=== PATIENT | male | born 1965 | race Caucasian/White ===

== ENCOUNTER 2020-12-29 13:40 | Inpatient (IN) | payer MEDICARE, MEDICAID, SELFPAY ==
[2020-12-29 14:15] VITALS: BMI 25.7
--- NOTE | 2020-12-29 14:55 | P.HP_ITS ---
Providers/Chief Complaint Admitting Physician: Jeromy Delgado MD Primary Care Provider: Tejinder Naranjo MD Chief Complaint: Diverticulitis History of Present Illness Yinka cMdaniels is a 55 year old male who presents as a transfer from [facility] with history of abdominal pain which he noticed around 3 AM this morning. He reports pain was rather severe, and he had a loose stool. No blood in his bowel movements. He has felt some chills but no documented fever. He reports yesterday he was doing fine and had no concerns. He denies any past history of diverticulitis. He reports no past history of constipation. He reports he has an occasional cough which is unchanged and consistent with his smoking. He denies any history of Covid, exposure to Covid or vaccination for it. He has had no vomiting. Review of Systems General: Reports: 10 or more systems reviewed and unremarkable except in HPI and below Const: Reports: chills; Denies: fever(s) Eyes: Denies: change in vision ENMT: Denies: throat pain Card: Denies: chest pain Resp: Denies: dyspnea GI: Reports: abdominal pain and nausea; Denies: vomiting, hematochezia or melena : Denies: flank pain Musc: Denies: neck pain Skin/Breast: Denies: rash Neuro: Denies: headache(s) Psych: Denies: anxiety or depression Endo: Denies: polyuria Jg/Lymph: Denies: easy bruising All/Imm: Denies: urticaria Medications/Allergies Home Medications Medication Instructions Recorded Confirmed Last Taken Type aspirin 325 mg tablet 325 mg PO DAILY 08/30/19 Unknown History famotidine 20 mg tablet 20 mg PO DAILY 08/30/19 Unknown History warfarin 5 mg tablet See Rx Instructions .ROUTE 05/23/20 Unknown Rx .COMPLEX #30 tab losartan 50 mg tablet See Rx Instructions .ROUTE 08/20/20 Unknown Rx .COMPLEX #90 tab carvedilol 12.5 mg tablet See Rx Instructions .ROUTE 09/26/20 Unknown Rx .COMPLEX #180 tab rosuvastatin 20 mg tablet 20 mg PO DAILY #90 tab 12/25/20 12/25/20 Unknown Rx warfarin 7.5 mg tablet See Rx Instructions .ROUTE 12/25/20 12/25/20 Unknown Rx .COMPLEX #90 tab Allergies Allergy/AdvReac Type Severity Reaction Status Date / Time No Known Allergies Allergy Verified 12/25/20 14:10 PFSH Acute PFSH: Medical History (Updated 12/29/20 @ 15:04 by Jeromy Delgado MD) Anticoagulation goal of INR 2 to 3 Atrial fibrillation CAD (coronary artery disease) GERD (gastroesophageal reflux disease) HTN (hypertension) Hyperlipidemia Ischemic cardiomyopathy Prostate cancer Surgical History (Updated 12/29/20 @ 14:58 by Jeromy Delgado MD) History of prostate biopsy S/P ICD (internal cardiac defibrillator) procedure Family History Other CHF (congestive heart failure) Social History Smoking and tobacco status: current every day smoker cigarettes Packs smoked per day: 0.5 Alcohol intake: current Alcohol intake frequency: holidays/special occasions only Vitals/I&O/Wt Weight last 48 hrs Weight 65.771 kg Physical Exam Narrative: EXAM NARRATIVE: General exam is a white male, with apparent abdominal pain HEENT: Atraumatic and normocephalic. Pupils equally round. Oropharynx clear. Neck is supple no lymphadenopathy or thyromegaly Cardiovascular regular rate and rhythm, no murmur Lungs bilateral expiratory wheezes Abdomen i some distention. A few bowel sounds are heard. Generalized tenderness. is deferred Extremities no cyanosis clubbing or edema, cap refill brisk Skin no rash Neuro no focal deficits Data Other data: CT abdomen pelvis or demonstrates severe diverticulitis with microperforation according to report from [facility]. Also has only one kidney, on the left. Urinalysis negative Lactate 2.0 Lipase normal, LFTs normal White blood cell count 15.3 hemoglobin 16.3 platelets 324 Glucose 157, sodium 141, potassium 5.0, bicarb 27, creatinine 0.8 A&P Assessment and plan (1) Acute diverticulitis: Severe, with concerns of peritonitis on CT scan. Hydration N.p.o. with exception to limited medications Pain control with morphine Nausea control with Zofran Secondary to severity of diverticulitis with microperforation will place on Primaxin Status: Acute (2) Leukocytosis: Secondary to above Status: Acute (3) On warfarin therapy: Hold Coumadin, in case surgical intervention is needed INR tomorrow Presumably the indication of this was atrial fibrillation in the past. Note that he is sinus rhythm currently on strips sent over from [facility]. Status: Acute (4) CAD (coronary artery disease): Continue home medications Status: Acute Qualifiers: Associated angina: without angina Coronary Disease-Associated Artery/Lesion type: [place] artery [place] vs. transplanted heart: [place] heart Qualified Code(s): I25.10 - Atherosclerotic heart disease of [place] coronary artery without angina pectoris (5) HTN (hypertension): Continue carvedilol. Hold HAYDER inhibitor. Consider restarting if becomes hypertensive Status: Acute Qualifiers: Hypertension type: essential hypertension Qualified Code(s): I10 - Essential (primary) hypertension Additional A&P Information Tobacco dependency. Counseled. Hyperlipidemia, continue home medicine History of prostate cancer Full code INR supratherapeutic on arrival. SCDs for DVT prophylaxis currently. Attestations Medical Necessity Statement*: Will need greater than 2 midnight stay for evaluation and treatment of acute diverticulitis. 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 transplanted heart: [place] heart HTN (hypertension) I10 Hypertension type: essential hypertension
[2020-12-29 15:16] VITALS: RESP 18
[2020-12-29] MEDS: sodium chloride 0.9% 1,000 ML 100 ML IV (15:16)
[2020-12-29] MEDS: morphine 4 mg/mL SDV 1 mL 2 MG IVP (15:16)
[2020-12-29] MEDS: famotidine 20 mg/2 mL INJ IVP (15:22)
[2020-12-29 15:35] VITALS: BP 109/69; PULSE 88; RESP 15; TEMP 37.1; O2SAT 92
[2020-12-29 16:06] VITALS: PULSE 87; RESP 17; O2SAT 91
[2020-12-29] MEDS: ipratropium-albuterol 3 mL Neb INHALATION (16:10)
--- NOTE | 2020-12-29 16:14 | PM.CONSULT ---
Providers/Reason For Consult Consulting Physician/Specialty*: Douglas Fink MD Reason for Consult*: Sigmoid diverticulitis Attending Physician: Jeromy Delgado MD Primary Care Provider: Tejinder Naranjo MD History of Present Illness History of Present Illness Chief Complaint: Abdominal pain History of present illness: Yinka Mcdaniels is a 55 year old male presents with history of acute onset of abdominal pain around 3:00 in the morning today as he went to the emergency department outside facility where a CT scan of the abdomen and pelvis was done and showed severe diverticulitis with microperforation and no evidence of abscess involving the proximal sigmoid colon. In addition to close association with the distal ileum with pockets of extraluminal air but no evidence of abscess. She undergone lab work that showed leukocytosis of 15.3, hemoglobin of 16.3, platelets 324, creatinine 0.8 and lactic acid of 2.0 and INR value of 3.9, patient has been on chronic warfarin therapy for history of atrial fibrillation and in addition to aspirin daily. A request of transfer to our facility was initiated and Dr. Delgado accepted the transfer as he did discuss the case with me prior to transfer for potential surgical consultation and follow-up on patient's clinical progress. Patient got admitted on the hospitalist service for medical management of medical comorbidities and general surgery was consulted for further evaluation. She reports that he never had episodes like that before showing diverticulitis yet he did have couple episodes before with lower abdominal pain but never had a CT scan, so patient reports when I asked him he never had a colonoscopy before and he denies history of colon cancer. He does report to me history of robotic surgery for prostate pathology. No evidence of constitutional symptoms except for some chills but no fevers and patient reports loose nonbloody stools Review of Systems General: Reports: 10 or more systems reviewed and unremarkable except in HPI and below Meds/Allergies Home Medications and Allergies Home Medications Medication Instructions Recorded Confirmed Last Taken Type aspirin 325 mg tablet 325 mg PO DAILY 08/30/19 Unknown History famotidine 20 mg tablet 20 mg PO DAILY 08/30/19 Unknown History warfarin 5 mg tablet See Rx Instructions .ROUTE 05/23/20 Unknown Rx .COMPLEX #30 tab rosuvastatin 20 mg tablet 20 mg PO DAILY #90 tab 12/25/20 12/25/20 Unknown Rx warfarin 7.5 mg tablet See Rx Instructions .ROUTE 12/25/20 12/25/20 Unknown Rx .COMPLEX #90 tab carvedilol 12.5 mg PO Q12H 12/29/20 12/29/20 Unknown History losartan 50 mg PO DAILY 12/29/20 12/29/20 Unknown History Allergies Allergy/AdvReac Type Severity Reaction Status Date / Time No Known Allergies Allergy Verified 12/29/20 16:15 Current Medications Current Medications Generic Name Dose Route Start Last Admin Trade Name Freq PRN Reason Stop Dose Admin Albuterol/Ipratropium 3 ml 12/29/20 14:54 12/29/20 16:10 Ipratropium-Albuterol 3 Ml Neb INHALATION 3 ml Q4H PRN Administration SHORTNESS OF BREATH Famotidine 20 mg 12/29/20 15:00 12/29/20 15:22 Famotidine 20 Mg/2 Ml Inj IVP 20 mg Q12H AZAEL Administration Sodium Chloride 1,000 mls @ 100 mls/hr 12/29/20 15:00 12/29/20 15:16 Sodium Chloride 0.9% IV 100 mls/hr .Q10H AZAEL Administration Morphine Sulfate 2 mg 12/29/20 14:49 12/29/20 15:16 Morphine 4 Mg/Ml Sdv 1 Ml IVP 2 mg Q4H PRN Administration SEVERE PAIN PFSH Acute PFSH: Medical History Anticoagulation goal of INR 2 to 3 Atrial fibrillation CAD (coronary artery disease) GERD (gastroesophageal reflux disease) HTN (hypertension) Hyperlipidemia Ischemic cardiomyopathy Prostate cancer Surgical History History of prostate biopsy S/P ICD (internal cardiac defibrillator) procedure Family History Other CHF (congestive heart failure) Social History Smoking and tobacco status: current every day smoker cigarettes Packs smoked per day: 0.5 Alcohol intake: current Alcohol intake frequency: holidays/special occasions only Vitals/I&O/Wt Last Vital Signs Temp 98.8 F 12/29/20 15:35 Pulse 87 12/29/20 16:06 Resp 17 12/29/20 16:06 BP 109/69 12/29/20 15:35 Pulse Ox 91 12/29/20 16:06 Weight last 48 hrs Weight 145 lb Physical Exam Narrative: EXAM NARRATIVE: Patient is conscious alert oriented X3 BMI 26 Head and neck examination PERRLA no masses no cervical lymphadenopathy no jaundice Cardiac examination audible S1-S2 no murmurs no gallops no arrhythmias Chest is clear bilateral,abscence of Rhonchi or wheezes,no surgical emphysema Abdomen diffusely tender with maximal tenderness towards the right lower quadrant and suprapubic region, moderately distended otherwise soft no organomegal. Extremities no cyanosis no clubbing no edema A&P Assessment and plan (1) Acute diverticulitis: After thorough history physical examination and reviewing the chart and images of the CT scan of the abdomen pelvis with my personal interpretation and further discussing the CT scan images with Dr. Bedolla radiologist, patient does have intense acute inflammatory process involving the sigmoid colon with microperforation and involvement of the surrounding small bowel particularly the terminal ileum and obvious mesenteric edema and inflammation of the surrounding small bowel as well. From surgical standpoint of view we will follow on the patient clinical progress Patient already placed on IV antibiotic in the form of Primaxin. IV pain medication ice packs to help to ease the pain Will hope that conservative management will help the patient yet if clinical deterioration is appreciated patient would likely require surgical intervention and there is a very good chance that he will end up by [facility] procedure with sigmoid colectomy and colostomy. We will follow on morning labs We will continue coordinating with the hospitalist service Assurance and education All questions have been answered and all concerns have been addressed to patient's satisfaction. Thank you for consulting general surgery to participate taking care Status: Acute Consult Attestations Medical Necessity Statement: Patient will require inpatient hospitalization passing 2 midnights for medical and surgical care Time Spent in Patient Care: 16 - 35 minutes (>than 50% of time spent in counselling and/or direct pt care on unit). 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
[2020-12-29 16:15] VITALS: PULSE 88
[2020-12-29] MEDS: carvedilol 12.5 mg Tablet PO (17:08)
[2020-12-29] MEDS: ketorolac 30 mg/mL INJ 15 MG IVP (18:12)
[2020-12-29 20:00] VITALS: BP 123/79; PULSE 84; RESP 18; TEMP 36.9; O2SAT 90
--- NOTE | 2020-12-29 20:09 | PC.RESP ---
Smoking Cessation information sent to patient.
[2020-12-29 20:33] VITALS: PULSE 87; RESP 16; O2SAT 92
[2020-12-30] VITALS (18 sets, daily range): BP systolic 125–145; BP diastolic 62–85; PULSE 68–88; RESP 16–20; TEMP 36.8–37.2; O2SAT 91–98
[2020-12-30] MEDS: sodium chloride 0.9% 1,000 ML 100 ML IV (00:08)
[2020-12-30] MEDS: ondansetron 2 mg/ML SDV 2 mL 4 MG IVP (00:24)
[2020-12-30] MEDS: morphine 4 mg/mL SDV 1 mL 2 MG IVP ×2 (00:24→06:18)
[2020-12-30] MEDS: famotidine 20 mg/2 mL INJ IVP ×2 (03:43→16:39)
[2020-12-30] MEDS: ipratropium-albuterol 3 mL Neb INHALATION ×4 (05:30→21:56)
--- NOTE | 2020-12-30 06:14 | PM.PN ---
Subjective Subjective: Interval history: Patient continues to have muscle spasms and abdominal pain with every time he coughs, I did order one dose of Toradol 15 mg IV one-time yesterday evening and that seemed to help some. Continues to have stable vital signs and good urine output Medications: Reviewed: Yes Vitals/I&O/Wt Last Vital Signs Temp 98.9 F 12/30/20 05:15 Pulse 87 12/30/20 05:38 Resp 18 12/30/20 05:29 BP 145/79 12/30/20 05:15 Pulse Ox 92 12/30/20 05:29 12/29/20 12/29/20 12/30/20 14:59 22:59 06:59 Intake Total 100 / 100 986.667 / 1086.667 Output Total 0 / 0 Balance 100 / 100 986.667 / 1086.667 Weight last 48 hrs Weight 145 lb Physical Exam Narrative: EXAM NARRATIVE: Patient is conscious alert oriented X3 BMI 26 Head and neck examination PERRLA no masses no cervical lymphadenopathy no jaundice Cardiac examination audible S1-S2 no murmurs no gallops no arrhythmias Chest bilateral rhonchi Abdomen LESS diffusely tender with maximal tenderness towards suprapubic region, moderately distended otherwise soft no organomegal. Extremities no cyanosis no clubbing no edema Data : 12/30/20 05:53 12/30/20 05:53 A&P Assessment and plan (1) Acute diverticulitis: Continue n.p.o. and IV fluid resuscitation IV antibiotics A.m. labs are pending and INR is added We will order Flexeril 10 mg p.o. every 8 hours as needed We will give Toradol another 15 mg IV once as it did seem to help some, patient received 1 dose yesterday evening Incentive spirometer every hour Continue nebs per RT and breathing treatment Repeated physical examination Thank you for consulting general surgery to participate taking care Status: Acute Attestations Medical Necessity Statement*: patient requiring inpatient hospitalization for medical and surgical care Time Spent in Patient Care: (>than 50% of time spent in counselling and/or direct pt care on unit). 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
[2020-12-30 06:21] LABS: Basophils # 0.1 10^3/uL (0.0-0.1); Basophils % 0.7 %; Eosinophils # 0.1 10^3/uL (0.0-0.8); Eosinophils % 0.9 %; Hematocrit 44.5 % (42.0-52.0); Hemoglobin 13.6 g/dL (11.7-16.6); Lymphocytes # 1.2 10^3/uL (0.8-4.8); Lymphocytes % 7.7 %; Mean Corpuscular HGB Conc 30.6 g/dL (30.0-36.0); Mean Corpuscular Hemoglobin 29.6 pg (28.0-34.0); Mean Corpuscular Volume 96.9 fL (80-94); Mean Platelet Volume 10.2 fL (7.4-10.4); Monocytes # 0.6 10^3/uL (0.2-0.9); Monocytes % 3.8 %; Neutrophils # 13.67 10^3/uL (1.8-7.7); Nucleated Red Blood Cells % 0 %; Platelet Count 205 10^3/cmm (130-400); Red Blood Count 4.59 10^6/uL (4.1-5.3); White Blood Count 15.9 10^3/uL (4.0-10.0)
[2020-12-30] MEDS: cyclobenzaprine 10 mg Tablet PO ×2 (06:21→21:36)
[2020-12-30 06:37] LABS: INR 2.99 (0.8-1.2)
[2020-12-30 06:53] LABS: Albumin Level 3.4 g/dL (3.5-5.2); Alkaline Phosphatase 64 IU/L (40-130); Blood Urea Nitrogen 17 mg/dL (6-20); Calcium 8.1 mg/dL (8.5-10.5); Carbon Dioxide 18 mmol/L (22-29); Chloride 104 mmol/L (98-107); Globulin 3.2 g/dL (1.3-4.6); Glomerular Filtration Rate 139.4 mL/min (90-130); Glucose 118 mg/dL (65-115); Osmolality Calculated 283 mOsm/kg (285-295); Sodium 135 mmol/L (136-145); Total Bilirubin 0.4 mg/dL (0.15-1.2); Total Protein 6.6 g/dL (6.6-8.7)
[2020-12-30 06:57] LABS: Alanine Aminotransferase 23 U/L (0-41); Anion Gap 17.8 (5-19); Aspartate Amino Transferase 21 U/L (0-40); Potassium 4.8 mmol/L (3.5-5.1)
[2020-12-30] MEDS: aspirin 325 mg EC Tablet PO (08:25)
[2020-12-30] MEDS: carvedilol 12.5 mg Tablet PO ×2 (08:25→17:57)
--- NOTE | 2020-12-30 08:54 | USCV_ITS ---
Arslan Yinka Age: 55 Gender: M : 1965 Exam Date: 12/30/2020 12:49 Ordering Phys: Clarence Luz MD Technologist: Yue Douglass [place] [facility] [place]: On coumadin, LV thrombus vs afib BP: 136 / 74 HR: 78 Rhythm: Sinus Technical Quality: Technically difficult study MEASUREMENTS (Male / Female) Normal Values 2D ECHO LV Diastolic Diameter PLAX 4.2 cm 4.2 - 5.9 / 3.9 - 5.3 cm LV Systolic Diameter PLAX 3.2 cm LV Chamber Size 4.1 cm IVS Diastolic Thickness 1.2 cm 0.6 - 1.0 / 0.6 - 0.9 cm IVS Systolic Thickness 1.2 cm LVPW Diastolic Thickness 1.1 cm 0.6 - 1.0 / 0.6 - 0.9 cm LVPW Systolic Thickness 1.2 cm RV Chamber Size 2.2 cm LVOT Diameter 1.9 cm LV Ejection Fraction 2D Teich 48.4 % LV Ejection Fraction MOD 2C 33.1 % LV Ejection Fraction 2C AL 33.5 % LA Diameter 2.4 cm LA Width 3.2 cm LA Height 5.0 cm RA Width 2.5 cm RA Height 3.9 cm Aorta at Sinotubular Diameter 1.9 cm M-MODE LV Diastolic Diameter MM 5.7 cm 4.2 - 5.9 / 3.9 - 5.3 cm LV Systolic Diameter MM 4.7 cm LV Ejection Fraction MM Teich 35.4 % IVS Diastolic Thickness MM 0.8 cm 0.6 - 1.0 / 0.6 - 0.9 cm IVS Systolic Thickness MM 0.8 cm LVPW Diastolic Thickness MM 1.3 cm 0.6 - 1.0 / 0.6 - 0.9 cm LVPW Systolic Thickness MM 1.4 cm Aortic Annulus Diameter 2.6 cm LA Ao Ratio MM 0.9 MV E Point Septal Separation 0.9 cm DOPPLER AV Peak Velocity 120.0 cm/s LVOT Peak Velocity 82.0 cm/s AV Area Cont Eq vti 1.9 cm squared AV Area Cont Eq pk 2.0 cm squared MV Area PHT 5.0 cm squared Mitral E to A Ratio 1.3 MV E' Velocity 57.5 cm/s Mitral E to MV E' Ratio 13.2 Mitral E to LV E' Lateral Ratio 13.7 Mitral E to LV E' Septal Ratio 12.8 TR Peak Velocity 239.0 cm/s TR Peak Gradient 22.8 mmHg TV Peak E Velocity 100.0 cm/s PV Peak Velocity 81.0 cm/s RV Acceleration Time 0.1 s RV Ejection Time 0.3 s RV AcT/ET 0.4 FINDINGS Left Ventricle Mildly dilated LV cavity. Diffuse hypokinesia of the septum, anteroseptum and the LV apex. LV ejection fraction of 37%. No filling defects or evidence of intracavitary thrombus Right Ventricle Catheter/pacemaker wire in the right ventricular cavity. Right Atrium Catheter/pacemaker wire in the right atrial cavity. Left Atrium Mildly increased left atrial size. Mitral Valve No gross abnormalities noted Aortic Valve No gross abnormalities noted Tricuspid Valve No gross abnormalities noted Pulmonic Valve Pulmonic valve not well visualized. Pericardium No pericardial effusion. Aorta Normal aortic annulus size. CONCLUSIONS Mildly dilated LV cavity. Diffuse hypokinesia of the septum, anteroseptum and the LV apex. LV ejection fraction of 37%. No gross valvular abnormalities noted. No significant pericardial effusion. Pacemaker wire in the right atrium/right ventricle No evidence of LV thrombus based on the contrast echocardiogram Technically difficult study because of the poor ultrasonic window. Contrast echocardiogram was performed to evaluate the LV Dr Kevon Eli MD FAC (Electronically Signed) Final Date: 31 December 2020 10:41 S
--- NOTE | 2020-12-30 10:09 | XRR_ITS ---
PROCEDURE INFORMATION: Exam: XR Chest Exam date and time: 12/30/2020 10:09 AM Age: 55 years old Clinical indication: Shortness of breath; Prior surgery; Surgery type: Pacemaker; Additional info: SOB TECHNIQUE: Imaging protocol: XR of the chest. Views: 1 view. COMPARISON: CT abdomen pelvis w con* [id number] 12/29/2020 8:18 AM FINDINGS: Tubes, catheters and devices: Two lead pacemaker device. Lungs: Unremarkable. No consolidation. Pleural spaces: Unremarkable. No pleural effusion. No pneumothorax. Heart/Mediastinum: Unremarkable. No cardiomegaly. Bones/joints: Unremarkable. Gastrointestinal tract: There are air-filled nondilated small bowel loops in the upper abdomen. XR/XR chest 1V portable [id number] IMPRESSION: No evidence for acute cardiopulmonary disease.
[2020-12-30 10:11] LABS: Estmated Average Glucose 114; Hemoglobin A1C 5.6 % (4.0-6.0)
[2020-12-30 11:04] LABS: NT Pro B Type Natriuretic Pept 972 pg/mL (0-125)
[2020-12-30] MEDS: ketorolac 30 mg/mL INJ 15 MG IVP (12:34)
[2020-12-30] MEDS: acetaminophen 325 mg Tablet 650 MG PO (12:34)
[2020-12-30] MEDS: dextrose 5%-sod chloride 0.45% 1,000 ML 50 ML IV (12:38)
--- NOTE | 2020-12-30 12:47 | P.PN_ITS ---
Subjective Subjective: Interval history: This morning patient was examined, he tells me that he continues to have abdominal pain, he had a bowel movement this morning it was liquidy, he is passing gas, no fevers, no chills, he does complain of some shortness of breath, he does not use oxygen at home, but is on 2 L here, Vitals/I&O/Wt Last Vital Signs Temp 98.4 F 12/30/20 11:50 Pulse 75 12/30/20 11:50 Resp 18 12/30/20 11:50 BP 136/74 12/30/20 11:50 Pulse Ox 97 12/30/20 11:50 12/29/20 12/30/20 12/30/20 22:59 06:59 14:59 Intake Total 100 / 100 986.667 / 9791.279 2173 / 1050 Output Total 0 / 0 Balance 100 / 100 986.667 / 5901.792 6310 / 1050 Weight last 48 hrs Weight 65.771 kg Physical Exam Const: COMMON NORMALS: no acute distress and patient oriented x3 Resp: COMMON NORMALS: normal respiratory effort, No retractions and No use of accessory muscles AUSCULTATION: crackles Cardio: COMMON NORMALS: regular rate, regular rhythm, S1 normal heart sound present and S2 normal heart sound present RATE: regular rate RHYTHM: regular rhythm HEART SOUNDS: S1 normal heart sound present and S2 normal heart sound present GI: COMMON NORMALS: Normal to inspection, nondistended, normoactive bowel s ounds present and no bruits AUSCULTATION: Yes Hypoactive bowel sounds present PALPATION: Yes Tenderness to palpation present (GI) (Generalized tenderness), No Guarding due to palpation present (GI) and No Rigid due to palpation Extremity: NARRATIVE EXTREMITY EXAM: 1+ edema Neuro: COMMON NORMALS: patient oriented x3 Psych: COMMON NORMALS: mental status grossly normal Data : 12/30/20 05:53 12/30/20 05:53 A&P Assessment and plan (1) Acute diverticulitis: Severe, with concerns of peritonitis on CT scan. Hold hydration for now given concerns for fluid overload N.p.o. with exception to limited medications Pain control transition to Dilaudid Nausea control with Zofran General surgery on consult Secondary to severity of diverticulitis with microperforation will place on Primaxin Status: Acute (2) Leukocytosis: Secondary to above Status: Acute (3) On warfarin therapy: Hold Coumadin, in case surgical intervention is needed INR 2.99 Presumably the indication of this was atrial fibrillation in the past versus atrial thrombus. Note that he is sinus rhythm currently on strips sent over from [facility]. We will do a cardiac echocardiogram was supposed to be done in January Status: Acute (4) CAD (coronary artery disease): Continue home medications Status: Acute Qualifiers: Coronary Disease-Associated Artery/Lesion type: [place] artery [place] vs. transplanted heart: citizen [place] heart Associated angina: without angina Qualified Code(s): I25.10 - Atherosclerotic heart disease of [place] coronary artery without angina pectoris (5) HTN (hypertension): Continue carvedilol. Hold HAYDER inhibitor. Consider restarting if becomes hypertensive Status: Acute Qualifiers: Hypertension type: essential hypertension Qualified Code(s): I10 - Essential (primary) hypertension (6) Ischemic cardiomyopathy: -Has evidence of fluid overload including crackles on exam, 2 L, 1+ pitting edema, BNP over 900, checks x-ray pending -Fluids were initially de-escalating to 50 cc/h, but continues to have crackles on exam, -Hold fluid therapy for now -Monitor respiratory status -40 mg IV Lasix with potassium replacement Status: Acute (7) Abnormal lead impedance of implantable cardioverter-defibrillator: Status: Acute Qualifiers: Encounter type: initial encounter Qualified Code(s): T82.190A - Other mechanical complication of cardiac electrode, initial encounter Additional A&P Information Tobacco dependency. Counseled. Hyperlipidemia, continue home medicine History of prostate cancer Full code INR 2.99. SCDs for DVT prophylaxis currently. Attestations Medical Necessity Statement*: Patient requires hospitalization for acute diverticulitis, with evidence of fluid overload, hypoxia Coding Level of Care Code Acute Acute Care Physician for [facility] Diagnoses Acute diverticulitis K57.92 Leukocytosis D72.829 On warfarin therapy Z79.01 CAD (coronary artery disease) I25.10 Coronary Disease-Associated Artery/Lesion type: [place] artery [place] vs. transplanted heart: citizen [place] heart Associated angina: without angina HTN (hypertension) I10 Hypertension type: essential hypertension Ischemic cardiomyopathy I25.5 Abnormal lead impedance of implantable cardioverter-defibrillator T82.190A Encounter type: initial encounter
[2020-12-30] MEDS: potassium chloride ER 20 mEq Tablet 40 MEQ PO (13:55)
[2020-12-30] MEDS: FUROsemide 10 mg/mL SDV 4mL 40 MG IVP (13:55)
[2020-12-30] MEDS: perflutren protein-a microsphr 0.22 mg/mL SDV 3 mL IV (13:57)
[2020-12-30] MEDS: HYDROmorphone 1 mg/mL INJ 1 mL 0.5 MG IVP (17:56)
[2020-12-30] MEDS: atorvastatin 40 mg Tablet PO (21:35)
[2020-12-31] VITALS (16 sets, daily range): BP systolic 127–155; BP diastolic 76–89; PULSE 79–88; RESP 16–20; TEMP 36.4–37.2; O2SAT 90–93
[2020-12-31] MEDS: HYDROmorphone 1 mg/mL INJ 1 mL 0.5 MG IVP ×4 (01:24→23:14)
[2020-12-31] MEDS: famotidine 20 mg/2 mL INJ IVP ×2 (03:04→17:02)
--- NOTE | 2020-12-31 06:38 | PM.PN ---
Subjective Subjective: Interval history: Patient reports that he is feeling better since admission and since he started to encounter the acute onset of abdominal pain. But still feels sore, continues to have stable vital signs and no fevers, passing gas and have some stools Medications: Reviewed: Yes Vitals/I&O/Wt Last Vital Signs Temp 98.2 F 12/31/20 04:00 Pulse 79 12/31/20 04:00 Resp 16 12/31/20 04:00 BP 141/84 12/31/20 04:00 Pulse Ox 92 12/31/20 04:00 12/30/20 12/30/20 12/31/20 14:59 22:59 06:59 Intake Total 1050 / 1050 160 / 1210 100 / 1310 Output Total 375 / 375 400 / 775 500 / 1275 Balance 675 / 675 -240 / 435 -400 / 35 Weight last 48 hrs Weight 145 lb Physical Exam Narrative: EXAM NARRATIVE: Patient is conscious alert oriented X3 Nasal cannula BMI 26 Head and neck examination PERRLA no masses no cervical lymphadenopathy no jaundice Cardiac examination audible S1-S2 no murmurs no gallops no arrhythmias Chest clear in comparison Abdomen LESS diffusely tender otherwise soft and no signs of peritonitis Data : 12/31/20 06:58 12/31/20 06:58 A&P Assessment and plan (1) Acute diverticulitis: We will start the patient on popsicles and continue ice Continue parenteral IV antibiotics Patient does have an ejection fraction of 25%, I did discuss with the patient that he is at higher risk for any surgical intervention, certainly he will benefit from cessation of smoking and medical optimization per cardiac services shall we decide to proceed with surgery at some point. Upon discharge patient would benefit from a colonoscopy in 6 to 8 weeks Continue nebs per RT and breathing treatment Repeated physical examination If patient's leukocytosis continue to be rising likely would repeat the CT scan with oral and IV contrast to rule out potential underlying abscess formation it may require percutaneous drainage. We will continue coordinating with hospitalist service Thank you for consulting general surgery to participate taking care Status: Acute Attestations Medical Necessity Statement*: patient requiring inpatient hospitalization for medical and surgical care Time Spent in Patient Care: (>than 50% of time spent in counselling and/or direct pt care on unit). Coding Level of Care Code Acute Child Development Specialist for Chg Fwd Diagnoses Acute diverticulitis K57.92
--- NOTE | 2020-12-31 07:00 | XRR_ITS ---
PROCEDURE INFORMATION: Exam: XR Chest Exam date and time: 12/31/2020 7:00 AM Age: 55 years old Clinical indication: Shortness of breath; Prior surgery; Surgery type: Pacemaker; Additional info: SOB TECHNIQUE: Imaging protocol: XR of the chest. Views: 1 view. COMPARISON: CR (CHEST, ) 12/30/2020 3:23 PM FINDINGS: Tubes, catheters and devices: A permanent sequential pacemaker appears intact. Lungs: Unremarkable. No consolidation. Pleural spaces: Unremarkable. No pleural effusion. No pneumothorax. Heart/Mediastinum: The heart is normal for the AP projection. Bones/joints: Unremarkable. XR/XR chest 1V portable [id number] IMPRESSION: No acute cardiopulmonary abnormality.
[2020-12-31] MEDS: ipratropium-albuterol 3 mL Neb INHALATION ×2 (07:42→15:39)
[2020-12-31 07:54] LABS: Basophils % 0.2 %; Eosinophils % 0.2 %; Hematocrit 45.8 % (42.0-52.0); Hemoglobin 14.5 g/dL (11.7-16.6); Lymphocytes # 1.2 10^3/uL (0.8-4.8); Lymphocytes % 6.7 %; Mean Corpuscular HGB Conc 31.7 g/dL (30.0-36.0); Mean Corpuscular Hemoglobin 29.2 pg (28.0-34.0); Mean Corpuscular Volume 92.2 fL (80-94); Monocytes # 0.9 10^3/uL (0.2-0.9); Neutrophils # 15.28 10^3/uL (1.8-7.7); Nucleated Red Blood Cells % 0 %; Platelet Count 242 10^3/cmm (130-400); Red Blood Count 4.97 10^6/uL (4.1-5.3); White Blood Count 17.6 10^3/uL (4.0-10.0)
[2020-12-31 08:08] LABS: INR 2.89 (0.8-1.2)
[2020-12-31 08:23] LABS: NT Pro B Type Natriuretic Pept 782 pg/mL (0-125); Procalcitonin 3.49 ng/mL (0-0.5)
[2020-12-31 08:34] LABS: Alanine Aminotransferase 18 U/L (0-41); Albumin Level 3.6 g/dL (3.5-5.2); Alkaline Phosphatase 68 IU/L (40-130); Aspartate Amino Transferase 12 U/L (0-40); Blood Urea Nitrogen 20 mg/dL (6-20); Calcium 8.9 mg/dL (8.5-10.5); Carbon Dioxide 21 mmol/L (22-29); Chloride 101 mmol/L (98-107); Globulin 3.6 g/dL (1.3-4.6); Glucose 127 mg/dL (65-115); Magnesium 2.1 mg/dL (1.7-2.3); Osmolality Calculated 288 mOsm/kg (285-295); Phosphorus 2.5 mg/dL (2.5-4.5); Sodium 137 mmol/L (136-145); Total Bilirubin 0.4 mg/dL (0.15-1.2); Total Protein 7.2 g/dL (6.6-8.7)
[2020-12-31] MEDS: cyclobenzaprine 10 mg Tablet PO ×2 (11:09→18:00)
[2020-12-31] MEDS: carvedilol 12.5 mg Tablet PO ×2 (11:09→17:02)
[2020-12-31] MEDS: aspirin 325 mg EC Tablet PO (11:09)
--- NOTE | 2020-12-31 12:11 | PC.CHAP ---
Pastoral Care Encounter/Spiritual Assessment Type of Contact [] Declined mind reader visit [] Patient/Family/Request visit [] Outpatient visit [] Follow-up visit [] Physician referral [] Code/Alert [XX] Routine visit [] Staff referral [] Actively dying [XX] Patient sleeping [] Family support [] [] Out of room [] Palliative care [] [] Receiving care in room [] Pre-surgical visit [] Trauma [] Long length of stay [] ICU visit [] Other: Relational/Emotional Strength [] Patient feels connected with others/family/visitors/staff [] Distress [] Loneliness/isolation [] Abandonment Spirituality of Patient [] Person of Lydia [] Attends Taoist of their Lydia [] Believes in Prayer [] Reads Bible or Tenriism materials [] There are Spiritual issues to be addressed [employer] Interventions [] Prayer [] Active listening [] Non-anxious presence [] Spiritual/emotional support [] Crisis/trauma care [] Spiritual counseling [] Bereavement support [] Provided bereavement packet [] Provided Bible/devotional materials [] Provided toy/stuffed animal, coloring book to patient or family member [] Provided Communion [] Anointing/Nathalie [] Salvation [] Completed spiritual assessment [] Other: Impact on Illness or Injury [] Angry [] Fearful [] Anxious [] Often cries [] Exhaustion [] Unable to work [] Unable to attend restorationist [] Unable to walk/stand [] Unable to read [] Unable to drive [] Unable to eat/drink [] Unable to sleep [] Unable to be with family [] Patient intubated [] Other: Summary Time spent with patient
--- NOTE | 2020-12-31 15:28 | PM.PN ---
Subjective Subjective: Interval history: Abdominal pain still bothering him with pain, distention, but slowly getting better. Having some sweats. He is having loose stools. States no trouble with urinating. Some belching. Tolerating ice chips to which was advanced by surgery earlier today. States he feels hungry. Vitals/I&O/Wt Last Vital Signs Temp 98.4 F 12/31/20 12:00 Pulse 82 12/31/20 12:00 Resp 16 12/31/20 12:00 BP 128/82 12/31/20 12:00 Pulse Ox 92 12/31/20 12:00 12/31/20 12/31/20 12/31/20 06:59 14:59 22:59 Intake Total 100 / 1310 340 / 340 Output Total 500 / 1275 150 / 150 Balance -400 / 35 190 / 190 Physical Exam Const: COMMON NORMALS: no acute distress and patient oriented x3 HENMT: COMMON NORMALS: oropharynx normal Neck/C-Spine: COMMON NORMALS: no JVD Resp: COMMON NORMALS: normal respiratory effort and clear to auscultation bilaterally AUSCULTATION: clear to auscultation bilaterally Cardio: COMMON NORMALS: no JVD, regular rhythm, S1 normal heart sound present, S2 normal heart sound present and No murmurs present (Cardio) RHYTHM: regular rhythm HEART SOUNDS: S1 normal heart sound present and S2 normal heart sound present GI: COMMON NORMALS: Normal to inspection, nondistended, normoactive bowel sounds present, Soft to palpation and non-tender INSPECTION: Yes abdominal distension PALPATION: Yes Soft to palpation and Yes Tenderness to palpation present (GI) Extremity: COMMON NORMALS: no joint enlargement and no pedal edema Neuro: COMMON NORMALS: patient oriented x3 and moves all extremities Skin: COMMON NORMALS: no rashes or lesions noted GENERAL SKIN EXAM: no rashes or lesions noted Data : 12/31/20 06:58 12/31/20 06:58 A&P Assessment and plan (1) Acute diverticulitis: Having some sweats, still abdominal pain, distention. Compared to how he was feels he is gradually improving. Leukocytosis persists. He is afebrile. Reports he is feeling hungry. For now continue on bowel rest. Discussed with him concern regarding microperforations/intraperitoneal translocation. He verbalized understanding. He will let us know in case there is any changes with his symptoms, difficulty urinating, etc. Continue IV antibiotic. Continue to monitor condition closely in the hospital. Severe, with concerns of peritonitis on CT scan. In case of worsening low threshold for additional repeat imaging to exclude complicated diverticulitis. Appreciate surgery recommendations. N.p.o. with exception to limited medications Pain control w Dilaudid Nausea control with Zofran Status: Acute (2) Leukocytosis: Secondary to above Status: Acute (3) On warfarin therapy: Hold Coumadin, in case surgical intervention is needed INR 2.99 Presumably the indication of this was atrial fibrillation in the past versus atrial thrombus. Note that he is sinus rhythm currently on strips sent over from [facility]. Status: Acute (4) CAD (coronary artery disease): Continue home medications Status: Acute Qualifiers: Coronary Disease-Associated Artery/Lesion type: [place] artery [place] vs. transplanted heart: [place] heart Associated angina: without angina Qualified Code(s): I25.10 - Atherosclerotic heart disease of [place] coronary artery without angina pectoris (5) HTN (hypertension): Currently at goal 128/82. Continue carvedilol. Hold HAYDER inhibitor. Consider restarting if becomes hypertensive Status: Acute Qualifiers: Hypertension type: essential hypertension Qualified Code(s): I10 - Essential (primary) hypertension (6) Ischemic cardiomyopathy: EF with improvement to 37%. Diffuse hypokinesia of septum. Mildly dilated LV cavity. With mild systolic CHF exacerbation noted yesterday fluids were discontinued. Diuresis achieved with IV Lasix. This morning x-ray looks okay. Appears compensated. Hold additional Lasix. Status: Acute Additional A&P Information Tobacco dependency. Encourage cessation. Hyperlipidemia, continue home medicine History of prostate cancer Attestations Medical Necessity Statement*: Continue admission for assessment management of diverticulitis, microperforation in the setting of chronic ischemic cardiomyopathy, systolic CHF with EF 37%. Coding Level of Care Code Acute Commercial Illustrator for Darrin Spear Diagnoses Acute diverticulitis K57.92 Leukocytosis D72.829 On warfarin therapy Z79.01 CAD (coronary artery disease) I25.10 Coronary Disease-Associated Artery/Lesion type: [place] artery [place] vs. transplanted heart: [place] heart Associated angina: without angina HTN (hypertension) I10 Hypertension type: essential hypertension Ischemic cardiomyopathy I25.5
[2020-12-31] MEDS: zolpidem 5 mg Tablet PO (21:43)
[2020-12-31] MEDS: atorvastatin 40 mg Tablet PO (21:43)
[2021-01-01] VITALS (16 sets, daily range): BP systolic 130–155; BP diastolic 86–89; PULSE 76–86; RESP 16–20; TEMP 36.4–37.3; O2SAT 90–94
[2021-01-01] MEDS: famotidine 20 mg/2 mL INJ IVP ×2 (03:14→14:47)
[2021-01-01] MEDS: HYDROmorphone 1 mg/mL INJ 1 mL 0.5 MG IVP ×4 (03:14→21:25)
[2021-01-01 04:02] LABS: Basophils # 0.1 10^3/uL (0.0-0.1); Basophils % 0.3 %; Eosinophils # 0.2 10^3/uL (0.0-0.8); Eosinophils % 1.2 %; Hematocrit 43.7 % (42.0-52.0); Hemoglobin 13.9 g/dL (11.7-16.6); Lymphocytes % 6.1 %; Mean Corpuscular HGB Conc 31.8 g/dL (30.0-36.0); Mean Platelet Volume 10.9 fL (7.4-10.4); Monocytes # 1.2 10^3/uL (0.2-0.9); Monocytes % 7.2 %; Neutrophils # 13.79 10^3/uL (1.8-7.7); Neutrophils % 83.4 %; Nucleated Red Blood Cells % 0 %; Platelet Count 270 10^3/cmm (130-400); Red Cell Distribution Width 15.8 % (12.1-15.1); White Blood Count 16.5 10^3/uL (4.0-10.0)
[2021-01-01 04:16] LABS: INR 2.51 (0.8-1.2)
[2021-01-01 04:36] LABS: NT Pro B Type Natriuretic Pept 1008 pg/mL (0-125); Procalcitonin 1.78 ng/mL (0-0.5)
[2021-01-01 04:47] LABS: Alanine Aminotransferase 15 U/L (0-41); Albumin Level 3.4 g/dL (3.5-5.2); Alkaline Phosphatase 69 IU/L (40-130); Anion Gap 17.9 (5-19); Aspartate Amino Transferase 13 U/L (0-40); Blood Urea Nitrogen 22 mg/dL (6-20); C Reactive Protein 339.6 mg/L (0.0-4.9); Calcium 8.8 mg/dL (8.5-10.5); Carbon Dioxide 23 mmol/L (22-29); Chloride 102 mmol/L (98-107); Globulin 3.5 g/dL (1.3-4.6); Glomerular Filtration Rate 139.4 mL/min (90-130); Glucose 126 mg/dL (65-115); Magnesium 2.1 mg/dL (1.7-2.3); Osmolality Calculated 293 mOsm/kg (285-295); Phosphorus 2.6 mg/dL (2.5-4.5); Potassium 3.9 mmol/L (3.5-5.1); Sodium 139 mmol/L (136-145); Total Bilirubin 0.3 mg/dL (0.15-1.2); Total Protein 6.9 g/dL (6.6-8.7)
--- NOTE | 2021-01-01 07:12 | P.PN_ITS ---
Subjective Subjective: Interval history: Patient overall feels better with regard to his abdominal symptoms yet his breathing is getting more challenging and the patient reports to me when I asked him that he is a mouth breather and that accumulates more gas in his abdomen in addition using his abdominal wall muscles as accessory muscles. Patient reports that he is moving his bowels and passing gas. Trending down leukocytosis to 16.5 today, no evidence of tachycardia or reported fevers and he feels that he wants something to eat. Medications: Reviewed: Yes Vitals/I&O/Wt Last Vital Signs Temp 97.7 F 01/01/21 04:00 Pulse 79 01/01/21 06:00 Resp 17 01/01/21 04:00 BP 155/87 01/01/21 04:00 Pulse Ox 90 01/01/21 04:00 12/31/20 01/01/21 01/01/21 22:59 06:59 14:59 Intake Total 220 / 560 220 / 780 Output Total 350 / 500 Balance 220 / 410 -130 / 280 Physical Exam Narrative: EXAM NARRATIVE: Patient is conscious alert oriented X3 Nasal cannula BMI 26 Head and neck examination PERRLA no masses no cervical lymphadenopathy no jaundice Cardiac examination audible S1-S2 no murmurs no gallops no arrhythmias Chest scattered rhonchi and wheezes on both lung field Abdomen right lower quadrant tenderess otherwise soft and no signs of peritonitis Data : 01/01/21 03:15 01/01/21 03:15 A&P Assessment and plan (1) Acute diverticulitis: We will start the patient slowly on clear liquid diet Continue parenteral IV antibiotics Aspiration precautions Breathing treatment per respiratory service Repeated physical examination thing We will continue coordinating with hospitalist service Thank you for consulting general surgery to participate taking care Status: Acute Attestations Medical Necessity Statement*: Patient requiring hospitalization crossing 2 midnights for medical care and surgical follow-up Time Spent in Patient Care: (>than 50% of time spent in counselling and/or direct pt care on unit) . Coding Level of Care Code Acute Mandarin Speaking Nanny for Darrin Separ Diagnoses Acute diverticulitis K57.92
[2021-01-01] MEDS: ipratropium-albuterol 3 mL Neb INHALATION ×2 (08:20→20:05)
[2021-01-01] MEDS: cyclobenzaprine 10 mg Tablet PO ×3 (09:03→21:27)
[2021-01-01] MEDS: carvedilol 12.5 mg Tablet PO ×2 (09:03→18:26)
[2021-01-01] MEDS: aspirin 325 mg EC Tablet PO (09:03)
--- NOTE | 2021-01-01 16:10 | PC.SOCIAL ---
IMM UPDATE Gave patient IMM update. Provided copy of pg 2. Verbalized understanding. 01/01/21 @ 0904 Initialed, dated, timed and placed in chart.
--- NOTE | 2021-01-01 21:21 | P.PN_ITS ---
Subjective Subjective: Interval history: Coughing after drinking some food today. Cough, wheezing. Vitals/I&O/Wt Last Vital Signs Temp 98.3 F 01/01/21 20:00 Pulse 80 01/01/21 20:07 Resp 18 01/01/21 20:02 BP 148/87 01/01/21 20:00 Pulse Ox 94 01/01/21 20:02 01/01/21 01/01/21 01/01/21 06:59 14:59 22:59 Intake Total 220 / 780 340 / 340 150 / 490 Output Total 350 / 500 Balance -130 / 280 340 / 340 150 / 490 Physical Exam Const: COMMON NORMALS: no acute distress and patient oriented x3 HENMT: COMMON NORMALS: oropharynx normal Neck/C-Spine: COMMON NORMALS: no JVD Resp: COMMON NORMALS: normal respiratory effort AUSCULTATION: wheezes Cardio: COMMON NORMALS: no JVD, regular rhythm, S1 normal heart sound present, S2 normal heart sound present and No murmurs present (Cardio) RHYTHM: regular rhythm HEART SOUNDS: S1 normal heart sound present and S2 normal heart sound present GI: COMMON NORMALS: Normal to inspection, nondistended, normoactive bowel sounds present, Soft to palpation and non-tender INSPECTION: Yes abdominal distension PALPATION: Yes Soft to palpation and Yes Tenderness to palpation present (GI) Extremity: COMMON NORMALS: no joint enlargement and no pedal edema Neuro: COMMON NORMALS: patient oriented x3 and moves all extremities Skin: COMMON NORMALS: no rashes or lesions noted GENERAL SKIN EXAM: no rashes or lesions noted Data : 01/01/21 03:15 01/01/21 03:15 A&P Assessment and plan (1) Aspiration pneumonitis: Reports coughing with drinking some liquids. Will request speech therapy evaluation. Maintain aspiration precautions. Continue to biotic at this time, will assess chest x-ray. Status: Acute (2) Acute diverticulitis: Surgery progress him to trial of clear liquids today. Monitor in the hospital, continue IV antibiotic given persistent leukocytosis, some abdominal t enderness and distention. Severe, with concerns of peritonitis on CT scan. In case of worsening low threshold for additional repeat imaging to exclude complicated diverticulitis. Appreciate surgery recommendations. Pain control w Dilaudid Nausea control with Zofran Status: Acute (3) Leukocytosis: Secondary to above Status: Acute (4) On warfarin therapy: Coumadin on hold, in case surgical intervention is needed Presumably the indication of this was atrial fibrillation in the past versus atrial thrombus. Note that he is sinus rhythm currently on strips sent over from [facility]. Status: Acute (5) CAD (coronary artery disease): Continue home medications Status: Acute Qualifiers: Coronary Disease-Associated Artery/Lesion type: [place] artery [place] vs. transplanted heart: [place] heart Associated angina: without angina Quali fied Code(s): I25.10 - Atherosclerotic heart disease of [place] coronary artery without angina pectoris (6) HTN (hypertension): Currently close to goal. Continue carvedilol. Hold HAYDER inhibitor. Consider restarting if becomes hypertensive Status: Acute Qualifiers: Hypertension type: essential hypertension Qualified Code(s): I10 - Essential (primary) hypertension (7) Ischemic cardiomyopathy: EF with improvement to 37%. Diffuse hypokinesia of septum. Mildly dilated LV cavity. With mild systolic CHF exacerbation noted yesterday fluids were discontinued. Diuresis achieved with IV Lasix. This morning x-ray looks okay. Appears compensated. Hold additional Lasix. Status: Acute Additional A&P Information Tobacco dependency. Encourage cessation. Hyperlipidemia, continue home medicine History of prostate cancer Attestations Medical Necessity Statement*: Continue admission for IV antibiotic management of severe diverticulitis, trial of clear liquid diet, assessment of aspiration pneumonitis, possible pneumonia. Coding Level of Care Code Acute Refrigeration Manager for Darrin Spear Diagnoses Aspiration pneumonitis J69.0 Acute diverticulitis K57.92 Leukocytosis D72.829 On warfarin therapy Z79.01 CAD (coronary artery disease) I25.10 Coronary Disease-Associated Artery/Lesion type: [place] artery [place] vs. transplanted heart: [place] heart Associated angina: without angina HTN (hypertension) I10 Hypertension type: essential hypertension Ischemic cardiomyopathy I25.5
[2021-01-01] MEDS: atorvastatin 40 mg Tablet PO (21:26)
[2021-01-02] VITALS (18 sets, daily range): BP systolic 125–152; BP diastolic 77–93; PULSE 79–89; RESP 16–20; TEMP 36.3–37; O2SAT 92–95
[2021-01-02 02:12] LABS: Basophils % 0.3 %; Eosinophils # 0.2 10^3/uL (0.0-0.8); Eosinophils % 1.4 %; Hematocrit 41.5 % (42.0-52.0); Hemoglobin 13.6 g/dL (11.7-16.6); Lymphocytes # 1.2 10^3/uL (0.8-4.8); Mean Corpuscular HGB Conc 32.8 g/dL (30.0-36.0); Mean Corpuscular Hemoglobin 28.8 pg (28.0-34.0); Mean Corpuscular Volume 87.9 fL (80-94); Mean Platelet Volume 10.3 fL (7.4-10.4); Monocytes # 1.7 10^3/uL (0.2-0.9); Monocytes % 11.6 %; Neutrophils # 11.34 10^3/uL (1.8-7.7); Neutrophils % 78.3 %; Nucleated Red Blood Cells % 0 %; Platelet Count 271 10^3/cmm (130-400); Red Blood Count 4.72 10^6/uL (4.1-5.3); Red Cell Distribution Width 15.8 % (12.1-15.1); White Blood Count 14.5 10^3/uL (4.0-10.0)
[2021-01-02] MEDS: HYDROmorphone 1 mg/mL INJ 1 mL 0.5 MG IVP ×3 (02:12→17:48)
[2021-01-02] MEDS: famotidine 20 mg/2 mL INJ IVP ×2 (02:12→15:03)
[2021-01-02 02:27] LABS: INR 2.69 (0.8-1.2)
[2021-01-02] MEDS: ipratropium-albuterol 3 mL Neb INHALATION ×3 (02:34→15:00)
[2021-01-02 02:35] LABS: Alanine Aminotransferase 18 U/L (0-41); Albumin Level 3.5 g/dL (3.5-5.2); Alkaline Phosphatase 68 IU/L (40-130); Anion Gap 14.9 (5-19); Aspartate Amino Transferase 23 U/L (0-40); Blood Urea Nitrogen 21 mg/dL (6-20); C Reactive Protein 274.4 mg/L (0.0-4.9); Calcium 8.7 mg/dL (8.5-10.5); Carbon Dioxide 27 mmol/L (22-29); Chloride 100 mmol/L (98-107); Globulin 3.3 g/dL (1.3-4.6); Glomerular Filtration Rate 139.4 mL/min (90-130); Glucose 123 mg/dL (65-115); Osmolality Calculated 290 mOsm/kg (285-295); Potassium 3.9 mmol/L (3.5-5.1); Sodium 138 mmol/L (136-145); Total Bilirubin 0.6 mg/dL (0.15-1.2); Total Protein 6.8 g/dL (6.6-8.7)
[2021-01-02 02:52] LABS: NT Pro B Type Natriuretic Pept 1194 pg/mL (0-125); Procalcitonin 0.81 ng/mL (0-0.5)
--- NOTE | 2021-01-02 04:20 | PC.NURSE ---
SHIFT SUMMARY LITTLE CHANGE WITH PATIENT THROUGHOUT THIS SHIFT - PT REMAINS ON 02 2.5LNC - HAS CONTINUED TO DENY SHORTNESS OF BREATH - CONGESTED COUGH NOTED WITH PTS INABILITY TO COUGH UP ANY AMOUNT OF SPUTUM - ABD REMAINS FIRM, DISTENDED AND TENDER - BS NOTED - PT HAS NOT HAD BM THIS SHIFT - PT HAS REQUIRED BOTH IV AND ORAL PAIN MED - RELIEF NOTED - NOTED URINE TO REMAIN DARK THROUGHOUT SHIFT - SEE I&O FOR OUTPUT - PT CURRENTLY VOICES NO COMPLAINTS OR NEEDS UP TO THIS POINT
--- NOTE | 2021-01-02 06:00 | XRR_ITS ---
PROCEDURE INFORMATION: Exam: XR Chest Exam date and time: 01/02/2021 6:00 AM Age: 55 years old Clinical indication: Other: Hypoxia TECHNIQUE: Imaging protocol: XR of the chest. Views: 1 view. COMPARISON: CR (CHEST, ) 12/31/2020 8:24 AM FINDINGS: Tubes, catheters and devices: AICD. Lungs: Asymmetric elevation of the right hemidiaphragm and trace right basilar airspace disease. Pleural spaces: No significant pleural effusion. Heart/Mediastinum: No cardiomegaly. Bones/joints: Mild degenerative change. Gastrointestinal tract: Marked bowel dilatation in the visualized upper abdomen. XR/XR chest 1V portable [id number] IMPRESSION: 1. Asymmetric elevation of the right hemidiaphragm and trace right basilar airspace disease. 2. Marked bowel dilatation in the visualized upper abdomen.
--- NOTE | 2021-01-02 06:14 | P.PN_ITS ---
Subjective Subjective: Interval history: Patient overall feels better and tolerating p.o. intake, passing gas and having nonbloody bowel movements. Medications: Reviewed: Yes Vitals/I&O/Wt Last Vital Signs Temp 98.2 F 01/02/21 04:00 Pulse 89 01/02/21 05:54 Resp 16 01/02/21 04:00 BP 152/84 01/02/21 04:00 Pulse Ox 93 01/02/21 04:00 01/01/21 01/01/21 01/02/21 14:59 22:59 06:59 Intake Total 340 / 340 150 / 490 220 / 710 Output Total 350 / 350 200 / 550 Balance 340 / 340 -200 / 140 20 / 160 Physical Exam Narrative: EXAM NARRATIVE: Patient is conscious alert oriented X3 Nasal cannula BMI 26 Head and neck examination PERRLA no masses no cervical lymphadenopathy no jaundice Abdomen right lower quadrant LESS tenderess otherwise soft and no signs of peritonitis, moderately distended Data : 01/03/21 02:27 01/03/21 02:27 A&P Assessment and plan (1) Acute diverticulitis: Advance to full liquid diet Continue parenteral IV antibiotics Aspiration precautions Breathing treatment per respiratory service Repeated physical examination thing We will continue coordinating with hospitalist service Thank you for consulting general surgery to participate taking care Status: Acute Attestations Medical Necessity Statement*: Patient requiring hospitalization crossing 2 midnights for medical care and surgical follow-up Time Spent in Patient Care: (>than 50% of time spent in counselling and/or dir ect pt care on unit) . Coding Level of Care Code Acute Marketing Sales Supervisor for Darrin Spear Diagnoses Acute diverticulitis K57.92
[2021-01-02] MEDS: aspirin 325 mg EC Tablet PO (07:34)
[2021-01-02] MEDS: carvedilol 12.5 mg Tablet PO ×2 (07:34→17:46)
--- NOTE | 2021-01-02 13:13 | PM.PN ---
Subjective Subjective: Interval history: Abdomen still feels distended. Still with some pain there. Continues coughing, wheezing. Continues to require oxygen. Vitals/I&O/Wt Last Vital Signs Temp 97.4 F L 01/02/21 11:52 Pulse 82 01/02/21 11:52 Resp 17 01/02/21 11:52 BP 126/87 01/02/21 11:52 Pulse Ox 93 01/02/21 11:52 01/01/21 01/02/21 01/02/21 22:59 06:59 14:59 Intake Total 150 / 490 220 / 710 200 / 200 Output Total 350 / 350 200 / 550 Balance -200 / 140 20 / 160 200 / 200 Physical Exam Const: COMMON NORMALS: no acute distress and patient oriented x3 HENMT: COMMON NORMALS: oropharynx normal Neck/C-Spine: COMMON NORMALS: no JVD Resp: COMMON NORMALS: normal respiratory effort AUSCULTATION: wheezes Cardio: COMMON NORMALS: no JVD, regular rhythm, S1 normal heart sound present, S2 normal heart sound present and No murmurs present (Cardio) RHYTHM: regular rhythm HEART SOUNDS: S1 normal heart sound present and S2 normal heart sound present GI: COMMON NORMALS: Normal to inspection, nondistended, normoactive bowel sounds present INSPECTION: Yes abdominal distension PALPATION: Yes Firmness to palpation present (GI) and Yes Tenderness to palpation present (GI) Extremity: COMMON NORMALS: no joint enlargement and no pedal edema Neuro: COMMON NORMALS: patient oriented x3 and moves all extremities Skin: COMMON NORMALS: no rashes or lesions noted GENERAL SKIN EXAM: no rashes or lesions noted Data : 01/02/21 02:03 01/02/21 02:03 A&P Assessment and plan (1) Aspiration pneumonitis: Continues with hypoxia, requiring 3 L nasal cannula oxygen. Not normally on oxygen. Cough, wheezing. Assessed by speech therapy with recommendation for additional assessment with regards to consideration of possible benefit to thicken liquids. Recommending also depending on progress consideration of possible MBS. Continue Primaxin at this time. Given wheezing/bronchospasm continue breathing treatments. Although significant bronchospasm, avoid steroids due to intra-abdominal infection. Abdominal distention is not helping as well. Continue antibiotics for severe diverticulitis. Status: Acute (2) Acute diverticulitis: Abdomen still distended, firm. Passing gas. Denies eructation. Lower abdominal discomfort. Reports some urinary hesitancy. Will assess by bladder scan. Leukocytosis with slow improvement, down to 14.5. Continue IV antibiotic for now for severe diverticulitis with peritoneal features. He is advanced to trial of full liquids by surgery. Continue speech therapy evaluation, aspiration precautions due to aspiration and pneumonia. In case of worsening low threshold for additional repeat imaging to exclude complicated diverticulitis. Pain control w Dilaudid Nausea control with Zofran Status: Acute (3) Leukocytosis: Slowly improving. Down to 14.5. Status: Acute (4) On warfarin therapy: Coumadin on hold, in case surgical intervention is needed. If continues to improve consider resuming warfarin. Presumably the indication of this was atrial fibrillation in the past versus atrial thrombus. Note that he is sinus rhythm currently on strips sent over from [facility]. Status: Acute (5) CAD (coronary artery disease): Continue home medications Status: Acute Qualifiers: Coronary Disease-Associated Artery/Lesion type: [place] artery [place] vs. transplanted heart: [place] heart Associated angina: without angina Qualified Code(s): I25.10 - Atherosclerotic heart disease of [place] coronary artery without angina pectoris (6) HTN (hypertension): Currently close to goal. Continue carvedilol. Hold HAYDER inhibitor. Consider restarting if becomes hypertensive Status: Acute Qualifiers: Hypertension type: essential hypertension Qualified Code(s): I10 - Essential (primary) hypertension (7) Ischemic cardiomyopathy: EF with improvement to 37%. Diffuse hypokinesia of septum. Mildly dilated LV cavity. With mild systolic CHF exacerbation noted yesterday fluids were discontinued. Diuresis achieved with IV Lasix. This morning x-ray looks okay. Appears compensated. Hold additional Lasix. Continue to reassess volume status. Status: Acute Additional A&P Information Tobacco dependency. Encourage cessation. Hyperlipidemia, continue home medicine History of prostate cancer Attestations Medical Necessity Statement*: Continue admission for additional evaluation of aspiration pneumonia, hypoxia, exacerbated by abdominal distention with severe, slow to improve diverticulitis with peritoneal features. Coding Level of Care Code Acute Front Office Java Developer for Darrin Spear Diagnoses Aspiration pneumonitis J69.0 Acute diverticulitis K57.92 Leukocytosis D72.829 On warfarin therapy Z79.01 CAD (coronary artery disease) I25.10 Coronary Disease-Associated Artery/Lesion type: [place] artery [place] vs. transplanted heart: [place] heart Associated angina: without angina HTN (hypertension) I10 Hypertension type: essential hypertension Ischemic cardiomyopathy I25.5
--- NOTE | 2021-01-02 13:56 | US_ITS ---
WS: [id number] Abdominal ultrasound, limited. History: Evaluate for ascites. Comparison: None. All 4 quadrants are imaged by ultrasound to evaluate for ascites. There is a very small amount of flu id posterior to the liver. US/US abdomen limited [id number] IMPRESSION: Minimal ascites adjacent to the liver.
[2021-01-02] MEDS: FUROsemide 10 mg/mL SDV 4mL 40 MG IVP (15:03)
[2021-01-02] MEDS: atorvastatin 40 mg Tablet PO (21:50)
[2021-01-03] VITALS (12 sets, daily range): BP systolic 126–133; BP diastolic 84–88; PULSE 84–110; RESP 14–20; TEMP 36.7–37.2; O2SAT 87–94
[2021-01-03] MEDS: HYDROmorphone 1 mg/mL INJ 1 mL 0.5 MG IVP (00:07)
[2021-01-03] MEDS: ipratropium-albuterol 3 mL Neb INHALATION ×2 (02:11→08:43)
[2021-01-03 03:00] LABS: Basophils # 0.1 10^3/uL (0.0-0.1); Basophils % 0.7 %; Eosinophils # 0.3 10^3/uL (0.0-0.8); Eosinophils % 2.4 %; Hematocrit 45.8 % (42.0-52.0); Hemoglobin 14.9 g/dL (11.7-16.6); Lymphocytes % 9.8 %; Mean Corpuscular HGB Conc 32.5 g/dL (30.0-36.0); Mean Corpuscular Hemoglobin 28.6 pg (28.0-34.0); Mean Corpuscular Volume 87.9 fL (80-94); Monocytes # 0.9 10^3/uL (0.2-0.9); Monocytes % 8.3 %; Neutrophils # 7.97 10^3/uL (1.8-7.7); Neutrophils % 77.4 %; Nucleated Red Blood Cells % 0 %; Platelet Count 274 10^3/cmm (130-400); Red Blood Count 5.21 10^6/uL (4.1-5.3); Red Cell Distribution Width 15.8 % (12.1-15.1); White Blood Count 10.3 10^3/uL (4.0-10.0)
[2021-01-03 03:35] LABS: Slide Review Slide Review Perform
[2021-01-03 03:36] LABS: INR 2.57 (0.8-1.2)
[2021-01-03 03:43] LABS: Alanine Aminotransferase 19 U/L (0-41); Albumin Level 3.1 g/dL (3.5-5.2); Alkaline Phosphatase 82 IU/L (40-130); Anion Gap 19.9 (5-19); Aspartate Amino Transferase 25 U/L (0-40); Blood Urea Nitrogen 18 mg/dL (6-20); Calcium 9.3 mg/dL (8.5-10.5); Carbon Dioxide 24 mmol/L (22-29); Chloride 96 mmol/L (98-107); Globulin 3.8 g/dL (1.3-4.6); Glucose 94 mg/dL (65-115); Osmolality Calculated 284 mOsm/kg (285-295); Potassium 3.9 mmol/L (3.5-5.1); Sodium 136 mmol/L (136-145); Total Bilirubin 1.1 mg/dL (0.15-1.2); Total Protein 6.9 g/dL (6.6-8.7)
[2021-01-03] MEDS: famotidine 20 mg/2 mL INJ IVP (04:25)
--- NOTE | 2021-01-03 05:57 | P.PN_ITS ---
Subjective Subjective: Interval history: Patient overall feels better. Medications: Reviewed: Yes Vitals/I&O/Wt Last Vital Signs Temp 98.0 F 01/03/21 04:00 Pulse 93 01/03/21 04:00 Resp 14 01/03/21 04:00 BP 133/88 01/03/21 04:00 Pulse Ox 92 01/03/21 04:00 01/02/21 01/02/21 01/03/21 14:59 22:59 06:59 Intake Total 560 / 560 340 / 900 340 / 1240 Output Total 1000 / 1000 Balance 560 / 560 -660 / -100 340 / 240 Physical Exam Narrative: EXAM NARRATIVE: Patient is conscious alert oriented X3 Nasal cannula BMI 26 Head and neck examination PERRLA no masses no cervical lymphadenopathy no jaundice Abdomen nontender, moderately distended otherwise soft and no signs of peritonitis, Data : 01/03/21 02:27 01/03/21 02:27 A&P Assessment and plan (1) Acute diverticulitis: Advance diet as tolerated Surgical standpoint of view patient can be discharged home on oral antibiotics with follow-up with me in 2 weeks to arrange for Aspiration precautions Thank you for consulting general surgery to participate taking care Further recommendations Plan of care; Review the pathology with the patient Return to primary care provider Avoid constipation Avoid seeds nuts and popcorn High Fiber diet; As Fiber softens the stool and helps prevent constipation. It also can help decrease pressure in the colon and help prevent flare-ups of diverticulitis. High-fiber foods include: ? Beans and legumes ? Bran, whole wheat bread and whole grain cereals such as oatmeal ? Brown and wild rice ? Fruits such as apples, bananas and pears ? Vegetables such as broccoli, carrots, corn and squash ? Whole wheat pasta The target is to eat 25 to 30 grams of fiber daily. Drink at least 8 cups of fluid daily. Fluid will help soften your stool.Exercise also promotes bowel move ment and helps prevent constipation. Weight management Assurance and education All questions have been answered Status: Acute Attestations Medical Necessity Statement*: Patient required inpatient hospitalization for antimicrobial therapy with the plan to discharge home today and follow-up per surgical service as an outpatient Time Spent in Patient Care: (>than 50% of time spent in counselling and/or direct pt care on unit) . 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
[2021-01-03] MEDS: carvedilol 12.5 mg Tablet PO (09:04)
--- NOTE | 2021-01-03 09:20 | PC.SOCIAL ---
IMM UPDATE Gave patient Imm update, provided copy of pg 2. Verbalized understanding 01/03/21
[2021-01-03] MEDS: FUROsemide 10 mg/mL SDV 4mL 40 MG IVP (12:14)
--- NOTE | 2021-01-03 12:33 | PM.DCS ---
Discharge Providers Date of Admission: 12/29/20 13:40 Date of Discharge: January 03, 2021 Attending Provider at Admission: Jeromy Delgado MD Attending Provider at Discharge: Charlie Aparicio Primary Care Provider: Tejinder Naranjo MD Diagnoses at Discharge Discharge Diagnosis (1) Aspiration pneumonitis: Status: Acute (2) Acute diverticulitis: Status: Acute (3) Leukocytosis: Status: Acute (4) On warfarin therapy: Status: Acute (5) CAD (coronary artery disease): Status: Acute Qualifiers: Coronary Disease-Associated Artery/Lesion type: y[place] artery [place] vs. transplanted heart: [place] heart Associated angina: without angina Qualified Code(s): I25.10 - Atherosclerotic heart disease of [place] dehe coronary artery without angina pectoris (6) HTN (hypertension): Status: Acute Qualifiers: Hypertension type: essential hypertension Qualified Code(s): I10 - Essential (primary) hypertension (7) Ischemic cardiomyopathy: Status: Acute Reason for Visit Reason for Visit: Diverticulitis Hospital Course Hospital Course Very pleasant 55-year-old gentleman with history of ischemic cardiomyopathy, previously very low EF, status post ICD, CAD, smoking addiction was admitted for assessment management of severe diverticulitis upon transfer from outside medical facility, associated with peritoneal features, initially considered possible peritonitis as well, microperforation. He was kept on bowel rest, treated with IV antibiotics with Primaxin. Coumadin was held to hospitalization in case needing surgical intervention. He was seen by surgery, was followed with serial reassessments. Expectant management. He remained afebrile, leukocytosis trended down from as high as 17.6, down to 10.3 today. He has been gradually improving in terms of his abdominal discomfort, abdomen currently still distended, but he reports pain-free. He has been tolerating oral intake. Passing gas, having bowel movements. On trial of clear liquids it appears he had some aspiration, subsequently with bronchial reactivity, wheezing, possible aspiration pneumonitis possible pneumonia. Due to this at discharge she is continued antibiotics for both diverticulitis and coverage for possibility of pneumonia. He was assessed by speech therapy. He has been requiring O2 supplementation, in part also 2/2 CHF and ischemic cardiomyopathy. On repeat TTE EF improved to 37%. He received intermittent doses of Lasix in the hospital which he tolerated well. CXR on 6/22 indicated hemidiaphragm elevation, with indicated possible pleural effusion. On review of imaging, does not appear to have any appreciable effusion beyond possibly minimal fluid. Abdominal US showed minor ascites around his liver, which appears was detected on the XR. Please follow up CXR for resolution. His abdomen remains moderately distended, although as noted he is passing flatus, having BM and tolerating oral intake. He feels he would like to return home. Discussed with him to be vigilant, return to the hospital in case of any concerning symptoms, further abdominal distention, pain, vomiting, cessation of flatus or BM, fever or any other concerning symptoms. He is discharged with a course of Levaquin, ciprofloxacin. He is also discharged with Lasix. He is asked to follow-up with surgery for endoscopic evaluation. He is asked to resume follow-up with his damage adjuster. Depending on improvement in abdominal distention, consider follow-up abdominal ultrasonography to assess for resolution/exclude progression of ascites. Please note his warfarin is resumed, although despite holding it INR still remains therapeutic, with discharge with Levaquin, warfarin therapy may be additionally affected. Please keep close follow-up regarding INR. INR is requested in 2-3 days with home health. Home health is also requested for additional follow-up regarding speech therapy following aspiration event. As well as physical therapy regarding deconditioning. Please continue to work with him regarding smoking cessation. Physical Exam Const: COMMON NORMALS: no acute distress and patient oriented x3 HENMT: COMMON NORMALS: oropharynx normal Neck/C-Spine: COMMON NORMALS: no JVD Resp: COMMON NORMALS: normal respiratory effort AUSCULTATION: wheezes Cardio: COMMON NORMALS: no JVD, regular rhythm, S1 normal heart sound present, S2 normal heart sound present and No murmurs present (Cardio) RHYTHM: regular rhythm HEART SOUNDS: S1 normal heart sound present and S2 normal heart sound present GI: COMMON NORMALS: Normal to inspection, nondistended, normoactive bowel sounds present, Soft to palpation and non-tender INSPECTION: Yes abdominal distension PALPATION: Yes Soft to palpation Extremity: COMMON NORMALS: no joint enlargement and no pedal edema Neuro: COMMON NORMALS: patient oriented x3 and moves all extremities Skin: COMMON NORMALS: no rashes or lesions noted GENERAL SKIN EXAM: no rashes or lesions noted Discharge Data Data Completed and Pending: Completed Studies During Hospitalization Category Date Time Status XR chest 1V adore ble [id number] Routine Exams 12/30/20 10:09 Completed XR chest 1V adore ble [id number] Routine Exams 12/31/20 07:00 Completed XR chest 1V adore ble [id number] Routine Exams 01/02/21 06:00 Completed CV echo wo/w cont rast [id number] Routine Ultrasound 12/30/20 08:54 Completed US abdomen limite d [id number] Routine Ultrasound 01/02/21 13:56 Completed US/CV paperwork R outine Ultrasound 12/30/20 Completed Pending at discharge Category Date Time Status Complete Blood Co unt w/Auto AM LABS Lab 01/04/21 04:00 Ordered Complete Blood Co unt w/Auto AM LABS Lab 01/05/21 04:00 Ordered Comprehensive Met abolic Panel AM LA BS Lab 01/04/21 04:00 Ordered Comprehensive Met abolic Panel AM LA BS Lab 01/05/21 04:00 Ordered Labs from last 24 hours 01/03/21 01/03/21 01/03/21 02:27 02:27 02:27 WBC 10.3 H RBC 5.21 Hgb 14.9 Hct 45.8 MCV 87.9 MCH 28.6 MCHC 32.5 RDW 15.8 H Plt Count 274 MPV 11.0 H Neut % (Auto) 77.4 Lymph % (Auto) 9.8 Sunflower % (Auto) 8.3 Eos % (Auto) 2.4 Baso % (Auto) 0.7 Neut # (Auto) 7.97 H Lymph # (Auto) 1.0 Sunflower # (Auto) 0.9 Eos # (Auto) 0.3 Baso # (Auto) 0.1 Nucleated RBC % (a uto) 0 Nucleated RBCs # 0.0 PT 28.10 H INR 2.57 H Sodium 136 Potassium 3.9 Chloride 96 L Carbon Dioxide 24 Anion Gap 19.9 H BUN 18 Creatinine 0.5 L GFR Calculation 172.0 H Glucose 94 Calculated Osmolal ity 284 L Calcium 9.3 Total Bilirubin 1.1 AST 25 ALT 19 Alkaline Phosphata se 82 Total Protein 6.9 Albumin 3.1 L Globulin 3.8 Vitals: Last Vital Signs Temp 98.1 F 01/03/21 11:42 Pulse 110 H 01/03/21 11:42 Resp 16 01/03/21 11:42 BP 126/84 01/03/21 11:42 Pulse Ox 91 01/03/21 11:42 Discharge Plan Discharge Patient Disposition: Home Health Service Condition: Stable Prescriptions: New furosemide [Lasix] 40 mg tablet 20 mg PO DAILY Qty: 30 RF: 0 metronidazole [Flagyl] 500 mg tablet 500 mg PO TID Qty: 28 RF: 0 levofloxacin 750 mg tablet 750 mg PO DAILY 7 Days Qty: 7 RF: 0 Continued aspirin 325 mg tablet 325 mg PO DAILY RF: 0 famotidine [Pepcid AC] 20 mg tablet 20 mg PO DAILY RF: 0 rosuvastatin 20 mg tablet 20 mg PO DAILY Qty: 90 RF: 3 warfarin 7.5 mg tablet See Rx Instructions .ROUTE .COMPLEX Qty: 90 RF: 3 warfarin 5 mg tablet See Rx Instructions .ROUTE .COMPLEX Qty: 30 RF: 5 losartan 50 mg tablet 50 mg PO DAILY RF: 0 carvedilol 12.5 mg tablet 12.5 mg PO Q12H RF: 0 Discharge Orders: Discharge Order (Routine); Ordered 01/03/21 Ordered By: Charlie Aparicio Other Ambulatory Orders: DME: Oxygen (Order) Location: None Selected Ordered By: Charlie Aparicio Referrals: Douglas Fink MD [Physician] - 2 weeks Ashely Brooks FNP [Nurse Practitioner] - 01/16/21 9:00 am (chf) Tejinder Naranjo MD [Primary Care Provider] - 01/10/21 2:00 pm Discharge Diet: Full LIquid Discharge Activity: Increase activity as tolerated, As per PT/OT instructions and Oxygen as instructed Patient Instructions: Heart Failure (GEN), Diverticulitis (GEN), Ileus (GEN), Opioid Safety Activity Restrictions/Additional Instructions: Please continue liquid diet, advance slowly as tolerating. Please stay vigilant, and in case there is worsening in distention of your belly, any vomiting, inability to tolerate food, or if you stop passing flatus or having bowel movements, or develop other concerning symptoms including abdominal pain, fever, please seek medical attention without delay. Please continue diuretic for now for congestive heart failure, follow-up with your primary doctor and damage adjuster. Please discuss with your primary doctor and damage adjuster regarding additional changes to your diuretic dose. Please complete antibiotic course for pneumonia, as well as diverticulitis. Please follow-up with your primary doctor for reassessment and discussed reassessment with chest x-ray to exclude any fluid accumulation under right lung. Some elevation of the diaphragm on right side is noted, but at this time not much fluid is there. There is small amount of fluid around her liver on the ultrasound. Depending on improvement in your abdominal distention, discuss with your primary doctor consideration of repeat ultrasound to exclude any additional fluid in your belly. Please follow-up with surgery in office for arrangements for endoscopic evaluation to exclude other conditions, exclude any malignancy. Resume warfarin. Please note that the antibiotic you are taking may affect the warfarin level. Please have your primary doctor check your INR level at the next visit. Home health care is requested, and asked to check INR level within 2-3 days. Please stop smoking, as continued smoking will to progression of your heart disease, heart failure, in addition to other cardiovascular complications including heart attack, stroke, lung disease, and a number of cancers. Discharge Attestations Time Spent in Discharge Care*: greater than 30 min Quality Metrics Clinical Quality Measures During this hospital stay, did patient experience: None Coding Level of Care Code Acute g [facility] note Diagnoses Aspiration pneumonitis J69.0 Acute diverticulitis K57.92 Leukocytosis D72.829 On warfarin therapy Z79.01 CAD (coronary artery disease) I25.10 Coronary Disease-Associated Artery/Lesion type: y[place] de[place] artery [place] vs. transplanted heart: [place] heart Associated angina: without angina HTN (hypertension) I10 Hypertension type: essential hypertension Ischemic cardiomyopathy I25.5
--- NOTE | 2021-01-03 14:36 | PC.NUTR ---
Nutrition assessment: Nutrition education r/t diverticulitis provided to pt per nurse request. Spoke with Dr. Fink and Dr. Aparicio prior to providing education d/t possible complications with swallowing/aspiration, as well as current orders for liquid diet. Educated pt to follow high-fiber diet, however emphasized increase in fiber is to occur gradually. Pt verbalized understanding. See RD assessment for further details.
== END 2021-01-03 17:16 | disposition home health service (06) | DRG 391 ==
PROVIDERS: Family Medicine; Admitting Provider Internal Medicine; PCP Family Medicine; Visit Provider Internal Medicine
DX: K57.40 Diverticulitis of both small and large intestine with perforation and abscess without bleeding (principal); K65.0 Generalized (acute) peritonitis; I50.21 Acute systolic (congestive) heart failure; J69.0 Pneumonitis due to inhalation of food and vomit; T82.190A Other mechanical complication of cardiac electrode, initial encounter; I25.10 Atherosclerotic heart disease of native coronary artery without angina pectoris; I25.5 Ischemic cardiomyopathy; I11.0 Hypertensive heart disease with heart failure; E78.5 Hyperlipidemia, unspecified; I48.91 Unspecified atrial fibrillation; F17.210 Nicotine dependence, cigarettes, uncomplicated; K21.9 Gastro-esophageal reflux disease without esophagitis; Z79.01 Long term (current) use of anticoagulants; Z85.46 Personal history of malignant neoplasm of prostate; Z95.810 Presence of automatic (implantable) cardiac defibrillator; Z82.49 Family history of ischemic heart disease and other diseases of the circulatory system
CPT/HCPCS: 36415; 51798; 71045; 76705; 80053; 83036; 83735; 83880; 84100; 84145; 85025; 85610; 86140; 92526; 92610; 94640; 94664; 97161; C8929; J0743; J1170; J1885; J1940; J2270; J2405; J3490; J7030; J7799; Q9956

== ENCOUNTER 2021-01-05 10:25 | Outpatient (CLI) | payer MEDICARE, SELFPAY ==
--- NOTE | 2021-01-05 11:00 | FL_ITS ---
WS: [id number] Modified barium swallow, 01/05/2021 Clinical Data: Oropharyngeal dysphagia Comparison: None. Fluoroscopy time: 2.1 minutes. Findings: The patient showed a good functional oral phase. In the pharynx was no penetration or aspiration. The re was minimal vallecular residue but a large residue in the piriform sinus. There are double swallow s which cleared the residue. FL/FL barium swallow modifd [id number] Impression: 1. Functional oral phase. 2. No penetration or aspiration. 3. Minimal vallecular residue and large residue in the piriform sinuses which c leared with double swallows.
== END 2021-01-05 10:26 | disposition home or self-care (01) ==
LOC: RAD 10:26
PROVIDERS: PCP Family Medicine; Visit Provider Internal Medicine
DX: R13.12 Dysphagia, oropharyngeal phase (principal)
CPT/HCPCS: 74230; 92611

== ENCOUNTER 2021-01-05 11:14 | Inpatient (IN) | payer MEDICARE, MEDICAID, SELFPAY ==
[2021-01-05] VITALS (104 sets, daily range): BP systolic 79–135; BP diastolic 43–75; PULSE 59–103; RESP 13–25; TEMP 36.5–37; O2SAT 89–100; BMI 25.0
--- NOTE | 2021-01-05 11:57 | CT_ITS ---
WS: [id number] CT ABDOMEN AND PELVIS WITH CONTRAST HISTORY: abd pain TECHNIQUE: Imaging performed of the abdomen and pelvis with IV contrast. Single phase imaging of the abdomen. Coronal and sagittal reformats are submitted. All CT scans at [facility] use at least one of these dose optimization techniques: automated exposure control; mA and/or kV adjustment per patient size (includes targeted exams where dose is matched to clinical indication); or iterativ e reconstruction. IV CONTRAST: Omnipaque 300; 95 mL IV. Oral contrast: Patient received oral contrast for a modified swallowing examination performed today. No additional oral contrast. DLP: 1140.14 mGy.cm COMPARISON: 12/29/2020 Lower thorax: Dense consolidation at the RIGHT lung base consistent with a small effusion with atelec tasis and pneumonia. Mild cardiomegaly. Small hiatal hernia. There is a large amount of artifact through the abdominal structures secondary to the very dense oral contrast that was provided for modified swallow. Liver/biliary system: Normal size. Evaluation is limited due to the contrast artifact. Gallbladder: Increased density in the gallbladder probably from vicarious excretion due to prior rece nt CT. Pancreas: Atrophied. Spleen: Partially obscured. Adrenal glands: Normal RIGHT adrenal gland. LEFT adrenal gland appears normal also but partially obsc ured. Right kidney: Absent. Left kidney: Normal. Aorta: Moderate atherosclerosis. No aneurysm. Lymphadenopathy: None. Free fluid: There is a small amount of free fluid adjacent to the RIGHT lobe of the liver and extendi ng along the paracolic gutter. Small scattered pockets of free fluid within the mesentery. Several sm all pockets are scattered within the central mesentery and also extending into the pelvis. Fluid cruzito g the paracolic gutters bilaterally extending into the dependent pelvis. There is also mesenteric festus ma. Moderate amount of free air scattered within the abdominal cavity. There is free air with surrounding inflammation in the anterior pelvis measuring 3.2 x 5.9 cm. GI tract: There is marked dilatation of the stomach and small bowel with air. There is a high-grade d istal small bowel obstruction. There is a high-grade stenosis involving a loop of small bowel in the mid pelvis where there is a change of caliber. There is additional ischemic change within the small b owel loops in the central pelvis. There is luminal narrowing with peripheral enhancement in the affec reynold small bowel. These changes have significantly progressed since 12/29/2020. Associated perforation involving the distal small bowel resulting in the free air. The colon is collapsed. There is mild thi ckening of the distal sigmoid colon which is probably secondary reaction to the small bowel process. Abdominal wall: Unremarkable abdominal wall. No hernia. Pelvis: Free fluid in the pelvis. Urinary bladder is not very well distended. Bones: Unremarkable. CT/CT abdomen pelvis w con* [id number] IMPRESSION: 1. Significant change in appearance of the abdomen and pelvis since 12/29/2020. 2. New free intraperitoneal air. 3. New high-grade distal small bowel obstruction. 4. Ischemic changes and perforation involving the distal small bowel in the mi d pelvis, anterior to the urinary bladder. Developing abscess collection in the anterior pelvis. 5. New free fluid within the abdomen and pelvis. 6. Development of RIGHT lower lobe atelectasis, pneumonia and small effusion. Notified Angel Marsh DO at 01/05/2021 12:52 PM.
--- NOTE | 2021-01-05 12:00 | ED_ITS ---
HPI - Abdominal Pain General: Chief Complaint: Abdominal Pain Stated Complaint: abdomen pain Time Seen by Provider: 01/05/21 11:42 History of Present Illness: HPI narrative: 55-year-old male presents to the emergency room with complaint of difficulty swallowing abdominal pain and bloating. He was recently hospitalized here for aspiration pneumonia and diverticulitis. Additionally he is on Coumadin. He states he has passed a little flatus he is not had a bowel movement he is very nauseous but not been vomiting. MD elicited complaint: abdominal pain Pertinent past history: diverticulitis Onset (ago): day(s) Pain Consistency: constant Location: Diffuse Severity: severe Quality: cramping Exacerbating factors: eating and movement Relieving factors: rest Associated Symptoms: Reports anorexia, bloating and change in bowel habits; Denies belching, change in stool character, chills, coffee ground emesis, constipation, GI cramping, diarrhea, dyspepsia, dysuria, excessive flatus, fever(s), heartburn, hematochezia, hematuria, hematemesis, fecal incontinence, loose stools, melena, nausea, poor appetite, syncope and vomiting Review of Systems Const: Denies: fever(s) or chills ENMT: Denies: throat pain, ear or mastoid pain, nasal discharge or nasal congestion Card: Denies: syncope Resp: Denies: dyspnea, productive cough or non-productive cough GI: Reports: bloating and change in bowel habits; Denies: nausea, vomiting, hematemesis, coffee ground emesis, heartburn, diarrhea, constipation, GI cramping, belching, excessive flatus, fecal incontinence, change in stool character, hematochezia or melena : Denies: dysuria or hematuria Skin/Breast: Denies: rash or pruritus PFSH ED PFSH: Medical History Abnormal lead impedance of implantable cardioverter-defibrillator Atrial fibrillation CAD (coronary artery disease) GERD (gastroesophageal reflux disease) HTN (hypertension) Hyperlipidemia Ischemic cardiomyopathy Prostate cancer Surgical History History of prostate biopsy S/P ICD (internal cardiac defibrillator) procedure S/P small bowel resection Family History Other CHF (congestive heart failure) Social History Smoking and tobacco status: current every day smoker cigarettes Packs smoked per day: 0.5 Alcohol intake: current Alcohol intake frequency: holidays/special occasions only Lives independently: Yes Household members: other Details: Sister Marital status: Current occupational status: retired Physical Exam Const: GENERAL APPEARANCE: cooperative ORIENTATION/CONSCIOUSNESS: Yes awake, Yes oriented to person, Yes oriented to place and Yes oriented to time Neck/C-Spine: COMMON NORMALS: no JVD Resp: COMMON NORMALS: normal respiratory effort, No retractions, No use of accessory muscles and clear to auscultation bilaterally AUSCULTATION: clear t o auscultation bilaterally Cardio: COMMON NORMALS: no JVD, regular rhythm and No murmurs present (Cardio) RATE: tachycardic RHYTHM: regular rhythm GI: AUSCULTATION: Yes Absent bowel sounds PALPATION: Yes Tenderness to palpation present (GI) and Yes Guarding due to palpation present (GI) Extremity: COMMON NORMALS: normal to inspection, capillary refill normal, no clubbing, cyanosis or edema, no calf tenderness and no pedal edema Neuro: SENSORIUM/ORIENTATION: Yes oriented to person, Yes oriented to place and Yes oriented to time Skin: COMMON NORMALS: no rashes or lesions noted GENERAL SKIN EXAM: no rashes or lesions noted Course Vital Signs: Vital signs: Vital Signs Temperature 97.8 F 01/18/21 04:00 Pulse Rate 69 01/18/21 04:00 Respiratory Rate 16 01/18/21 04:00 Blood Pressure 123/69 01/18/21 04:00 Pulse Oximetry 95 01/18/21 04:00 MDM - Abdominal Pain MDM Narrative: Medical decision making narrative: Patient has acute abdomen large amount of free air in the the CT even on the search consultant exam discussed with Dr. Miguel he will proceed directly to surgery from the ER. Contacted Dr. Aparicio who will see the patient for medical management. Lab Data: Labs: Lab Results 01/05/21 01/05/21 01/05/21 Range/Units 11:54 11:54 11:54 WBC 19.3 H (4.0-10.0) 10^3/ uL RBC 5.29 (4.1-5.3) 10^6/u L Hgb 15.1 (11.7-16.6) g/dL Hct 45.2 (42.0-52.0) % MCV 85.4 (80-94) fL MCH 28.5 (28.0-34.0) pg MCHC 33.4 (30.0-36.0) g/dL RDW 15.6 H (12.1-15.1) % Plt Count 411 H (130-400) 10^3/c mm MPV 10.3 (7.4-10.4) fL Neut % (Auto) 79.6 % Lymph % (Auto) 6.7 % [place] % (Auto) 7.5 % Eos % (Auto) 2.5 % Baso % (Auto) 0.8 % Neut # (Auto) 15.32 H (1.8-7.7) 10^3/u L Lymph # (Auto) 1.3 (0.8-4.8) 10^3/u L [place] # (Auto) 1.5 H (0.2-0.9) 10^3/u L Eos # (Auto) 0.5 (0.0-0.8) 10^3/u L Baso # (Auto) 0.2 H (0.0-0.1) 10^3/u L Nucleated RBC % (a uto) 0 % Nucleated RBCs # 0.0 /100WBC Sodium 137 (136-145) mmol/L Potassium 3.4 L (3.5-5.1) mmol/L Chloride 91 L (98-107) mmol/L Carbon Dioxide 30 H (22-29) mmol/L Anion Gap 19.4 H (5-19) BUN 26 H (6-20) mg/dL Creatinine 0.9 (0.7-1.2) mg/dL GFR Calculation 87.3 L (90-130) mL/min Glucose 140 H (65-115) mg/dL Calculated Osmolal ity 291 (285-295) mOsm/k g Lactic Acid 1.5 (0.5-2.2) mmol/L Calcium 9.3 (8.5-10.5) mg/dL Total Bilirubin 0.6 (0.15-1.2) mg/dL AST 32 (0-40) U/L ALT 19 (0-41) U/L Alkaline Phosphata se 98 (40-130) IU/L Creatine Kinase 46 (39-308) U/L Total Protein 7.3 (6.6-8.7) g/dL Albumin 3.8 (3.5-5.2) g/dL Globulin 3.5 (1.3-4.6) g/dL Lipase 89 H (13-60) U/L Urine Color (Yellow) Urine Appearance (CLEAR) Urine pH (5-7) Ur Specific Gravit y (1.005-1.030) Urine Protein (Negative) Urine Glucose (UA) (Normal) Urine Ketones (Negative) Urine Blood (Negative) Urine Nitrate (Negative) Urine Bilirubin (Negative) Urine Urobilinogen (Negative) mg/dL Ur Leukocyte Nova ase (Negative) Urine RBC (0-2) /hpf Urine WBC (0-5) /hpf Ur Squamous Epith Cells (0-5) /hpf Amorphous Sediment Urine Bacteria (NONE) /hpf Urine Mucus /hpf 01/05/ Range/Units 12:51 WBC (4.0-10.0) 10^3/ uL RBC (4.1-5.3) 10^6/u L Hgb (11.7-16.6) g/dL Hct (42.0-52.0) % MCV (80-94) fL MCH (28.0-34.0) pg MCHC (30.0-36.0) g/dL RDW (12.1-15.1) % Plt Count (130-400) 10^3/c mm MPV (7.4-10.4) fL Neut % (Auto) % Lymph % (Auto) % [place] % (Auto) % Eos % (Auto) % Baso % (Auto) % Neut # (Auto) (1.8-7.7) 10^3/u L Lymph # (Auto) (0.8-4.8) 10^3/u L [place] # (Auto) (0.2-0.9) 10^3/u L Eos # (Auto) (0.0-0.8) 10^3/u L Baso # (Auto) (0.0-0.1) 10^3/u L Nucleated RBC % (a uto) % Nucleated RBCs # /100WBC Sodium (136-145) mmol/L Potassium (3.5-5.1) mmol/L Chloride (98-107) mmol/L Carbon Dioxide (22-29) mmol/L Anion Gap (5-19) BUN (6-20) mg/dL Creatinine (0.7-1.2) mg/dL GFR Calculation (90-130) mL/min Glucose (65-115) mg/dL Calculated Osmolal ity (285-295) mOsm/k g Lactic Acid (0.5-2.2) mmol/L Calcium (8.5-10.5) mg/dL Total Bilirubin (0.15-1.2) mg/dL AST (0-40) U/L ALT (0-41) U/L Alkaline Phosphata se (40-130) IU/L Creatine Kinase (39-308) U/L Total Protein (6.6-8.7) g/dL Albumin (3.5-5.2) g/dL Globulin (1.3-4.6) g/dL Lipase (13-60) U/L Urine Color Brown (Yellow) Urine Appearance Cloudy (CLEAR) Urine pH 5 (5-7) Ur Specific Gravit y 1.015 (1.005-1.030) Urine Protein Trace (Negative) Urine Glucose (UA) Norm (Normal) Urine Ketones Negative (Negative) Urine Blood Neg (Negative) Urine Nitrate Negative (Negative) Urine Bilirubin 1+ H (Negative) Urine Urobilinogen 1 H (Negative) mg/dL Ur Leukocyte Nova ase 1+ H (Negative) Urine RBC None (0-2) /hpf Urine WBC 0-4 H (0-5) /hpf Ur Squamous Epith Cells 0-4 H (0-5) /hpf Amorphous Sediment Not Reportable Urine Bacteria 1+ H (NONE) /hpf Urine Mucus Trace /hpf Discharge Plan Discharge Patient Disposition: Admitted As Inpatient Admit Provider: Charlie Aparicio Clinical Impression: Perforated bowel, Sepsis, Ischemic cardiomyopathy Condition: Stable Coding Level of Care Code ED Radiologic Technology Instructor for g Fwd Exam Detailed
[2021-01-05 12:03] LABS: Basophils # 0.2 10^3/uL (0.0-0.1); Basophils % 0.8 %; Eosinophils # 0.5 10^3/uL (0.0-0.8); Eosinophils % 2.5 %; Hematocrit 45.2 % (42.0-52.0); Hemoglobin 15.1 g/dL (11.7-16.6); Lymphocytes # 1.3 10^3/uL (0.8-4.8); Lymphocytes % 6.7 %; Mean Corpuscular HGB Conc 33.4 g/dL (30.0-36.0); Mean Corpuscular Hemoglobin 28.5 pg (28.0-34.0); Mean Corpuscular Volume 85.4 fL (80-94); Mean Platelet Volume 10.3 fL (7.4-10.4); Monocytes # 1.5 10^3/uL (0.2-0.9); Monocytes % 7.5 %; Neutrophils # 15.32 10^3/uL (1.8-7.7); Neutrophils % 79.6 %; Nucleated Red Blood Cells % 0 %; Platelet Count 411 10^3/cmm (130-400); Red Blood Count 5.29 10^6/uL (4.1-5.3); Red Cell Distribution Width 15.6 % (12.1-15.1); White Blood Count 19.3 10^3/uL (4.0-10.0)
[2021-01-05] MEDS: ondansetron 2 mg/ML SDV 2 mL 4 MG IVP ×2 (12:16→19:49)
[2021-01-05] MEDS: morphine 4 mg/mL SDV 1 mL IVP (12:16)
[2021-01-05 12:21] LABS: Alanine Aminotransferase 19 U/L (0-41); Albumin Level 3.8 g/dL (3.5-5.2); Alkaline Phosphatase 98 IU/L (40-130); Anion Gap 19.4 (5-19); Aspartate Amino Transferase 32 U/L (0-40); Blood Urea Nitrogen 26 mg/dL (6-20); Calcium 9.3 mg/dL (8.5-10.5); Carbon Dioxide 30 mmol/L (22-29); Chloride 91 mmol/L (98-107); Creatine Phosphokinase 46 U/L (39-308); Creatinine Clr Calc Pharmacy 77.4184; Globulin 3.5 g/dL (1.3-4.6); Glomerular Filtration Rate 87.3 mL/min (90-130); Glucose 140 mg/dL (65-115); Lipase 89 U/L (13-60); Osmolality Calculated 291 mOsm/kg (285-295); Potassium 3.4 mmol/L (3.5-5.1); Sodium 137 mmol/L (136-145); Total Bilirubin 0.6 mg/dL (0.15-1.2); Total Protein 7.3 g/dL (6.6-8.7)
[2021-01-05] MEDS: iodixanol 320 mg/mL 100mL Btl IV (12:26)
[2021-01-05] MEDS: sodium chloride 0.9% 1,000 ML 999 ML IV (12:38)
[2021-01-05] MEDS: piperacillin-tazobactam 3.375 GM in sodium chloride 0.9% (plus) 50 ML IV ×2 (13:09→21:45)
[2021-01-05 13:14] LABS: Glucose Urine UA Norm (Normal); Protein Urine Trace (Negative); Specific Gravity, Urine 1.015 (1.005-1.030); Urine Appearance Cloudy (CLEAR); Urine Color Brown (Yellow); pH Urine 5 (5-7)
[2021-01-05 13:15] LABS: Add Urine Microscopic? YES; Bilirubin Urine 1+ (Negative); Blood Urine Neg (Negative); Ketones Urine Negative (Negative); Leukocyte Esterase Urine 1+ (Negative); Nitrate Urine Negative (Negative); Urobilinogen Urine 1 mg/dL (Negative)
[2021-01-05 13:25] LABS: Lactic Sepsis W/Reflex 1.5 mmol/L (0.5-2.2)
[2021-01-05 13:25] LABS: Add Urine Culture? No; Bacteria Urine 1+ /hpf; Mucus Urine TRACE /hpf; Squamous Epithelial Cell Urine 0-4 /hpf (0-5); WBC Urine 0-4 /hpf (0-5)
[2021-01-05 13:43] LABS: INR 5.38 (0.8-1.2)
--- NOTE | 2021-01-05 14:59 | PM.HP ---
Providers/Chief Complaint Admitting Physician: Charlie Aparicio Primary Care Provider: Tejinder Naranjo MD Chief Complaint: abdomen pain History of Present Illness Pleasant 55-year-old gentleman with history of ischemic cardiomyopathy, previously very low EF, on TTE during the recent admission with improvement to 37%, status post ICD, CAD, atrial fibrillation with chronic anticoagulation with warfarin smoking addiction, was treated for severe diverticulitis with microperforation after transfer from outside facility here between 12/29 and 01/03, treated with IV antibiotics with Primaxin, Coumadin was held at that time and was assessed by surgery who did not find need for surgical intervention on assessment, with follow-up with serial exams, bowel rest initially, subsequently tolerating trial of liquid diet, with residual modearte abdominal distention, but having bowel movements, passing flatus, with resolution of leukocytosis from 17.6-10.3, subjectively feeling better. Transiently did not require oxygen support secondary to CHF for which was given intermittent doses of Lasix. Minor ascites noted around his liver, insufficient for paracentesis. Right hemidiaphragm elevation with some atelectasis noted, with changes likely exacerbated by the small ascites, but otherwise findings and clinical condition were not definitively suggestive of pneumonia, although mild pneumonitis/aspiration was possible with patient reported he felt he may have aspirated a small amount during trial of clear liquids. He was assessed by speech therapy. He was discharged home to complete antibiotic course with Levaquin and ciprofloxacin with follow-up with surgery set up for continued monitoring of his progress, and consideration of additional endoscopic evaluation after recovery. With home health including Coumadin was resumed with INR follow up with home health. He was asked to follow-up with cardiology. He returns to ER today with complaint of difficulty swallowing, nausea, abdominal pain and bloating, passing little flatus. Last time passed flatus was this morning. Also reports had a BM this morning without blood or black discoloration. CTAP in ER finds significant change from 02/28/21, with new intraperitoneal free air, new high grade distal small bowel obstruction, ischemic changes and perforation involving distal small bowel and mid pelvis, anterior to the urinary bladder, developing abscess collection in anterior pelvis. New free fluid within the abdomen and pelvis. Development of right lower lobe atelectasis, pneumonia and small effusion. In ER blood pressure is noted soft in the nineties, lower than recent blood pressures in one twenties at discharge, he received 1 L bolus. Cultures are collected in ER, he is given Zosyn. Surgery is consulted in ER. His INR is noted 5.38. IV vitamin K ordered in ER, but not yet given. Preparations are being made for additional INR reversal with PCC given need for urgent surgery and underlying ischemic cardiomyopathy, EF 37% to avoid additional risk of fluid overload with FFP. Review of Systems Const: Denies: fever(s), chills, body aches or malaise Eyes: Denies: change in vision or eye redness ENMT: Denies: throat pain, oral sores or ear or mastoid pain Card: Denies: chest pain, edema, pre-syncope, dyspnea on exertion or orthopnea Resp: Denies: dyspnea, productive cough, change in phlegm color or hemoptysis GI: Reports: abdominal pain, nausea and bloating; Denies: vomiting, diarrhea, constipation, hematochezia or melena : Denies: flank pain, difficulty urinating, urinary frequency or hematuria Musc: Denies: back pain, joint swelling or joint redness Skin/Breast: Denies: rash, sores or new lesions Neuro: Denies: headache(s), numbness in extremities, weakness in extremities, dizziness, confusion or seizure-like activity Endo: Denies: polyuria or polydipsia Jg/Lymph: Denies: easy bleeding or purpura All/Imm: Denies: urticaria, throat swelling or tongue swelling Medications/Allergies Home Medications Medication Instructions Recorded Confirmed Last Taken Type aspirin 325 mg tablet 325 mg PO DAILY 08/30/19 01/05/21 01/05/21 History famotidine 20 mg tablet 20 mg PO DAILY 08/30/19 01/05/21 01/05/21 History warfarin 5 mg tablet See Rx Instructions .ROUTE 05/23/20 01/05/21 01/04/21 Rx .COMPLEX #30 tab rosuvastatin 20 mg tablet 20 mg PO DAILY #90 tab 12/25/20 01/05/21 01/05/21 Rx warfarin 7.5 mg tablet See Rx Instructions .ROUTE 12/25/20 01/05/21 01/05/21 Rx .COMPLEX #90 tab carvedilol 12.5 mg PO Q12H 12/29/20 01/05/21 01/05/21 History losartan 50 mg PO DAILY 12/29/20 01/05/21 01/05/21 History furosemide [Lasix] 20 mg PO DAILY #30 tab 01/03/21 01/05/21 01/05/21 Rx levofloxacin 750 mg PO DAILY 7 Days #7 tab 01/03/21 01/05/21 01/05/21 Rx metronidazole [Flagyl] 500 mg PO TID #28 tab 01/03/21 01/05/21 01/05/21 Rx Allergies Allergy/AdvReac Type Severity Reaction Status Date / Time No Known Allergies Allergy Verified 01/05/21 11:34 PFSH Acute PFSH: Medical History (Updated 01/05/21 @ 16:07 by Charlie Aparicio MD) Abnormal lead impedance of implantable cardioverter-defibrillator Atrial fibrillation CAD (coronary artery disease) GERD (gastroesophageal reflux disease) HTN (hypertension) Hyperlipidemia Ischemic cardiomyopathy Prostate cancer Surgical History History of prostate biopsy S/P ICD (internal cardiac defibrillator) procedure Family History Other CHF (congestive heart failure) Social History Smoking and tobacco status: current every day smoker cigarettes Packs smoked per day: 0.5 Alcohol intake: current Alcohol intake frequency: holidays/special occasions only Substance/Drug Use: never Lives independently: Yes Household members: other Details: Sister Marital status: Current occupational status: retired Vitals/I&O/Wt Last Vital Signs Temp 97.7 F 01/05/21 11:25 Pulse 81 01/05/21 12:53 Resp 16 01/05/21 12:16 BP 90/55 01/05/21 12:53 Pulse Ox 95 01/05/21 12:53 Weight last 48 hrs Weight 63.957 kg Physical Exam Const: COMMON NORMALS: no acute distress and patient oriented x3 HENMT: COMMON NORMALS: oropharynx normal Neck/C-Spine: COMMON NORMALS: no JVD Resp: COMMON NORMALS: normal respiratory effort and clear to auscultation bilaterally AUSCULTATION: clear to auscultation bilaterally Cardio: COMMON NORMALS: no JVD, regular rhythm, S1 normal heart sound present, S2 normal heart sound present and No murmurs present (Cardio) RHYTHM: regular rhythm HEART SOUNDS: S1 normal heart sound present and S2 normal heart sound present GI: COMMON NORMALS: Soft to palpation INSPECTION: Yes abdominal distension AUSCULTATION: Yes Hypoactive bowel sounds present PALPATION: Yes Soft to palpation and Yes Tenderness to palpation present (GI) Extremity: COMMON NORMALS: no joint enlargement and no pedal edema Neuro: COMMON NORMALS: patient oriented x3 and moves all extremities Skin: COMMON NORMALS: no rashes or lesions noted GENERAL SKIN EXAM: no rashes or lesions noted Data : 01/05/21 11:54 01/05/21 11:54 Micro: Microbiology 01/05/21 12:19 Blood Culture - Preliminary Blood SPECIMEN COLLECTED 01/05/21 12:15 Blood Culture - Preliminary Blood SPECIMEN COLLECTED A&P Assessment and plan (1) Perforated bowel: New intraperitoneal free air, with small bowel perforation with new high-grade distal small bowel obstruction, ischemic changes and perforation of distal small bowel in mid pelvis anterior to urinary bladder. Intra-abdominal abscess collection anterior pelvis. New free fluid within abdomen pelvis. Discussed findings with him and his brother. Appreciate surgery consultation. Initially hypotensive in the ER, with some improvement with 1 L bolus. Caution with any additional fluid resuscitation given ischemic cardiomyopathy and low ejection fraction. Will need ICU monitoring. Significant leukocytosis although does not fit sepsis criteria. Lactic acid not elevated. Received Zosyn, continue. NGT placed. INR correction as below, subsequently urgent surgical exploration. Status: Acute (2) Supratherapeutic INR: INR 5.38. Requiring urgent surgery. Receiving PCC, 5 mg IV vitamin K. INR is being rechecked with plan to proceed to surgery if acceptable. 2 units FFP available in case needed during surgery. Status: Acute (3) Ischemic cardiomyopathy: Previous ejection fraction as low as 20%. Currently EF during last admission up to 37%. ICD in place. Currently does not appear fluid overloaded/CHF exacerbation. Monitor volume status. Diuresis as needed. Resume oral medications once able to tolerate. Status: Acute (4) Atelectasis: Right lower lobe developed atelectasis, pneumonia and small effusion. He reports mild cough, occasional phlegm, but mostly nonproductive. Last admission with possible episode of aspiration during trial of clear liquids. Was discharged on Levaquin. Assessed by speech therapy, and appears earlier today actually underwent MBS with noted pharyngeal residue but was able to clear at with double swallows and alternating solids with liquids. No aspiration or penetration. Aspiration precautions once he resumes oral intake. [employer] follow-up. Currently n.p.o. Status: Acute Additional A&P Information Mild hepatic ascites: Noted on ultrasound during last admission. Recent complicated diverticulitis: After recovery discussed with his brother consideration to be still given to endoscopic evaluation to exclude malignant causes. Mild hyponatremia: 3.4. Replace. CAD GERD HTN HLD History of prostate cancer Attestations Medical Necessity Statement*: Admission of over 2 midnights is going to be needed for assessment of management of small bowel perforation, intra-abdominal abscess, possible ischemia of segment of distal small bowel, small bowel obstruction, needing urgent surgery, needing warfarin reversal, hypotension with history of ischemic cardiomyopathy, low EF. Critical Care Time: 55 minutes critical care time spent on assessment of management of immediate life-threatening issues including bowel perforation, intra-abdominal abscess, bowel ischemia, hemodynamic instability initially with hypotension, status post fluid resuscitation, in setting of ischemic cardiomyopathy, low EF, reassessment of hemodynamic status, pump status, antibiotic therapy, INR reversal with supratherapeutic INR in preparation for urgent surgery. Discussed with ER physician, surgery, nursing staff, pharmacy, patient and his brother. Coding Level of Care Code Acute Head Of Science for g Fwd Exam Comprehensive Diagnoses Perforated bowel K63.1 Supratherapeutic INR R79.1 Ischemic cardiomyopathy I25.5 Atelectasis J98.11
--- NOTE | 2021-01-05 15:09 | XR_ITS ---
WS: [id number] Portable AP upright chest, 01/05/2021 Clinical Data: NG tube placement verification Comparison: Portable chest, 01/02/2021 Findings: There is a feeding tube which has been placed and there is contrast material within the sto mach. Feeding tube ends in the stomach. The right diaphragm is elevated and there is a right pleural effusion. The heart is slightly enlarged. The permanent pacemaker remains in same position. Monitor l jayro on the chest wall. There are dilated small bowel loops which may represent a small bowel obstruc tion or severe ileus. XR/XR chest 1V portable [id number] Impression: 1. Feeding tube ends in the fundus of the stomach. 2. No change in right pleural effusion. 2. Generalized ileus versus small bowel obstruction.
[2021-01-05] MEDS: phytonadione (ADULT) 5 MG in sodium chloride 0.9% 50 ML 151.5 MG IV (15:11)
--- NOTE | 2021-01-05 15:12 | P.CONIM_ITS ---
Providers/Reason For Consult Consulting Physician/Specialty*: General Surgery Dr. Miguel Reason for Consult*: Intraperitoneal free air Attending Physician: Charlie Aparicio Primary Care Provider: Tejinder Naranjo MD History of Present Illness History of Present Illness Yinka Mcdaniels is a 55 year old male who was admitted on 12/29/2020 and discharged home on 01/03/2021 with diagnosis of acute diverticulitis with possible microperforation. After discharge from the hospital patient continued to have abdominal pain and distention. He was passing flatus, denies any nausea or vomiting. The pain is generalized, did not radiate, no aggravating or relieving factors. He states that he had a small bowel movement today Review of Systems General: Reports: 10 or more systems reviewed and unremarkable except in HPI and below Meds/Allergies Home Medications and Allergies Home Medications Medication Instructions Recorded Confirmed Last Taken Type aspirin 325 mg tablet 325 mg PO DAILY 08/30/19 01/05/21 01/05/21 History famotidine 20 mg tablet 20 mg PO DAILY 08/30/19 01/05/21 01/05/21 History warfarin 5 mg tablet See Rx Instructions .ROUTE 05/23/20 01/05/21 01/04/21 Rx .COMPLEX #30 tab rosuvastatin 20 mg tablet 20 mg PO DAILY #90 tab 12/25/20 01/05/21 01/05/21 Rx warfarin 7.5 mg tablet See Rx Instructions .ROUTE 12/25/20 01/05/21 01/05/21 Rx .COMPLEX #90 tab carvedilol 12.5 mg PO Q12H 12/29/20 01/05/21 01/05/21 History losartan 50 mg PO DAILY 12/29/20 01/05/21 01/05/21 History furosemide [Lasix] 20 mg PO DAILY #30 tab 01/03/21 01/05/21 01/05/21 Rx levofloxacin 750 mg PO DAILY 7 Days #7 tab 01/03/21 01/05/21 01/05/21 Rx metronidazole [Flagyl] 500 mg PO TID #28 tab 01/03/21 01/05/21 01/05/21 Rx Allergies Allergy/AdvReac Type Severity Reaction Status Date / Time No Known Allergies Allergy Verified 01/05/21 11:34 PFSH Acute PFSH: Medical History (Updated 01/05/21 @ 15:13 by Jared Miguel MD) Abnormal lead impedance of implantable cardioverter-defibrillator Atrial fibrillation CAD (coronary artery disease) GERD (gastroesophageal reflux disease) HTN (hypertension) Hyperlipidemia Ischemic cardiomyopathy Prostate cancer Surgical History History of prostate biopsy S/P ICD (internal cardiac defibrillator) procedure Family History Other CHF (congestive heart failure) Social History Smoking and tobacco status: current every day smoker cigarettes Packs smoked per day: 0.5 Alcohol intake: current Alcohol intake frequency: holidays/special occasions only Substance/Drug Use: never Lives independently: Yes Household members: other Details: Sister Marital status: Current occupational status: retired Vitals/I&O/Wt Last Vital Signs Temp 97.7 F 01/05/21 11:25 Pulse 81 01/05/21 12:53 Resp 16 01/05/21 12:16 BP 90/55 01/05/21 12:53 Pulse Ox 95 01/05/21 12:53 Weight last 48 hrs Weight 141 lb Physical Exam Narrative: EXAM NARRATIVE: HEENT: Normocephalic Eye: Sclera /conjunctiva normal Respiratory and chest: Bilateral clear breath sounds on auscultation Cardiovascular: Normal S1 and S2 heart sounds Abdomen: Soft to palpation, distended, tender, voluntary guarding, no rigidity Neurological: Oriented to place person and time Skin: Intact, no lesions appreciated on gross exam Data Micro: Micro: Microbiology 01/05/21 12:19 Blood Culture - Pr eliminary Blood SPECIMEN [facility] 01/05/21 12:15 Blood Culture - Pr eliminary Blood SPECIMEN [facility] Other Data: Other data: CT abdomen and pelvis 1. Significant change in appearance of the abdomen and pelvis since 12/29/2020. 2. New free intraperitoneal air. 3. New high-grade distal small bowel obstruction. 4. Ischemic changes and perforation involving the distal small bowel in the mid pelvis, anterior to the urinary bladder. Developing abscess collection in the anterior pelvis. 5. New free fluid within the abdomen and pelvis. 6. Development of RIGHT lower lobe atelectasis, pneumonia and small effusion. A&P Assessment and plan (1) Perforated bowel: 55-year-old male who presents with abdominal pain and distention with CT scan findings consistent with high-grade small bowel obstruction with associated perforation/abscess. WBC is up to 19.3. At present patient is hemodynamically stable but we will plan for laparotomy with possible bowel resection, possible ostomy. Procedure, risks and benefits have been discussed in detail with the patient and his brother Status: Acute (2) Anticoagulation goal of INR 2 to 3: His INR is 5.38, will prothrombin concentrate and recheck INR, once less than 2 proceed with surgery. Patient might also need FFP Status: Acute Consult Attestations Medical Necessity Statement: As per attending physician Coding Level of Care Code Acute Metal Mover for valentin Spear Diagnoses Perforated bowel K63.1 Anticoagulation goal of INR 2 to 3 Z51.81; Z79.01
[2021-01-05] MEDS: sodium chloride 0.9% 1,000 ML 100 ML IV (15:45)
--- NOTE | 2021-01-05 16:00 | P.ANESASSM_ITS ---
Pre-Anesthetic Assessment Pre-Anesthetic Assessment: Height/Weight: Height 1.6 m Weight 63.957 kg Temp Pulse Resp BP Pulse Ox 98.2 F 90 17 116/75 95 01/05/21 15:05 01/05/21 15:50 01/05/21 15:50 01/05/21 15:50 01/05/21 15:50 Preop Diagnosis: perforated small bowel Proposed Procedure: Operation Date: 01/05/21 16:30 Proposed Procedures p Exploratory Laparotomy(Not Applicable) - Jared Miguel MD Familial anesthetic complications: none Was Beta Omero taken within 24 hours: Yes Was Clonidine taken within 24 hours: N/A Last intake: > 8 hrs Social: Social History: Alcohol and Tobacco Comment: 3-4 beers aday Exam: Pre-Anes Outpt Exam: alert, oriented x 3, clear to auscultation bilaterally and regular rate & rhythm Airway: Cervical ROM: WNL MP: 3 Dentition: Other (no teeth) Pulmonary: Comments: aspiration pneumonitis CV/HEM: CV/HEM: Afib, CAD, HTN and NH (> 1 year ago) Comments: ICD in polace, ischemic cardiomyopathy 01/01 ECHO CONCLUSIONS Mildly dilated LV cavity. Diffuse hypokinesia of the septum, anteroseptum and the LV apex. LV ejection fraction of 37%. No gross valvular abnormalities noted. No significant pericardial effusion. Pacemaker wire in the right atrium/right ventricle No evidence of LV thrombus based on the contrast echocardiogram Metabolic: Metabolic: Hyperlipidemia Anesthetic Plan: ASA status: 4E Anesthesia: General Risk of > 500 ml blood loss (7ml/kg in children): No Meds/Allergies Current Medications: Current Medications Generic Name Dose Route Start Last Admin Trade Name Freq PRN Reason Stop Dose Admin Sodium Chloride 1,000 mls @ 100 m ls/hr 01/05/21 14:32 01/05/21 15:45 Sodium Chloride 0.9% IV 100 mls/hr .Q10H AZAEL Administration PFSH Anesthesia PFSH: Medical History (Updated 01/05/21 @ 16:07 by Charlie Aparicio MD) Abnormal lead impedance of implantable cardioverter-defibrillator Atrial fibrillation CAD (coronary artery disease) GERD (gastroesophageal reflux disease) HTN (hypertension) Hyperlipidemia Ischemic cardiomyopathy Prostate cancer Surgical History History of prostate biopsy S/P ICD (internal cardiac defibrillator) procedure Family History Other CHF (congestive heart failure) Social History Smoking and tobacco status: current every day smoker cigarettes Packs smoked per day: 0.5 Alcohol intake: current Alcohol intake frequency: holidays/special occasions only Substance/Drug Use: never Lives independently: Yes Household members: other Details: Sister Marital status: Current occupational status: retired Data Anesthesia CBC & Chem 7: 01/05/21 11:54 01/05/21 11:54 Other Labs: Laboratory Results - last 48 hr 01/05/21 01/05/21 01/05/21 11:54 11:54 11:54 WBC 19.3 H RBC 5.29 Hgb 15.1 Hct 45.2 MCV 85.4 MCH 28.5 MCHC 33.4 RDW 15.6 H Plt Count 411 H MPV 10.3 Neut % (Auto) 79.6 Lymph % (Auto) 6.7 [place] % (Auto) 7.5 Eos % (Auto) 2.5 Baso % (Auto) 0.8 Neut # (Auto) 15.32 H Lymph # (Auto) 1.3 [place] # (Auto) 1.5 H Eos # (Auto) 0.5 Baso # (Auto) 0.2 H Nucleated RBC % (auto) 0 Nucleated RBCs # 0.0 PT INR Sodium 137 Potassium 3.4 L Chloride 91 L Carbon Dioxide 30 H Anion Gap 19.4 H BUN 26 H Creatinine 0.9 GFR Calculation 87.3 L Glucose 140 H Calculated Osmolality 291 Lactic Acid 1.5 Calcium 9.3 Total Bilirubin 0.6 AST 32 ALT 19 Alkaline Phosphatase 98 Creatine Kinase 46 Total Protein 7.3 Albumin 3.8 Globulin 3.5 Lipase 89 H Urine Color Urine Appearance Urine pH Ur Specific [place] Urine Protein Urine Glucose (UA) Urine Ketones Urine Blood Urine Nitrate Urine Bilirubin Urine Urobilinogen Ur Leukocyte Esterase Urine RBC Urine WBC Ur Squamous Epith Cells Amorphous Sediment Urine Bacteria Urine Mucus Blood Type Rho(D) Type 01/05/21 01/05/21 01/05/21 12:51 13:23 13:23 WBC RBC Hgb Hct MCV MCH MCHC RDW Plt Count MPV Neut % (Auto) Lymph % (Auto) [place] % (Auto) Eos % (Auto) Baso % (Auto) Neut # (Auto) Lymph # (Auto) [place] # (Auto) Eos # (Auto) Baso # (Auto) Nucleated RBC % (auto) Nucleated RBCs # PT 49.80 H INR 5.38 H* Sodium Potassium Chloride Carbon Dioxide Anion Gap BUN Creatinine GFR Calculation Glucose Calculated Osmolality Lactic Acid Calcium Total Bilirubin AST ALT Alkaline Phosphatase Creatine Kinase Total Protein Albumin Globulin Lipase Urine Color Brown Urine Appearance Cloudy Urine pH 5 Ur Specific [place] 1.015 Urine Protein Trace Urine Glucose (UA) Norm Urine Ketones Negative Urine Blood Neg Urine Nitrate Negative Urine Bilirubin 1+ H Urine Urobilinogen 1 H Ur Leukocyte Esterase 1+ H Urine RBC None Urine WBC 0-4 H Ur Squamous Epith Cells 0-4 H Amorphous Sediment Not Reportable Urine Bacteria 1+ H Urine Mucus Trace Blood Type O Positive Rho(D) Type Positive / 4+ Micro: Microbiology 01/05/21 12:19 Blood Culture - Preliminary Blood SPECIMEN COLLECTED 01/05/21 12:15 Blood Culture - Preliminary Blood SPECIMEN COLLECTED Cardiac Studies: Echocardiogram 12/30/20
[2021-01-05 16:10] LABS: INR 1.55 (0.8-1.2)
--- NOTE | 2021-01-05 16:13 | PC.NURSE ---
Per patient, it is okay to discuss healthcare information with his brothers romaine and victoriano dacosta, and his sister Aurea Hunter. He said if he is incapacitated, they can make health decisions on his behalf.
--- NOTE | 2021-01-05 17:39 | ANES.PROC ---
Anesthesia Procedures Procedure/Date: 01/05/21 Central Venous Insert: Central Venous Line: R Internal Jugular Time Out Performed: Yes Consent: requested by attending/covering physician and patient agrees to proceed Central Line: New Anesthesia monitors: pulse oximetry, EKG, BP cuff and oxygen Vein cannulated: right internal jugular Ultrasound used: to identify patency to vessel and to visualize needle entry to vein Additional Comments: Chloroprep of field, full body sterile drape applied, seldinger technique using 18 g needle. US use to visual vessel during cannulation. Wire threaded with ease, visualized wire inside IJ both inplane and out of plane on US. Wire removed.
--- NOTE | 2021-01-05 18:05 | PC.NURSE ---
spoke with patient's sister Aurea and gave an update
--- NOTE | 2021-01-05 19:14 | PC.NURSE ---
Late note: Received patient from ER staff. Vitals within normal limits. Dr Aparicio and Dr franklin at bedside. Receiving new orders.
--- NOTE | 2021-01-05 19:28 | P.OP_ITS ---
Operative Report Date of procedure: January 05, 2021 Pre-op Diagnosis: 1. Small bowel obstruction 2. Intra-abdominal abscess 3. Intraperitoneal free air Post-op Diagnosis: 1. Small bowel obstruction secondary to abscess adjacent to the ileum 2. Appendix could not be identified, perforated Meckel's diverticulum would be a possiblity based on the site of obstruction, though it could not be clearly identified due to inflammation 3. Sigmoid colon had some secondary inflammation but did not have findings typical of perforated diverticulitis Procedure Done: Exploratory laparotomy Small bowel resection with [id number] stapled anastomosis Drainage of intra-abdominal abscess Specimens removed/disposition: Ileum Surgeon: Jared Miguel Anesthesia: General Estimated blood loss (mL): 150 IV fluids (mL): 1,400 Urine output (mL): 200 Condition: stable Disposition: ICU Procedure: The patient was taken to the operating room and intubated under general anesthesia. Patient is on therapeutic IV antibiotics. NG tube and Mack catheter was already in place. Patient had a central line and arterial line placed by Dr. Reis refer to her note for details. The abdomen was prepped and draped in a sterile manner. Using a 10 blade a midline laparotomy incision was made starting superior to the umbilicus and extending to the suprapubic area. The subcutaneous tissue and linea alba was divided to enter the peritoneal cavity. The small bowel was distended up to 5 to 6 cm and the entire small bowel was exteriorized from the ligament of Treitz up to the point of obstruction. There appeared to be a abdominal abscess adherent to the anterior pelvic wall at the site of obstruction. Using finger dissection the small bowel segment was freed from the abscess and the pelvic wall until the entire small bowel segment there was adherent to the pelvis was freed up to the ileocecal valve. The abscess was drained and freed bluntly from the pelvic wall. The abscess was adherent to the sigmoid mesocolon on the right side and the sigmoid colon was completely freed. The sigmoid colon did not appear significantly thickened but had some mild secondary inflammation. The small bowel which was distended, was decompressed by milking the contents proximally into the stomach and suctioned using the existing NG tube. A total of 600 cc of small bowel contents were aspirated. There was no obvious perforation, serosal tears noted. The cecum was identified but the appendix itself could not be visualized. I therefore decided to proceed with resection of the small bowel at the site of the obstruction where there was significant inflammation/induration noted. Using energy device the mesocolon of the small bowel was divided and healthy bowel segments were approximated using interrupted 4-0 Vicryl suture. Using electrocautery 2 openings were made in adjacent segments of the small bowel and a 55 mm blue load JONATHAN stapler was fired to create a [id number] enteroenterostomy. The enterotomies were grasped with Allis clamps and a 55 mm blue load JONATHAN stapler x2 was fired to divide the ileum creating a [id number] stapled anastomosis. The colon is and the intersection of the staple line was everted using 4-0 Vicryl Lembert sutures. The defect in the mesentery was closed using running 3-0 Vicryl suture. The peritoneal cavity was irrigated with about 8 L of saline and hemostasis ensured. A stab incision was made in the right lower quadrant and a 10 flat ETIENNE drain was placed along the right pelvic wall into the pelvis and attached to bulb suction and sutured using 3-0 Prolene suture. The omentum was laid over the small bowel, after the small bowel was reintroduced into the peritoneal cavity and ensuring that there was no twisting of the mesentery. The fascia in the midline was closed using running #1 looped PDS. 20 of saline mixed with 20 cc of Exparel mixed with with 20 cc of 0.5% Marcaine was infiltrated around the midline laparotomy incision and the skin was closed with samantha and covered with sterile dressings. The patient was extubated and transferred to ICU with an NG tube, Mack cathet er, A-line and central line in the right internal jugular vein.
--- NOTE | 2021-01-05 19:29 | ANE.PACU2 ---
Inpatient post-anesthesia follow up: Airway intact: Yes Vital signs: Temperature 98.2 F Pulse Rate [Right Radial] 103 Pulse Rate 59 Respiratory Rate 13 Blood Pressure [Le ft Arm] 97/64 Blood Pressure 135/61 Pulse Oximetry 100 Oxygen Delivery Me thod Simple Mask Oxygen Flow Rate 8 Fraction of Inspir ed Oxygen Hydration adequate: Yes Nausea and vomiting: No Pain level: 1 Mental status: Baseline
--- NOTE | 2021-01-05 19:40 | XRR_ITS ---
PROCEDURE INFORMATION: Exam: XR Chest Exam date and time: 01/05/2021 7:40 PM Age: 55 years old Clinical indication: Device placement; Other: Central line placement TECHNIQUE: Imaging protocol: XR of the chest. Views: 1 view. COMPARISON: CR XR chest 1V portable [id number] 01/05/2021 3:29 PM FINDINGS: Tubes, catheters and devices: Right neck central venous catheter in the mid to distal SVC with unremarkable position. NG tube in the stomach. Left chest ICD present. Lungs: Right lower lung volume loss similar to prior. Pleural spaces: Possible layering right pleural effusion. Negative for pneumothorax. Heart/Mediastinum: Cardiac silhouette diameter and contour is unremarkable. Bones/joints: Unremarkable. XR/XR chest 1V portable [id number] IMPRESSION: Satisfactory central venous catheter placement.
[2021-01-05] MEDS: HYDROcodone-acetaminophen 5-325 mg Tablet 1 TAB PO (19:49)
[2021-01-05] MEDS: famotidine 20 mg/2 mL INJ IVP (19:49)
[2021-01-05 20:03] LABS: Basophils # 0.1 10^3/uL (0.0-0.1); Basophils % 0.7 %; Eosinophils # 0.6 10^3/uL (0.0-0.8); Hematocrit 39.1 % (42.0-52.0); Hemoglobin 12.6 g/dL (11.7-16.6); Lymphocytes # 1.7 10^3/uL (0.8-4.8); Lymphocytes % 8.9 %; Mean Corpuscular HGB Conc 32.2 g/dL (30.0-36.0); Mean Corpuscular Hemoglobin 28.5 pg (28.0-34.0); Mean Corpuscular Volume 88.5 fL (80-94); Monocytes # 0.9 10^3/uL (0.2-0.9); Monocytes % 4.8 %; Neutrophils # 14.53 10^3/uL (1.8-7.7); Nucleated Red Blood Cells % 0 %; Platelet Count 389 10^3/cmm (130-400); Red Blood Count 4.42 10^6/uL (4.1-5.3); Red Cell Distribution Width 15.9 % (12.1-15.1); White Blood Count 18.6 10^3/uL (4.0-10.0)
[2021-01-05] MEDS: morphine 4 mg/mL SDV 1 mL 2 MG IVP (20:37)
--- NOTE | 2021-01-05 22:50 | PC.NURSE ---
New Orders; Daisy held this shift per MD Demetris orders.
[2021-01-06] VITALS (158 sets, daily range): BP systolic 75–125; BP diastolic 53–97; PULSE 84–115; RESP 13–24; TEMP 36.4–36.9; O2SAT 87–98
[2021-01-06] MEDS: morphine 4 mg/mL SDV 1 mL 2 MG IVP (01:32)
[2021-01-06] MEDS: hydrocortisone 100 mg/2 mL SDV IVP (02:57)
[2021-01-06] MEDS: sodium chloride 0.9% 500 ML 999 ML IV (02:58)
[2021-01-06 05:00] LABS: Basophils # 0.2 10^3/uL (0.0-0.1); Basophils % 0.7 %; Eosinophils # 0.2 10^3/uL (0.0-0.8); Eosinophils % 0.9 %; Hematocrit 42.9 % (42.0-52.0); Hemoglobin 13.7 g/dL (11.7-16.6); Lymphocytes # 1.2 10^3/uL (0.8-4.8); Lymphocytes % 4.3 %; Mean Corpuscular HGB Conc 31.9 g/dL (30.0-36.0); Mean Corpuscular Hemoglobin 28.4 pg (28.0-34.0); Mean Platelet Volume 10.5 fL (7.4-10.4); Monocytes # 1.5 10^3/uL (0.2-0.9); Monocytes % 5.6 %; Neutrophils # 22.56 10^3/uL (1.8-7.7); Neutrophils % 84.6 %; Nucleated Red Blood Cells % 0 %; Platelet Count 462 10^3/cmm (130-400); Red Blood Count 4.82 10^6/uL (4.1-5.3); Red Cell Distribution Width 15.9 % (12.1-15.1); White Blood Count 26.7 10^3/uL (4.0-10.0)
[2021-01-06 05:11] LABS: INR 1.31 (0.8-1.2)
[2021-01-06 05:17] LABS: Lactate (Lactic Acid level) 1.1 mmol/L (0.5-2.2)
[2021-01-06 05:21] LABS: Alanine Aminotransferase 12 U/L (0-41); Alkaline Phosphatase 66 IU/L (40-130); Anion Gap 16.3 (5-19); Aspartate Amino Transferase 27 U/L (0-40); Blood Urea Nitrogen 25 mg/dL (6-20); Calcium 7.2 mg/dL (8.5-10.5); Carbon Dioxide 25 mmol/L (22-29); Chloride 101 mmol/L (98-107); Globulin 2.7 g/dL (1.3-4.6); Glomerular Filtration Rate 116.7 mL/min (90-130); Glucose 111 mg/dL (65-115); Osmolality Calculated 293 mOsm/kg (285-295); Potassium 3.3 mmol/L (3.5-5.1); Sodium 139 mmol/L (136-145); Total Protein 4.7 g/dL (6.6-8.7)
[2021-01-06 05:22] LABS: Procalcitonin 1.72 ng/mL (0-0.5)
[2021-01-06 05:34] LABS: Slide Review Slide Review Perform
[2021-01-06] MEDS: famotidine 20 mg/2 mL INJ IVP ×2 (05:47→15:53)
[2021-01-06] MEDS: piperacillin-tazobactam 3.375 GM in sodium chloride 0.9% (plus) 50 ML IV ×3 (05:47→20:22)
--- NOTE | 2021-01-06 06:23 | PC.NURSE ---
Hypotension with low fluctuating trending maps reported to MD Demetris. Order for 500mL NS bolus. Cheetah assessment completed by RN and resulted as follows; SVI 23, CI, 2.0, HR 96, stroke volume index 11.6. Bolus infusion completed, with cheetah results relayed to MD. Levo gtt titrated per protocol.
[2021-01-06] MEDS: lidocaine 1% 5 ML in potassium chloride premix 100 ML 50 ML IV (08:49)
[2021-01-06] MEDS: sennosides-docusate Tablet 1 TAB PO ×2 (08:50→17:43)
[2021-01-06] MEDS: HYDROcodone-acetaminophen 5-325 mg Tablet 1 TAB PO ×2 (09:37→20:21)
--- NOTE | 2021-01-06 10:07 | PM.PN ---
Subjective Subjective: Interval history: He is a 19 feels abdominal pain this morning. Otherwise he states he is doing well. Denies chest pain, shortness of breath. Denies any significant cough. Not yet passing flatus. Having some belching. Vitals/I&O/Wt Last Vital Signs Temp 97.8 F 01/06/21 07:15 Pulse 94 01/06/21 09:30 Resp 16 01/06/21 09:30 BP 87/73 01/06/21 09:30 Pulse Ox 92 01/06/21 09:30 01/05/21 01/06/21 01/06/21 22:59 06:59 14:59 Intake Total 541.291 / 541.291 844.884 / 1386.175 126.835 / 126.835 Output Total 440 / 440 415 / 855 Balance 101.291 / 101.291 429.884 / 531.175 126.835 / 126.835 Weight last 48 hrs Weight 63.873 kg Weight 63.957 kg Physical Exam Const: COMMON NORMALS: no acute distress and patient oriented x3 HENMT: COMMON NORMALS: oropharynx normal OTHER: NGT. RIJ CVC Neck/C-Spine: COMMON NORMALS: no JVD Resp: COMMON NORMALS: normal respiratory effort and clear to auscultation bilaterally AUSCULTATION: clear to auscultation bilaterally Cardio: COMMON NORMALS: no JVD, regular rhythm, S1 normal heart sound present, S2 normal heart sound present and No murmurs present (Cardio) RHYTHM: regular rhythm HEART SOUNDS: S1 normal heart sound present and S2 normal heart sound present GI: COMMON NORMALS: Soft to palpation INSPECTION: Yes abdominal distension AUSCULTATION: Yes Absent bowel sounds PALPATION: Yes Soft to palpation and Yes Tenderness to palpation present (GI) OTHER: Midline wound w clean dressing. Extremity: COMMON NORMALS: no joint enlargement and no pedal edema Neuro: COMMON NORMALS: patient oriented x3 and moves all extremities Skin: COMMON NORMALS: no rashes or lesions noted GENERAL SKIN EXAM: no rashes or lesions noted Data : 01/06/21 03:34 01/06/21 03:34 Micro: Microbiology 01/05/21 12:19 Blood Culture - Preliminary Blood SPECIMEN COLLECTED 01/05/21 12:15 Blood Culture - Preliminary Blood SPECIMEN COLLECTED A&P Assessment and plan (1) Perforated bowel: Continue NGT decompression. Pain control is tolerating. Continue IV antibiotic with Zosyn. He is hypotensive, with sepsis, septic shock, leukocytosis 26.7, tachycardia heart rate 95. Follow-up blood cultures. Wean off pressors tolerating. Check NICOM, overnight received 500 mill bolus as was found fluid responsive. Caution with fluid resuscitation secondary to ischemic cardiomyopathy, low EF 37%. Consider additional expansion with albumin in case fluid responsive. Otherwise continue Levophed. Rate has been decreased to 4 mcg currently. CVC, A-line placed 01/05 Status post laparotomy, small bowel resection of abnormal appearing segment. Sigmoid colon was also noted significantly thickened, mild secondary inflammation. Appendix could not be visualized. Bowel perforation, intra-abdominal abscess. During laparotomy bowel ischemia was not visually observed. DVT prophylaxis with Lovenox. GI prophylaxis famotidine. Status: Acute (2) Supratherapeutic INR: Status post warfarin reversal with PCC. 5 mg vitamin K. INR 1.3. Requiring urgent surgery. Status: Acute (3) Ischemic cardiomyopathy: Previous ejection fraction as low as 20%. Currently EF during last admission up to 37%. ICD in place. Currently does not appear fluid overloaded/CHF exacerbation. Monitor volume status. Diuresis as needed. Resume oral medications once able to tolerate. Status: Acute (4) Atelectasis: Right lower lobe developed atelectasis, pneumonia and small effusion. He reports mild cough, occasional phlegm, but mostly nonproductive. Last admission with possible episode of aspiration during trial of clear liquids. Was discharged on Levaquin. Assessed by speech therapy, and appears earlier today actually underwent MBS with noted pharyngeal residue but was able to clear at with double swallows and alternating solids with liquids. No aspiration or penetration. Aspiration precautions once he resumes oral intake. 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 Continues with bowel rest, pending resumption of bowel function. Status: Acute Additional A&P Information Mild hepatic ascites: Noted on ultrasound during last admission. Recent complicated diverticulitis: After recovery discussed with him and his brother consideration to be still given to endoscopic evaluation to exclude malignant causes. Mild hypokalememia: 3.3. Replace. CAD Atrial fibrillation: Previously on anticoagulation with warfarin, currently held GERD HTN HLD History of prostate cancer Attestations Medical Necessity Statement*: Continue admission for assessment management of sepsis, septic shock, status post bowel perforation, intra-abdominal abscess, small bowel resection, abscess evacuation, in the setting of cardiomyopathy, EF 37%. Critical Care Time: In addition to noncritical issues 37 minutes critical care time spent on assessment management of lactic nature with sepsis, septic shock, titration of pressor, additional volume assessment, responsiveness to fluid, follow-up following small bowel resection, intra-abdominal abscess evacuation following bowel perforation. Coding Level of Care Code Acute Electrician Master for Chg Fwd Exam Comprehensive Diagnoses Perforated bowel K63.1 Supratherapeutic INR R79.1 Ischemic cardiomyopathy I25.5 Atelectasis J98.11
[2021-01-06] MEDS: sodium chloride 0.9% 500 ML IV (11:36)
[2021-01-06] MEDS: AA-Dex 5%-20% w/Lytes 1,000 ML with multivitamin inj 5 ML 50 ML IV (13:44)
--- NOTE | 2021-01-06 14:25 | PM.PN ---
Subjective Subjective: Interval history: Patient is awake and alert, pain is manageable, adequate urine output overnight though he has been hypotensive requiring Levophed. Vitals/I&O/Wt Last Vital Signs Temp 97.8 F 01/06/21 07:15 Pulse 98 01/06/21 13:00 Resp 22 H 01/06/21 13:00 BP 90/77 01/06/21 13:00 Pulse Ox 93 01/06/21 13:00 01/05/21 01/06/21 01/06/21 22:59 06:59 14:59 Intake Total 541.291 / 1386.175 844.884 / 1386.175 246.313 / 246.313 Output Total 440 / 855 415 / 855 Balance 101.291 / 531.175 429.884 / 531.175 246.313 / 246.313 Weight last 48 hrs Weight 140 lb 13.054 oz Weight 141 lb Physical Exam Narrative: EXAM NARRATIVE: Abdomen: Soft, distended, tender, dressings dry and intact, ETIENNE drain output is serosanguineous, NG tube has bilious output, Mack to gravity, dark urine Data : 01/06/21 03:34 01/06/21 03:34 Micro: Microbiology 01/05/21 12:19 Blood Culture - Preliminary Blood NEGATIVE TO DATE 01/05/21 12:15 Blood Culture - Preliminary Blood NEGATIVE TO DATE A&P Assessment and plan (1) S/P small bowel resection: 55-year-old male status post ex lap, bowel resection and drainage of intra-abdominal abscess with postop ileus, continues to be hypotensive NG to LIS, can have ice chips Mack to gravity Continue IV Zosyn Pepcid for GI prophylaxis Okay to start Lovenox Incentive spirometry Morphine and [place] for pain control Severe protein calorie malnutrition, albumin 2: Start TPN at 50 cc/h, increase by 10 cc every 8 hours to goal of 83 cc/h Insulin sliding scale Adjust fluids to minimize fluid intake with the addition of TPN since patient has history of low ejection fraction. Status: Acute Attestations Medical Necessity Statement*: As per primary Coding Level of Care Code Acute Compilation Clerk for g Fwd Diagnoses S/P small bowel resection Z90.49
[2021-01-06 17:41] LABS: Glucose Point of Care 266 mg/dL (70-110)
[2021-01-06] MEDS: enoxaparin 40 mg/0.4 mL Syringe SUBCUT (20:22)
[2021-01-06 20:45] LABS: Glucose Point of Care 207 mg/dL (70-110)
--- NOTE | 2021-01-06 21:30 | PC.NURSE ---
2100 BG; Patient's BG 207 result reported to MD Demetris. No orders for novolog in chart. No new orders received at this time.
[2021-01-07] VITALS (52 sets, daily range): BP systolic 97–142; BP diastolic 59–96; PULSE 83–94; RESP 15–23; TEMP 36.4–36.9; O2SAT 91–98
[2021-01-07] MEDS: morphine 4 mg/mL SDV 1 mL 2 MG IVP (00:15)
[2021-01-07] MEDS: famotidine 20 mg/2 mL INJ IVP ×2 (04:38→16:38)
[2021-01-07] MEDS: piperacillin-tazobactam 3.375 GM in sodium chloride 0.9% (plus) 50 ML IV ×3 (04:38→21:19)
[2021-01-07 04:46] LABS: Alanine Aminotransferase 11 U/L (0-41); Albumin Level 2.1 g/dL (3.5-5.2); Alkaline Phosphatase 57 IU/L (40-130); Anion Gap 13.3 (5-19); Aspartate Amino Transferase 26 U/L (0-40); Blood Urea Nitrogen 17 mg/dL (6-20); Calcium 7.6 mg/dL (8.5-10.5); Carbon Dioxide 29 mmol/L (22-29); Chloride 99 mmol/L (98-107); Globulin 2.6 g/dL (1.3-4.6); Glomerular Filtration Rate 139.4 mL/min (90-130); Glucose 195 mg/dL (65-115); Osmolality Calculated 293 mOsm/kg (285-295); Potassium 3.3 mmol/L (3.5-5.1); Sodium 138 mmol/L (136-145); Total Bilirubin 0.5 mg/dL (0.15-1.2); Total Protein 4.7 g/dL (6.6-8.7)
--- NOTE | 2021-01-07 05:22 | PC.NUTR ---
New coppola placed; RN noted decreased u/o in patient's coppola cath bag. Coppola flushed with sterile water in attempts to irrigate sediment buildup. Little u/o noted, with large amounts of sediment flushed. New coppola placed through sterile procedure. Instant 300mL dark yellow urine return with sediment. Patient tolerated procedure well.
[2021-01-07 07:19] LABS: Glucose Point of Care 161 mg/dL (70-110)
--- NOTE | 2021-01-07 08:13 | PC.NURSE ---
Sister, Aurea called. Primary nurse in room, she states she will call back.
[2021-01-07] MEDS: sennosides-docusate Tablet 1 TAB PO ×2 (08:15→18:07)
[2021-01-07] MEDS: potassium chloride premix 100 ML 50 MEQ IV (08:19)
[2021-01-07] MEDS: HYDROcodone-acetaminophen 5-325 mg Tablet 1 TAB PO ×2 (08:23→16:38)
--- NOTE | 2021-01-07 09:37 | PM.PN ---
Subjective Subjective: Interval history: He is doing a bit better today. States abdominal pain is better. He does not feeling distended. He is belching, however. Denies passing flatus. Thought he may have had bowel movement yesterday, but it was a clogged Mack catheter with quite a bit of sediment. He got relief after the Mack drainage tube was changed. Vitals/I&O/Wt Last Vital Signs Temp 98.0 F 01/07/21 07:15 Pulse 86 01/07/21 09:30 Resp 17 01/07/21 09:30 BP 116/88 01/07/21 09:30 Pulse Ox 92 01/07/21 09:30 01/06/21 01/07/21 01/07/21 22:59 06:59 14:59 Intake Total 100 / 346.313 175 / 521.313 50 / 50 Output Total 755 / 755 950 / 1705 Balance -655 / -408.687 -775 / -1183.687 50 / 50 Weight last 48 hrs Weight 64.246 kg Weight 63.873 kg Weight 63.957 kg Physical Exam Const: COMMON NORMALS: no acute distress and patient oriented x3 HENMT: COMMON NORMALS: oropharynx normal OTHER: NGT. RIJ CVC Neck/C-Spine: COMMON NORMALS: no JVD Resp: COMMON NORMALS: normal respiratory effort and clear to auscultation bilaterally AUSCULTATION: clear to auscultation bilaterally Cardio: COMMON NORMALS: no JVD, regular rhythm, S1 normal heart sound present, S2 normal heart sound present and No murmurs present (Cardio) RHYTHM: regular rhythm HEART SOUNDS: S1 normal heart sound present and S2 normal heart sound present GI: COMMON NORMALS: Soft to palpation INSPECTION: Yes abdominal distension AUSCULTATION: Yes Absent bowel sounds PALPATION: Yes Soft to palpation and Yes Tenderness to palpation present (GI) OTHER: Midline wound w clean dressing. Extremity: COMMON NORMALS: no joint enlargement and no pedal edema Neuro: COMMON NORMALS: patient oriented x3 and moves all extremities Skin: COMMON NORMALS: no rashes or lesions noted GENERAL SKIN EXAM: no rashes or lesions noted Data : 01/06/21 03:34 01/07/21 03:50 Micro: Microbiology 01/05/21 12:19 Blood Culture - Preliminary Blood NEGATIVE TO DATE 01/05/21 12:15 Blood Culture - Preliminary Blood NEGATIVE TO DATE A&P Assessment and plan (1) Perforated bowel: Continue NGT decompression. No flatus, no BM. Still eructation. Drainage amount appears to be 270 since yesterday. Continue IV antibiotic with Zosyn. Septic shock resolved. Sepsis appears may be resolving. For some reason CBC not obtained today, requested. Careful nutrition with TPN, avoid fluid overload with continuous infusions. CVC, A-line placed 01/05. Remove A-line. DC Mack. Move to floor. Mobilize w PT. Stood today. Status post laparotomy 01/05, small bowel resection of abnormal appearing segment. Sigmoid colon was also noted significantly thickened, mild secondary inflammation. Appendix could not be visualized. Bowel perforation, intra-abdominal abscess. During laparotomy bowel ischemia was not visually observed. DVT prophylaxis with Lovenox. GI prophylaxis famotidine. Status: Acute (2) Supratherapeutic INR: Status post warfarin reversal with PCC. 5 mg vitamin K. INR 1.3. Requiring urgent surgery. Currently prophylactic Lovenox only. If continues to recover well, no risk of bleeding, consider slowly resuming anticoagulation. Status: Acute (3) Ischemic cardiomyopathy: Previous ejection fraction as low as 20%. Currently EF during last admission up to 37%. ICD in place. Currently does not appear fluid overloaded/CHF exacerbation. Monitor volume status. Diuresis as needed. Resume oral medications once able to tolerate. Status: Acute (4) Atelectasis: Right lower lobe developed atelectasis, pneumonia and small effusion. He reports mild cough, occasional phlegm, but mostly nonproductive. Last admission with possible episode of aspiration during trial of clear liquids. Was discharged on Levaquin. Assessed by speech therapy, and appears earlier today actually underwent MBS with noted pharyngeal residue but was able to clear at with double swallows and alternating solids with liquids. No aspiration or penetration. Aspiration precautions once he resumes oral intake. DIRECTOR OF PHOTOGRAPHY follow-up. Continues with bowel rest, pending resumption of bowel function. Status: Acute Additional A&P Information Urinary sediment: Evening of 01/06 noticed quite a bit of urinary sediment with clogging of the Mack drainage tube. This was exchanged with relief of obstruction and discomfort. Today draining well. Request UA. Mild perihepatic ascites: Noted on ultrasound during last admission. Recent complicated diverticulitis: After recovery discussed with him and his brother consideration to be still given to endoscopic evaluation to exclude malignant causes. Mild hypokalememia: 3.3. Replace additional potassium. CAD Atrial fibrillation: Previously on anticoagulation with warfarin, currently held GERD HTN HLD History of prostate cancer Attestations Medical Necessity Statement*: Continue admission for assessment and following perforated bowel, intra-abdominal abscess, resolving sepsis, pending return of bowel function, with TPN in the setting of cardiomyopathy, EF 37%. Coding Level of Care Code Acute Engineered Wood Designer for [facility] Fwd Diagnoses Perforated bowel K63.1 Supratherapeutic INR R79.1 Ischemic cardiomyopathy I25.5 Atelectasis J98.11
[2021-01-07 10:13] LABS: Basophils # 0.1 10^3/uL (0.0-0.1); Basophils % 0.5 %; Eosinophils # 0.7 10^3/uL (0.0-0.8); Eosinophils % 2.9 %; Hematocrit 34.8 % (42.0-52.0); Hemoglobin 11.3 g/dL (11.7-16.6); Lymphocytes # 1.8 10^3/uL (0.8-4.8); Lymphocytes % 7.7 %; Mean Corpuscular HGB Conc 32.5 g/dL (30.0-36.0); Mean Corpuscular Hemoglobin 28.4 pg (28.0-34.0); Mean Corpuscular Volume 87.4 fL (80-94); Mean Platelet Volume 10.5 fL (7.4-10.4); Monocytes % 8.7 %; Neutrophils # 17.66 10^3/uL (1.8-7.7); Neutrophils % 76.3 %; Nucleated Red Blood Cells % 0 %; Platelet Count 371 10^3/cmm (130-400); Red Blood Count 3.98 10^6/uL (4.1-5.3); Red Cell Distribution Width 15.9 % (12.1-15.1); White Blood Count 23.1 10^3/uL (4.0-10.0)
[2021-01-07 11:24] LABS: Glucose Point of Care 156 mg/dL (70-110)
[2021-01-07] MEDS: AA-Dex 5%-20% w/Lytes 1,000 ML with multivitamin inj 10 ML 50 ML IV (11:28)
[2021-01-07 11:53] LABS: Add Urine Microscopic? YES; Bilirubin Urine Neg (Negative); Blood Urine 3+ (Negative); Glucose Urine UA Norm (Normal); Ketones Urine Negative (Negative); Nitrate Urine Negative (Negative); Protein Urine Neg (Negative); Specific Gravity, Urine 1.015 (1.005-1.030); Urine Appearance SL Hazy (CLEAR); Urine Color Yellow (Yellow); Urobilinogen Urine Norm (Negative); pH Urine 5 (5-7)
[2021-01-07 11:56] LABS: Leukocyte Esterase Urine Trace (Negative)
[2021-01-07 11:57] LABS: Bacteria Urine TRACE /hpf; RBC Urine 80-100 /hpf (0-2)
[2021-01-07 11:59] LABS: WBC Urine 0-4 /hpf (0-5)
[2021-01-07 12:01] LABS: Add Urine Culture? Yes
--- NOTE | 2021-01-07 12:23 | PM.PN ---
Subjective Subjective: Interval history: Patient doing a lot better today, NG output has been minimal, no flatus or BM, ambulated with PT. A-line and Mack was discontinued Vitals/I&O/Wt Last Vital Signs Temp 98.0 F 01/07/21 07:15 Pulse 94 01/07/21 11:15 Resp 18 01/07/21 11:15 BP 126/82 01/07/21 11:15 Pulse Ox 93 01/07/21 11:15 01/06/21 01/07/21 01/07/21 22:59 06:59 14:59 Intake Total 100 / 522.329 175 / 319.406 3487 / 1155 Output Total 755 / 1705 950 / 1705 Balance -655 / -1182.671 -775 / -7005.849 9925 / 1155 Weight last 48 hrs Weight 141 lb 10.211 oz Weight 140 lb 13.054 oz Physical Exam Narrative: EXAM NARRATIVE: Abdomen: Soft, distended, ETIENNE drain output serosanguineous, incision, clean dry and intact, NG to LIS Urinary Catheter Management^: Mack: Cath Placed During This Visit: yes, but has since been removed by the nurse Reason for Continuing Indwelling Catheter: Accurate Measurement of Urinary Output in Critically Ill Patients Urinary Catheter Date of Insertion: 01/05/21 Urinary Catheter Time of Insertion: 13:46 Date Urinary Catheter Removed: 01/07/21 Time Urinary Catheter Discontinued: 11:18 Data : 01/07/21 03:50 01/07/21 03:50 Micro: Microbiology 01/05/21 12:19 Blood Culture - Preliminary Blood NEGATIVE TO DATE 01/05/21 12:15 Blood Culture - Preliminary Blood NEGATIVE TO DATE A&P Assessment and plan (1) S/P small bowel resection: 55-year-old male status post ex lap, bowel resection and drainage of intra-abdominal abscess with postop ileus,, off pressors, awaiting return of bowel function NG to LIS, can have ice chips WBC is 23.1: Continue IV Zosyn Pepcid for GI prophylaxis DVT prophylaxis with Lovenox Incentive spirometry Morphine and [place] for pain control Severe protein calorie malnutrition : Continue TPN Insulin sliding scale Hypokalemia: Potassium replacement given Adjust fluids to minimize fluid intake with the addition of TPN since patient has history of low ejection fraction. Status: Acute Attestations Medical Necessity Statement*: As per primary Coding Level of Care Code Acute Classifying Machine Operator for [facility] Fwd Diagnoses S/P small bowel resection Z90.49
--- NOTE | 2021-01-07 13:09 | PC.NURSE ---
Transfer to [facility] Report called to JENNIFER Mosquera on [facility]. Pt transferred by wheelchair to room 264. Pt transferred with one assit from wheelchair to bed. Eveline reported to bedside. Incision site inspected by both nurses at this time and no s/s of infection noted. Pt hooked back up to LIS at this time and A&OX4 at time of transfer with no complaint of pain.
[2021-01-07 17:33] LABS: Glucose Point of Care 169 mg/dL (70-110)
[2021-01-07] MEDS: enoxaparin 40 mg/0.4 mL Syringe SUBCUT (21:19)
[2021-01-07 21:34] LABS: Glucose Point of Care 160 mg/dL (70-110)
[2021-01-08] VITALS (10 sets, daily range): BP systolic 126–144; BP diastolic 77–86; PULSE 70–94; RESP 17–20; TEMP 36.4–37.2; O2SAT 92–97
--- NOTE | 2021-01-08 01:14 | PC.NURSE ---
Upon assuming patient care, this RN noticed that patients TPN was not increased every 8 hours per the order. Olamide, TELEVISION PARTS TESTER increased TPN to 60ml/hr and the next increase will be at 0830 01/08/21.
--- NOTE | 2021-01-08 04:06 | PC.NURSE ---
Patient pulled out NG tube while sleeping. Patient is refusing to put the Ng tube back in. Doctor Demetris was notified. He said to try putting the tube back in around 0400.
--- NOTE | 2021-01-08 04:15 | PC.NURSE ---
Patient still refusing NG tube. This RN educated patient on importance of having tube replaced. Patient verbalized understanding but still refusing.
[2021-01-08] MEDS: piperacillin-tazobactam 3.375 GM in sodium chloride 0.9% (plus) 50 ML IV ×3 (04:33→21:04)
[2021-01-08] MEDS: famotidine 20 mg/2 mL INJ IVP ×2 (04:34→18:14)
[2021-01-08 05:47] LABS: Basophils # 0.1 10^3/uL (0.0-0.1); Basophils % 0.8 %; Eosinophils # 0.8 10^3/uL (0.0-0.8); Eosinophils % 4.5 %; Hematocrit 38.5 % (42.0-52.0); Hemoglobin 12.3 g/dL (11.7-16.6); Lymphocytes # 1.7 10^3/uL (0.8-4.8); Mean Corpuscular HGB Conc 31.9 g/dL (30.0-36.0); Mean Corpuscular Hemoglobin 28.7 pg (28.0-34.0); Mean Corpuscular Volume 89.7 fL (80-94); Monocytes # 1.6 10^3/uL (0.2-0.9); Monocytes % 9.5 %; Neutrophils # 12.15 10^3/uL (1.8-7.7); Neutrophils % 70.4 %; Nucleated Red Blood Cells % 0 %; Platelet Count 379 10^3/cmm (130-400); Red Blood Count 4.29 10^6/uL (4.1-5.3); Red Cell Distribution Width 16.5 % (12.1-15.1); White Blood Count 17.2 10^3/uL (4.0-10.0)
[2021-01-08] MEDS: AA-Dex 5%-20% w/Lytes 1,000 ML with multivitamin inj 10 ML 60 ML IV ×2 (06:10→21:03)
[2021-01-08 06:16] LABS: Alanine Aminotransferase 13 U/L (0-41); Albumin Level 2.1 g/dL (3.5-5.2); Alkaline Phosphatase 67 IU/L (40-130); Blood Urea Nitrogen 12 mg/dL (6-20); Calcium 8.2 mg/dL (8.5-10.5); Carbon Dioxide 31 mmol/L (22-29); Chloride 96 mmol/L (98-107); Globulin 3.6 g/dL (1.3-4.6); Glucose 140 mg/dL (65-115); Osmolality Calculated 282 mOsm/kg (285-295); Sodium 135 mmol/L (136-145); Total Bilirubin 0.4 mg/dL (0.15-1.2); Total Protein 5.7 g/dL (6.6-8.7)
[2021-01-08 06:21] LABS: Anion Gap 11.6 (5-19); Aspartate Amino Transferase 29 U/L (0-40); Potassium 3.6 mmol/L (3.5-5.1)
[2021-01-08 06:34] LABS: Glucose Point of Care 173 mg/dL (70-110)
[2021-01-08] MEDS: sennosides-docusate Tablet 1 TAB PO ×2 (08:47→18:14)
[2021-01-08 10:51] LABS: Glucose Point of Care 168 mg/dL (70-110)
--- NOTE | 2021-01-08 11:36 | PC.SOCIAL ---
IMM Update Pg. 2 of IMM updated and reviewed with patient. Verbalized understanding. Copy provided. Initialed, dated, and timed in chart.
--- NOTE | 2021-01-08 14:02 | P.PN_ITS ---
Subjective Subjective: Interval history: Patient pulled out NG tube, denies any nausea vomiting, passing flatus, no BM. Pain is controlled Vitals/I&O/Wt Last Vital Signs Temp 98.2 F 01/08/21 11:25 Pulse 82 01/08/21 11:25 Resp 17 01/08/21 11:25 BP 133/80 01/08/21 11:25 Pulse Ox 97 01/08/21 11:25 01/07/21 01/08/21 01/08/21 22:59 06:59 14:59 Intake Total 50 / 2870.833 1665.833 / 2870.833 50 / 50 Output Total 115 / 650 535 / 650 Balance -65 / 2220.833 1130.833 / 2220.833 50 / 50 Weight last 48 hrs Weight 140 lb 14.4 oz Weight 141 lb 10.211 oz Physical Exam Narrative: EXAM NARRATIVE: Abdomen: Soft, nontender, distended, incision clean dry and intact, ETIENNE drain output serosanguineous Urinary Catheter Management^: Mack: Cath Placed During This Visit: yes, but has since been removed by the nurse Reason for Continuing Indwelling Catheter: Not indwelling catheter Urinary Catheter Date of Insertion: 01/05/21 Urinary Catheter Time of Insertion: 13:46 Date Urinary Catheter Removed: 01/07/21 Time Urinary Catheter Discontinued: 11:18 Data : 01/08/21 05:00 01/08/21 05:00 Micro: Microbiology 01/07/21 Unknown Urine Culture - Preliminary Urine,Clean Catch A&P Assessment and plan (1) S/P small bowel resection: 55-year-old male status post ex lap, bowel resection and drainage of intra-abdominal abscess with postop ileus, awaiting return of bowel function can have ice chips WBC is 17.2: Continue IV Zosyn Pepcid for GI prophylaxis DVT prophylaxis with Lovenox Incentive spirometry Morphine and [place] for pain control Senna S for bowel regimen Severe protein calorie malnutrition : Continue TPN at 83 cc/h Insulin sliding scale Hypokalemia: Resolved DC IV fluids Status: Acute Attestations Medical Necessity Statement*: As per primary Coding Level of Care Code Acute Soccer Commentator for [facility] Fwd Diagnoses S/P small bowel resection Z90.49
--- NOTE | 2021-01-08 15:03 | PC.RESP ---
SMOKING CESSATION INFORMATION SENT TO PATIENT.
--- NOTE | 2021-01-08 15:35 | P.PN_ITS ---
Subjective Subjective: Interval history: removed NGT, denies abdominal pain, passing flatus today Vitals/I&O/Wt Last Vital Signs Temp 98.0 F 01/09/21 03:57 Pulse 78 01/09/21 05:20 Resp 16 01/09/21 03:57 BP 146/82 01/09/21 03:57 Pulse Ox 91 01/09/21 03:57 01/08/21 01/08/21 01/09/21 14:59 22:59 06:59 Intake Total 50 / 50 1055 / 1105 175 / 1280 Output Total 300 / 300 510 / 810 Balance 50 / 50 755 / 805 -335 / 470 Weight last 48 hrs Weight 63.911 kg Weight 64.246 kg Physical Exam Narrative: EXAM NARRATIVE: GEN: Awake, alert and oriented, no acute distress CVS: S1S2 N RS: CTA B/L Abd: Soft, nt/nd TONGUE AND GROOVE MACHINE FEEDER: no focal neuro deficits Urinary Catheter Management^: Mack: Cath Placed During This Visit: yes, but has since been removed by the nurse Reason for Continuing Indwelling Catheter: Not indwelling catheter Urinary Catheter Date of Insertion: 01/05/21 Urinary Catheter Time of Insertion: 13:46 Date Urinary Catheter Removed: 01/07/21 Time Urinary Catheter Discontinued: 11:18 Data : 01/09/21 02:18 01/09/21 02:18 Micro: Microbiology 01/07/21 Unknown Urine Culture - Preliminary Urine,Clean Catch A&P Assessment and plan (1) Perforated bowel: Status post laparotomy 01/05, small bowel resection of abnormal appearing segment. Continue IV antibiotic with Zosyn. Septic shock resolved. Sepsis appears may be resolving. Careful nutrition with TPN, avoid fluid overload with continuous infusions. CVC placed 01/05. Pulled out NGT, holding off on placement, no nausea, vomiting, started to pass flatus, states he is hungry Status: Acute (2) Supratherapeutic INR: Status post warfarin reversal with PCC. 5 mg vitamin K. INR 1.3. Requiring urgent surgery. Currently prophylactic Lovenox only. If continues to recover well, no risk of bleeding, consider slowly resuming anticoagulation. Status: Acute (3) Ischemic cardiomyopathy: Previous ejection fraction as low as 20%. Currently EF during last admission up to 37%. ICD in place. Currently does not appear fluid overloaded/CHF exacerbation. Monitor volume status. Diuresis as needed. Resume oral medications once able to tolerate. Status: Acute (4) Atelectasis: Right lower lobe developed atelectasis, pneumonia and small effusion. He reports mild cough, occasional phlegm, but mostly nonproductive. Last admission with possible episode of aspiration during trial of clear liquids. Assessed by speech therapy, and appears earlier today actually underwent MBS with noted pharyngeal residue but was able to clear at with double swallows and alternating solids with liquids. No aspiration or penetration. Aspiration precautions once he resumes oral intake. 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 Continues with bowel rest, pending resumption of bowel function. Status: Acute Additional A&P Information Mild perihepatic ascites: Noted on ultrasound during last admission. Recent complicated diverticulitis: After recovery discussed with him and his brother consideration to be still given to endoscopic evaluation to exclude malignant causes. CAD Atrial fibrillation: Previously on anticoagulation with warfarin, currently held GERD HTN HLD History of prostate cancer Attestations Medical Necessity Statement*: post op ileus, ongoing TPN, need for iv abx Coding Level of Care Code Acute Explosive Specialist for [facility] Fwd Diagnoses Perforated bowel K63.1 Supratherapeutic INR R79.1 Ischemic cardiomyopathy I25.5 Atelectasis J98.11
[2021-01-08 17:05] LABS: Glucose Point of Care 169 mg/dL (70-110)
[2021-01-08 21:03] LABS: Glucose Point of Care 95 mg/dL (70-110)
[2021-01-08] MEDS: enoxaparin 40 mg/0.4 mL Syringe SUBCUT (21:04)
[2021-01-09] VITALS (9 sets, daily range): BP systolic 96–148; BP diastolic 58–85; PULSE 67–94; RESP 16–18; TEMP 36.4–37.2; O2SAT 91–96
[2021-01-09 02:43] LABS: Basophils # 0.1 10^3/uL (0.0-0.1); Basophils % 0.6 %; Eosinophils # 0.5 10^3/uL (0.0-0.8); Eosinophils % 2.7 %; Hematocrit 35.3 % (42.0-52.0); Hemoglobin 11.3 g/dL (11.7-16.6); Lymphocytes # 1.7 10^3/uL (0.8-4.8); Lymphocytes % 9.5 %; Mean Corpuscular Volume 87.4 fL (80-94); Monocytes # 1.9 10^3/uL (0.2-0.9); Monocytes % 10.7 %; Neutrophils % 72.9 %; Nucleated Red Blood Cells % 0 %; Platelet Count 430 10^3/cmm (130-400); Red Blood Count 4.04 10^6/uL (4.1-5.3); Red Cell Distribution Width 15.8 % (12.1-15.1); White Blood Count 18.1 10^3/uL (4.0-10.0)
[2021-01-09 02:57] LABS: Alanine Aminotransferase 14 U/L (0-41); Albumin Level 2.6 g/dL (3.5-5.2); Alkaline Phosphatase 72 IU/L (40-130); Anion Gap 13.5 (5-19); Aspartate Amino Transferase 30 U/L (0-40); Blood Urea Nitrogen 12 mg/dL (6-20); Carbon Dioxide 33 mmol/L (22-29); Chloride 96 mmol/L (98-107); Globulin 3.2 g/dL (1.3-4.6); Glomerular Filtration Rate 222.5 mL/min (90-130); Glucose 188 mg/dL (65-115); Osmolality Calculated 293 mOsm/kg (285-295); Potassium 3.5 mmol/L (3.5-5.1); Sodium 139 mmol/L (136-145); Total Bilirubin 0.4 mg/dL (0.15-1.2); Total Protein 5.8 g/dL (6.6-8.7)
[2021-01-09] MEDS: famotidine 20 mg/2 mL INJ IVP ×2 (04:58→15:19)
[2021-01-09] MEDS: piperacillin-tazobactam 3.375 GM in sodium chloride 0.9% (plus) 50 ML IV ×3 (04:58→22:51)
[2021-01-09 06:20] LABS: Glucose Point of Care 199 mg/dL (70-110)
[2021-01-09] MEDS: HYDROcodone-acetaminophen 5-325 mg Tablet 1 TAB PO (08:20)
[2021-01-09] MEDS: sennosides-docusate Tablet 1 TAB PO ×2 (08:20→18:25)
[2021-01-09] MEDS: AA-Dex 5%-20% w/Lytes 1,000 ML with multivitamin inj 10 ML 83 ML IV ×2 (10:55→22:54)
[2021-01-09 11:06] LABS: Glucose Point of Care 86 mg/dL (70-110)
[2021-01-09 18:09] LABS: Glucose Point of Care 199 mg/dL (70-110)
--- NOTE | 2021-01-09 19:11 | P.PN_ITS ---
Subjective Subjective: Interval history: Patient is passing flatus, no nausea or vomiting, has been afebrile Vitals/I&O/Wt Last Vital Signs Temp 97.6 F 01/10/21 15:17 Pulse 74 01/10/21 15:17 Resp 18 01/10/21 15:17 BP 126/74 01/10/21 15:17 Pulse Ox 97 01/10/21 15:17 01/10/21 01/10/21 01/10/21 06:59 14:59 22:59 Intake Total 175 / 2277.617 1060 / 1060 Output Total 400 / 950 400 / 400 Balance -225 / 4699.081 2332 / 660 -400 / 660 Weight last 48 hrs Weight 148 lb Weight 147 lb 4.8 oz Physical Exam Narrative: EXAM NARRATIVE: Abdomen: Soft, distended, minimally tender, incision clean dry intact, ETIENNE drain output is serosanguineous Urinary Catheter Management^: Mack: Cath Placed During This Visit: yes, but has since been removed by the nurse Reason for Continuing Indwelling Catheter: Not indwelling catheter Urinary Catheter Date of Insertion: 01/05/21 Urinary Catheter Time of Insertion: 13:46 Date Urinary Catheter Removed: 01/07/21 Time Urinary Catheter Discontinued: 11:18 Data : 01/10/21 02:18 01/10/21 02:18 Micro: Microbiology 01/05/21 12:19 Blood Culture - Final Blood NO GROWTH AFTER 5 DAYS 01/05/21 12:15 Blood Culture - Final Blood NO GROWTH AFTER 5 DAYS A&P Assessment and plan (1) S/P small bowel resection: 55-year-old male status post ex lap, bowel resection and drainage of intra-abdominal abscess with postop ileus, awaiting return of bowel function Continue ice chips WBC is 18.1 but he continues to be afebrile,continue Zosyn Pepcid for GI prophylaxis DVT prophylaxis with Lovenox Incentive spirometry Morphine and [place] for pain control Senna S for bowel regimen Severe protein calorie malnutrition : Continue TPN at 83 cc/h Insulin sliding scale Hypokalemia: Resolved Status: Acute Attestations Medical Necessity Statement*: As per primary Coding Level of Care Code Acute Director Statistical Programming for [facility] Fwd Diagnoses S/P small bowel resection Z90.49
[2021-01-09] MEDS: enoxaparin 40 mg/0.4 mL Syringe SUBCUT (20:35)
--- NOTE | 2021-01-09 20:45 | P.PN_ITS ---
Subjective Subjective: Interval history: seen walking with PT today, afberile, passing flatus, leukocytosis stable, no BM yet Vitals/I&O/Wt Last Vital Signs Temp 97.5 F L 01/09/21 20:00 Pulse 88 01/09/21 20:00 Resp 18 01/09/21 20:00 BP 148/80 01/09/21 20:00 Pulse Ox 94 01/09/21 20:00 01/09/21 01/09/21 01/09/21 06:59 14:59 22:59 Intake Total 175 / 1280 1058 / 1058 50 / 1108 Output Total 510 / 810 250 / 250 100 / 350 Balance -335 / 470 808 / 808 -50 / 758 Weight last 48 hrs Weight 66.814 kg Weight 63.911 kg Physical Exam Narrative: EXAM NARRATIVE: GEN: Awake, alert and oriented, no acute distress CVS: S1S2 N RS: CTA B/L Abd: Soft, mildly distended CLAIMS ACCOUNT MANAGER: no focal neuro deficits Urinary Catheter Management^: Mack: Cath Placed During This Visit: yes, but has since been removed by the nurse Reason for Continuing Indwelling Catheter: Not indwelling catheter Urinary Catheter Date of Insertion: 01/05/21 Urinary Catheter Time of Insertion: 13:46 Date Urinary Catheter Removed: 01/07/21 Time Urinary Catheter Discontinued: 11:18 Data : 01/09/21 02:18 01/09/21 02:18 Micro: Microbiology 01/07/21 Unknown Urine Culture - Final Urine,Clean Catch A&P Assessment and plan (1) Perforated bowel: Status post laparotomy 01/05, small bowel resection of abnormal appearing segment. Continue IV antibiotic with Zosyn. Septic shock resolved. Sepsis appears may be resolving. Careful nutrition with TPN, avoid fluid overload with continuous infusions. CVC placed 01/05. Pulled out NGT, holding off on placement, no nausea, vomiting, started to pass flatus, states he is hungry Status: Acute (2) Supratherapeutic INR: Status post warfarin reversal with PCC. 5 mg vitamin K. INR 1.3. Requiring urgent surgery. Currently prophylactic Lovenox only. If continues to recover well, no risk of bleeding, consider slowly resuming anticoagulation. Status: Acute (3) Ischemic cardiomyopathy: Previous ejection fraction as low as 20%. Currently EF during last admission up to 37%. ICD in place. Currently does not appear fluid overloaded/CHF exacerbation. Monitor volume status. Diuresis as needed. Resume oral medications once able to tolerate. Status: Acute (4) Atelectasis: Right lower lobe developed atelectasis, pneumonia and small effusion. He reports mild cough, occasional phlegm, but mostly nonproductive. Last admission with possible episode of aspiration during trial of clear liquids. Assessed by speech therapy, and appears earlier today actually underwent MBS with noted pharyngeal residue but was able to clear at with double swallows and alternating solids with liquids. No aspiration or penetration. Aspiration precautions once he resumes oral intake. 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 Continues with bowel rest, pending resumption of bowel function. Status: Acute Additional A&P Information Mild perihepatic ascites: Noted on ultrasound during last admission. Recent complicated diverticulitis: After recovery discussed with him and his brother consideration to be still given to endoscopic evaluation to exclude malignant causes. CAD Atrial fibrillation: Previously on anticoagulation with warfarin, currently held GERD HTN HLD History of prostate cancer Attestations Medical Necessity Statement*: awaiting return of bowel function, ongoing parenteral nutrition, iv antibiotics Coding Level of Care Code Acute Private Detective for [facility] Fwd Diagnoses Perforated bowel K63.1 Supratherapeutic INR R79.1 Ischemic cardiomyopathy I25.5 Atelectasis J98.11
[2021-01-09 20:46] LABS: Glucose Point of Care 166 mg/dL (70-110)
[2021-01-09] MEDS: LORazepam 2 mg/mL INJ 1 mL 0.5 MG IVP (23:48)
[2021-01-10] VITALS (9 sets, daily range): BP systolic 118–136; BP diastolic 72–82; PULSE 72–107; RESP 14–20; TEMP 36.4–36.9; O2SAT 92–98
[2021-01-10 02:42] LABS: Basophils # 0.2 10^3/uL (0.0-0.1); Basophils % 0.8 %; Eosinophils # 0.7 10^3/uL (0.0-0.8); Eosinophils % 3.3 %; Hematocrit 36.3 % (42.0-52.0); Hemoglobin 11.7 g/dL (11.7-16.6); Lymphocytes % 9.8 %; Mean Corpuscular HGB Conc 32.2 g/dL (30.0-36.0); Mean Corpuscular Hemoglobin 28.4 pg (28.0-34.0); Mean Corpuscular Volume 88.1 fL (80-94); Mean Platelet Volume 9.9 fL (7.4-10.4); Monocytes # 2.7 10^3/uL (0.2-0.9); Neutrophils # 14.23 10^3/uL (1.8-7.7); Nucleated Red Blood Cells % 0 %; Platelet Count 424 10^3/cmm (130-400); Red Blood Count 4.12 10^6/uL (4.1-5.3); Red Cell Distribution Width 15.6 % (12.1-15.1); White Blood Count 20.6 10^3/uL (4.0-10.0)
[2021-01-10 02:45] LABS: Alanine Aminotransferase 24 U/L (0-41); Albumin Level 2.8 g/dL (3.5-5.2); Alkaline Phosphatase 106 IU/L (40-130); Anion Gap 11.7 (5-19); Aspartate Amino Transferase 36 U/L (0-40); Blood Urea Nitrogen 11 mg/dL (6-20); Calcium 8.1 mg/dL (8.5-10.5); Carbon Dioxide 30 mmol/L (22-29); Chloride 94 mmol/L (98-107); Globulin 3.2 g/dL (1.3-4.6); Glomerular Filtration Rate 222.5 mL/min (90-130); Glucose 157 mg/dL (65-115); Osmolality Calculated 277 mOsm/kg (285-295); Potassium 3.7 mmol/L (3.5-5.1); Sodium 132 mmol/L (136-145); Total Bilirubin 0.7 mg/dL (0.15-1.2)
[2021-01-10] MEDS: famotidine 20 mg/2 mL INJ IVP ×2 (03:57→18:03)
[2021-01-10] MEDS: piperacillin-tazobactam 3.375 GM in sodium chloride 0.9% (plus) 50 ML IV ×3 (05:47→23:16)
[2021-01-10 06:27] LABS: Glucose Point of Care 191 mg/dL (70-110)
--- NOTE | 2021-01-10 08:00 | XR_ITS ---
WS: [id number] Abdomen series, Flat and upright 01/10/2021 Clinical Data: sbo Comparison: CT abdomen and pelvis, 01/05/2021. Findings: No free air is seen beneath the diaphragms. No abnormal intra-abdominal masses or calcifica tions are seen. There is a large amount of air in the small bowel. There is residual contrast in the small bowel from the patient's barium study one week ago. There is an operative drain in the pelvis. Midline surgical samantha in the abdomen and pelvis are noted. Monitor leads are on the abdominal wall . There is a cardiac pacemaker wire in the heart. XR/XR abdomen min 2V [id number] Impression: 1. Dilated small bowel loops consistent with severe ileus or small bowel obstru ction. 2. Negative for free air.
[2021-01-10] MEDS: sennosides-docusate Tablet 1 TAB PO ×2 (10:32→18:03)
[2021-01-10] MEDS: HYDROcodone-acetaminophen 5-325 mg Tablet 1 TAB PO ×2 (10:40→18:03)
--- NOTE | 2021-01-10 13:44 | PC.SOCIAL ---
IMM UPDATE Gave patient IMM update. Provided copy of page 2. Verbalized understanding 01/10/21 @ 1005 Initialed, dated, timed and placed in chart.
[2021-01-10 17:23] LABS: Glucose Point of Care 97 mg/dL (70-110)
[2021-01-10 17:37] LABS: Glucose Point of Care 98 mg/dL (70-110)
--- NOTE | 2021-01-10 18:56 | PM.PN ---
Subjective Subjective: Interval history: Patient states that she had to 3 bowel movements today, denies any nausea or vomiting, tolerating ice chips Vitals/I&O/Wt Last Vital Signs Temp 97.6 F 01/10/21 15:17 Pulse 74 01/10/21 15:17 Resp 18 01/10/21 15:17 BP 126/74 01/10/21 15:17 Pulse Ox 97 01/10/21 15:17 01/10/21 01/10/21 01/10/21 06:59 14:59 22:59 Intake Total 175 / 2277.617 1060 / 1060 Output Total 400 / 950 400 / 400 Balance -225 / 9091.525 0543 / 660 -400 / 660 Weight last 48 hrs Weight 148 lb Weight 147 lb 4.8 oz Physical Exam Narrative: EXAM NARRATIVE: Abdomen: Soft, mildly distended, nontender, incision clean dry and intact, ETIENNE drain output is serosanguineous Urinary Catheter Management^: Mack: Cath Placed During This Visit: yes, but has since been removed by the nurse Reason for Continuing Indwelling Catheter: Not indwelling catheter Urinary Catheter Date of Insertion: 01/05/21 Urinary Catheter Time of Insertion: 13:46 Date Urinary Catheter Removed: 01/07/21 Time Urinary Catheter Discontinued: 11:18 Data : 01/10/21 02:18 01/10/21 02:18 Micro: Microbiology 01/05/21 12:19 Blood Culture - Final Blood NO GROWTH AFTER 5 DAYS 01/05/21 12:15 Blood Culture - Final Blood NO GROWTH AFTER 5 DAYS 01/07/21 Unknown Urine Culture - Final Urine,Clean Catch A&P Assessment and plan (1) S/P small bowel resection: 55-year-old male status post ex lap, bowel resection and drainage of intra-abdominal abscess with postop ileus, awaiting return of bowel function Abdominal x-ray today showed extensive dilated bowel loops We will try clear liquid diet since he had bowel movements today WBC is 20.6 but he continues to be afebrile,continue Zosyn, will add vancomycin after discussions with Dr. Philip. If WBC continues to trend up then will obtain CT abdomen pelvis with p.o. and IV contrast tomorrow. Pepcid for GI prophylaxis DVT prophylaxis with Lovenox Incentive spirometry Morphine and [place] for pain control Senna S for bowel regimen Severe protein calorie malnutrition : Continue TPN at 83 cc/h Insulin sliding scale Hypokalemia: Resolved Status: Acute Attestations Medical Necessity Statement*: As per primary Coding Level of Care Code Acute Electrotherapist for [facility] Fwd Diagnoses S/P small bowel resection Z90.49
[2021-01-10 20:55] LABS: Glucose Point of Care 115 mg/dL (70-110)
--- NOTE | 2021-01-10 21:29 | PC.NURSE ---
DOCTOR OKAYED FOR NG TUBE TO NOT BE PLACED AT THIS TIME. PT IS CURRENTLY WITHOUT AN NG TUBE. WILL SEE HOW HE TOLERATES CLEAR LIQUIDS AND GO FROM THERE.
[2021-01-10] MEDS: enoxaparin 40 mg/0.4 mL Syringe SUBCUT (22:05)
[2021-01-10] MEDS: vancomycin 1,000 MG in sodium chloride 0.9% 250 ML 250 MG IV (22:10)
[2021-01-10] MEDS: morphine 4 mg/mL SDV 1 mL 2 MG IVP (22:46)
--- NOTE | 2021-01-10 23:07 | P.PN_ITS ---
Subjective Subjective: Interval history: Reports having bowel movement today, AXR with significant distension, planned for placement of NGT, leukocytosis trending up however clinically remains stable. Vitals/I&O/Wt Last Vital Signs Temp 98.5 F 01/10/21 20:00 Pulse 95 01/10/21 20:00 Resp 14 01/10/21 22:46 BP 123/72 01/10/21 20:00 Pulse Ox 92 01/10/21 22:46 01/10/21 01/10/21 01/11/21 14:59 22:59 06:59 Intake Total 1060 / 1060 50 / 1110 Output Total 400 / 400 Balance 1060 / 1060 -350 / 710 Weight last 48 hrs Weight 67.132 kg Weight 66.814 kg Physical Exam Narrative: EXAM NARRATIVE: GEN: Awake, alert and oriented, no acute distress CVS: S1S2 N RS: CTA B/L Abd: Soft, mildly distended BLOWER BLAST FURNACE: no focal neuro deficits Urinary Catheter Management^: Mack: Cath Placed During This Visit: yes, but has since been removed by the nurse Reason for Continuing Indwelling Catheter: Not indwelling catheter Urinary Catheter Date of Insertion: 01/05/21 Urinary Catheter Time of Insertion: 13:46 Date Urinary Catheter Removed: 01/07/21 Time Urinary Catheter Discontinued: 11:18 Data : 01/10/21 02:18 01/10/21 02:18 Micro: Microbiology 01/05/21 12:19 Blood Culture - Final Blood NO GROWTH AFTER 5 DAYS 01/05/21 12:15 Blood Culture - Final Blood NO GROWTH AFTER 5 DAYS A&P Assessment and plan (1) Perforated bowel: Status post laparotomy 01/05, small bowel resection of abnormal appearing segment. Continue IV antibiotic with Zosyn. Septic shock resolved. Careful nutrition with TPN, avoid fluid overload with continuous infusions. CVC placed 01/05, plan to remove and place PICC line Pulled out NGT, holding off on placement, no nausea, vomiting, had BM Status: Acute (2) Supratherapeutic INR: Status post warfarin reversal with PCC. 5 mg vitamin K. INR 1.3. Req uiring urgent surgery. Currently prophylactic Lovenox only. If continues to recover well, no risk of bleeding, consider slowly resuming anticoagulation. Status: Acute (3) Ischemic cardiomyopathy: Previous ejection fraction as low as 20%. Currently EF during last admission up to 37%. ICD in place. Currently does not appear fluid overloaded/CHF exacerbation. Monitor volume status. Diuresis as needed. Currently euvolemic Resume oral medications once able to tolerate. Status: Acute (4) Atelectasis: Right lower lobe developed atelectasis, pneumonia and small effusion. Status: Acute Additional A&P Information CAD Atrial fibrillation: Previously on anticoagulation with warfarin, currently held GERD HTN HLD History of prostate cancer DVT ppx: lovenox 40 Attestations Medical Necessity Statement*: awaiting return of bowel function, closely monitor for signs of infection, trend leukocytosis Coding Level of Care Code Acute Rehabilitation Aide for g Fwd Diagnoses Perforated bowel K63.1 Supratherapeutic INR R79.1 Ischemic cardiomyopathy I25.5 Atelectasis J98.11
[2021-01-11] VITALS (7 sets, daily range): BP systolic 124–138; BP diastolic 62–78; PULSE 72–100; RESP 17–20; TEMP 36.4–36.9; O2SAT 94–98
[2021-01-11] MEDS: AA-Dex 5%-20% w/Lytes 1,000 ML with multivitamin inj 10 ML 84 ML IV (01:34)
[2021-01-11 03:36] LABS: Basophils # 0.2 10^3/uL (0.0-0.1); Eosinophils # 0.6 10^3/uL (0.0-0.8); Eosinophils % 4.1 %; Hematocrit 32.3 % (42.0-52.0); Hemoglobin 10.5 g/dL (11.7-16.6); Lymphocytes # 2.1 10^3/uL (0.8-4.8); Lymphocytes % 13.6 %; Mean Corpuscular HGB Conc 32.5 g/dL (30.0-36.0); Mean Corpuscular Hemoglobin 28.6 pg (28.0-34.0); Monocytes # 2.1 10^3/uL (0.2-0.9); Monocytes % 13.3 %; Neutrophils # 9.57 10^3/uL (1.8-7.7); Neutrophils % 61.8 %; Nucleated Red Blood Cells % 0 %; Platelet Count 438 10^3/cmm (130-400); Red Blood Count 3.67 10^6/uL (4.1-5.3); Red Cell Distribution Width 15.7 % (12.1-15.1); White Blood Count 15.5 10^3/uL (4.0-10.0)
[2021-01-11 03:46] LABS: Slide Review Slide Review Perform
[2021-01-11 03:51] LABS: Alanine Aminotransferase 23 U/L (0-41); Albumin Level 2.6 g/dL (3.5-5.2); Alkaline Phosphatase 102 IU/L (40-130); Anion Gap 10.8 (5-19); Aspartate Amino Transferase 30 U/L (0-40); Blood Urea Nitrogen 10 mg/dL (6-20); Carbon Dioxide 31 mmol/L (22-29); Chloride 96 mmol/L (98-107); Glucose 165 mg/dL (65-115); Osmolality Calculated 281 mOsm/kg (285-295); Potassium 3.8 mmol/L (3.5-5.1); Sodium 134 mmol/L (136-145); Total Bilirubin 0.9 mg/dL (0.15-1.2); Total Protein 5.6 g/dL (6.6-8.7)
[2021-01-11] MEDS: piperacillin-tazobactam 3.375 GM in sodium chloride 0.9% (plus) 50 ML IV ×3 (06:01→23:47)
[2021-01-11 06:37] LABS: Glucose Point of Care 208 mg/dL (70-110)
[2021-01-11] MEDS: famotidine 20 mg/2 mL INJ IVP ×2 (06:41→18:31)
[2021-01-11] MEDS: sennosides-docusate Tablet 1 TAB PO (08:20)
--- NOTE | 2021-01-11 09:09 | XR_ITS ---
WS: [id number] Portable AP upright chest, 01/11/2021 Clinical Data: PICC PLACEMENT Comparison: Portable chest, 01/05/2021. Findings: The right PICC line ends in the superior vena cava. No pneumothorax is seen. The permanent pacemaker and monitor leads remain in position. The nasogastric tube and right internal jugular venou s catheter have been removed. There is a dense opacity in the right lower pleural space which probabl y represents an effusion. XR/XR chest 1V portable [id number] Impression: Satisfactory insertion of right PICC line.
[2021-01-11] MEDS: HYDROcodone-acetaminophen 5-325 mg Tablet 1 TAB PO (10:30)
[2021-01-11] MEDS: vancomycin 1,000 MG in sodium chloride 0.9% 250 ML 250 MG IV ×2 (10:32→20:45)
[2021-01-11 11:07] LABS: Glucose Point of Care 105 mg/dL (70-110)
[2021-01-11] MEDS: AA-Dex 5%-20% w/Lytes 1,000 ML with multivitamin inj 10 ML 30 ML IV (16:21)
[2021-01-11] MEDS: FUROsemide 10 mg/mL SDV 4mL 40 MG IVP (16:56)
[2021-01-11] MEDS: enoxaparin 60 mg/0.6 mL Syringe SUBCUT (16:56)
[2021-01-11 17:13] LABS: Glucose Point of Care 146 mg/dL (70-110)
--- NOTE | 2021-01-11 18:30 | P.PN_ITS ---
Subjective Subjective: Interval history: Leukocytosis trending down, has remained hemodynamically stable, PICC line placed today.. Developing crackles bilaterally, also with mild pitting edema. TPN reduced to 30 cc an hour 40 mg IV Medications: Reviewed: Yes Vitals/I&O/Wt Last Vital Signs Temp 98.1 F 01/11/21 15:40 Pulse 72 01/11/21 15:40 Resp 17 01/11/21 15:40 BP 132/76 01/11/21 15:40 Pulse Ox 98 01/11/21 15:40 01/11/21 01/11/21 01/11/21 06:59 14:59 22:59 Intake Total 300 / 1410 620 / 620 1010 / 1630 Output Total 605 / 1005 850 / 850 350 / 1200 Balance -305 / 405 -230 / -230 660 / 430 Weight last 48 hrs Weight 64.592 kg Weight 64.637 kg Weight 67.132 kg Physical Exam Narrative: EXAM NARRATIVE: GEN: Awake, alert and oriented, no acute distress CVS: S1S2 N RS: CTA B/L Abd: Soft, MANAGER FINANCE: no focal neuro deficits Urinary Catheter Management^: Mack: Cath Placed During This Visit: yes, but has since been removed by the nurse Reason for Continuing Indwelling Catheter: Not indwelling catheter Urinary Catheter Date of Insertion: 01/05/21 Urinary Catheter Time of Insertion: 13:46 Date Urinary Catheter Removed: 01/07/21 Time Urinary Catheter Discontinued: 11:18 Data : 01/11/21 03:10 01/11/21 03:10 A&P Assessment and plan (1) Perforated bowel: Status post laparotomy 01/05, small bowel resection of abnormal appearing segment. Continue IV antibiotic with Zosyn. VAncomycin Added additionally due to persisting leukocytosis and erythema along inferior suture line . post op course notable for prolonged ileus , NGT to be placed again today Careful nutrition with TPN, reduce to 30cc/hr today CVC removed today, PICC line placed Status: Acute (2) Supratherapeutic INR: coumadin held and reveresed on admission start full dose lovenox 1mh/kg q12h in ambrosio emore surgical procedures needed coumadin to be resumed closer to discharge Status: Acute (3) Ischemic cardiomyopathy: Previous ejection fraction as low as 20%. Currently EF during last admission up to 37%. ICD in place. Currently does not appear fluid overloaded/CHF exacerbation. Monitor volume status. Diuresis as needed. Currently euvolemic Resume oral medications once able to tolerate. Status: Acute (4) Atelectasis: Right lower lobe developed atelectasis, pneumonia and small effusion. Status: Acute (5) CHF (congestive heart failure): lasix 40 mg iv today reduce TPN to 30 cc/hr Status: Acute Qualifiers: Heart failure type: systolic Heart failure chronicity: acute on chronic Qualified Code(s): I50.23 - Acute on chronic systolic (congestive) heart failure Additional A&P Information CAD Atrial fibrillation: a/c with lovenox, rate controlled GERD HTN HLD History of prostate cancer DVT ppx: full dose lovenox Attestations Medical Necessity Statement*: ileus, NGT, TPN, CHF, iv diuresis awaiting return of bowel function Coding Level of Care Code Acute Line Construction Supervisor for Chg Fwd Diagnoses Perforated bowel K63.1 Supratherapeutic INR R79.1 Ischemic cardiomyopathy I25.5 Atelectasis J98.11 CHF (congestive heart failure) I50.23 Heart failure type: systolic Heart failure chronicity: acute on chronic
--- NOTE | 2021-01-11 19:23 | P.PN_ITS ---
Subjective Subjective: Interval history: Patient denies any nausea or vomiting. He states that his abdominal pain is minimal, belching and burping a lot, minimal flatus, states he had a small BM but not seen by nursing staff Vitals/I&O/Wt Last Vital Signs Temp 98.1 F 01/11/21 15:40 Pulse 72 01/11/21 15:40 Resp 17 01/11/21 15:40 BP 132/76 01/11/21 15:40 Pulse Ox 98 01/11/21 15:40 01/11/21 01/11/21 01/11/21 06:59 14:59 22:59 Intake Total 300 / 1410 620 / 1680 1060 / 1680 Output Total 605 / 1005 850 / 1500 650 / 1500 Balance -305 / 405 -230 / 180 410 / 180 Weight last 48 hrs Weight 142 lb 6.4 oz Weight 142 lb 8 oz Weight 148 lb Physical Exam Narrative: EXAM NARRATIVE: Abdomen: Soft, distended, tympanic, minimal bowel sounds Urinary Catheter Management^: Mack: Cath Placed During This Visit: yes, but has since been removed by the nurse Reason for Continuing Indwelling Catheter: Not indwelling catheter Urinary Catheter Date of Insertion: 01/05/21 Urinary Catheter Time of Insertion: 13:46 Date Urinary Catheter Removed: 01/07/21 Time Urinary Catheter Discontinued: 11:18 Data : 01/11/21 03:10 01/11/21 03:10 A&P Assessment and plan (1) S/P small bowel resection: 55-year-old male status post ex lap, bowel resection and drainage of intra-abdominal abscess with postop ileus, awaiting return of bowel function, appears more distended today Continue ice chips and sips, NG tube to LIS Abdominal series in the morning WBC is 15.5 but he continues to be afebrile,continue Zosyn and vancomycin Pepcid for GI prophylaxis DVT prophylaxis with Lovenox Incentive spirometry Morphine and [place] for pain control Senna S for bowel regimen Severe protein calorie malnutrition : Continue TPN Insulin sliding scale Hypokalemia: Resolved Okay to start anticoagulation with Lovenox at therapeutic dose Status: Acute Attestations Medical Necessity Statement*: As per primary Coding Level of Care Code Acute [employer] Border Officer for Chg Fwd Diagnoses S/P small bowel resection Z90.49
--- NOTE | 2021-01-11 19:29 | PC.NURSE ---
[facility]
[2021-01-11 20:46] LABS: Glucose Point of Care 162 mg/dL (70-110)
[2021-01-11] MEDS: phenol oral Spray 177 mL 3 SPRAY MUCOUS MEM (21:51)
[2021-01-12] VITALS (8 sets, daily range): BP systolic 106–129; BP diastolic 71–81; PULSE 99–115; RESP 14–18; TEMP 36.6–36.9; O2SAT 90–96
[2021-01-12 02:51] LABS: Basophils # 0.2 10^3/uL (0.0-0.1); Basophils % 1.2 %; Eosinophils # 0.7 10^3/uL (0.0-0.8); Eosinophils % 4.1 %; Hematocrit 36.4 % (42.0-52.0); Hemoglobin 11.8 g/dL (11.7-16.6); Lymphocytes # 2.2 10^3/uL (0.8-4.8); Lymphocytes % 13.3 %; Mean Corpuscular HGB Conc 32.4 g/dL (30.0-36.0); Mean Corpuscular Hemoglobin 28.3 pg (28.0-34.0); Mean Corpuscular Volume 87.3 fL (80-94); Mean Platelet Volume 10.3 fL (7.4-10.4); Monocytes % 11.7 %; Neutrophils # 10.91 10^3/uL (1.8-7.7); Neutrophils % 64.7 %; Nucleated Red Blood Cells % 0 %; Platelet Count 509 10^3/cmm (130-400); Red Blood Count 4.17 10^6/uL (4.1-5.3); Red Cell Distribution Width 15.8 % (12.1-15.1); White Blood Count 16.9 10^3/uL (4.0-10.0)
[2021-01-12] MEDS: enoxaparin 60 mg/0.6 mL Syringe SUBCUT ×2 (04:30→16:10)
[2021-01-12 05:14] LABS: Anion Gap 12.7 (5-19); Blood Urea Nitrogen 11 mg/dL (6-20); Calcium 8.6 mg/dL (8.5-10.5); Carbon Dioxide 32 mmol/L (22-29); Chloride 95 mmol/L (98-107); Glucose 136 mg/dL (65-115); Osmolality Calculated 283 mOsm/kg (285-295); Potassium 3.7 mmol/L (3.5-5.1); Sodium 136 mmol/L (136-145)
--- NOTE | 2021-01-12 06:00 | XR_ITS ---
WS: [id number] Abdomen series, Flat and upright 01/12/2021 Clinical Data: sbo Comparison: Abdomen, flat and upright, 01/10/2021. Findings: No free air is seen beneath the diaphragms. No abnormal intra-abdominal masses or calcifica tions are seen. The nasogastric tube is curled within the fundus of the stomach. There is a cardiac p acemaker lead overlying the heart. The small bowel loops remain dilated with air-fluid levels. There is a right pleural effusion. There are midline surgical samantha in the abdomen and pelvis. There is a surgical drain in the pelvis. XR/XR abdomen min 2V [id number] Impression: 1. Dilated small bowel loops most consistent with small bowel obstruction. 2. Nasogastric tube ends in fundus of the stomach.
[2021-01-12] MEDS: famotidine 20 mg/2 mL INJ IVP ×2 (06:12→18:56)
[2021-01-12 06:14] LABS: Glucose Point of Care 137 mg/dL (70-110)
[2021-01-12] MEDS: piperacillin-tazobactam 3.375 GM in sodium chloride 0.9% (plus) 50 ML IV ×3 (06:46→22:34)
--- NOTE | 2021-01-12 06:58 | PC.SOCIAL ---
IMM Update Pg. 2 of IMM Updated and reviewed with patient who verbalized understanding. Copy provided.
--- NOTE | 2021-01-12 07:34 | PC.SOCIAL ---
IMM update Pg. 2 of IMM updated and reviewed with patient who verbalized understanding. Copy provided.
--- NOTE | 2021-01-12 08:06 | CT_ITS ---
WS: [id number] CT ABDOMEN AND PELVIS WITH CONTRAST HISTORY: s/p bowel resection /abscess drainage TECHNIQUE: Imaging performed of the abdomen and pelvis with IV contrast. Single phase imaging of the abdomen. Coronal and sagittal reformats are submitted. All CT scans at [facility] [place] use at least one of these dose optimization techniques: automated exposure control; mA and/or kV adjustment per patient size (includes targeted exams where dose is matched to clinical indication); or iterativ e reconstruction. IV CONTRAST: Omnipaque 300; 95 mL IV. Oral contrast: Yes. DLP: 925.27 mGy.cm COMPARISON: 01/05/2021 Lower thorax: Continued partial atelectasis of the RIGHT lower lobe with a small effusion. Heart morris ins normal size. No hiatal hernia. Nasogastric tube is noted in the distal esophagus and stomach. Liver/biliary system: Normal size with no intrahepatic dilatation. Gallbladder: Normal. No gallstones or wall thickening. No pericholecystic fluid. Pancreas: Normal size pancreas and pancreatic duct. No adjacent inflammation. Spleen: Normal size spleen. No mass or infarct. Adrenal glands: Normal. Right kidney: RIGHT kidney is absent. Left kidney: Mild compensatory hypertrophy. No obstruction. Aorta: Mild atherosclerosis with no aneurysm. Marked small bowel dilatation. Significant change in caliber of small bowel loops in the RIGHT lower quadrant. There are numerous small foci of free air in the pelvis and particularly the RIGHT lower qu adrant. There is inflammatory changes and a focal collection of air in the RIGHT lower quadrant. Ther e is a tract of air extending to the sigmoid. I suspect there may be a perforation in the sigmoid. Th ere is also air in the urinary bladder for which fistula should be considered if there is been no ins trumentation or no bladder infection. The inflammatory collection in the RIGHT lower quadrant is pred ominantly air with lateral wall or fluid. Collection measures 5.2 x 7.1 cm. There is a surgical drain in the RIGHT pelvis with not a lot of surrounding fluid. Surgical sutures are noted in the RIGHT low er quadrant at the prior resection site of small bowel. Colon is collapsed. Wall thickening of the sigmoid. Fluid collection measuring 2.6 x 3.7 cm in the central mesentery. Bones: Unremarkable. CT/CT abdomen pelvis w con* [id number] IMPRESSION: 1. High-grade small bowel obstruction with the transition point in the RIGHT l ower quadrant. 2. Continued scattered pockets of free air in the RIGHT lower quadrant. Focal collection of air in the RIGHT lower quadrant without a wall probably is probab ly a developing abscess. At this time there is no developed wall. This air brittaney ection extends to the abnormal sigmoid colon where the wall is thickening. Dutch ot exclude a small perforation or tract extending from the sigmoid colon. 3. Small amount of air in the urinary bladder. No Mack catheter is evident. I f there has been no recent catheterization or urinary tract infection enteroves ical fistula should be considered. 4. Focal fluid collection in the central mesentery may be postoperative seroma or developing abscess. 5. Nasogastric tube in good position. 6. Surgical drain in the RIGHT lower quadrant.
[2021-01-12] MEDS: iohexol 300 mg/mL 50 mL Btl PO (09:34)
[2021-01-12] MEDS: iohexol 300 mg/mL 100 mL Btl IV (09:55)
[2021-01-12 11:04] LABS: Glucose Point of Care 113 mg/dL (70-110)
[2021-01-12] MEDS: sennosides-docusate Tablet 1 TAB PO ×2 (11:05→16:11)
[2021-01-12] MEDS: vancomycin 1,000 MG in sodium chloride 0.9% 250 ML 250 MG IV ×2 (11:06→21:23)
--- NOTE | 2021-01-12 12:23 | PC.CHAP ---
Pastoral Care Encounter/Spiritual Assessment Type of Contact [] Declined grain farmer visit [] Patient/Family/Request visit [] Outpatient visit [xx] Follow-up visit [] Physician referral [] Code/Alert [] Routine visit [] Staff referral [] Actively dying [] Patient sleeping [] Family support [] [] Out of room [] Palliative care [] [xx] Receiving care in room [] Pre-surgical visit [] Trauma [xx] Long length of stay [] ICU visit [] Other: Relational/Emotional Strength [] Patient feels connected with others/family/visitors/staff [] Distress [] Loneliness/isolation [] Abandonment Spirituality of Patient [] Person of Lydia [] Attends Baptism of their Lydia [] Believes in Prayer [] Reads Bible or Latter Day materials [] There are Spiritual issues to be addressed Regional Extension Service Specialist Interventions [] Prayer [] Active listening [] Non-anxious presence [] Spiritual/emotional support [] Crisis/trauma care [] Spiritual counseling [] Bereavement support [] Provided bereavement packet [] Provided Bible/devotional materials [] Provided toy/stuffed animal, coloring book to patient or family member [] Provided Communion [] Anointing/[place] [] Salvation [] Completed spiritual assessment [] Other: Impact on Illness or Injury [] Angry [] Fearful [] Anxious [] Often cries [] Exhaustion [] Unable to work [] Unable to attend islam [] Unable to walk/stand [] Unable to read [] Unable to drive [] Unable to eat/drink [] Unable to sleep [] Unable to be with family [] Patient intubated [] Other: Summary Patient receiving care in room beginning and end of grain farmer's rounds. Need follow up later. Time spent with patient 1 minute
--- NOTE | 2021-01-12 16:06 | XRR_ITS ---
PROCEDURE INFORMATION: Exam: XR Chest Exam date and time: 01/12/2021 4:06 PM Age: 55 years old Clinical indication: Device placement; Ng tube; Additional info: Ng placement TECHNIQUE: Imaging protocol: XR of the chest. Views: 1 view. COMPARISON: CR XR chest 1V portable [id number] 01/11/2021 9:17 AM FINDINGS: Tubes, catheters and devices: Nasogastric tube tip below the left diaphragm over the gastric bubble. Right-sided PICC line tip overlying the right atrium. Pacemaker. Lungs: Unremarkable. No consolidation. Pleural spaces: Small right pleural effusion. Heart/Mediastinum: Unremarkable. No cardiomegaly. Bones/joints: Unremarkable. Soft tissues: Mid abdominal surgical samantha. XR/XR chest 1V portable [id number] IMPRESSION: 1. Nasogastric tube tip below the left diaphragm over the gastric bubble. 2. Right-sided PICC line tip overlying the right atrium. 3. Small right pleural effusion. 4. Pacemaker. 5. Mid abdominal surgical samantha.
--- NOTE | 2021-01-12 16:29 | PC.NURSE ---
Spoke to Aurea patient's sister at this time. Updated patient's sister that I am unable to give her the test results until the doctor gives them to her brother. Patient sister verbalized understanding. Yaritza ROMERO notified.
[2021-01-12 17:38] LABS: Glucose Point of Care 141 mg/dL (70-110)
--- NOTE | 2021-01-12 18:16 | PM.PN ---
Subjective Subjective: Interval history: Patient had a small bowel movement, passing flatus, denies any abdominal pain, had 700 cc of NG output since last night, ETIENNE drain output has been serosanguineous Vitals/I&O/Wt Last Vital Signs Temp 97.8 F 01/12/21 12:00 Pulse 111 H 01/12/21 12:00 Resp 14 01/12/21 12:00 BP 112/71 01/12/21 12:00 Pulse Ox 93 01/12/21 12:00 01/12/21 01/12/21 01/12/21 06:59 14:59 22:59 Intake Total 425 / 2105 300 / 300 Output Total 315 / 1815 Balance 110 / 290 300 / 300 Weight last 48 hrs Weight 136 lb 7 oz Weight 136 lb 9.6 oz Weight 142 lb 6.4 oz Weight 142 lb 8 oz Physical Exam Narrative: EXAM NARRATIVE: Abdomen: Soft, distended, minimally tender, incision clean dry and intact, ETIENNE drain output is serosanguineous, NG tube has bilious output. Urinary Catheter Management^: Mack: Cath Placed During This Visit: yes, but has since been removed by the nurse Reason for Continuing Indwelling Catheter: Not indwelling catheter Urinary Catheter Date of Insertion: 01/05/21 Urinary Catheter Time of Insertion: 13:46 Date Urinary Catheter Removed: 01/07/21 Time Urinary Catheter Discontinued: 11:18 Data : 01/12/21 02:17 01/12/21 04:00 A&P Assessment and plan (1) S/P small bowel resection: 55-year-old male status post ex lap, bowel resection and drainage of intra-abdominal abscess with postop ileus, awaiting return of bowel function,. Clinically patient appears to have a benign abdomen but is distended with persistent ileus/bowel obstruction. At this point he is hemodynamically stable and therefore will give him another 48 to 72 hours but if there is no improvement then we might have to consider repeating the CT scan and or taking him to surgery. NG tube to LIS CT abdomen pelvis showed possible high-grade obstruction with evolving abscess WBC is 16.9 but he continues to be afebrile,continue Zosyn and vancomycin Pepcid for GI prophylaxis DVT prophylaxis with Lovenox Incentive spirometry Morphine and [place] for pain control Senna S for bowel regimen Severe protein calorie malnutrition : Continue TPN Insulin sliding scale Hypokalemia: Resolved Lovenox therapeutic regimen for anticoagulation Status: Acute Attestations Medical Necessity Statement*: As per primary Coding Level of Care Code Acute Jack Machine Operator for Chg Fwd Diagnoses S/P small bowel resection Z90.49
--- NOTE | 2021-01-12 18:24 | P.PN_ITS ---
Subjective Subjective: Interval history: persisting leukocytosis, hemodynamically stable, afebrile, Ct findings noted , NGT continues to suction, 1BM today Medications: Reviewed: Yes Vitals/I&O/Wt Last Vital Signs Temp 97.8 F 01/12/21 12:00 Pulse 111 H 01/12/21 12:00 Resp 14 01/12/21 12:00 BP 112/71 01/12/21 12:00 Pulse Ox 93 01/12/21 12:00 01/12/21 01/12/21 01/12/21 06:59 14:59 22:59 Intake Total 425 / 2105 300 / 300 Output Total 315 / 1815 Balance 110 / 290 300 / 300 Weight last 48 hrs Weight 61.887 kg Weight 61.961 kg Weight 64.592 kg Weight 64.637 kg Physical Exam Narrative: EXAM NARRATIVE: GEN: Awake, alert and oriented, no acute distress CVS: S1S2 N RS: CTA B/L Abd: Soft, [facility]: no focal neuro deficits Urinary Catheter Management^: Mack: Cath Placed During This Visit: yes, but has since been removed by the nurse Reason for Continuing Indwelling Catheter: Not indwelling catheter Urinary Catheter Date of Insertion: 01/05/21 Urinary Catheter Time of Insertion: 13:46 Date Urinary Catheter Removed: 01/07/21 Time Urinary Catheter Discontinued: 11:18 Data : 01/12/21 02:17 01/12/21 04:00 Attestation for Other Data: I personally reviewed and interpreted the following: Other data: Laboratory Results WBC 16.9 10^3/uL (4.0-10.0) H 01/12/21 02:17 RBC 4.17 10^6/uL (4.1-5.3) 01/12/21 02:17 Hgb 11.8 g/dL (11.7-16.6) 01/12/21 02:17 Hct 36.4 % (42.0-52.0) L 01/12/21 02:17 MCV 87.3 fL (80-94) 01/12/21 02:17 MCH 28.3 pg (28.0-34.0) 01/12/21 02:17 MCHC 32.4 g/dL (30.0-36.0) 01/12/21 02:17 RDW 15.8 % (12.1-15.1) H 01/12/21 02:17 Plt Count 509 10^3/cmm (130-400) H 01/12/21 02:17 MPV 10.3 fL (7.4-10.4) 01/12/21 02:17 Neut % (Auto) 64.7 % 01/12/21 02:17 Lymph % (Auto) 13.3 % 01/12/21 02:17 [place]ink % (Auto) 11.7 % 01/12/21 02:17 Eos % (Auto) 4.1 % 01/12/21 02:17 Baso % (Auto) 1.2 % 01/12/21 02:17 Neut # (Auto) 10.91 10^3/uL (1.8-7.7) H 01/12/21 02:17 Lymph # (Auto) 2.2 10^3/uL (0.8-4.8) 01/12/21 02:17 [place]ink # (Auto) 2.0 10^3/uL (0.2-0.9) H 01/12/21 02:17 Eos # (Auto) 0.7 10^3/uL (0.0-0.8) 01/12/21 02:17 Baso # (Auto) 0.2 10^3/uL (0.0-0.1) H 01/12/21 02:17 Nucleated RBC % (auto) 0 % 01/12/21 02:17 Nucleated RBCs # 0.0 /100WBC 01/12/21 02:17 PT 16.70 SECONDS (12.1-14.9) H 01/06/21 03:34 INR 1.31 (0.8-1.2) H 01/06/21 03:34 Sodium 136 mmol/L (136-145) 01/12/21 04:00 Potassium 3.7 mmol/L (3.5-5.1) 01/12/21 04:00 Chloride 95 mmol/L (98-107) L 01/12/21 04:00 Carbon Dioxide 32 mmol/L (22-29) H 01/12/21 04:00 Anion Gap 12.7 (5-19) 01/12/21 04:00 BUN 11 mg/dL (6-20) 01/12/21 04:00 Creatinine 0.5 mg/dL (0.7-1.2) L 01/12/21 04:00 GFR Calculation 172.0 mL/min (90-130) H 01/12/21 04:00 Glucose 136 mg/dL (65-115) H 01/12/21 04:00 POC Glucose 141 mg/dL (70-110) H 01/12/21 17:34 Calculated Osmolality 283 mOsm/kg (285-295) L 01/12/21 04:00 Lactic Acid 1.5 mmol/L (0.5-2.2) 01/05/21 11:54 Lactate 1.1 mmol/L (0.5-2.2) 01/06/21 03:34 Calcium 8.6 mg/dL (8.5-10.5) 01/12/21 04:00 Total Bilirubin 0.9 mg/dL (0.15-1.2) 01/11/21 03:10 AST 30 U/L (0-40) 01/11/21 03:10 ALT 23 U/L (0-41) 01/11/21 03:10 Alkaline Phosphatase 102 IU/L (40-130) 01/11/21 03:10 Creatine Kinase 46 U/L (39-308) 01/05/21 11:54 Total Protein 5.6 g/dL (6.6-8.7) L 01/11/21 03:10 Albumin 2.6 g/dL (3.5-5.2) L 01/11/21 03:10 Globulin 3.0 g/dL (1.3-4.6) 01/11/21 03:10 Lipase 89 U/L (13-60) H 01/05/21 11:54 Procalcitonin 1.72 ng/mL (0-0.5) H 01/06/21 03:34 Urine Color Yellow (Yellow) 01/07/21 Unknown Urine Appearance Sl hazy (CLEAR) 01/07/21 Unknown Urine pH 5 (5-7) 01/07/21 Unknown Ur Specific [place] 1.015 (1.005-1.030) 01/07/21 Unknown Urine Protein Neg (Negative) 01/07/21 Unknown Urine Glucose (UA) Norm (Normal) 01/07/21 Unknown Urine Ketones Negative (Negative) 01/07/21 Unknown Urine Blood 3+ (Negative) H 01/07/21 Unknown Urine Nitrate Negative (Negative) 01/07/21 Unknown Urine Bilirubin Neg (Negative) 01/07/21 Unknown Urine Urobilinogen Norm mg/dL (Negative) 01/07/21 Unknown Ur Leukocyte Esterase Trace (Negative) H 01/07/21 Unknown Urine RBC 80-100 /hpf (0-2) H 01/07/21 Unknown Urine WBC 0-4 /hpf (0-5) H 01/07/21 Unknown Ur Squamous Epith Cells None /hpf (0-5) 01/07/21 Unknown Amorphous Sediment Not Reportable 01/07/21 Unknown Urine Bacteria Trace /hpf (NONE) 01/07/21 Unknown Urine Mucus Trace /hpf 01/05/21 12:51 Blood Type O Positive 01/05/21 13:23 Rho(D) Type Positive / 4+ 01/05/21 13:23 Impressions Abdomen X-Ray 01/12/21 06:00 Impression: 1. Dilated small bowel loops most consistent with small bowel obstruction. 2. Nasogastric tube ends in fundus of the stomach. Abdomen/Pelvis CT 01/12/21 08:06 IMPRESSION: 1. High-grade small bowel obstruction with the transition point in the RIGHT lower quadrant. 2. Continued scattered pockets of free air in the RIGHT lower quadrant. Focal collection of air in the RIGHT lower quadrant without a wall probably is probably a developing abscess. At this time there is no developed wall. This air collection extends to the abnormal sigmoid colon where the wall is thickening. Cannot exclude a small perforation or tract extending from the sigmoid colon. 3. Small amount of air in the urinary bladder. No Mack catheter is evident. If there has been no recent catheterization or urinary tract infection ente rovesical fistula should be considered. 4. Focal fluid collection in the central mesentery may be postoperative seroma or developing abscess. 5. Nasogastric tube in good position. 6. Surgical drain in the RIGHT lower quadrant. Chest X-Ray 01/12/21 16:06 IMPRESSION: 1. Nasogastric tube tip below the left diaphragm over the gastric bubble. 2. Right-sided PICC line tip overlying the right atrium. 3. Small right pleural effusion. 4. Pacemaker. 5. Mid abdominal surgical samantha. A&P Assessment and plan (1) Perforated bowel: Status post laparotomy 01/05, small bowel resection of abnormal appearing segment. Continue IV antibiotic with Zosyn. VAncomycin Added additionally due to persisting leukocytosis and erythema along inferior suture line . post op course notable for prolonged ileus , NGT continues to suction CT today with possibly organizing collection vs post op changes, monitor clinically for now, if leukocytes worsens or clinicaaly changes, plan to switch to carbapenem vs re exploration and washout in OR. No urgent surgical intervention at this time. Careful nutrition with TPN, reduce to 30cc/hr PICC line placed 01/11 euvolemic today Status: Acute (2) Supratherapeutic INR: coumadin held and reveresed on admission continue full dose lovenox 1mh/kg q12h in [facility] surgical procedures needed coumadin to be resumed closer to discharge Status: Acute (3) Ischemic cardiomyopathy: Previous ejection fraction as low as 20%. Currently EF during last admission up to 37%. ICD in place. Currently does not appear fluid overloaded/CHF exacerbation. Monitor volume status. Diuresis as needed. Currently euvolemic Resume oral medications once able to tolerate. Status: Acute (4) Atelectasis: Right lower lobe developed atelectasis, pneumonia and small effusion. Status: Acute (5) CHF (congestive heart failure): lasix 40 mg iv 01/11, euvolemic today reduce TPN to 30 cc/hr Status: Acute Qualifiers: Heart failure type: systolic Heart failure chronicity: acute on chronic Qualified Code(s): I50.23 - Acute on chronic systolic (congestive) heart failure Additional A&P Information CAD Atrial fibrillation: a/c with lovenox, rate controlled GERD HTN HLD History of prostate cancer DVT ppx: full dose lovenox Attestations Medical Necessity Statement*: ileus , awaiting return of bowel function. 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
[2021-01-12 21:05] LABS: Glucose Point of Care 169 mg/dL (70-110)
[2021-01-12 21:44] LABS: Vancomycin Trough 10.9 ug/mL (10-15)
[2021-01-13] VITALS (95 sets, daily range): BP systolic 81–168; BP diastolic 55–119; PULSE 58–146; RESP 13–38; TEMP 36.4–37.6; O2SAT 77–128
[2021-01-13 02:55] LABS: Glucose Point of Care 180 mg/dL (70-110)
--- NOTE | 2021-01-13 02:57 | XRR_ITS ---
PROCEDURE INFORMATION: Exam: XR Chest Exam date and time: 01/13/2021 2:57 AM Age: 55 years old Clinical indication: Dyspnea; Additional info: Charley marino TECHNIQUE: Imaging protocol: XR of the chest. Views: 1 view. COMPARISON: CR XR chest 1V portable [id number] 01/12/2021 4:22 PM FINDINGS: Tubes, catheters and devices: There is a left AICD with leads overlying the right atrium and ventricle. Nasogastric tube is in good position. Right-sided PICC tip overlies the region of the right atrium. Lungs: Patchy infiltrates present in the right lung which may be secondary to a edema or pneumonia. Pleural spaces: Small right pleural effusion. Heart/Mediastinum: Unremarkable. No cardiomegaly. Bones/joints: Unremarkable. XR/XR chest 1V portable [id number] IMPRESSION: 1. Nasogastric tube is in good position. 2. Small right pleural effusion. 3. Patchy infiltrates present in the right lung which may be secondary to a edema or pneumonia. Of the
[2021-01-13 03:45] LABS: ABG PCO2 30.8 mmHg (35-45); ABG PH Result 7.56 (7.35-7.45); Alveolar-Arterial Oxygen Gradi 83.3 mmHg (5-10); Arterial Blood Gas Hematocrit 42.5 % (42-52); Base Excess ABG 5.9 mmol/L (-2.0-2.0); Blood Gas Operator Identificat HARKR; Blood Gas Sample Site Brachial, right; Blood Gas Sample Type Arterial; Carboxyhemoglobin 0.9 %THgb (0.4-20.1); HCO3 ABG 27.7 mmol/L (22-26); HGB O2 Sat 71.5 % (95-100); Ionized Calcium Level - ABG 1.2 mmol/L (1.1-1.4); Methemoglobin 0.7 % (0.4-1.5); Oxygen Device BIPAP; Oxygen Saturation ABG 72.6; PO2 ABG 33.5 mmHg (80.0-100.0); Potassium Level - ABG 3.8 mmol/L (3.5-5.0); Total Hemoglobin 13.9 g/dL (14-18)
[2021-01-13] MEDS: phenylephrine inj 25 MG in sodium chloride 0.9% 250 ML 24.24 MG IV (04:21)
[2021-01-13 04:31] LABS: ABG PCO2 31.6 mmHg (35-45); ABG PH Result 7.56 (7.35-7.45); Base Excess ABG 6.3 mmol/L (-2.0-2.0); Blood Gas Allen Test Pos; Blood Gas Operator Identificat HARKR; Blood Gas Sample Site Radial, right; Blood Gas Sample Type Arterial; HCO3 ABG 28.2 mmol/L (22-26); Oxygen Device BIPAP
[2021-01-13] MEDS: rocuronium 10 mg/mL INJ 5mL 80 MG IV (04:37)
--- NOTE | 2021-01-13 04:41 | XRR_ITS ---
PROCEDURE INFORMATION: Exam: XR Chest Exam date and time: 01/13/2021 4:41 AM Age: 55 years old Clinical indication: Device placement; Ett placement (vent status); Additional info: Intubation. Et tube placement TECHNIQUE: Imaging protocol: XR of the chest. Views: 1 view. COMPARISON: CR (CHEST, ) 01/13/2021 3:26 AM FINDINGS: Tubes, catheters and devices: Nasogastric tube is in good position. Endotracheal tube has been placed. The tip of the tube is approximately 1.4 cm above the abdiel. Right-sided PICC is stable. Lungs: Further consolidation of the right lung. Pleural spaces: Unremarkable. No pleural effusion. No pneumothorax. Heart/Mediastinum: Unremarkable. No cardiomegaly. Bones/joints: Unremarkable. XR/XR chest 1V portable [id number] IMPRESSION: 1. Endotracheal tube in good position. 2. Further consolidation of the right lung.
--- NOTE | 2021-01-13 04:56 | PC.NURSE ---
Intubation Note Repeat ABG obtained, pt continues to have hypoxia. O2 sats remain 80-83% on Bipap 06/[address]. Willson to ordered to intubate. Suction set up and available. At 0737 20mg etomidate given IVP. at 0427 80mg Arnoldo given IVP. Jaw still clenched. Dr. willson ordered for another 20mg Arnoldo IVP given at 043. Positive color change. Breath sounds present but not equal as presented before intubation. Size 8 tube 25 at lip. Chest Xray obtained and DrDavid at bedside to confirm placement. RT at bedside and placed pt on mechanical ventilator settings VC-AC vt 400 amx0439% Peep 10 RR16. thick tenacious secretion obtained from ET tube, sample sent to lab.
[2021-01-13] MEDS: metoprolol tartrate 1 mg/1 mL SDV 5 mL 5 MG IV ×2 (05:08→06:30)
[2021-01-13 05:13] LABS: Basophils # 0.2 10^3/uL (0.0-0.1); Basophils % 0.7 %; Eosinophils # 0.1 10^3/uL (0.0-0.8); Eosinophils % 0.2 %; Hematocrit 38.1 % (42.0-52.0); Hemoglobin 12.2 g/dL (11.7-16.6); Lymphocytes # 1.4 10^3/uL (0.8-4.8); Lymphocytes % 4.2 %; Mean Corpuscular Hemoglobin 28.4 pg (28.0-34.0); Mean Corpuscular Volume 88.8 fL (80-94); Mean Platelet Volume 11.2 fL (7.4-10.4); Monocytes # 2.7 10^3/uL (0.2-0.9); Monocytes % 8.4 %; Neutrophils # 26.53 10^3/uL (1.8-7.7); Neutrophils % 82.7 %; Nucleated Red Blood Cells % 0 %; Platelet Count 509 10^3/cmm (130-400); Red Blood Count 4.29 10^6/uL (4.1-5.3); Red Cell Distribution Width 15.9 % (12.1-15.1)
[2021-01-13] MEDS: AA-Dex 5%-20% w/Lytes 1,000 ML with multivitamin inj 10 ML 50 ML IV (05:14)
[2021-01-13 05:20] LABS: White Blood Count 32.1 10^3/uL (4.0-10.0)
[2021-01-13 05:25] LABS: Lactate (Lactic Acid level) 0.7 mmol/L (0.5-2.2)
--- NOTE | 2021-01-13 05:25 | PC.NURSE ---
Titrate Fentanyl Drip to 50 Titrated Fentanyl drip up to 50 mcg/hr at 0525.
[2021-01-13] MEDS: enoxaparin 60 mg/0.6 mL Syringe SUBCUT ×2 (05:29→16:52)
[2021-01-13] MEDS: famotidine 20 mg/2 mL INJ IVP ×2 (05:29→17:52)
--- NOTE | 2021-01-13 05:39 | PM.ACPR ---
Procedure/Consent Time out: Time Out Performed: Yes Consent: Consent for Procedure: Consent obtained from patient and Emergency procedure Additional Consent Information: Patient became hypoxic, chest x-ray revealed complete whiteout of right lung concerning mucous plugging, his O2 saturation was not improving on 15 L oxygen mask which was transitioned to nonrebreather mask, we put him on BiPAP lower settings of 12/8, his O2 saturation was fluctuated between 70 to 84% patient failed BiPAP therapy his PaO2 did not improved on BiPAP, decision was made to intubate the patient Before intubation he was put on phenylephrine to support his mean arterial pressure Patient gave consent for the procedure, 3 ICU nurses were present in the room Acute Procedures Epistaxis Control: Time out performed: Yes Intubation: Time out performed: Yes Sedative: etomidate Mg given: 20 Paralytic: rocuronium Mg given: 100 Laryngoscope: fiber optic video scope Assist device used: fiber optic device ET tube size: 8 Tube secured depth (cm): 25 Tube secured location: teeth Tube placement confirmation: visualized tube passing through cords, equal breath sounds bilaterally, no breath sounds over epigastrium, confirmation by capnometry and color change noted Patient tolerated procedure: well and no complications Intubation complications: none Additional comments: Post intubation no complications Patient saturation fluctuated between 89 to 91% on BiPAP settings PRVC 100% PEEP 10 tidal volume 400 respiratory rate 14 Chest x-ray confirmed appropriate positioning of endotracheal tube He still has diminished right-sided airflow because of mucous plugging Tenacious thick whitish-brown secretions were suctioned which were sent for Gram staining and culture most likely the cause of mucous plug
--- NOTE | 2021-01-13 05:40 | PC.NURSE ---
Titrate Fentanyl Drip up to 75 Titrated Fentanyl drip up to 75 mcg/hr at 0540.
--- NOTE | 2021-01-13 05:43 | PM.EVENT ---
Event Note Event Note: I was called to evaluate the patient for hypoxia. When I entered the room he was tripoding, heart rate in 130s, he was hypoxic on 15 L oxygen mask, O2 saturation 60 to 70% He did not complain of any chest pain or abdominal pain He was awake and alert in distress with rapid shallow breaths was experiencing a dry hacking cough Abdominal wound without any dehiscence NG tube was not draining any content during my evaluation Assessment and plan Oxygen mask 15 L was switched to nonrebreather mask to avoid using BiPAP initially because of his abdominal surgery however decision was made to put him on lower settings of BiPAP 12/8 with FiO2 100%, on nonrebreather mask his O2 saturation was fluctuating between 70 to 82%, there was a delay to obtain chest x-ray because x-ray tech was busy in the ER for a trauma patient I transferred him to ICU on BiPAP Chest x-ray in the ICU revealed hemithorax/complete whiteout of right side, mucous plugging ABG revealed severe hypoxia PaO2 33% on BiPAP settings 12/8, he was given 30 minutes, repeat ABG revealed did not show improvement, patient gave consent for intubation and wanted me to update his brother respiratory rate was in 30s systolic blood pressure 95 mmHg, O2 saturation 80 to 84% before intubation he was started on phenylephrine which improved his map Please see my procedure note for further details Endotracheal tube size 8 was used for bronchoscopy for treatment of mucous plug/hemithorax, he is not a candidate of chest physiotherapy because of abdominal surgery, I have requested respiratory therapist to use Mucomyst and Xopenex for now After intubation his heart rate was in 150s, telemetry was showing sinus tachycardia he was given 5 mg of metoprolol which brought his heart rate down to 110/min Requested mag level, CBC, BMP, lactic acid, sputum culture, repeat ABG
[2021-01-13 05:45] LABS: Magnesium 1.2 mg/dL (1.7-2.3)
--- NOTE | 2021-01-13 06:00 | PC.NURSE ---
Titrate Fentanyl Dip to 100 Titrated Fentanyl drip up to 100 mcg/hr at 0600.
[2021-01-13] MEDS: piperacillin-tazobactam 3.375 GM in sodium chloride 0.9% (plus) 50 ML IV (06:03)
--- NOTE | 2021-01-13 06:27 | PC.NURSE ---
Patient Arrival to ICU Patient transferred to ICU from [facility] by bed and placed in room 2 at 0322. All belongings were brought down with patient and left at bedside. Patient had NG tube present upon transfer to ICU as well as a PICC line in the right arm. Patient has a ETIENNE drain in the right abdomen. New bag of TPN was brought down with patient, but was not infusing. No coppola catheter present upon transfer.
[2021-01-13] MEDS: sodium chloride 0.9% 500 ML 10 ML IV (06:30)
--- NOTE | 2021-01-13 06:30 | PC.NURSE ---
Addendum entered by Michelle Blake RN 01/13/21 19:10: Patient has a ETIENNE drain in the right abdomen. Original Note: Shift Summary Patient had an eventful night, was transferred from [facility] to the ICU and shortly after he was intubated. Patient has a PICC line to the right arm and a IV in the left AC. Patient also had a 16 gauge coppola cath that was placed this morning, tolerated procedure well. Zosyn is infusing at 12.5 mls/hr, TPN is infusing at 50 mls/hr, and Fentanyl is infusing at 100 mcg/min. Versed is at bedside and was not scanned by this nurse due to physician wanting to use Fentanyl for sedation first. Vent tube is a size 8 and measures 25 at lip. Vent settings are currently VT 400, FIO2 100%, PEEP 10, RR 16. Patient has an acute surgical incision on his abdomen that is stapled together, no other skin issues noted at this time. Patient NG tube is hooked to low-intermittent wall suction.
[2021-01-13] MEDS: magnesium sulfate premix 2 GM/50 ML PIGGYBACK IV (06:45)
[2021-01-13 06:52] LABS: Glucose Point of Care 255 mg/dL (70-110)
[2021-01-13] MEDS: acetylcysteine 200 mg/mL SDV 4 mL 100 MG INHALATION ×3 (08:00→20:36)
[2021-01-13] MEDS: levalbuterol 0.63 mg/3 mL Neb INHALATION ×3 (08:00→20:36)
[2021-01-13 08:17] LABS: Anion Gap 15.1 (5-19); Blood Urea Nitrogen 18 mg/dL (6-20); Calcium 8.4 mg/dL (8.5-10.5); Carbon Dioxide 26 mmol/L (22-29); Chloride 95 mmol/L (98-107); Glucose 256 mg/dL (65-115); NT Pro B Type Natriuretic Pept 1271 pg/mL (0-125); Osmolality Calculated 285 mOsm/kg (285-295); Potassium 4.1 mmol/L (3.5-5.1); Sodium 132 mmol/L (136-145)
[2021-01-13 09:13] LABS: ABG PCO2 40.9 mmHg (35-45); ABG PH Result 7.43 (7.35-7.45); Arterial Blood Gas Hematocrit 42.3 % (42-52); Base Excess ABG 2.3 mmol/L (-2.0-2.0); Blood Gas Allen Test Pos; Blood Gas Operator Identificat MONRO; Blood Gas Sample Site Brachial, left; Blood Gas Sample Type Arterial; Blood Gas Tidal Volume 0.45; HCO3 ABG 26.9 mmol/L (22-26); Oxygen Device VENT; PO2 ABG 79.4 mmHg (80.0-100.0)
[2021-01-13] MEDS: vancomycin 1,000 MG in sodium chloride 0.9% 250 ML 250 MG IV ×2 (09:20→21:12)
--- NOTE | 2021-01-13 10:15 | XRR_ITS ---
PROCEDURE INFORMATION: Exam: XR Chest Exam date and time: 01/13/2021 10:15 AM Age: 55 years old Clinical indication: Shortness of breath; Additional info: Follow up hemithorax TECHNIQUE: Imaging protocol: XR of the chest. Views: 1 view. COMPARISON: CR (CHEST, ) 01/13/2021 4:43 AM FINDINGS: Tubes, catheters and devices: Endotracheal tube is above the abdiel. NG tube is in the stomach. A right PICC line is in place extending into the SVC; Cardiac pacemaker left anterior chest I have left you Lungs: Unremarkable. No consolidation. Pleural spaces: Right lower lobe opacity possible pleural effusion. The lung has improved aeration since prior examination. No pneumothorax. Heart/Mediastinum: Unremarkable. No cardiomegaly. Bones/joints: Unremarkable. XR/XR chest 1V portable [id number] IMPRESSION: 1. A right lower lobe pleural effusion 2. Improved aeration throughout the right lung compared to prior 3. Endotracheal tube is above the abdiel 4. NG tube is in the stomach 5. Right PICC line is in the SVC 6. Left side cardiac pacemaker in good position
--- NOTE | 2021-01-13 10:27 | XRR_ITS ---
PROCEDURE INFORMATION: Exam: XR Abdomen Exam date and time: 01/13/2021 10:27 AM Age: 55 years old Clinical indication: Abdominal pain; Generalized; Additional info: Follow up distension TECHNIQUE: Imaging protocol: XR of the abdomen. Views: Frontal supine view of the abdomen. 1 View. COMPARISON: CT abdomen pelvis w con* [id number] 01/12/2021 9:47 AM FINDINGS: Tubes, catheters and devices: NG tube is in the proximal stomach just distal to the EG junction.. Gastrointestinal tract: Multiple dilated bowel loops are present in the left upper quadrant and bilateral lower quadrants. These findings appear diminished in size compared to prior examination. Metallic samantha are seen in the right lower quadrant. This finding is new since prior a apparent surgical drain is in place in the right lower quadrant this finding was seen on prior examination. The exam does not show evidence of bowel obstruction. Bones/joints: Unremarkable. XR/XR abdomen 1V* [id number] IMPRESSION: 1. No acute bowel obstruction. 2. Multiple dilated bowel loops decreased since prior 3. Metallic samantha right lower quadrant of the abdomen. 4. Stable surgical drain right lower quadrant. 5. NG tube is in the proximal stomach
[2021-01-13] MEDS: FUROsemide 10 mg/mL SDV 4mL 40 MG IVP (11:15)
--- NOTE | 2021-01-13 12:26 | PC.NURSE ---
0700. recd intubated on vent.
--- NOTE | 2021-01-13 12:30 | PC.NURSE ---
dr. franklin in . verbal order to advance n.g. 4 . now at 26 .
--- NOTE | 2021-01-13 12:51 | PM.CONSULT ---
Providers/Reason For Consult Consulting Physician/Specialty*: Dr. Philip Reason for Consult*: Respiratory failure with atelectasis right lung Attending Physician: Osiris Philip MD Primary Care Provider: Tejinder Naranjo MD History of Present Illness History of Present Illness Yinka Mcdaniels is a 55 year old male currently orally intubated and sedated in ICU bed 3. He is status post laparotomy with resection of small bowel obstruction and drainage of periileal abscess on 01-05. He was hospitalized from December 29 to January 03 with severe diverticulitis and microperforation and was treated medically with good result. He represented with nausea loss of flatus and abdominal pain. Early postoperatively, he made rapid progress and was ambulating with ICU staff. He was passing flatus by the fourth postop day and bowel movement by postop day #5. Due to progressive respiratory failure, he was electively intubated earlier today. Chest x-ray reveals near complete opacification of the right hemithorax on an fresh food manager x-ray. He is undergone aggressive pulmonary toilet by respiratory therapy department and auscultation exam does reveal improved aeration through the right upper and mid knapp with still continued decreased breath sounds in the right lower knapp anteriorly and laterally. He currently is sedated with Versed and fentanyl. He is also on a low-dose Levophed drip. Review of Systems Card: Denies: chest pain, palpitations or swelling of feet/ankles Resp: Denies: dyspnea or productive cough GI: Reports: abdominal pain, nausea, vomiting, constipation, belching and change in bowel habits; Denies: hematemesis or coffee ground emesis Musc: Denies: neck pain, back pain or extremity pain Meds/Allergies Home Medications and Allergies Home Medications Medication Instructions Recorded Confirmed Last Taken Type aspirin 325 mg tablet 325 mg PO DAILY 08/30/19 01/05/21 01/05/21 History famotidine 20 mg tablet 20 mg PO DAILY 08/30/19 01/05/21 01/05/21 History warfarin 5 mg tablet See Rx Instructions .ROUTE 05/23/20 01/05/21 01/04/21 Rx .COMPLEX #30 tab rosuvastatin 20 mg tablet 20 mg PO DAILY #90 tab 12/25/20 01/05/21 01/05/21 Rx warfarin 7.5 mg tablet See Rx Instructions .ROUTE 12/25/20 01/05/21 01/05/21 Rx .COMPLEX #90 tab carvedilol 12.5 mg PO Q12H 12/29/20 01/05/21 01/05/21 History losartan 50 mg PO DAILY 12/29/20 01/05/21 01/05/21 History furosemide [Lasix] 20 mg PO DAILY #30 tab 01/03/21 01/05/21 01/05/21 Rx levofloxacin 750 mg PO DAILY 7 Days #7 tab 01/03/21 01/05/21 01/05/21 Rx metronidazole [Flagyl] 500 mg PO TID #28 tab 01/03/21 01/05/21 01/05/21 Rx Allergies Allergy/AdvReac Type Severity Reaction Status Date / Time No Known Allergies Allergy Verified 01/05/21 11:34 Current Medications Current Medications Generic Name Dose Route Start Last Admin Trade Name Freq PRN Reason Stop Dose Admin Acetylcysteine 100 mg 01/13/21 09:00 01/13/21 08:00 Acetylcysteine 200 Mg/Ml Sdv 4 Ml INHALATION 100 mg Q6H.RESPIRATORY AZAEL Administration Enoxaparin Sodium 60 mg 01/11/21 16:30 01/13/21 05:29 Enoxaparin 60 Mg/0.6 Ml Syringe SUBCUT 60 mg Q12H AZAEL Administration Famotidine 20 mg 01/05/21 16:30 01/13/21 05:29 Famotidine 20 Mg/2 Ml Inj IVP 20 mg Q12H AZAEL Administration Fat Emulsion Intravenous 125 mls @ 10.417 mls/hr 01/06/21 14:00 01/13/21 04:07 Intralipid 20% IV Infused Q24H AZAEL Infusion Multivitamins 10 ml/ Amino 1,010 mls @ 50 mls/hr 01/07/21 12:00 01/13/21 05:14 Acids/Electrolytes IV 50 mls/hr .[id number] AZAEL Administration As Directed Vancomycin HCl 1,000 mg/ 250 mls @ 250 mls/hr 01/10/21 22:00 01/13/21 10:51 Sodium Chloride IV Infused Q12H AZAEL Infusion Protocol Phenylephrine HCl 25 mg/ 252.5 mls @ 0 mls/hr 01/13/21 03:45 01/13/21 04:22 Sodium Chloride IV 0 mcg/min .Q0M AZAEL 0 mls/hr Titration Protocol Per Protocol Fentanyl 1,000 mcg/ Sodium 100 mls @ 0 mls/hr 01/13/21 04:30 01/13/21 05:10 Chloride IV 25 mcg/hr .Q0M AZAEL 2.5 mls/hr Administration Protocol Per Protocol Imipenem/Cilastatin Sodium 500 100 mls @ 200 mls/hr 01/13/21 10:30 01/13/21 11:15 mg/ Sodium Chloride IV 200 mls/hr Q8H AZAEL Administration Protocol Insulin Aspart 0 unit 01/07/21 12:00 01/13/21 08:35 Insulin Aspart 100 Unit/1 Ml SUBCUT 8 unit WM&BEDTIME AZAEL Administration Protocol Levalbuterol HCl 0.63 mg 01/13/21 09:00 01/13/21 08:00 Levalbuterol 0.63 Mg/3 Ml Neb INHALATION 0.63 mg Q6H.RESPIRATORY AZAEL Administration Ondansetron HCl 4 mg 01/05/21 14:32 01/05/21 19:49 Ondansetron 2 Mg/Ml Sdv 2 Ml IVP 4 mg Q6H PRN Administration NAUSEA AND VOMITING Phenol 3 spray 01/11/21 21:24 01/11/21 21:51 Phenol Oral [place] 177 Ml MUCOUS MEM 3 spray Q2H PRN Administration SORE THROAT Senna/Docusate Sodium 1 tab 01/06/21 09:00 01/13/21 09:30 Sennosides-Docusate Tablet PO Not Given BID AZAEL PFSH Acute PFSH: Medical History Abnormal lead impedance of implantable cardioverter-defibrillator Atrial fibrillation CAD (coronary artery disease) GERD (gastroesophageal reflux disease) HTN (hypertension) Hyperlipidemia Ischemic cardiomyopathy Prostate cancer Surgical History History of prostate biopsy S/P ICD (internal cardiac defibrillator) procedure S/P small bowel resection Family History Other CHF (congestive heart failure) Social History Smoking and tobacco status: current every day smoker cigarettes Packs smoked per day: 0.5 Alcohol intake: current Alcohol intake frequency: holidays/special occasions only Substance/Drug Use: never Lives independently: Yes Household members: other Details: Sister Marital status: Current occupational status: retired Vitals/I&O/Wt Last Vital Signs Temp 97.6 F 01/13/21 04:00 Pulse 76 01/13/21 08:04 Resp 16 01/13/21 12:31 BP 94/73 01/13/21 04:00 Pulse Ox 99 01/13/21 12:31 01/12/21 01/13/21 01/13/21 22:59 06:59 14:59 Intake Total 300.000 / 463.013 9924.404 / 1785.404 250 / 250 Output Total 315 / 315 Balance -15.000 / 477.648 5582.404 / 1470.404 250 / 250 Weight last 48 hrs Weight 135 lb 9.349 oz Weight 136 lb 7 oz Weight 136 lb 9.6 oz Physical Exam HENMT: COMMON NORMALS: normocephalic, atraumatic and external ears normal HEAD & SCALP: normocephalic and atraumatic EXTERNAL EAR: Yes external ears normal Neck/C-Spine: COMMON NORMALS: no lymphadenopathy and No carotid bruits Chest: COMMONS NORMALS: normal inspection of the chest Resp: EFFORT & INSPECTION: Yes symmetric chest movement AUSCULTATION: diminished lung sounds on the right throughout Cardio: COMMON NORMALS: regular rate, regular rhythm, S1 normal heart sound present, No clicks present (Cardio) and No murmurs present (Cardio) RATE: regular rate RHYTHM: regular rhythm HEART SOUNDS: S1 normal heart sound present Extremity: OTHER: Trace lower extremity dependent edema. Urinary Catheter Management^: Mack: Cath Placed During This Visit: yes, but has since been removed by the nurse Reason for Continuing Indwelling Catheter: Accurate Measurement of Urinary Output in Critically Ill Patients Urinary Catheter Date of Insertion: 01/13/21 Urinary Catheter Time of Insertion: 05:40 Date Urinary Catheter Removed: 01/07/21 Time Urinary Catheter Discontinued: 11:18 Data Micro: Micro: Microbiology 01/13/21 04:50 Gram Stain - Final Sputum - Endotrac heal Tube Aspirate A&P Assessment and plan (1) Atelectasis: 55-year-old gentleman with respiratory failure now 8 days status post small bowel resection for obstruction and periileal abscess. FiO2 requirements have decreased since earlier this morning though there is still decreased breath sounds on the right with concerns for mucous plugging. We will plan for bronchoscopy at bedside. Informed consent was obtained from his brother. Status: Acute Consult Attestations Medical Necessity Statement: SBO with status post bowel resection and postoperative respiratory failure Time Spent in Patient Care: 16 - 35 minutes Coding Level of Care Code Acute Talent Engineer for [facility] Diagnoses Atelectasis J98.11
--- NOTE | 2021-01-13 12:54 | PC.NURSE ---
preparing for bronchoscopy
[2021-01-13 13:35] LABS: Glucose Point of Care 250 mg/dL (70-110)
[2021-01-13] MEDS: sodium bicarbonate 8.4% 1 mEq/mL 50mL Syr 50 MEQ IVP (14:00)
--- NOTE | 2021-01-13 14:05 | P.OP_ITS ---
Operative Report Date of procedure: January 13, 2021 Pre-op Diagnosis: Respiratory failure with mucus plugging Post-op diagnosis: same Procedure Done: Flexible diagnostic and therapeutic bronchoscopy Specimens removed/disposition: Endobronchial secretions collected from right upper lobe for culture by immunosuppressive panel. Surgeon: Hugo Yarbrough Anesthesia: MAC Condition: stable Disposition: ICU Brief History: 55-year-old gentleman who is now just over a week status post laparotomy with small bowel resection due to obstruction and drainage of intra- abdominal abscess. He developed progressive respiratory failure over the past 24 hours requiring intubation. X-ray early this morning reveals near whiteout of the right lung clinically suspicious for mucous plugging. Bronchoscopy has been recommended to assist. Details and risk of procedure were carefully discussed with the patient's brother, with appropriate consents signed. Procedure: Procedure: Mr. Mcdaniels has been previously orally intubated. He currently is receiving sedation with fentanyl and Versed. In addition, our anesthesia colleagues supplemented with intermittent doses of propofol. With adequate anesthesia, flexible bronchoscope was inserted through the endotracheal tube. In a methodical fashion the trachea, abdiel, right main bronchus and associated lobar bronchi were inspected. In a similar fashion the left side was inspected. Secretions were cleared as needed to allow for adequate inspection. Normal saline or normal saline and bicarbonate solution were used to clear thick or tenacious secretions. Findings: Main abdiel and secondary abdiel were sharp. Branching anatomy was normal. There is no evidence for obvious endobronchial lesions or submucosal infiltration. There was thick white secretions, mostly concentrated in the right upper lobe with complete obliteration of the bronchus as well as in the right middle lobe. Methodical irrigation and suction with a solution of saline/bicarbonate was utilized after collection of a specimen from the right upper lobe for culture myelosuppressive panel. This was performed until there was complete complete clearing of all tenacious, thick, white secretions. Once secretions were cleared, remaining examination of the tracheobronchial tree was unremarkable except for some mild friability and light irritation. Once completed, the scope was withdrawn under direct visualization confirming cleared secretions and no substantial bleeding. Patient tolerated procedure well with stable vital signs throughout which included consistent monitoring of O2 saturation heart rate and EKG and blood pressure. We will plan to obtain a chest x-ray later this afternoon.
--- NOTE | 2021-01-13 15:53 | PM.PN ---
Subjective Subjective: Interval history: Patient had been stable until this morning when he developed acute respiratory failure, chest x-ray showed widening of the right lung and therefore he was intubated and transferred to the ICU. He underwent a bronchoscopy with Dr. Yarbrough today. Patient is currently on low-dose Levophed Vitals/I&O/Wt Last Vital Signs Temp 97.6 F 01/13/21 04:00 Pulse 74 01/13/21 14:16 Resp 21 H 01/13/21 14:16 BP 118/55 01/13/21 14:00 Pulse Ox 93 01/13/21 14:16 01/13/21 01/13/21 01/13/21 06:59 14:59 22:59 Intake Total 1185.404 / 1785.404 371.042 / 371.042 Balance 1185.404 / 1470.404 371.042 / 371.042 Weight last 48 hrs Weight 135 lb 9.349 oz Weight 136 lb 7 oz Weight 136 lb 9.6 oz Physical Exam Narrative: EXAM NARRATIVE: Abdomen: Soft, mildly tender, incision clean dry intact, ETIENNE drain output is serosanguineous Urinary Catheter Management^: Mack: Cath Placed During This Visit: yes, but has since been removed by the nurse Reason for Continuing Indwelling Catheter: Accurate Measurement of Urinary Output in Critically Ill Patients Urinary Catheter Date of Insertion: 01/13/21 Urinary Catheter Time of Insertion: 05:40 Date Urinary Catheter Removed: 01/07/21 Time Urinary Catheter Discontinued: 11:18 Data : 01/13/21 04:00 01/13/21 06:57 Micro: Microbiology 01/13/21 04:50 Gram Stain - Final Sputum - Endotracheal Tube Aspirate A&P Assessment and plan (1) S/P small bowel resection: 55-year-old male status post ex lap, bowel resection and drainage of intra-abdominal abscess with postop ileus, awaiting return of bowel function,. Patient developed respiratory failure requiring intubation bronchoscopy today. He is currently on low-dose Levophed. His WBC is up to 32.1 which could be secondary to his respiratory issues. If he does not still show significant improvement we will repeat the CT abdomen pelvis again to rule out any abdominal pathology. NG tube to LIS Continue IV vancomycin and imipenem Pepcid for GI prophylaxis DVT prophylaxis with Lovenox Incentive spirometry Morphine and [place] for pain control Senna S for bowel regimen Severe protein calorie malnutrition : Continue TPN Insulin sliding scale Hypokalemia: Resolved Lovenox therapeutic regimen for anticoagulation Updated the patient's family on her status. Status: Acute Attestations Medical Necessity Statement*: SBO with respiratory failure requiring continued inpatient stay Coding Level of Care Code Acute Skilled Nursing Professional for Chg F[employer] Diagnoses S/P small bowel resection Z90.49
[2021-01-13 15:58] LABS: Apprearance, Bronch Wash Cloudy (CLEAR); Color, Bronc Wash Colorless
[2021-01-13 16:03] LABS: WBC Within 10% 10
--- NOTE | 2021-01-13 16:41 | PC.NURSE ---
tpn still infusing. will run until empty.
[2021-01-13 16:47] LABS: Total Cells Counted Bronch 500
[2021-01-13 16:48] LABS: PATH Referral Yes
[2021-01-13 18:08] LABS: Glucose Point of Care 151 mg/dL (70-110)
--- NOTE | 2021-01-13 18:57 | PM.PN ---
Subjective Subjective: Interval history: Overnight events noted. Patient was intubated and sedated due to acute respiratory distress due to whiteout of left lung. Due to suspicion for mucous plugging patient underwent bronchoscopy earlier this morning, follow-up chest x-ray taken at 3 PM shows improved aeration of the right lung. Thick secretions were able to be aspirated during bronchoscopy. White blood cell count up to 32, patient is afebrile. Antibiotic changed from piperacillin tazobactam to imipenem. Abdominal x-ray with multiple dilated bowel loops. Medications: Reviewed: Yes Vitals/I&O/Wt Last Vital Signs Temp 97.6 F 01/13/21 04:00 Pulse 74 01/13/21 14:16 Resp 17 01/13/21 17:33 BP 118/55 01/13/21 14:00 Pulse Ox 95 01/13/21 17:33 01/13/21 01/13/21 01/13/21 06:59 14:59 22:59 Intake Total 1185.404 / 1785.404 371.042 / 371.042 Output Total 900 / 900 Balance 1185.404 / 1470.404 371.042 / 371.042 -900 / -528.958 Weight last 48 hrs Weight 61.5 kg Weight 61.887 kg Weight 61.961 kg Physical Exam Narrative: EXAM NARRATIVE: GEN: Awake, sedated with Versed and fentanyl intubated, CVS: S1S2 N RS: Reduced air entry to auscultation on the right lower lobe Abd: Soft,, midline samantha in place STAGECRAFT TEACHER: no focal neuro deficits Urinary Catheter Management^: Mack: Cath Placed During This Visit: yes, but has since been removed by the nurse Reason for Continuing Indwelling Catheter: Accurate Measurement of Urinary Output in Critically Ill Patients Urinary Catheter Date of Insertion: 01/13/21 Urinary Catheter Time of Insertion: 05:40 Date Urinary Catheter Removed: 01/07/21 Time Urinary Catheter Discontinued: 11:18 Data : 01/13/21 04:00 01/13/21 06:57 Micro: Microbiology 01/13/21 04:50 Gram Stain - Final Sputum - Endotracheal Tube Aspirate A&P Assessment and plan (1) Acute respiratory failure: Acute respiratory failure due to mucous plugging of the right lung, status post bronchoscopy earlier this morning at bedside. Follow-up chest x-ray with improved aeration Patient needed to be intubated overnight. FiO2 requirements at 70%. PEEP 10 Intubated and sedated with fentanyl and Versed. Repeat ABG in the a.m. Goal to keep patient overall net negative Status: Acute Qualifiers: Respiratory failure complication: hypoxia Qualified Code(s): J96.01 - Acute respiratory failure with hypoxia (2) Perforated bowel: Status post laparotomy 01/05, small bowel resection of abnormal appearing segment. Change antibiotic coverage from Zosyn to imipenem due to increased white blood cell count and acute events of last night. VAncomycin to continue. post op course notable for prolonged ileus , NGT continues to suction CT abdomen with possibly organizing collection vs post op changes, Careful nutrition with TPN PICC line placed 01/11 Status: Acute (3) Supratherapeutic INR: coumadin held and reveresed on admission continue full dose lovenox 1mh/kg q12h in [facility] surgical procedures needed coumadin to be resumed closer to discharge Status: Acute (4) Ischemic cardiomyopathy: Previous ejection fraction as low as 20%. Currently EF during last admission up to 37%. ICD in place. Currently does not appear fluid overloaded/CHF exacerbation. Monitor volume status. Diuresis as needed. Currently euvolemic Resume oral medications once able to tolerate. Status: Acute (5) Atelectasis: Right lower lobe developed atelectasis, pneumonia and small effusion. Status: Acute (6) CHF (congestive heart failure): lasix 40 mg iv 01/11, euvolemic today reduce TPN to 30 cc/hr Status: Acute Qualifiers: Heart failure type: systolic Heart failure chronicity: acute on chronic Qualified Code(s): I50.23 - Acute on chronic systolic (congestive) heart failure Additional A&P Information CAD Atrial fibrillation: a/c with lovenox, rate controlled GERD HTN HLD History of prostate cancer DVT ppx: full dose lovenox Attestations Medical Necessity Statement*: ongoing iv abx, sepsis, ventilatory support for respiratory failure Critical Care Time: The high probability of a clinically significant, sudden or life threatening deterioration of the patient's [respiratory,GI] system(s) required my full and direct attention, intervention and personal management. The critical care time is as shown. This time is in addition to time spent performing any reported procedures but includes the following: [x] Data and vital sign review and interpretation [x] Patient assessment, examination and intervention [x] Documentation [x] Medication orders and management Critical Care Time (min): 45 Coding Level of Care Code Acute Supervisor [employer] for [facility] Diagnoses Acute respiratory failure J96.01 Respiratory failure complication: hypoxia Perforated bowel K63.1 Supratherapeutic INR R79.1 Ischemic cardiomyopathy I25.5 Atelectasis J98.11 CHF (congestive heart failure) I50.23 Heart failure type: systolic Heart failure chronicity: acute on chronic
[2021-01-13 21:02] LABS: Glucose Point of Care 163 mg/dL (70-110)
[2021-01-14] VITALS (108 sets, daily range): BP systolic 95–133; BP diastolic 58–81; PULSE 95–110; RESP 15–39; TEMP -12.7–38.3; O2SAT 83–99; BMI 24.3
[2021-01-14] MEDS: levalbuterol 0.63 mg/3 mL Neb INHALATION ×4 (03:05→20:15)
[2021-01-14] MEDS: acetylcysteine 200 mg/mL SDV 4 mL 100 MG INHALATION ×4 (03:05→20:29)
--- NOTE | 2021-01-14 04:00 | XRR_ITS ---
PROCEDURE INFORMATION: Exam: XR Chest Exam date and time: 01/14/2021 4:00 AM Age: 55 years old Clinical indication: Shortness of breath; Additional info: Follow-up right lung whiteout TECHNIQUE: Imaging protocol: XR of the chest. Views: 1 view. COMPARISON: CR (CHEST, ) 01/13/2021 2:55 PM FINDINGS: Tubes, catheters and devices: An endotracheal tube is present with the tip 4 cm above the abdiel. A permanent sequential pacemaker appears intact. A right arm PICC is present with the tip projecting in the SVC. A nasogastric tube is present with the tip projecting in the stomach fundus. Lungs: There is right basilar pulmonary consolidation and small right pleural effusion. The left lung is clear. Pleural spaces: See Lungs finding. Heart/Mediastinum: Unremarkable. No cardiomegaly. Bones/joints: Unremarkable. XR/XR chest 1V portable 17203 IMPRESSION: 1. The tip of the nasogastric tube projects on the stomach fundus about 4.5 cm below the GE junction. The tube could be advanced several more cm into the stomach. 2. Satisfactory endotracheal tube and PICC position. 3. Right basilar pulmonary consolidation and small effusion. 4. When compared to the previous examination there has been improvement with clearing of the right apical infiltrate.
[2021-01-14 04:19] LABS: ABG PCO2 35.1 mmHg (35-45); ABG PH Result 7.55 (7.35-7.45); Arterial Blood Gas Hematocrit 35.1 % (42-52); Base Excess ABG 7.6 mmol/L (-2.0-2.0); Blood Gas Allen Test Pos; Blood Gas Sample Site Radial, right; Blood Gas Sample Type Arterial; HCO3 ABG 30.4 mmol/L (22-26); Oxygen Device VENT; PO2 ABG 77.2 mmHg (80.0-100.0)
[2021-01-14] MEDS: famotidine 20 mg/2 mL INJ IVP ×2 (05:13→18:04)
[2021-01-14] MEDS: enoxaparin 60 mg/0.6 mL Syringe SUBCUT ×2 (05:13→18:04)
[2021-01-14 06:26] LABS: Basophils # 0.2 10^3/uL (0.0-0.1); Basophils % 0.7 %; Eosinophils # 0.7 10^3/uL (0.0-0.8); Eosinophils % 2.8 %; Hematocrit 34.9 % (42.0-52.0); Hemoglobin 11.3 g/dL (11.7-16.6); Lymphocytes # 1.9 10^3/uL (0.8-4.8); Mean Corpuscular HGB Conc 32.4 g/dL (30.0-36.0); Mean Corpuscular Hemoglobin 28.6 pg (28.0-34.0); Mean Corpuscular Volume 88.4 fL (80-94); Mean Platelet Volume 10.3 fL (7.4-10.4); Monocytes # 2.1 10^3/uL (0.2-0.9); Monocytes % 9.1 %; Neutrophils # 18.05 10^3/uL (1.8-7.7); Neutrophils % 77.1 %; Nucleated Red Blood Cells % 0 %; Platelet Count 526 10^3/cmm (130-400); Red Blood Count 3.95 10^6/uL (4.1-5.3); Red Cell Distribution Width 15.6 % (12.1-15.1); White Blood Count 23.4 10^3/uL (4.0-10.0)
--- NOTE | 2021-01-14 06:30 | PC.NURSE ---
Shift Summary Patient had an uneventful night. Levophed is infusing at 2 mcg/min, Versed is infusing at 3 mg/hr, Fentanyl is infusing at 10 mcg/hr, and TPN is infusing at 50 mls/hr. Patient has a PICC line to the right basilic vein and an IV to the left AC. The ventilator settings are as follows RR-16, FiO2-40%, VT-400, PEEP-10. Patient has a midline abdominal incision that is stapled together and open to air, no discharge or discoloration is noted. No other skin issues are noted at this time. Mack catheter drained 700 mls of tea colored urine with sediment. Right abdomen ETIENNE drain had 5 mls out all evening. Right NG tube is hooked to low-intermitt. suction and drained 100 mls of green gastric content.
[2021-01-14 06:35] LABS: Glucose Point of Care 121 mg/dL (70-110)
[2021-01-14] MEDS: AA-Dex 5%-20% w/Lytes 1,000 ML with multivitamin inj 10 ML 50 ML IV (06:35)
[2021-01-14 06:43] LABS: Alanine Aminotransferase 22 U/L (0-41); Albumin Level 2.7 g/dL (3.5-5.2); Alkaline Phosphatase 100 IU/L (40-130); Anion Gap 13.9 (5-19); Aspartate Amino Transferase 17 U/L (0-40); Blood Urea Nitrogen 20 mg/dL (6-20); Calcium 8.1 mg/dL (8.5-10.5); Carbon Dioxide 27 mmol/L (22-29); Chloride 100 mmol/L (98-107); Globulin 3.4 g/dL (1.3-4.6); Glucose 120 mg/dL (65-115); Osmolality Calculated 288 mOsm/kg (285-295); Potassium 3.9 mmol/L (3.5-5.1); Sodium 137 mmol/L (136-145); Total Bilirubin 0.6 mg/dL (0.15-1.2); Total Protein 6.1 g/dL (6.6-8.7)
[2021-01-14] MEDS: sennosides-docusate Tablet 1 TAB PO ×2 (09:48→18:05)
[2021-01-14] MEDS: vancomycin 1,000 MG in sodium chloride 0.9% 250 ML 250 MG IV ×2 (09:49→21:16)
--- NOTE | 2021-01-14 11:50 | PC.SOCIAL ---
IMM Updated Updated pt's family on Pg 2 IMM. No questions voiced. Provided a copy. Signed, dated, & timed copy in chart.
[2021-01-14 12:52] LABS: Glucose Point of Care 192 mg/dL (70-110)
--- NOTE | 2021-01-14 13:53 | P.PN_ITS ---
Subjective Subjective: Interval history: Patient is down to 40% FiO2, awake, follows commands, NG output has been minimal, no BM since intubation Vitals/I&O/Wt Last Vital Signs Temp 100.9 F H 01/14/21 04:00 Pulse 101 H 01/14/21 13:38 Resp 15 01/14/21 13:38 BP 110/71 01/14/21 13:00 Pulse Ox 97 01/14/21 13:38 01/13/21 01/14/21 01/14/21 22:59 06:59 14:59 Intake Total 446.667 / 2416.542 1489.00 / 2416.542 39.243 / 39.243 Output Total 900 / 1705 805 / 1705 Balance -453.333 / 711.542 684.00 / 711.542 39.243 / 39.243 Weight last 48 hrs Weight 137 lb 8 oz Weight 135 lb 9.349 oz Physical Exam Narrative: EXAM NARRATIVE: Abdomen: Soft, minimally tender, distended, incision clean dry and intact, ETIENNE drain output serosanguineous, NG tube was readjusted today Urinary Catheter Management^: Mack: Cath Placed During This Visit: yes, but has since been removed by the nurse Reason for Continuing Indwelling Catheter: Accurate Measurement of Urinary Output in Critically Ill Patients Urinary Catheter Date of Insertion: 01/13/21 Urinary Catheter Time of Insertion: 05:40 Date Urinary Catheter Removed: 01/07/21 Time Urinary Catheter Discontinued: 11:18 Data : 01/14/21 04:31 01/14/21 04:31 Micro: Microbiology 01/13/21 04:50 Gram Stain - Final Sputum - Endotracheal Tube Aspirate Sputum Culture - Preliminary 01/13/21 13:46 Gram Stain - Final Lung Right Upper Lobe 01/14/21 04:36 Blood Culture - Preliminary Blood SPECIMEN COLLECTED 01/14/21 04:31 Blood Culture - Preliminary Blood SPECIMEN COLLECTED A&P Assessment and plan (1) S/P small bowel resection: 55-year-old male status post ex lap, bowel resection and drainage of intra-abdominal abscess with postop ileus, awaiting return of bowel function,. Respiratory failure requiring intubation and bronchoscopy Cardiovascular: Patient should be weaned off Levophed today. Renal: Adequate urine output ID: WBC down to 23.4, continue vancomycin and imipenem, recheck labs tomorrow, if there is persistent leukocytosis and or distended bowel loops on abdominal x- ray will need to consider repeating CT abdomen pelvis tomorrow NG tube to LIS Pepcid for GI prophylaxis DVT prophylaxis with Lovenox Incentive spirometry Morphine and [place] for pain control Senna S for bowel regimen Severe protein calorie malnutrition : Continue TPN Insulin sliding scale Hypokalemia: Resolved Lovenox therapeutic regimen for anticoagulation Status: Acute Attestations Medical Necessity Statement*: As per primary Coding Level of Care Code Acute User Experience Manager for Chg Fwd Diagnoses S/P small bowel resection Z90.49
--- NOTE | 2021-01-14 15:11 | P.PN_ITS ---
Subjective Subjective: Interval history: Levophed requirement at 2 mics this morning, aim to titrate off during the day. Aeration is much improved on repeat chest x-ray this morning. White blood cell count trending down to 23 today. T-max of 100.9 Fahrenheit. FiO2 requirements coming down to 40%, PEEP of 10. Urine output at 1.6 L. Medications: Reviewed: Yes Vitals/I&O/Wt Last Vital Signs Temp 100.9 F H 01/14/21 04:00 Pulse 103 H 01/14/21 14:00 Resp 15 01/14/21 13:38 BP 110/71 01/14/21 13:00 Pulse Ox 97 01/14/21 13:38 01/14/21 01/14/21 01/14/21 06:59 14:59 22:59 Intake Total 1489.00 / 2416.542 139.243 / 139.243 250 / 389.243 Output Total 805 / 1705 Balance 684.00 / 711.542 139.243 / 139.243 250 / 389.243 Weight last 48 hrs Weight 62.369 kg Weight 61.5 kg Physical Exam Narrative: EXAM NARRATIVE: GEN: Intubated sedated CVS: S1S2 N RS: Improved breath sounds over right lower lobe today Abd: Soft,, midline samantha in place, distant bowel sounds 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: no focal neuro 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 Urinary Catheter Management^: Mack: Cath Placed During This Visit: yes, but has since been removed by the nurse Reason for Continuing Indwelling Catheter: Accurate Measurement of Urinary Output in Critically Ill Patients Urinary Catheter Date of Insertion: 01/13/21 Urinary Catheter Time of Insertion: 05:40 Date Urinary Catheter Removed: 01/07/21 Time Urinary Catheter Discontinued: 11:18 Data : 01/14/21 04:31 01/14/21 04:31 Micro: Microbiology 01/13/21 04:50 Gram Stain - Final Sputum - Endotracheal Tube Aspirate Sputum Culture - Preliminary 01/13/21 13:46 Gram Stain - Final Lung Right Upper Lobe 01/14/21 04:36 Blood Culture - Preliminary Blood SPECIMEN COLLECTED 01/14/21 04:31 Blood Culture - Preliminary Blood SPECIMEN COLLECTED A&P Assessment and plan (1) Acute respiratory failure: Acute respiratory failure due to mucous plugging of the right lung, status post bronchoscopy earlier this morning at bedside. Follow-up chest x-ray with improved aeration Developing consolidation in the right lower lobe concerning for hospital- acquired pneumonia. Currently on appropriate empiric antibiotics with imipenem and vancomycin. Improving FiO2 requirements today. Intubated and sedated with fentanyl and Versed. Repeat ABG in the a.m. Status: Acute Qualifiers: Respiratory failure complication: hypoxia Qualified Code(s): J96.01 - Acute respiratory failure with hypoxia (2) Perforated bowel: Status post laparotomy 01/05, small bowel resection, pathology with perforated Meckel's diverticulum Continue imipenem and vancomycin post op course notable for prolonged ileus , NGT continues to suction, TPN ongoing CT abdomen with possibly organizing collection vs post op changes, if continues to have persistent fevers and increasing white blood cell count, will likely need to rescan Careful nutrition with TPN PICC line placed 01/11 Status: Acute (3) Supratherapeutic INR: coumadin held and reveresed on admission continue full dose lovenox 1mh/kg q12h in [facility] surgical procedures needed coumadin to be resumed closer to discharge Status: Acute (4) Ischemic cardiomyopathy: Previous ejection fraction as low as 20%. Currently EF during last admission up to 37%. ICD in place. Currently does not appear fluid overloaded/CHF exacerbation. Monitor volume status. Diuresis as needed. Resume oral medications once able to tolerate, off pressors Status: Acute (5) Atelectasis: Status: Acute (6) CHF (congestive heart failure): Status: Acute Qualifiers: Heart failure type: systolic Heart failure chronicity: acute on chronic Qualified Code(s): I50.23 - Acute on chronic systolic (congestive) heart failure (7) Sepsis: This was present initially on admission, then resolved, and now with sepsis again with interim development of right lower lobe pneumonia. Meets criteria by way of fever and leukocytosis and infectious source. Status: Acute Additional A&P Information CAD Atrial fibrillation: a/c with lovenox, rate controlled GERD HTN HLD History of prostate cancer DVT ppx: full dose lovenox Attestations Medical Necessity Statement*: Ongoing monitoring in the ICU for sepsis, pressor support, IV antibiotics, ventilatory support Critical Care Time: The high probability of a clinically significant, sudden or life threatening deterioration of the patient's [respiratory cardiovascular GI] system(s) required my full and direct attention, intervention and personal management. The critical care time is as shown. This time is in addition to time spent performing any reported procedures but includes the following: [x] Data and vital sign review and interpretation [x] Patient assessment, examination and intervention [x] Documentation [x] Medication orders and management Critical Care Time (min): 45 Coding Level of Care Code Acute Robotic Machine Operator for Lydia Fwd Diagnoses Acute respiratory failure J96.01 Respiratory failure complication: hypoxia Perforated bowel K63.1 Supratherapeutic INR R79.1 Ischemic cardiomyopathy I25.5 Atelectasis J98.11 CHF (congestive heart failure) I50.23 Heart failure type: systolic Heart failure chronicity: acute on chronic Sepsis A41.9
[2021-01-14 17:10] LABS: SARS Covid-2 Antigen Negative (Negative)
--- NOTE | 2021-01-14 18:36 | PC.NURSE ---
no insulin at 1800. remains resting quietli on versed and fentanyl.
[2021-01-14 20:53] LABS: Glucose Point of Care 154 mg/dL (70-110)
[2021-01-14 20:53] LABS: Glucose Point of Care 135 mg/dL (70-110)
[2021-01-15] VITALS (86 sets, daily range): BP systolic 96–160; BP diastolic 62–92; PULSE 40–115; RESP 14–38; TEMP 36.9–37.6; O2SAT 79–100; BMI 24.4
[2021-01-15] MEDS: levalbuterol 0.63 mg/3 mL Neb INHALATION ×4 (02:11→20:35)
[2021-01-15] MEDS: enoxaparin 60 mg/0.6 mL Syringe SUBCUT ×2 (03:34→17:40)
[2021-01-15] MEDS: AA-Dex 5%-20% w/Lytes 1,000 ML with multivitamin inj 10 ML 50 ML IV (04:45)
[2021-01-15 05:23] LABS: Basophils # 0.1 10^3/uL (0.0-0.1); Basophils % 0.8 %; Eosinophils # 0.8 10^3/uL (0.0-0.8); Eosinophils % 5.3 %; Hematocrit 30.2 % (42.0-52.0); Hemoglobin 9.6 g/dL (11.7-16.6); Lymphocytes # 2.1 10^3/uL (0.8-4.8); Lymphocytes % 13.3 %; Mean Corpuscular HGB Conc 31.8 g/dL (30.0-36.0); Mean Corpuscular Hemoglobin 28.7 pg (28.0-34.0); Mean Corpuscular Volume 90.1 fL (80-94); Mean Platelet Volume 10.2 fL (7.4-10.4); Monocytes # 1.5 10^3/uL (0.2-0.9); Monocytes % 9.7 %; Neutrophils # 10.79 10^3/uL (1.8-7.7); Neutrophils % 68.6 %; Nucleated Red Blood Cells % 0 %; Platelet Count 498 10^3/cmm (130-400); Red Blood Count 3.35 10^6/uL (4.1-5.3); Red Cell Distribution Width 15.9 % (12.1-15.1); White Blood Count 15.7 10^3/uL (4.0-10.0)
[2021-01-15] MEDS: famotidine 20 mg/2 mL INJ IVP ×2 (05:28→17:40)
[2021-01-15 05:35] LABS: ABG PCO2 42.4 mmHg (35-45); ABG PH Result 7.47 (7.35-7.45); Arterial Blood Gas Hematocrit 32.4 % (42-52); Base Excess ABG 6.5 mmol/L (-2.0-2.0); Blood Gas Sample Site Radial, left; Blood Gas Sample Type Arterial; HCO3 ABG 30.8 mmol/L (22-26); Oxygen Device VENT; PO2 ABG 75.5 mmHg (80.0-100.0)
[2021-01-15 05:40] LABS: Alanine Aminotransferase 18 U/L (0-41); Albumin Level 2.6 g/dL (3.5-5.2); Alkaline Phosphatase 95 IU/L (40-130); Aspartate Amino Transferase 17 U/L (0-40); Blood Urea Nitrogen 18 mg/dL (6-20); Calcium 8.1 mg/dL (8.5-10.5); Carbon Dioxide 27 mmol/L (22-29); Chloride 103 mmol/L (98-107); Globulin 3.1 g/dL (1.3-4.6); Glucose 119 mg/dL (65-115); Osmolality Calculated 289 mOsm/kg (285-295); Sodium 138 mmol/L (136-145); Total Bilirubin 0.4 mg/dL (0.15-1.2); Total Protein 5.7 g/dL (6.6-8.7)
--- NOTE | 2021-01-15 05:56 | PC.NURSE ---
Shift Summary Patient had an uneventful night. He has TPN infusing at 50 mls/hr, Versed infusing at 3 mg/hr, and Fentanyl infusing at 10 mcg/hr. He has a right basilic PICC line and a left AC IV that is currently saline locked. Vent is currently set at FIO2-35%, VT-400, RR-15, PEEP-10. Mack catheter drained 700 mls of clear dark yellow urine all evening. Patient had no bowel movement all evening. Right abdomen ETIENNE drain is still in place but did not have enough output to be measured. Right nare NG tube is hooked to low intermitt. wall suction and had 50 mls out of brown/yellow colored gastric content.
--- NOTE | 2021-01-15 06:00 | XRR_ITS ---
PROCEDURE INFORMATION: Exam: XR Complete Acute Abdomen Series Including Chest Exam date and time: 01/15/2021 6:00 AM Age: 55 years old Clinical indication: Condition or disease; Other: Sbo followup; Patient HX: Sbo; PT on vent -best images possible TECHNIQUE: Imaging protocol: XR complete acute abdomen series, including 2 or more views of the abdomen and a single view chest. COMPARISON: CR (CHEST, ) 01/14/2021 5:46 AM FINDINGS: Tubes, catheters and devices: Stable left pacemaker. Endotracheal tube tip over the distal trachea, 5 mm proximal to the abdiel. This could be pulled back 1 cm. The right PICC line is stable. Lungs: Decreased right basilar opacities with [id number] residual right perihilar opacity. Pleural spaces: Normal. No pleural effusions. No pneumothorax. Heart/Mediastinum: Normal. No cardiomegaly. Gastrointestinal tract: Normal. No bowel dilation. Intraperitoneal space: Normal. No free air. Bones/joints: Normal. No acute fracture. Soft tissues: Normal. Other findings: Obscured by overlying EKG wires. XR/XR acute abdomen series 03154 IMPRESSION: 1. Endotracheal tube tip over the distal trachea, 5 mm proximal to the abdiel. This could be pulled back 1 cm. 2. Decreased right basilar opacities with [id number] residual right perihilar opacity.
[2021-01-15] MEDS: acetylcysteine 200 mg/mL SDV 4 mL 100 MG INHALATION ×4 (07:57→20:35)
[2021-01-15 08:08] LABS: Glucose Point of Care 128 mg/dL (70-110)
[2021-01-15] MEDS: sennosides-docusate Tablet 1 TAB PO ×2 (09:27→17:40)
[2021-01-15] MEDS: vancomycin 1,000 MG in sodium chloride 0.9% 250 ML 250 MG IV ×2 (10:07→23:17)
[2021-01-15 11:55] LABS: Glucose Point of Care 138 mg/dL (70-110)
--- NOTE | 2021-01-15 11:59 | P.PN_ITS ---
Subjective Subjective: Interval history: Moderately sedated. Nods to answer questions to voice. Denies pain. Vitals/I&O/Wt Last Vital Signs Temp 98.8 F 01/15/21 08:00 Pulse 100 01/15/21 08:00 Resp 14 01/15/21 10:00 BP 106/66 01/15/21 08:00 Pulse Ox 96 01/15/21 10:00 01/14/21 01/15/21 01/15/21 22:59 06:59 14:59 Intake Total 771.8 / 4633.943 9194 / 2330.043 319.333 / 319.333 Output Total 720 / 720 700 / 1420 Balance 51.8 / 291.043 619 / 910.043 319.333 / 319.333 Weight last 48 hrs Weight 62.596 kg Weight 62.369 kg Physical Exam Const: COMMON NORMALS: no acute distress OTHER: Intubated, sedated. HENMT: COMMON NORMALS: oropharynx normal Neck/C-Spine: COMMON NORMALS: no JVD Resp: COMMON NORMALS: normal respiratory effort and clear to auscultation bilaterally AUSCULTATION: clear to auscultation bilaterally Cardio: COMMON NORMALS: no JVD, regular rhythm, S1 normal heart sound present, S2 normal heart sound present and No murmurs present (Cardio) RHYTHM: regular rhythm HEART SOUNDS: S1 normal heart sound present and S2 normal heart sound present GI: COMMON NORMALS: Soft to palpation INSPECTION: Yes abdominal distension AUSCULTATION: Yes Hypoactive bowel sounds present PALPATION: Yes Soft to palpation and Yes Tenderness to palpation present (GI) OTHER: Midline wound w clean Extremity: COMMON NORMALS: no joint enlargement and no pedal edema Neuro: COMMON NORMALS: moves all extremities Skin: COMMON NORMALS: no rashes or lesions noted GENERAL SKIN EXAM: no rashes or lesions noted Urinary Catheter Management^: Mack: Cath Placed During This Visit: yes, but has since been removed by the nurse Reason for Continuing Indwelling Catheter: Accurate Measurement of Urinary Output in Critically Ill Patients Urinary Catheter Date of Insertion: 01/13/21 Urinary Catheter Time of Insertion: 05:40 Date Urinary Catheter Removed: 01/07/21 Time Urinary Catheter Discontinued: 11:18 Data : 01/15/21 04:51 01/15/21 04:51 Micro: Microbiology 01/13/21 13:46 Gram Stain - Final Lung Right Upper Lobe Bronchoalveolar Lavage Culture - Preliminary 01/13/21 04:50 Gram Stain - Final Sputum - Endotracheal Tube Aspirate Sputum Culture - Final 01/14/21 04:36 Blood Culture - Preliminary Blood NEGATIVE TO DATE 01/14/21 04:31 Blood Culture - Preliminary Blood NEGATIVE TO DATE 01/13/21 13:46 Mycobacterial Smear - Preliminary Body Fluids - Bronchial A&P Assessment and plan (1) Acute respiratory failure: Doing better. Oxygenation with improvement, weaning trial today. Discussion with surgery, okay to extubate. Chest x-ray appears to be clearing up. Leukocytosis decreasing. Maintain aspiration precautions. Continue imipenem and vancomycin. Improving FiO2 requirements today. Status: Acute Qualifiers: Respiratory failure complication: hypoxia Qualified Code(s): J96.01 - Acute respiratory failure with hypoxia (2) Perforated bowel: X-ray done today, discussed with surgery. Did not appear to have significant gaseous distention. Contrast appears to be passing into the colon. Continue monitoring for return of bowel function. Maintain NGT. Bowel rest. Status post laparotomy 01/05, small bowel resection, pathology with perforated Meckel's diverticulum Continue imipenem and vancomycin post op course notable for prolonged ileus , NGT continues to suction, TPN ongoing CT abdomen with possibly organizing collection vs post op changes, if persistent fevers and increasing white blood cell count, will likely need to rescan Careful nutrition with TPN PICC line placed 01/11, removed. Status: Acute (3) Supratherapeutic INR: coumadin held and reveresed on admission continue full dose lovenox 1mh/kg q12h in case more surgical procedures needed coumadin to be resumed closer to discharge Status: Acute (4) Ischemic cardiomyopathy: Previous ejection fraction as low as 20%. Currently EF during last admission up to 37%. ICD in place. Currently does not appear fluid overloaded/CHF exacerbation. Monitor volume status. Diuresis as needed. Resume oral medications once able to tolerate, off pressors Status: Acute (5) Atelectasis: Status: Acute (6) CHF (congestive heart failure): Status: Acute Qualifiers: Heart failure type: systolic Heart failure chronicity: acute on chronic Qualified Code(s): I50.23 - Acute on chronic systolic (congestive) heart failure (7) Sepsis: This was present initially on admission, then resolved, and now with sepsis again with interim development of right lower lobe pneumonia. Meets criteria by way of fever and leukocytosis and infectious source. Leukocytosis improving. Low-grade fever yesterday morning, so far otherwise afebrile. Continue antibiotics as above. Follow repeat blood cultures. Status: Acute Additional A&P Information CAD Atrial fibrillation: a/c with lovenox, rate controlled GERD HTN HLD History of prostate cancer DVT ppx: full dose lovenox Attestations Medical Necessity Statement*: Continue admission for weaning off mechanical ventilatory support, extubation, continue management following intra-abdominal abscess, SBO, status post bowel resection due to bowel perforation, monitoring with persistent/recurrent abdominal collection, continue to biotics for pneumonia, empiric antibiotics following evacuation of abdominal abscess. 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
--- NOTE | 2021-01-15 13:12 | PM.PN ---
Subjective Subjective: Interval history: Patient has been stable overnight, off pressors since yesterday morning, ready to be extubated today. No BMs. Vitals/I&O/Wt Last Vital Signs Temp 98.8 F 01/15/21 08:00 Pulse 100 01/15/21 08:00 Resp 14 01/15/21 10:00 BP 106/66 01/15/21 08:00 Pulse Ox 96 01/15/21 10:00 01/14/21 01/15/21 01/15/21 22:59 06:59 14:59 Intake Total 771.8 / 2330.043 1319 / 2330.043 319.333 / 319.333 Output Total 720 / 1420 700 / 1420 Balance 51.8 / 910.043 619 / 910.043 319.333 / 319.333 Weight last 48 hrs Weight 138 lb Weight 137 lb 8 oz Physical Exam Narrative: EXAM NARRATIVE: Abdomen: Soft, mildly distended, and nontender, incision clean dry and intact, ETIENNE drain output is serosanguineous Urinary Catheter Management^: Mack: Cath Placed During This Visit: yes, but has since been removed by the nurse Reason for Continuing Indwelling Catheter: Accurate Measurement of Urinary Output in Critically Ill Patients Urinary Catheter Date of Insertion: 01/13/21 Urinary Catheter Time of Insertion: 05:40 Date Urinary Catheter Removed: 01/07/21 Time Urinary Catheter Discontinued: 11:18 Data : 01/15/21 04:51 01/15/21 04:51 Micro: Microbiology 01/13/21 13:46 Gram Stain - Final Lung Right Upper Lobe Bronchoalveolar Lavage Culture - Preliminary 01/13/21 04:50 Gram Stain - Final Sputum - Endotracheal Tube Aspirate Sputum Culture - Final 01/14/21 04:36 Blood Culture - Preliminary Blood NEGATIVE TO DATE 01/14/21 04:31 Blood Culture - Preliminary Blood NEGATIVE TO DATE 01/13/21 13:46 Mycobacterial Smear - Preliminary Body Fluids - Bronchial A&P Assessment and plan (1) S/P small bowel resection: 55-year-old male status post ex lap, bowel resection and drainage of intra-abdominal abscess with postop ileus, awaiting return of bowel function,. Respiratory failure requiring intubation and bronchoscopy Cardiovascular: Currently stable, off pressors for 24 hours Renal: Adequate urine output ID: WBC down to 15.7, continue vancomycin and imipenem GI: NG tube to LIS, abdominal x-ray today shows contrast within the right colon Pepcid for GI prophylaxis DVT prophylaxis with Lovenox Incentive spirometry Morphine and [place] for pain control Senna S, add lactulose for bowel regimen Severe protein calorie malnutrition : Continue TPN Insulin sliding scale Hypokalemia: Resolved Lovenox therapeutic regimen for anticoagulation Since patient is off pressors, white count is trending down and abdominal x-ray shows contrast within the right colon we will hold off on repeating the CT abdomen pelvis at this point Status: Acute Attestations Medical Necessity Statement*: As per primary Coding Level of Care Code Acute Emergency Service Restorer for Chg Fwd Diagnoses S/P small bowel resection Z90.49
[2021-01-15] MEDS: lactulose oral liq 20 gm/30 mL UDC 10 GM PO (13:49)
--- NOTE | 2021-01-15 16:24 | PC.RESP ---
extubated pt extubated and placed on 3lpm nc. tolerated well
[2021-01-15 16:44] LABS: Glucose Point of Care 128 mg/dL (70-110)
--- NOTE | 2021-01-15 17:19 | PC.NURSE ---
1600 RT extubated patient and placed on 3l N/C,, gunjan well. 1720 Wasted 50ml Fentnyl with witness of Deborah, and wasted Versed 35ml with same witness.
[2021-01-15 20:49] LABS: Glucose Point of Care 125 mg/dL (70-110)
[2021-01-16] VITALS (42 sets, daily range): BP systolic 113–152; BP diastolic 65–88; PULSE 0–106; RESP 16–25; TEMP 36.6–37.7; O2SAT 93–99; BMI 23.6
[2021-01-16] MEDS: levalbuterol 0.63 mg/3 mL Neb INHALATION ×4 (02:36→20:28)
[2021-01-16] MEDS: AA-Dex 5%-20% w/Lytes 1,000 ML with multivitamin inj 10 ML 50 ML IV (03:57)
[2021-01-16] MEDS: enoxaparin 60 mg/0.6 mL Syringe SUBCUT ×2 (03:57→16:11)
[2021-01-16 05:01] LABS: Basophils # 0.1 10^3/uL (0.0-0.1); Basophils % 0.5 %; Eosinophils # 0.7 10^3/uL (0.0-0.8); Eosinophils % 4.1 %; Hematocrit 29.6 % (42.0-52.0); Hemoglobin 9.6 g/dL (11.7-16.6); Lymphocytes # 1.4 10^3/uL (0.8-4.8); Lymphocytes % 7.8 %; Mean Corpuscular HGB Conc 32.4 g/dL (30.0-36.0); Mean Corpuscular Hemoglobin 29.2 pg (28.0-34.0); Monocytes # 1.3 10^3/uL (0.2-0.9); Monocytes % 7.4 %; Neutrophils # 13.73 10^3/uL (1.8-7.7); Neutrophils % 78.5 %; Nucleated Red Blood Cells % 0 %; Platelet Count 530 10^3/cmm (130-400); Red Blood Count 3.29 10^6/uL (4.1-5.3); Red Cell Distribution Width 15.6 % (12.1-15.1); White Blood Count 17.5 10^3/uL (4.0-10.0)
[2021-01-16 05:34] LABS: Alanine Aminotransferase 24 U/L (0-41); Albumin Level 2.5 g/dL (3.5-5.2); Alkaline Phosphatase 124 IU/L (40-130); Anion Gap 11.9 (5-19); Aspartate Amino Transferase 25 U/L (0-40); Blood Urea Nitrogen 15 mg/dL (6-20); Calcium 8.2 mg/dL (8.5-10.5); Carbon Dioxide 28 mmol/L (22-29); Chloride 103 mmol/L (98-107); Globulin 3.4 g/dL (1.3-4.6); Glomerular Filtration Rate 139.4 mL/min (90-130); Glucose 138 mg/dL (65-115); Osmolality Calculated 291 mOsm/kg (285-295); Potassium 3.9 mmol/L (3.5-5.1); Sodium 139 mmol/L (136-145); Total Bilirubin 0.5 mg/dL (0.15-1.2); Total Protein 5.9 g/dL (6.6-8.7)
[2021-01-16] MEDS: famotidine 20 mg/2 mL INJ IVP ×2 (05:37→19:02)
--- NOTE | 2021-01-16 06:30 | PC.NURSE ---
Shift Summary Patient had an uneventful night. He is on 3L of oxygen NC. Patient has a PICC line to the right basilic vein with TPN infusing at 50 mls/hr and an IV to the left AC which is saline locked. Mack catheter drained 820 mls of dark yellow urine all evening and had 4 moderate sized bowel movements. Patient is able to ambulate to the bedside commode with assistance from staff. Right nare NG tube is hooked to low-intermitt wall suction and drained 250 mls of brown gastric content. Right abdomen ETIENNE drain was oozing around the insertion site and had no output overnight. Patient has a midline abdominal incision that is stapled together and open to air. Patient is alert and oriented x4. He had few reports of pain in his abdomen and throat throughout the evening.
[2021-01-16 07:31] LABS: Glucose Point of Care 139 mg/dL (70-110)
[2021-01-16] MEDS: acetylcysteine 200 mg/mL SDV 4 mL 100 MG INHALATION ×3 (08:27→20:28)
--- NOTE | 2021-01-16 09:05 | PM.PN ---
Subjective Subjective: Interval history: He states is doing alright. Better after breathing treatment. Belly hurts. Had a bowel movement. Vitals/I&O/Wt Last Vital Signs Temp 99.8 F H 01/16/21 04:00 Pulse 93 01/16/21 08:44 Resp 16 01/16/21 08:25 BP 117/72 01/16/21 05:30 Pulse Ox 96 01/16/21 08:25 01/15/21 01/16/21 01/16/21 22:59 06:59 14:59 Intake Total 150 / 913.648 1095 / 2135.616 Output Total 890 / 890 1070 / 1960 Balance -740 / -239.384 415 / 175.616 Weight last 48 hrs Weight 60.583 kg Weight 62.596 kg Physical Exam Const: COMMON NORMALS: no acute distress OTHER: Awake, alert. HENMT: COMMON NORMALS: oropharynx normal OTHER: NGT Neck/C-Spine: COMMON NORMALS: no JVD Resp: COMMON NORMALS: normal respiratory effort AUSCULTATION: rhonchi and wheezes Cardio: COMMON NORMALS: no JVD, regular rhythm, S1 normal heart sound present, S2 normal heart sound present and No murmurs present (Cardio) RHYTHM: regular rhythm HEART SOUNDS: S1 normal heart sound present and S2 normal heart sound present GI: COMMON NORMALS: Soft to palpation INSPECTION: Yes abdominal distension AUSCULTATION: Yes Hypoactive bowel sounds present PALPATION: Yes Soft to palpation and Yes Tenderness to palpation present (GI) OTHER: Midline wound w clean RLQ ETIENNE Extremity: COMMON NORMALS: no joint enlargement and no pedal edema Neuro: COMMON NORMALS: moves all extremities Skin: COMMON NORMALS: no rashes or lesions noted GENERAL SKIN EXAM: no rashes or lesions noted Urinary Catheter Management^: Mack: Cath Placed During This Visit: yes, but has since been removed by the nurse Reason for Continuing Indwelling Catheter: Accurate Measurement of Urinary Output in Critically Ill Patients Urinary Catheter Date of Insertion: 01/13/21 Urinary Catheter Time of Insertion: 05:40 Date Urinary Catheter Removed: 01/07/21 Time Urinary Catheter Discontinued: 11:18 Data : 01/16/21 04:47 01/16/21 04:47 Micro: Microbiology 01/13/21 13:46 Gram Stain - Final Lung Right Upper Lobe Bronchoalveolar Lavage Culture - Preliminary 01/13/21 04:50 Gram Stain - Final Sputum - Endotracheal Tube Aspirate Sputum Culture - Final 01/14/21 04:36 Blood Culture - Preliminary Blood NEGATIVE TO DATE 01/14/21 04:31 Blood Culture - Preliminary Blood NEGATIVE TO DATE A&P Assessment and plan (1) Acute respiratory failure: Extubated yesterday afternoon, doing well on 3 L nasal cannula, although does have some rhonchi, wheezing, cough. Continue prescription Rx for pneumonia. Continue I-S. Add flutter valve. Continue breathing treatments. Mucomyst. Maintain aspiration precautions. Continue imipenem and vancomycin. Status: Acute Qualifiers: Respiratory failure complication: hypoxia Qualified Code(s): J96.01 - Acute respiratory failure with hypoxia (2) Perforated bowel: Having some pain in his belly. Some moderate distention is noted. Did have a bowel movement. Appreciate surgical recommendations. NGT clamped. Clear liquid diet trial. Mack removed. To ambulate. Transfer out of ICU. Status post laparotomy 01/05, small bowel resection, pathology with perforated Meckel's diverticulum Continue imipenem and vancomycin post op course notable for prolonged ileus , NGT continues to suction, TPN ongoing CT abdomen with possibly organizing collection vs post op changes, if persistent fevers and increasing white blood cell count, will likely need to rescan Careful nutrition with TPN PICC line placed 01/11, removed. Status: Acute (3) Supratherapeutic INR: coumadin held and reveresed on admission continue full dose lovenox 1mh/kg q12h in case more surgical procedures needed coumadin to be resumed closer to discharge Status: Acute (4) Ischemic cardiomyopathy: Previous ejection fraction as low as 20%. Currently EF during last admission up to 37%. ICD in place. Currently does not appear fluid overloaded/CHF exacerbation. Monitor volume status. Diuresis as needed. Resume oral medications once able to tolerate, off pressors Status: Acute (5) Atelectasis: Status: Acute (6) CHF (congestive heart failure): Status: Acute Qualifiers: Heart failure type: systolic Heart failure chronicity: acute on chronic Qualified Code(s): I50.23 - Acute on chronic systolic (congestive) heart failure (7) Sepsis: Leukocytosis worse today. Continue to monitor. Monitor condition. In case persistent or rising, consider repeat CT scan to reassess intra-abdominal collection. This was present initially on admission, then resolved, and now with sepsis again with interim development of right lower lobe pneumonia. Meets criteria by way of fever and leukocytosis and infectious source. Leukocytosis improving. Low-grade fever yesterday morning, so far otherwise afebrile. Continue antibiotics as above. Follow repeat blood cultures. Status: Acute Additional A&P Information CAD Atrial fibrillation: a/c with lovenox, rate controlled GERD HTN HLD History of prostate cancer DVT ppx: full dose lovenox Attestations Medical Necessity Statement*: Continue admission for assessment of management of sepsis, pneumonia, intra-abdominal fluid collection, after presentation with intra-abdominal abscess, bowel perforation requiring resection, with underlying CHF. Coding Level of Care Code Acute Egg Setter for [facility] Fwd Diagnoses Acute respiratory failure J96.01 Respiratory failure complication: hypoxia Perforated bowel K63.1 Supratherapeutic INR R79.1 Ischemic cardiomyopathy I25.5 Atelectasis J98.11 CHF (congestive heart failure) I50.23 Heart failure type: systolic Heart failure chronicity: acute on chronic Sepsis A41.9
[2021-01-16] MEDS: sennosides-docusate Tablet 1 TAB PO (09:19)
[2021-01-16] MEDS: vancomycin 1,000 MG in sodium chloride 0.9% 250 ML 250 MG IV ×2 (09:19→23:33)
--- NOTE | 2021-01-16 09:39 | PC.CHAP ---
Pastoral Care Encounter/Spiritual Assessment Type of Contact [] Declined tinner automatic visit [] Patient/Family/Request visit [] Outpatient visit [] Follow-up visit [] Physician referral [] Code/Alert [x] Routine visit [] Staff referral [] Actively dying [] Patient sleeping [] Family support [] [] Out of room [] Palliative care [] [x] Receiving care in room [] Pre-surgical visit [] Trauma [] Long length of stay [x] ICU visit [] Other: Relational/Emotional Strength [] Patient feels connected with others/family/visitors/staff [] Distress [] Loneliness/isolation [] Abandonment Spirituality of Patient [] Person of Lydia [] Attends Advent of their Lydia [] Believes in Prayer [] Reads Bible or Zoroastrian materials [] There are Spiritual issues to be addressed Ethnic Origins Teacher Interventions [x] Prayer [] Active listening [] Non-anxious presence [] Spiritual/emotional support [] Crisis/trauma care [] Spiritual counseling [] Bereavement support [] Provided bereavement packet [] Provided Bible/devotional materials [] Provided toy/stuffed animal, coloring book to patient or family member [] Provided Communion [] Anointing/[place] [] Salvation [x] Completed spiritual assessment [] Other: Impact on Illness or Injury [] Angry [] Fearful [] Anxious [] Often cries [] Exhaustion [] Unable to work [] Unable to attend orthodox [] Unable to walk/stand [] Unable to read [] Unable to drive [] Unable to eat/drink [] Unable to sleep [] Unable to be with family [] Patient intubated [] Other: Summary Time spent with patient
--- NOTE | 2021-01-16 09:44 | PC.NURSE ---
Physician Rounding Pt resting in bed at this time. Dr. Miguel at bedside discussing plan of care. Plans to clamp NG tube, clear liquid trial, ambulate pt TID. Orders to removed urinary catheter, transfer to [facility] later this am. Pt A&Ox4, on 3L NC with intermittent coughing. Pt noted to be coughing up thin clear film. Lung sounds noted to be rhonchi on right upper lobe and clear on left upper and lower lobes.Bowel sounds noted to be active, Pt reported having serval bowel movements overnight. Pt denies pain at this time, requesting more ice chips.
--- NOTE | 2021-01-16 10:15 | PC.NURSE ---
Report called to HEATHER Malhotra on [facility]. Pt to be transferred to room 255-1.
--- NOTE | 2021-01-16 10:51 | P.PN_ITS ---
Subjective Subjective: Interval history: Patient was extubated yesterday, is on couple of liters of oxygen, has low-grade fever of 99. He had 3 bowel movements yesterday. He complains of pain mainly around the ETIENNE drain. Vitals/I&O/Wt Last Vital Signs Temp 99.8 F H 01/16/21 04:00 Pulse 92 01/16/21 09:00 Resp 20 H 01/16/21 09:00 BP 134/73 01/16/21 08:30 Pulse Ox 95 01/16/21 09:00 01/15/21 01/16/21 01/16/21 22:59 06:59 14:59 Intake Total 150 / 2135.616 1485 / 2135.616 250 / 250 Output Total 890 / 1960 1070 / 1960 Balance -740 / 175.616 415 / 175.616 250 / 250 Weight last 48 hrs Weight 133 lb 9 oz Weight 138 lb Physical Exam Narrative: EXAM NARRATIVE: Abdomen: Soft, nontender, except around the ETIENNE drain, distended, incision clean dry and intact, NG to LIS Urinary Catheter Management^: Mack: Cath Placed During This Visit: yes, but has since been removed by the nurse Reason for Continuing Indwelling Catheter: Accurate Measurement of Urinary Output in Critically Ill Patients Urinary Catheter Date of Insertion: 01/13/21 Urinary Catheter Time of Insertion: 05:40 Date Urinary Catheter Removed: 01/16/21 Time Urinary Catheter Discontinued: 09:38 Data : 01/16/21 04:47 01/16/21 04:47 Micro: Microbiology 01/13/21 13:46 Gram Stain - Final Lung Right Upper Lobe Bronchoalveolar Lavage Culture - Preliminary 01/13/21 04:50 Gram Stain - Final Sputum - Endotracheal Tube Aspirate Sputum Culture - Final 01/14/21 04:36 Blood Culture - Preliminary Blood NEGATIVE TO DATE 01/14/21 04:31 Blood Culture - Preliminary Blood NEGATIVE TO DATE A&P Assessment and plan (1) S/P small bowel resection: 55-year-old male status post ex lap, bowel resection and drainage of intra-abdominal abscess with postop ileus, awaiting return of bowel function,. Respiratory failure requiring intubation and bronchoscopy Cardiovascular: Currently stable, off pressors for 24 hours Renal: Adequate urine output ID: WBC is 17.5, has low-grade fevers 15.7, continue vancomycin and imipenem. If his WBC continues to trend up we will need to repeat CT abdomen pelvis tomorrow since patient had some fluid collections which might need drainage. GI: Had multiple bowel movements yesterday, clamp NG tube, start clear liquid diet Pepcid for GI prophylaxis DVT prophylaxis with Lovenox Incentive spirometry Morphine and [employer] for pain control Senna S, add lactulose for bowel regimen Severe protein calorie malnutrition : Continue TPN Insulin sliding scale Hypokalemia: Resolved Lovenox therapeutic regimen for anticoagulation Status: Acute Attestations Medical Necessity Statement*: As per primary Coding Level of Care Code Acute Coin Machine Collector for Chg Fwd Diagnoses S/P small bowel resection Z90.49
--- NOTE | 2021-01-16 11:34 | PC.NURSE ---
Transferred to [facility] room 255-1 Pt transferred via wheelchair with one assist to [facility] room [facility]-1. Pt transferred from wheelchair to bed. Nurse at bedside, abd incision inspected together. 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 Pt tolerated transfer well and A&Ox4 at time of transfer.
[2021-01-16 12:41] LABS: Glucose Point of Care 153 mg/dL (70-110)
--- NOTE | 2021-01-16 14:02 | PC.SOCIAL ---
*IMM UPDATE* Gave patient IMM update. Provided copy of page 2. 01/16/21 @1034 Initialed, dated, timed and placed in chart.
[2021-01-16] MEDS: lactulose oral liq 20 gm/30 mL UDC 10 GM PO (16:11)
--- NOTE | 2021-01-16 16:47 | PC.NUTR ---
TPN follow up: Recommend increase TPN by 10 ml/hr q 8 hours to goal of 75 ml/hr as tolerated (continuing with 125 ml lipids daily), to provide 1834 kcal, 90 g protein. Recommend monitoring Na, K, glucose, Phos, Mg, and renal labs. Anticipate very gradual increase in kcal intake from oral diet due to extended time period without po intake, and also note TPN rate has been 30-50 ml/hr for several days, per chart review, which has not been meeting estimated nutritional needs. Notified Dr. Aparicio of recommendation.
[2021-01-16 17:24] LABS: Glucose Point of Care 121 mg/dL (70-110)
--- NOTE | 2021-01-16 18:26 | XRR_ITS ---
PROCEDURE INFORMATION: Exam: XR Chest Exam date and time: 01/16/2021 6:26 PM Age: 55 years old Clinical indication: Device placement; Ng tube; Additional info: Ng tube placement TECHNIQUE: Imaging protocol: XR of the chest. Views: 1 view. COMPARISON: CR XR acute abdomen series [id number] 01/15/2021 7:18 AM FINDINGS: Tubes, catheters and devices: NG tube extends into the stomach. A PICC line is present on the right side extending into the right atrium; A cardiac pacemaker is present on the left side in good position. Lungs: Unremarkable. No consolidation. Pleural spaces: Unremarkable. No pleural effusion. No pneumothorax. Heart/Mediastinum: Unremarkable. No cardiomegaly. Bones/joints: Unremarkable. XR/XR chest 1V portable [id number] IMPRESSION: 1. No acute findings. 2. Right PICC line in the right atrium 3. NG tube is in the stomach. 4. Cardiac pacemaker left anterior chest
[2021-01-16 18:28] LABS: Glucose Point of Care 149 mg/dL (70-110)
--- NOTE | 2021-01-16 19:15 | PC.NURSE ---
upon assisting patient back to bed from the bathroom brownish drainage was noted to gown, patient did not have an episode of incontinence. He had a small BM in the bathroom at this time. Drainage was noted to be in ETIENNE drain and oozing from ETIENNE insertion site. Dr. Miguel notified.
--- NOTE | 2021-01-16 20:20 | CTR_ITS ---
PROCEDURE INFORMATION: Exam: CT Abdomen And Pelvis With Contrast Exam date and time: 01/16/2021 8:20 PM Age: 55 years old Clinical indication: Abdominal pain; Generalized; Additional info: S/P bowel resection with change in drain output, R/O leak TECHNIQUE: Imaging protocol: Computed tomography of the abdomen and pelvis with contrast. Radiation optimization: All CT scans at this facility use at least one of these dose optimization techniques: automated exposure control; mA and/or kV adjustment per patient size (includes targeted exams where dose is matched to clinical indication); or iterative reconstruction. Contrast material: OMNI 300; Contrast volume: 95 ml; Contrast route: INTRAVENOUS (IV); Other contrast: Oral, omni 300, 20; COMPARISON: CT abdomen pelvis w con* [id number] 01/12/2021 9:47 AM RADIATION DOSE METRICS: Total DLP (mGy-cm): 1084.72 FINDINGS: Tubes, catheters and devices: Enteric tube tip is over the antrum of the stomach (distal stomach). Continued right lower quadrant anterior abdominal wall percutaneous drainage catheter with the pigtail just superior to the urinary bladder. Lungs: Decreased right pleural fluid collection with continued prominent atelectasis in the right lower lobe. Liver: Normal. No mass. Gallbladder and bile ducts: Normal. No calcified stones. No ductal dilation. Pancreas: Normal. No ductal dilation. Spleen: Normal. No splenomegaly. Adrenal glands: Normal. No mass. Kidneys and ureters: Stable right nephrectomy. Stomach and bowel: Continued dilated loops of small bowel up to 5 cm in diameter consistent with postoperative ileus versus enteritis versus peritonitis. Right sided [id number] bowel anastomosis just inferolateral to the umbilicus and just superior to the right drainage catheter with dilated small bowel proximal to this and more decompressed more normal caliber small bowel distal to this all with the terminal ileum. No focal transition point. Continued small loculated areas of fluid consistent with peritonitis versus postoperative fluid versus slow anastomosis leak. Appendix: No evidence of appendicitis. Intraperitoneal space: Unremarkable. No free air. No significant fluid collection. Vasculature: Calcification of the abdominal aorta and/or iliac arteries consistent with atherosclerotic vessel disease. Lymph nodes: Unremarkable. No enlarged lymph nodes. Urinary bladder: Unremarkable as visualized. Reproductive: Unremarkable as visualized. Bones/joints: Unremarkable. No acute fracture. Soft tissues: Possible sinus track from the anteromedial wall of the inflamed sigmoid colon to the right where there is a 2.2 x 0.8 cm air collection that was previously much larger at 4.7 x 3.3 cm. Axial series 2, images 67-71. Continued vertical row of midline anterior abdominal wall skin samantha consistent with recent laparotomy. CT/CT abdomen pelvis w con* [id number] IMPRESSION: 1. Decreased right pleural fluid collection with continued prominent atelectasis in the right lower lobe. 2. Continued right lower quadrant anterior abdominal wall percutaneous drainage catheter with the pigtail just superior to the urinary bladder. 3. Continued dilated loops of small bowel up to 5 cm in diameter consistent with postoperative ileus versus enteritis versus peritonitis. 4. Right sided [id number] bowel anastomosis just inferolateral to the umbilicus and just superior to the right drainage catheter with dilated small bowel proximal to this and more decompressed more normal caliber small bowel distal to this all with the terminal ileum. No focal transition point. 5. Possible sinus track from the anteromedial wall of the inflamed sigmoid colon to the right where there is a 2.2 x 0.8 cm air collection that was previously much larger at 4.7 x 3.3 cm. Axial series 2, images 67-71. 6. Continued vertical row of midline anterior abdominal wall skin samantha consistent with recent laparotomy. 7. Continued small loculated areas of fluid consistent with peritonitis versus postoperative fluid versus slow anastomosis leak. Radiation Dose CTDIVOL = (mGy): DLP = 1084.72 (mGy-cm)
[2021-01-16 20:51] LABS: Basophils # 0.1 10^3/uL (0.0-0.1); Basophils % 0.5 %; Eosinophils # 0.4 10^3/uL (0.0-0.8); Eosinophils % 2.5 %; Hematocrit 32.5 % (42.0-52.0); Hemoglobin 10.1 g/dL (11.7-16.6); Lymphocytes # 1.7 10^3/uL (0.8-4.8); Mean Corpuscular HGB Conc 31.1 g/dL (30.0-36.0); Mean Corpuscular Hemoglobin 28.3 pg (28.0-34.0); Mean Platelet Volume 9.8 fL (7.4-10.4); Monocytes # 1.3 10^3/uL (0.2-0.9); Monocytes % 7.9 %; Neutrophils # 13.06 10^3/uL (1.8-7.7); Neutrophils % 77.4 %; Nucleated Red Blood Cells % 0 %; Platelet Count 500 10^3/cmm (130-400); Red Blood Count 3.57 10^6/uL (4.1-5.3); Red Cell Distribution Width 15.3 % (12.1-15.1); White Blood Count 16.9 10^3/uL (4.0-10.0)
[2021-01-16 21:05] LABS: Alanine Aminotransferase 30 U/L (0-41); Albumin Level 2.8 g/dL (3.5-5.2); Alkaline Phosphatase 127 IU/L (40-130); Anion Gap 12.8 (5-19); Aspartate Amino Transferase 29 U/L (0-40); Blood Urea Nitrogen 14 mg/dL (6-20); Calcium 8.4 mg/dL (8.5-10.5); Carbon Dioxide 25 mmol/L (22-29); Chloride 102 mmol/L (98-107); Globulin 3.5 g/dL (1.3-4.6); Glucose 127 mg/dL (65-115); Osmolality Calculated 284 mOsm/kg (285-295); Potassium 3.8 mmol/L (3.5-5.1); Sodium 136 mmol/L (136-145); Total Bilirubin 0.4 mg/dL (0.15-1.2); Total Protein 6.3 g/dL (6.6-8.7)
[2021-01-16 21:11] LABS: Glucose Point of Care 160 mg/dL (70-110)
[2021-01-16 21:11] LABS: Lactate (Lactic Acid level) 0.5 mmol/L (0.5-2.2)
[2021-01-16 21:15] LABS: Vancomycin Trough 14.7 ug/mL (10-15)
[2021-01-16] MEDS: iohexol 300 mg/mL 100 mL Btl IV (21:58)
[2021-01-16] MEDS: iohexol 300 mg/mL 50 mL Btl PO (21:59)
[2021-01-17] VITALS (12 sets, daily range): BP systolic 136–146; BP diastolic 71–79; PULSE 75–88; RESP 16–20; TEMP 36.4–36.9; O2SAT 94–98
[2021-01-17] MEDS: acetylcysteine 200 mg/mL SDV 4 mL 100 MG INHALATION ×3 (02:15→20:41)
[2021-01-17] MEDS: levalbuterol 0.63 mg/3 mL Neb INHALATION ×4 (02:15→20:41)
[2021-01-17 02:46] LABS: Basophils # 0.1 10^3/uL (0.0-0.1); Basophils % 0.5 %; Eosinophils # 0.6 10^3/uL (0.0-0.8); Hematocrit 29.7 % (42.0-52.0); Hemoglobin 9.4 g/dL (11.7-16.6); Lymphocytes # 1.7 10^3/uL (0.8-4.8); Lymphocytes % 10.6 %; Mean Corpuscular HGB Conc 31.6 g/dL (30.0-36.0); Mean Corpuscular Hemoglobin 28.4 pg (28.0-34.0); Mean Corpuscular Volume 89.7 fL (80-94); Monocytes # 1.2 10^3/uL (0.2-0.9); Monocytes % 7.7 %; Neutrophils # 11.95 10^3/uL (1.8-7.7); Neutrophils % 75.4 %; Nucleated Red Blood Cells % 0 %; Platelet Count 448 10^3/cmm (130-400); Red Blood Count 3.31 10^6/uL (4.1-5.3); Red Cell Distribution Width 15.4 % (12.1-15.1); White Blood Count 15.9 10^3/uL (4.0-10.0)
[2021-01-17 03:09] LABS: Anion Gap 12.3 (5-19); Blood Urea Nitrogen 13 mg/dL (6-20); Calcium 7.9 mg/dL (8.5-10.5); Carbon Dioxide 27 mmol/L (22-29); Chloride 103 mmol/L (98-107); Glucose 124 mg/dL (65-115); Osmolality Calculated 290 mOsm/kg (285-295); Potassium 3.3 mmol/L (3.5-5.1); Sodium 139 mmol/L (136-145)
[2021-01-17] MEDS: lactulose oral liq 20 gm/30 mL UDC 10 GM PO ×2 (03:59→14:48)
[2021-01-17] MEDS: enoxaparin 60 mg/0.6 mL Syringe SUBCUT ×2 (03:59→17:29)
[2021-01-17] MEDS: AA-Dex 5%-20% w/Lytes 1,000 ML with multivitamin inj 10 ML 50 ML IV (04:29)
[2021-01-17] MEDS: famotidine 20 mg/2 mL INJ IVP ×2 (05:45→17:29)
[2021-01-17 06:30] LABS: Glucose Point of Care 176 mg/dL (70-110)
[2021-01-17 08:50] LABS: Glucose Point of Care 171 mg/dL (70-110)
[2021-01-17] MEDS: sennosides-docusate Tablet 1 TAB PO ×2 (08:57→17:28)
[2021-01-17 11:00] LABS: Glucose Point of Care 145 mg/dL (70-110)
[2021-01-17] MEDS: vancomycin 1,000 MG in sodium chloride 0.9% 250 ML 250 MG IV ×2 (11:37→23:02)
[2021-01-17 17:15] LABS: Glucose Point of Care 118 mg/dL (70-110)
--- NOTE | 2021-01-17 19:12 | PM.PN ---
Subjective Subjective: Interval history: I was called last night because the patient's ETIENNE drainage changed from serosanguineous to greenish fluid concerning for possible stool. Patient did not appear to be in acute distress he was tender around the ETIENNE drain. He was afebrile, hemodynamically stable. Labs were obtained and his WBC was down to 16 from [address] abdomen pelvis showed improvement in the fluid collection in the abdomen with decrease amount of free air. This morning he continues to have multiple bowel movements, denies significant abdominal pain except around the ETIENNE drain and he has green drainage in the ETIENNE drain. He continues to be afebrile and his NG tube has been clamped and he denies any nausea or vomiting though he feels a bit distended. Vitals/I&O/Wt Last Vital Signs Temp 97.5 F L 01/17/21 15:39 Pulse 77 01/17/21 15:39 Resp 16 01/17/21 15:39 BP 136/74 01/17/21 15:39 Pulse Ox 96 01/17/21 15:26 01/17/21 01/17/21 01/17/21 06:59 14:59 22:59 Intake Total 1484.167 / 2654.167 440 / 500 60 / 500 Output Total 235 / 435 1001 / 1006 5 / 1006 Balance 1249.167 / 2219.167 -561 / -506 55 / -506 Weight last 48 hrs Weight 140 lb 1.6 oz Weight 133 lb 9 oz Physical Exam Narrative: EXAM NARRATIVE: Abdomen: Soft, mildly distended, nontender except around the ETIENNE drain, ETIENNE drain has greenish output, incision clean dry and intact Urinary Catheter Management^: Mack: Cath Placed During This Visit: yes, but has since been removed by the nurse Reason for Continuing Indwelling Catheter: Accurate Measurement of Urinary Output in Critically Ill Patients Urinary Catheter Date of Insertion: 01/13/21 Urinary Catheter Time of Insertion: 05:40 Date Urinary Catheter Removed: 01/16/21 Time Urinary Catheter Discontinued: 09:38 Data : 01/17/21 02:08 01/17/21 02:08 A&P Assessment and plan (1) S/P small bowel resection: 55-year-old male status post ex lap, bowel resection and drainage of intra-abdominal abscess with postop ileus, awaiting return of bowel function,. Respiratory failure requiring intubation and bronchoscopy Cardiovascular: Currently stable, off pressors Renal: Adequate urine output ID: WBC is down to 15.9 today, continue vancomycin and imipenem. GI: Had multiple bowel movements yesterday, clamp NG tube, continue clear liquid diet for 1 more day since he still a bit distended Pepcid for GI prophylaxis DVT prophylaxis with Lovenox Incentive spirometry Morphine and [place] for pain control Senna S, add lactulose for bowel regimen Severe protein calorie malnutrition : Continue TPN Insulin sliding scale Hypokalemia: 3.3, replace Lovenox therapeutic regimen for anticoagulation I reviewed the CT scan again with Dr. Deng our radiologist since yesterday's read was performed by outside physician. Dr. Deng agrees that there is no evidence of significant leak since there is no significant pneumoperitoneum and the fluid collections are decreased in size. There is always a possibility of a controlled leak where the output is draining directly into the ETIENNE drain. At this point patient has been hemodynamically stable with no evidence of peritonitis except for abdominal distention, his WBC is trending down and has been afebrile for 3 days . We will therefore continue with conservative measures, TPN for nutrition and continue with IV antibiotics. Discussed the findings with the patient. Status: Acute Attestations Medical Necessity Statement*: As per primary Coding Level of Care Code Acute Certified Flex Endoscope Reprocessor for Chg Fwd Diagnoses S/P small bowel resection Z90.49
--- NOTE | 2021-01-17 20:38 | P.PN_ITS ---
Subjective Subjective: Interval history: Doing a little bit better. Denies nausea or vomiting. Abdominal discomfort. Had a bowel movement. Discussed with him and his sister results of CT scan with persistence of collection, air collection, discussion of the results with surgery. Vitals/I&O/Wt Last Vital Signs Temp 97.5 F L 01/17/21 15:39 Pulse 77 01/17/21 15:39 Resp 16 01/17/21 15:39 BP 136/74 01/17/21 15:39 Pulse Ox 96 01/17/21 15:26 01/17/21 01/17/21 01/17/21 06:59 14:59 22:59 Intake Total 1484.167 / 2654.167 440 / 440 160 / 600 Output Total 235 / 435 1001 / 1001 5 / 1006 Balance 1249.167 / 2219.167 -561 / -561 155 / -406 Weight last 48 hrs Weight 63.548 kg Weight 60.583 kg Physical Exam Const: COMMON NORMALS: no acute distress OTHER: Awake, alert. HENMT: COMMON NORMALS: oropharynx normal OTHER: NGT Neck/C-Spine: COMMON NORMALS: no JVD Resp: COMMON NORMALS: normal respiratory effort AUSCULTATION: rhonchi and wheezes Cardio: COMMON NORMALS: no JVD, regular rhythm, S1 normal heart sound present, S2 normal heart sound present and No murmurs present (Cardio) RHYTHM: regular rhythm HEART SOUNDS: S1 normal heart sound present and S2 normal heart sound present GI: COMMON NORMALS: Soft to palpation INSPECTION: Yes abdominal distension AUSCULTATION: Yes Hypoactive bowel sounds present PALPATION: Yes Soft to palpation and Yes Tenderness to palpation present (GI) OTHER: Midline wound w clean RLQ ETIENNE Extremity: COMMON NORMALS: no joint enlargement and no pedal edema Neuro: COMMON NORMALS: moves all extremities Skin: COMMON NORMALS: no rashes or lesions noted GENERAL SKIN EXAM: no rashes or lesions noted Urinary Catheter Management^: Mack: Cath Placed During This Visit: yes, but has since been removed by the nurse Reason for Continuing Indwelling Catheter: Accurate Measurement of Urinary Output in Critically Ill Patients Urinary Catheter Date of Insertion: 01/13/21 Urinary Catheter Time of Insertion: 05:40 Date Urinary Catheter Removed: 01/16/21 Time Urinary Catheter Discontinued: 09:38 Data : 01/17/21 02:08 01/17/21 02:08 A&P Assessment and plan (1) Perforated bowel: Results of CT scan discussed with surgery, with patient and his sister. Results appreciated. Surgery recommendations appreciated. As per discussion currently continue IV antibiotics, continue expectant management. Collection is thought to be persistent from prior, without new collection currently, change in drainage last night thought to be related to perhaps a drain now tapping into the collection. He is tolerating small amounts of oral intake. Having bowel movements. Continue close follow-up. Mobilize as tolerating. Status post laparotomy 01/05, small bowel resection, pathology with perforated Meckel's diverticulum Continue imipenem and vancomycin post op course notable for prolonged ileus , NGT continues to suction, TPN ongoing CT abdomen with possibly organizing collection vs post op changes, if persistent fevers and increasing white blood cell count, will likely need to rescan Careful nutrition with TPN PICC line placed 01/11, removed. Status: Acute (2) Acute respiratory failure: This appears to stabilized, and he is oxygenating well on 3 L nasal cannula. Discussed with him maintaining very strict aspiration precautions given prior aspiration event, suspicion that the more recent event may have been related to aspiration as well. Discussed again maintaining extra caution even despite unremarkable MBS. Continue prescription Rx for pneumonia. Continue I-S. flutter valve. Continue breathing treatments. Mucomyst. Maintain aspiration precautions. Continue imipenem and vancomycin. Status: Acute Qualifiers: Respiratory failure complication: hypoxia Qualified Code(s): J96.01 - Acute respiratory failure with hypoxia (3) Supratherapeutic INR: coumadin held and reveresed on admission continue full dose lovenox 1mh/kg q12h in case more surgical procedures needed coumadin to be resumed closer to discharge Status: Acute (4) Ischemic cardiomyopathy: Previous ejection fraction as low as 20%. Currently EF during last admission up to 37%. ICD in place. Currently does not appear fluid overloaded/CHF exacerbation. Monitor volume status. Diuresis as needed. Resume oral medications once able to tolerate, off pressors Status: Acute (5) Atelectasis: Status: Acute (6) CHF (congestive heart failure): Status: Acute Qualifiers: Heart failure type: systolic Heart failure chronicity: acute on chronic Qualified Code(s): I50.23 - Acute on chronic systolic (congestive) heart failure (7) Sepsis: Leukocytosis with improvement. Continue antibiotics. Continue to monitor. Low-grade temp 99.8 on 01/16. Prior to that 100.9F on 01/14. This was present initially on admission, then resolved, and now with sepsis again with interim development of right lower lobe pneumonia. Meets criteria by way of fever and leukocytosis and infectious source. Status: Acute Additional A&P Information CAD Atrial fibrillation: a/c with lovenox, rate controlled GERD HTN HLD History of prostate cancer DVT ppx: full dose lovenox Attestations Medical Necessity Statement*: Continue admission for IV antibiotic therapy, close monitoring following evacuation of intra-abdominal abscess, persistent fluid collection, small air collection, persistent leukocytosis, treatment of pneumonia, hypoxia also in the setting of CHF history, usually also on chronic anticoagulation secondary to atrial fibrillation. Coding Level of Care Code Acute Senior Ui Web Developer for [facility] Fwd Diagnoses Perforated bowel K63.1 Acute respiratory failure J96.01 Respiratory failure complication: hypoxia Supratherapeutic INR R79.1 Ischemic cardiomyopathy I25.5 Atelectasis J98.11 CHF (congestive heart failure) I50.23 Heart failure type: systolic Heart failure chronicity: acute on chronic Sepsis A41.9
[2021-01-17 21:45] LABS: Glucose Point of Care 167 mg/dL (70-110)
[2021-01-18] VITALS (13 sets, daily range): BP systolic 121–134; BP diastolic 69–75; PULSE 69–87; RESP 16–20; TEMP 36.6–37.5; O2SAT 93–97
[2021-01-18] MEDS: zolpidem 5 mg Tablet PO ×2 (00:13→21:11)
[2021-01-18] MEDS: levalbuterol 0.63 mg/3 mL Neb INHALATION ×4 (02:00→20:29)
[2021-01-18] MEDS: AA-Dex 5%-20% w/Lytes 1,000 ML with multivitamin inj 10 ML 50 ML IV (02:07)
[2021-01-18] MEDS: lactulose oral liq 20 gm/30 mL UDC 10 GM PO ×2 (02:07→14:55)
[2021-01-18 02:49] LABS: Basophils # 0.1 10^3/uL (0.0-0.1); Basophils % 0.7 %; Eosinophils % 6.7 %; Hematocrit 29.3 % (42.0-52.0); Hemoglobin 9.1 g/dL (11.7-16.6); Lymphocytes # 1.7 10^3/uL (0.8-4.8); Mean Corpuscular HGB Conc 31.1 g/dL (30.0-36.0); Mean Corpuscular Hemoglobin 28.2 pg (28.0-34.0); Mean Corpuscular Volume 90.7 fL (80-94); Mean Platelet Volume 10.3 fL (7.4-10.4); Monocytes # 1.4 10^3/uL (0.2-0.9); Monocytes % 9.6 %; Neutrophils # 10.59 10^3/uL (1.8-7.7); Neutrophils % 70.7 %; Nucleated Red Blood Cells % 0 %; Platelet Count 445 10^3/cmm (130-400); Red Blood Count 3.23 10^6/uL (4.1-5.3); Red Cell Distribution Width 15.3 % (12.1-15.1)
[2021-01-18 03:14] LABS: Anion Gap 10.5 (5-19); Blood Urea Nitrogen 11 mg/dL (6-20); Calcium 8.2 mg/dL (8.5-10.5); Carbon Dioxide 27 mmol/L (22-29); Chloride 107 mmol/L (98-107); Glucose 104 mg/dL (65-115); Osmolality Calculated 292 mOsm/kg (285-295); Potassium 3.5 mmol/L (3.5-5.1); Sodium 141 mmol/L (136-145)
[2021-01-18] MEDS: enoxaparin 60 mg/0.6 mL Syringe SUBCUT ×2 (05:05→15:41)
--- NOTE | 2021-01-18 05:53 | PC.NURSE ---
pt did well throughout the night, however had trouble sleeping. pt received a sleeping pill. insertion site around ETIENNE drain is red and inflamed with a yellow green discharge oozing around the tube. ETIENNE drain had a greenish brown fluid out of it follwed by a pink pus-like fluid.
[2021-01-18] MEDS: famotidine 20 mg/2 mL INJ IVP ×2 (05:55→18:04)
[2021-01-18 06:39] LABS: Glucose Point of Care 147 mg/dL (70-110)
[2021-01-18] MEDS: sennosides-docusate Tablet 1 TAB PO ×2 (08:22→18:04)
[2021-01-18] MEDS: acetylcysteine 200 mg/mL SDV 4 mL 100 MG INHALATION ×2 (09:11→15:02)
[2021-01-18] MEDS: vancomycin 1,000 MG in sodium chloride 0.9% 250 ML 250 MG IV ×2 (10:48→22:30)
--- NOTE | 2021-01-18 10:55 | PC.SOCIAL ---
IMM UPDATE Gave patient IMM update. Provided him copy of pg 2. Verbalized understanding 01/18/21 @ 7192 Initialed, dated, timed and placed in chart.
--- NOTE | 2021-01-18 11:35 | PC.NURSE ---
ng Dr Miguel gave order to DC NG tube. NG pilled, Pt tolerated it well.
[2021-01-18 11:44] LABS: Glucose Point of Care 108 mg/dL (70-110)
--- NOTE | 2021-01-18 14:51 | P.PN_ITS ---
Subjective Subjective: Interval history: States he is doing okay. Some pain in the right lower quadrant, otherwise denies any nausea or vomiting. Denies trouble breathing. Curious about when NG tube might come out. Vitals/I&O/Wt Last Vital Signs Temp 98.5 F 01/18/21 11:44 Pulse 82 01/18/21 11:44 Resp 16 01/18/21 11:44 BP 130/75 01/18/21 11:44 Pulse Ox 93 01/18/21 11:44 01/17/21 01/18/21 01/18/21 22:59 06:59 14:59 Intake Total 160 / 600 1845 / 2445 710 / 710 Output Total 5 / 1006 28 / 1034 500 / 500 Balance 155 / -406 1817 / 1411 210 / 210 Weight last 48 hrs Weight 64.949 kg Weight 63.548 kg Physical Exam Const: COMMON NORMALS: no acute distress OTHER: Awake, alert. HENMT: COMMON NORMALS: oropharynx normal OTHER: NGT Neck/C-Spine: COMMON NORMALS: no JVD Resp: COMMON NORMALS: normal respiratory effort AUSCULTATION: rhonchi and wheezes Cardio: COMMON NORMALS: no JVD, regular rhythm, S1 normal heart sound present, S2 normal heart sound present and No murmurs present (Cardio) RHYTHM: regular rhythm HEART SOUNDS: S1 normal heart sound present and S2 normal heart sound present GI: COMMON NORMALS: Soft to palpation and non-tender INSPECTION: Yes abdominal distension AUSCULTATION: Yes normoactive bowel sounds PALPATION: Yes Soft to palpation OTHER: Midline wound w clean RLQ ETIENNE Extremity: COMMON NORMALS: no joint enlargement and no pedal edema Neuro: COMMON NORMALS: moves all extremities Skin: COMMON NORMALS: no rashes or lesions noted GENERAL SKIN EXAM: no rashes or lesions noted Urinary Catheter Management^: Mack: Cath Placed During This Visit: yes, but has since been removed by the nurse Reason for Continuing Indwelling Catheter: Accurate Measurement of Urinary Output in Critically Ill Patients Urinary Catheter Date of Insertion: 01/13/21 Urinary Catheter Time of Insertion: 05:40 Date Urinary Catheter Removed: 01/16/21 Time Urinary Catheter Discontinued: 09:38 Data : 01/18/21 02:10 01/18/21 02:10 A&P Assessment and plan (1) Perforated bowel: At this time continue IV antibiotics and other conservative management. NG tube continued for now until reevaluation by surgery, at which point they may consider with him about removal possibly today. Pathology returning today with intra-abdominal abscess with perforated Meckel's diverticulitis. Surgery recommendations appreciated. He is tolerating small amounts of oral intake. Having bowel movements. Continue close follow-up. Mobilize as tolerating. Status post laparotomy 01/05, small bowel resection, pathology with perforated Meckel's diverticulum Continue imipenem and vancomycin Careful nutrition with TPN Status: Acute (2) Acute respiratory failure: Persistently requiring 3 L nasal cannula. Will repeat chest x-ray in the morning. Obtain MRSA PCR. Continue treatment of aspiration pneumonia. Given known low ejection fraction, monitor for CHF/pulmonary edema. Maintain strict aspiration precautions given prior aspiration event, suspicion that the more recent event may have been related to aspiration as well. Discussed again maintaining extra caution even despite unremarkable MBS. Continue I-S. flutter valve. Continue breathing treatments. Mucomyst. Maintain aspiration precautions. Continue imipenem and vancomycin. Status: Acute Qualifiers: Respiratory failure complication: hypoxia Qualified Code(s): J96.01 - Acute respiratory failure with hypoxia (3) Supratherapeutic INR: coumadin held and reveresed on admission continue full dose lovenox 1mh/kg q12h in case more surgical procedures needed coumadin to be resumed closer to discharge Status: Acute (4) Ischemic cardiomyopathy: Previous ejection fraction as low as 20%. Currently EF during last admission up to 37%. ICD in place. Currently does not appear fluid overloaded/CHF exacerbation. Monitor volume status. Diuresis as needed. Resume oral medications once able to tolerate, off pressors Status: Acute (5) Atelectasis: Status: Acute (6) CHF (congestive heart failure): Status: Acute Qualifiers: Heart failure type: systolic Heart failure chronicity: acute on chronic Qualified Code(s): I50.23 - Acute on chronic systolic (congestive) heart failure (7) Sepsis: Leukocytosis with improvement. Continue antibiotics. Continue to monitor. Low-grade temp 99.8 on 01/16. Prior to that 100.9F on 01/14. This was present initially on admission, then resolved, and now with sepsis again with interim development of right lower lobe pneumonia. Meets criteria by way of fever and leukocytosis and infectious source. Status: Acute Additional A&P Information CAD Atrial fibrillation: a/c with lovenox, rate controlled GERD HTN HLD History of prostate cancer DVT ppx: full dose lovenox Attestations Medical Necessity Statement*: Continue admission for treatment of perforated Meckel's diverticulum, intra-abdominal abscess, persistent fluid collection, aspiration pneumonia, hypoxia, de-escalation of antibiotic. Disposition planning. 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
[2021-01-18 16:48] LABS: Glucose Point of Care 143 mg/dL (70-110)
--- NOTE | 2021-01-18 18:10 | PM.PN ---
Subjective Subjective: Interval history: Patient has been ambulating, had multiple bowel movements, wanted NG tube out, no nausea or vomiting since then. His abdomen feels less distended and overall patient feels better Vitals/I&O/Wt Last Vital Signs Temp 99.5 F 01/18/21 16:00 Pulse 77 01/18/21 16:00 Resp 16 01/18/21 16:00 BP 121/70 01/18/21 16:00 Pulse Ox 96 01/18/21 16:00 01/18/21 01/18/21 01/18/21 06:59 14:59 22:59 Intake Total 1845 / 2445 710 / 710 Output Total 28 / 1034 500 / 700 200 / 700 Balance 1817 / 1411 210 / 10 -200 / 10 Weight last 48 hrs Weight 143 lb 3 oz Weight 140 lb 1.6 oz Physical Exam Narrative: EXAM NARRATIVE: Abdomen: Soft, distended, tender around the ETIENNE drain which has greenish fluid, incision clean dry and intact Urinary Catheter Management^: Mack: Cath Placed During This Visit: yes, but has since been removed by the nurse Reason for Continuing Indwelling Catheter: Accurate Measurement of Urinary Output in Critically Ill Patients Urinary Catheter Date of Insertion: 01/13/21 Urinary Catheter Time of Insertion: 05:40 Date Urinary Catheter Removed: 01/16/21 Time Urinary Catheter Discontinued: 09:38 Data : 01/18/21 02:10 01/18/21 02:10 Micro: Microbiology 01/18/21 15:05 C.difficile Toxin B Gene (PCR) - Final Stool Routine Collection 01/13/21 13:46 Fungal Smear - Preliminary Tissue A&P Assessment and plan (1) S/P small bowel resection: 55-year-old male status post ex lap, bowel resection and drainage of intra-abdominal abscess with postop ileus, awaiting return of bowel function,. Respiratory failure requiring intubation and bronchoscopy Cardiovascular: Currently stable, off pressors Renal: Adequate urine output ID: WBC is down to 15 today, continue vancomycin and imipenem. C. difficile: Negative GI: Had multiple bowel movements yesterday, DC NG tube, continue clear liquid diet Pepcid for GI prophylaxis DVT prophylaxis with Lovenox Incentive spirometry Morphine and [place] for pain control Senna S, add lactulose for bowel regimen Severe protein calorie malnutrition : Continue TPN Insulin sliding scale Hypokalemia: 3.3, replace Lovenox therapeutic regimen for anticoagulation At this point patient has been hemodynamically stable with no evidence of peritonitis except for abdominal distention, his WBC is trending down and has been afebrile for 3 days . We will therefore continue with conservative measures, TPN for nutrition and continue with IV antibiotics. Discussed the findings with the patient. 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
[2021-01-18 21:03] LABS: Glucose Point of Care 110 mg/dL (70-110)
[2021-01-18 21:58] LABS: Aspergillus AG,EIA NOT DETECTED; Aspergillus AG,EIA, Index <0.50
[2021-01-19] VITALS (12 sets, daily range): BP systolic 119–137; BP diastolic 70–78; PULSE 70–91; RESP 15–22; TEMP 36.8–37.4; O2SAT 91–95
[2021-01-19] MEDS: AA-Dex 5%-20% w/Lytes 1,000 ML with multivitamin inj 10 ML 50 ML IV ×2 (00:41→18:00)
[2021-01-19 02:54] LABS: Basophils # 0.1 10^3/uL (0.0-0.1); Basophils % 0.8 %; Eosinophils % 7.4 %; Hematocrit 28.1 % (42.0-52.0); Hemoglobin 8.7 g/dL (11.7-16.6); Lymphocytes % 15.2 %; Mean Corpuscular Hemoglobin 28.2 pg (28.0-34.0); Mean Corpuscular Volume 90.9 fL (80-94); Mean Platelet Volume 10.4 fL (7.4-10.4); Monocytes # 1.2 10^3/uL (0.2-0.9); Monocytes % 9.1 %; Neutrophils % 65.9 %; Nucleated Red Blood Cells % 0 %; Platelet Count 456 10^3/cmm (130-400); Red Blood Count 3.09 10^6/uL (4.1-5.3); Red Cell Distribution Width 15.4 % (12.1-15.1); White Blood Count 13.4 10^3/uL (4.0-10.0)
[2021-01-19 03:05] LABS: Anion Gap 11.5 (5-19); Blood Urea Nitrogen 10 mg/dL (6-20); Calcium 8.2 mg/dL (8.5-10.5); Carbon Dioxide 28 mmol/L (22-29); Chloride 108 mmol/L (98-107); Glomerular Filtration Rate 139.4 mL/min (90-130); Glucose 127 mg/dL (65-115); Osmolality Calculated 299 mOsm/kg (285-295); Potassium 3.5 mmol/L (3.5-5.1); Sodium 144 mmol/L (136-145)
[2021-01-19] MEDS: levalbuterol 0.63 mg/3 mL Neb INHALATION ×4 (03:25→19:40)
[2021-01-19 03:32] LABS: Slide Review Slide Review Perform
[2021-01-19] MEDS: lactulose oral liq 20 gm/30 mL UDC 10 GM PO ×2 (03:48→14:48)
[2021-01-19] MEDS: enoxaparin 60 mg/0.6 mL Syringe SUBCUT ×2 (03:48→16:39)
[2021-01-19] MEDS: famotidine 20 mg/2 mL INJ IVP ×2 (06:00→17:20)
[2021-01-19 07:02] LABS: Glucose Point of Care 149 mg/dL (70-110)
[2021-01-19] MEDS: sennosides-docusate Tablet 1 TAB PO ×2 (08:40→17:20)
[2021-01-19] MEDS: vancomycin 1,000 MG in sodium chloride 0.9% 250 ML 250 MG IV (10:24)
--- NOTE | 2021-01-19 10:27 | PC.NUTR ---
Addendum entered by Viji Howell 01/19/21 10:30: Will also add Boost Breeze to trays per discussion with pt and nurse indicating he does not like Ensure/Glucerna. Original Note: Nutrition follow up: Unclear rationale for advancement to full liquid given only one clear liquid tray consumed X past 3 days per chart, however possibly consuming more that has not been documented yet. At time of RD visit, pt had not consumed full liquid tray d/t disliking items. This RD obtained a second tray with other items--intake and tolerance pending. If pt tolerates full liquids well, recommend to encourage po intakes and provide preferences as appropriate, and advance as tolerated. Recommend gradual decrease of TPN if po intakes 50% or greater. If unable to tolerate po intake, recommend to increase TPN to 75 ml/hr as per previous RD recommendations. Recommend obtaining Phos and Mg level when possible. See RD assessments for further details.
[2021-01-19 11:27] LABS: Glucose Point of Care 114 mg/dL (70-110)
--- NOTE | 2021-01-19 14:57 | PM.PN ---
Subjective Subjective: Interval history: Patient states that he feels better, denies any nausea or vomiting, feels less distended, had multiple bowel movements Vitals/I&O/Wt Last Vital Signs Temp 98.9 F 01/19/21 12:00 Pulse 91 01/19/21 12:00 Resp 15 01/19/21 08:45 BP 137/77 01/19/21 12:00 Pulse Ox 95 01/19/21 12:00 01/18/21 01/19/21 01/19/21 22:59 06:59 14:59 Intake Total 1490 / 2775 575 / 2775 890 / 890 Output Total 215 / 759 44 / 759 Balance 1274 890 / 890 Weight last 48 hrs Weight 143 lb 4 oz Weight 143 lb 3 oz Physical Exam Narrative: EXAM NARRATIVE: Abdomen: Soft, distended, minimally tender, incision clean dry intact, ETIENNE drain output has been H discoloration Urinary Catheter Management^: Mack: Cath Placed During This Visit: yes, but has since been removed by the nurse Reason for Continuing Indwelling Catheter: Accurate Measurement of Urinary Output in Critically Ill Patients Urinary Catheter Date of Insertion: 01/13/21 Urinary Catheter Time of Insertion: 05:40 Date Urinary Catheter Removed: 01/16/21 Time Urinary Catheter Discontinued: 09:38 Data : 01/19/21 02:08 01/19/21 02:08 Micro: Microbiology 01/18/21 16:33 MRSA Culture - Final Nose 01/14/21 04:36 Blood Culture - Final Blood NO GROWTH AFTER 5 DAYS 01/14/21 04:31 Blood Culture - Final Blood NO GROWTH AFTER 5 DAYS 01/18/21 15:05 C.difficile Toxin B Gene (PCR) - Final Stool Routine Collection 01/13/21 13:46 Fungal Smear - Preliminary Tissue A&P Assessment and plan (1) S/P small bowel resection: 55-year-old male status post ex lap, bowel resection and drainage of intra-abdominal abscess with postop ileus, awaiting return of bowel function,. Respiratory failure requiring intubation and bronchoscopy Cardiovascular: Currently stable, off pressors Renal: Adequate urine output ID: WBC is down to 13.4 today, continue vancomycin and imipenem. C. difficile: Negative GI: Had multiple bowel movements yesterday, advance to full liquid diet Pepcid for GI prophylaxis DVT prophylaxis with Lovenox Incentive spirometry Morphine and [place] for pain control Senna S, add lactulose for bowel regimen Severe protein calorie malnutrition : Continue TPN Insulin sliding scale Hypokalemia: Resolved Lovenox therapeutic regimen for anticoagulation At this point patient has been hemodynamically stable with no evidence of peritonitis except for abdominal distention, his WBC is trending down and has been afebrile . We will therefore continue with conservative measures, TPN for nutrition and continue with IV antibiotics. Discussed the findings with the patient. Given the nature of the drainage there is always concern for anastomotic leak or fistula but in either case it is well controlled. 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
[2021-01-19 17:11] LABS: Glucose Point of Care 150 mg/dL (70-110)
--- NOTE | 2021-01-19 21:05 | PM.PN ---
Subjective Subjective: Interval history: He is doing little better today. Had additional bowel movement. They advanced his diet with surgery today. Still some right-sided abdominal tenderness. No nausea or vomiting. No chest pain, no trouble breathing. Vitals/I&O/Wt Last Vital Signs Temp 99.4 F 01/19/21 19:40 Pulse 84 01/19/21 19:45 Resp 18 01/19/21 19:40 BP 137/71 01/19/21 19:40 Pulse Ox 93 01/19/21 19:40 01/19/21 01/19/21 01/19/21 06:59 14:59 22:59 Intake Total 575 / 2775 890 / 890 1215.833 / 2105.833 Output Total 44 / 759 300 / 300 325 / 625 Balance / 2015 590 / 590 890.833 / 1480.833 Weight last 48 hrs Weight 64.977 kg Weight 64.949 kg Physical Exam Const: COMMON NORMALS: no acute distress OTHER: Awake, alert. HENMT: COMMON NORMALS: oropharynx normal Neck/C-Spine: COMMON NORMALS: no JVD Resp: COMMON NORMALS: normal respiratory effort AUSCULTATION: rhonchi and wheezes Cardio: COMMON NORMALS: no JVD, regular rhythm, S1 normal heart sound present, S2 normal heart sound present and No murmurs present (Cardio) RHYTHM: regular rhythm HEART SOUNDS: S1 normal heart sound present and S2 normal heart sound present GI: COMMON NORMALS: Soft to palpation and non-tender INSPECTION: Yes abdominal distension AUSCULTATION: Yes normoactive bowel sounds PALPATION: Yes Soft to palpation OTHER: Midline wound w clean RLQ ETIENNE Extremity: COMMON NORMALS: no joint enlargement and no pedal edema Neuro: COMMON NORMALS: moves all extremities Skin: COMMON NORMALS: no rashes or lesions noted GENERAL SKIN EXAM: no rashes or lesions noted Urinary Catheter Management^: Mack: Cath Placed During This Visit: yes, but has since been removed by the nurse Reason for Continuing Indwelling Catheter: Accurate Measurement of Urinary Output in Critically Ill Patients Urinary Catheter Date of Insertion: 01/13/21 Urinary Catheter Time of Insertion: 05:40 Date Urinary Catheter Removed: 01/16/21 Time Urinary Catheter Discontinued: 09:38 Data : 01/19/21 02:08 01/19/21 02:08 Micro: Microbiology 07/08/21 16:33 MRSA Culture - Final Nose 01/14/21 04:36 Blood Culture - Final Blood NO GROWTH AFTER 5 DAYS 01/14/21 04:31 Blood Culture - Final Blood NO GROWTH AFTER 5 DAYS 01/18/21 15:05 C.difficile Toxin B Gene (PCR) - Final Stool Routine Collection 01/13/21 13:46 Fungal Smear - Preliminary Tissue A&P Assessment and plan (1) Perforated bowel: Further improvement in leukocytosis today. Having bowel movements. Tolerating clear liquids so far. He was advanced to full liquids. Continue IV antibiotics. Continue monitoring of output from ETIENNE drain. Continue monitoring of condition in the hospital at this time. Serial abdominal exams. Trial of diet. Continue TPN for now. Pathology returning today with intra-abdominal abscess with perforated Meckel's diverticulitis. Mobilize as tolerating. Status post laparotomy 01/05, small bowel resection, pathology with perforated Meckel's diverticulum Continue imipenem. MRSA PCR negative. Stop vancomycin. Status: Acute (2) Acute respiratory failure: Weaning of oxygen. On room air during my visit. Negative MRSA PCR. Stop vancomycin. Continue treatment of aspiration pneumonia. Given known low ejection fraction, monitor for CHF/pulmonary edema. Maintain strict aspiration precautions given prior aspiration event, suspicion that the more recent event may have been related to aspiration as well. Discussed again maintaining extra caution even despite unremarkable MBS. Continue I-S. flutter valve. Continue breathing treatments. Mucomyst. Maintain aspiration precautions. Continue imipenem Status: Acute Qualifiers: Respiratory failure complication: hypoxia Qualified Code(s): J96.01 - Acute respiratory failure with hypoxia (3) Supratherapeutic INR: coumadin held and reveresed on admission continue full dose lovenox 1mh/kg q12h in case more surgical procedures needed coumadin to be resumed closer to discharge Status: Acute (4) Ischemic cardiomyopathy: Previous ejection fraction as low as 20%. Currently EF during last admission up to 37%. ICD in place. Currently does not appear fluid overloaded/CHF exacerbation. Monitor volume status. Diuresis as needed. Resume oral medications once able to tolerate, off pressors Status: Acute (5) Atelectasis: Status: Acute (6) CHF (congestive heart failure): Status: Acute Qualifiers: Heart failure type: systolic Heart failure chronicity: acute on chronic Qualified Code(s): I50.23 - Acute on chronic systolic (congestive) heart failure (7) Sepsis: Leukocytosis with improvement. Continue antibiotics. Continue to monitor. Low-grade temp 99.8 on 01/16. Prior to that 100.9F on 01/14. This was present initially on admission, then resolved, and now with sepsis again with interim development of right lower lobe pneumonia. Meets criteria by way of fever and leukocytosis and infectious source. Status: Acute Additional A&P Information CAD Atrial fibrillation: a/c with lovenox, rate controlled GERD HTN HLD History of prostate cancer DVT ppx: full dose lovenox Attestations Medical Necessity Statement*: Continue admission for assessment management of persistent intra-abdominal collection following recurrent intra-abdominal abscess following perforated Meckel's diverticulum, trial of diet, de-escalation of antibiotic. Continued serial abdominal reevaluation. 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
[2021-01-19 22:05] LABS: Glucose Point of Care 127 mg/dL (70-110)
[2021-01-19] MEDS: zolpidem 5 mg Tablet PO (22:43)
[2021-01-20] VITALS (12 sets, daily range): BP systolic 101–134; BP diastolic 65–74; PULSE 70–88; RESP 14–20; TEMP 36.6–38; O2SAT 92–99
[2021-01-20] MEDS: lactulose oral liq 20 gm/30 mL UDC 10 GM PO (03:06)
[2021-01-20] MEDS: levalbuterol 0.63 mg/3 mL Neb INHALATION ×3 (03:09→20:21)
[2021-01-20] MEDS: enoxaparin 60 mg/0.6 mL Syringe SUBCUT ×2 (05:19→18:32)
[2021-01-20] MEDS: famotidine 20 mg/2 mL INJ IVP ×2 (05:23→18:58)
[2021-01-20 06:52] LABS: Basophils # 0.1 10^3/uL (0.0-0.1); Basophils % 0.8 %; Eosinophils # 0.8 10^3/uL (0.0-0.8); Eosinophils % 5.1 %; Hematocrit 27.6 % (42.0-52.0); Hemoglobin 8.7 g/dL (11.7-16.6); Lymphocytes # 2.1 10^3/uL (0.8-4.8); Mean Corpuscular HGB Conc 31.5 g/dL (30.0-36.0); Mean Corpuscular Hemoglobin 28.2 pg (28.0-34.0); Mean Corpuscular Volume 89.6 fL (80-94); Mean Platelet Volume 10.2 fL (7.4-10.4); Monocytes # 1.4 10^3/uL (0.2-0.9); Monocytes % 9.2 %; Neutrophils % 69.4 %; Nucleated Red Blood Cells % 0 %; Platelet Count 421 10^3/cmm (130-400); Red Blood Count 3.08 10^6/uL (4.1-5.3); Red Cell Distribution Width 15.2 % (12.1-15.1); White Blood Count 14.9 10^3/uL (4.0-10.0)
[2021-01-20 07:07] LABS: Alanine Aminotransferase 29 U/L (0-41); Albumin Level 2.6 g/dL (3.5-5.2); Alkaline Phosphatase 106 IU/L (40-130); Anion Gap 12.3 (5-19); Aspartate Amino Transferase 19 U/L (0-40); Blood Urea Nitrogen 10 mg/dL (6-20); Calcium 8.4 mg/dL (8.5-10.5); Carbon Dioxide 27 mmol/L (22-29); Chloride 104 mmol/L (98-107); Globulin 3.3 g/dL (1.3-4.6); Glomerular Filtration Rate 139.4 mL/min (90-130); Glucose 119 mg/dL (65-115); Magnesium 1.9 mg/dL (1.7-2.3); Osmolality Calculated 290 mOsm/kg (285-295); Phosphorus 2.8 mg/dL (2.5-4.5); Potassium 3.3 mmol/L (3.5-5.1); Sodium 140 mmol/L (136-145); Total Bilirubin 0.3 mg/dL (0.15-1.2); Total Protein 5.9 g/dL (6.6-8.7)
[2021-01-20 07:59] LABS: Slide Review Slide Review Perform
[2021-01-20 08:36] LABS: Glucose Point of Care 175 mg/dL (70-110)
[2021-01-20] MEDS: sennosides-docusate Tablet 1 TAB PO ×2 (08:37→18:31)
[2021-01-20 08:45] LABS: Glucose Point of Care 147 mg/dL (70-110)
[2021-01-20 11:00] LABS: Glucose Point of Care 79 mg/dL (70-110)
[2021-01-20] MEDS: potassium chloride oral liq 20 mEq/15 mL UDC PO (11:04)
--- NOTE | 2021-01-20 11:12 | PC.SOCIAL ---
IMM Update Pg.2 of IMM updated and reviewed with patient who verbalized understanding. Copy provided.
--- NOTE | 2021-01-20 14:09 | PM.PN ---
Subjective Subjective: Interval history: Patient states that he is feeling better, denies any nausea or vomiting, tolerating full liquid diet, unfortunately his ETIENNE drain output has changed to brown fluid. He states that he still continues to have green bowel movements Vitals/I&O/Wt Last Vital Signs Temp 97.9 F 01/20/21 12:00 Pulse 75 01/20/21 12:00 Resp 14 01/20/21 12:00 BP 101/65 01/20/21 12:00 Pulse Ox 93 01/20/21 12:00 01/19/21 01/20/21 01/20/21 22:59 06:59 14:59 Intake Total 1215.833 / 2330.833 225 / 2330.833 360 / 360 Output Total 325 / 640 15 / 640 Balance 890.833 / 1690.833 210 / 1690.833 360 / 360 Weight last 48 hrs Weight 136 lb 12.8 oz Weight 143 lb 4 oz Physical Exam Narrative: EXAM NARRATIVE: Abdomen: Soft, less distended, tender around the ETIENNE drain, incision clean dry and intact. The ETIENNE drain output has some brown-colored fluid Urinary Catheter Management^: Mack: Cath Placed During This Visit: yes, but has since been removed by the nurse Reason for Continuing Indwelling Catheter: Accurate Measurement of Urinary Output in Critically Ill Patients Urinary Catheter Date of Insertion: 01/13/21 Urinary Catheter Time of Insertion: 05:40 Date Urinary Catheter Removed: 01/16/21 Time Urinary Catheter Discontinued: 09:38 Data : 01/20/21 06:15 01/20/21 06:15 Micro: Microbiology 01/18/21 16:33 MRSA Culture - Final Nose A&P Assessment and plan (1) S/P small bowel resection: 55-year-old male status post ex lap, bowel resection and drainage of intra-abdominal abscess with postop ileus, awaiting return of bowel function,. Respiratory failure requiring intubation and bronchoscopy Cardiovascular: Currently stable, off pressors Renal: Adequate urine output ID: WBC has gone up to 14.9 and patient had a low-grade T-max of 100.4 at midnight. Unfortunately his drain output has changed to brown fluid C. difficile: Negative GI: Had multiple bowel movements yesterday, n.p.o. with ice chips Pepcid for GI prophylaxis DVT prophylaxis with Lovenox Incentive spirometry Morphine and [place] for pain control Senna S, add lactulose for bowel regimen Severe protein calorie malnutrition : Continue TPN Insulin sliding scale Hypokalemia: Resolved Lovenox therapeutic regimen for anticoagulation At this point patient has been hemodynamically stable with no evidence of peritonitis. Overall he feels a lot better but his white count is gone up to 14.9 today and had a T-max of 100.4 at midnight. More importantly his drain output has changed to brown fluid making the likelihood of enterocutaneous or colocutaneous fistula from an anastomotic leak or colon perforation more likely, though his stool continues to be mainly green fluid. Imaging studies did not show any evidence of perforation or leak. Discussed my concerns with the patient, will plan to keep him n.p.o. with ice chips for the next 24 to 48 hours to see if there is any change in the drain output. We might have to repeat the CT scan of the abdomen pelvis with oral and possibly rectal contrast to rule out any perforation/leak. 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
[2021-01-20] MEDS: AA-Dex 5%-20% w/Lytes 1,000 ML with multivitamin inj 10 ML 50 ML IV (16:20)
--- NOTE | 2021-01-20 16:46 | PM.PN ---
Subjective Subjective: Interval history: States he is doing okay, right lower quadrant is tender. Denies nausea or vomiting. No chest pain or trouble breathing. Vitals/I&O/Wt Last Vital Signs Temp 98.4 F 01/20/21 16:00 Pulse 74 01/20/21 16:00 Resp 14 01/20/21 16:00 BP 132/74 01/20/21 16:00 Pulse Ox 99 01/20/21 16:00 01/20/21 01/20/21 01/20/21 06:59 14:59 22:59 Intake Total 225 / 2330.833 1370 / 1370 Output Total 15 / 640 Balance 210 / 1118.520 1895 / 1370 Weight last 48 hrs Weight 62.051 kg Weight 64.977 kg Physical Exam Const: COMMON NORMALS: no acute distress OTHER: Awake, alert. HENMT: COMMON NORMALS: oropharynx normal Neck/C-Spine: COMMON NORMALS: no JVD Resp: COMMON NORMALS: normal respiratory effort AUSCULTATION: rhonchi and wheezes Cardio: COMMON NORMALS: no JVD, regular rhythm, S1 normal heart sound present, S2 normal heart sound present and No murmurs present (Cardio) RHYTHM: regular rhythm HEART SOUNDS: S1 normal heart sound present and S2 normal heart sound present GI: COMMON NORMALS: Soft to palpation and non-tender INSPECTION: Yes abdominal distension AUSCULTATION: Yes normoactive bowel sounds PALPATION: Yes Soft to palpation OTHER: Midline wound w clean RLQ ETIENNE Extremity: COMMON NORMALS: no joint enlargement and no pedal edema Neuro: COMMON NORMALS: moves all extremities Skin: COMMON NORMALS: no rashes or lesions noted GENERAL SKIN EXAM: no rashes or lesions noted Urinary Catheter Management^: Mack: Cath Placed During This Visit: yes, but has since been removed by the nurse Reason for Continuing Indwelling Catheter: Accurate Measurement of Urinary Output in Critically Ill Patients Urinary Catheter Date of Insertion: 01/13/21 Urinary Catheter Time of Insertion: 05:40 Date Urinary Catheter Removed: 01/16/21 Time Urinary Catheter Discontinued: 09:38 Data : 01/20/21 06:15 01/20/21 06:15 A&P Assessment and plan (1) Perforated bowel: Surgery recommendations appreciated?cautious monitoring and bowel rest n.p.o. with ice chips with rising leukocytosis, low-grade fever yesterday, change in color of ETIENNE output. Continue Primaxin. Continue TPN. Pathology with intra-abdominal abscess with perforated Meckel's diverticulitis. Mobilize as tolerating. Status post laparotomy 01/05, small bowel resection, pathology with perforated Meckel's diverticulum MRSA PCR negative. Stopped vancomycin 01/19. Status: Acute (2) Acute respiratory failure: Weaned off oxygen support. On room air during my visit. Negative MRSA PCR. Stopped vancomycin 01/19. Continues empirically on Primaxin as above. Given known low ejection fraction, monitor for CHF/pulmonary edema. Maintain strict aspiration precautions given prior aspiration event, suspicion that the more recent event may have been related to aspiration as well. Discussed again maintaining extra caution even despite unremarkable MBS. Continue I-S. flutter valve. Continue breathing treatments. Mucomyst. Status: Acute Qualifiers: Respiratory failure complication: hypoxia Qualified Code(s): J96.01 - Acute respiratory failure with hypoxia (3) Supratherapeutic INR: Continue to hold anticoagulation for now in case requiring additional intervention. coumadin held and reveresed on admission continue full dose lovenox 1mh/kg q12h in case more surgical procedures needed coumadin to be resumed closer to discharge Status: Acute (4) Ischemic cardiomyopathy: Previous ejection fraction as low as 20%. Currently EF during last admission up to 37%. ICD in place. Currently does not appear fluid overloaded/CHF exacerbation. Monitor volume status. Diuresis as needed. Resume oral medications once able to tolerate, off pressors Status: Acute (5) Atelectasis: Status: Acute (6) CHF (congestive heart failure): Status: Acute Qualifiers: Heart failure type: systolic Heart failure chronicity: acute on chronic Qualified Code(s): I50.23 - Acute on chronic systolic (congestive) heart failure (7) Sepsis: Persistent leukocytosis, 14.9 on 01/20, low-grade temp around midnight 100.4. Continue Primaxin empirically at this time due to persistent intra-abdominal collection, drainage, status post bowel resection, evacuation of intra-abdominal abscess with pathology finding of perforated Meckel's diverticulitis. Aspiration pneumonia appears resolved. Status: Acute Additional A&P Information CAD Atrial fibrillation: a/c with lovenox, rate controlled GERD HTN HLD History of prostate cancer DVT ppx: full dose lovenox Attestations Medical Necessity Statement*: Continue admission for assessment of management of persistent intra-abdominal collection, with persistent leukocytosis, low-grade fever, bowel rest, close monitoring and reassessment for need of any additional intervention while withholding anticoagulation, continued IV antibiotics. Coding Level of Care Code Acute Security Professional for g Fwd Diagnoses Perforated bowel K63.1 Acute respiratory failure J96.01 Respiratory failure complication: hypoxia Supratherapeutic INR R79.1 Ischemic cardiomyopathy I25.5 Atelectasis J98.11 CHF (congestive heart failure) I50.23 Heart failure type: systolic Heart failure chronicity: acute on chronic Sepsis A41.9
[2021-01-20 17:23] LABS: Glucose Point of Care 182 mg/dL (70-110)
[2021-01-20] MEDS: HYDROcodone-acetaminophen 5-325 mg Tablet 1 TAB PO (21:01)
[2021-01-20 21:02] LABS: Glucose Point of Care 61 mg/dL (70-110)
[2021-01-20] MEDS: zolpidem 5 mg Tablet PO (22:22)
[2021-01-20 23:40] LABS: Glucose Point of Care 125 mg/dL (70-110)
[2021-01-21] VITALS (8 sets, daily range): BP systolic 104–135; BP diastolic 59–74; PULSE 74–94; RESP 14–22; TEMP 36.7–37.7; O2SAT 91–95
[2021-01-21 06:03] LABS: Basophils # 0.1 10^3/uL (0.0-0.1); Basophils % 0.7 %; Eosinophils % 7.3 %; Hematocrit 28.6 % (42.0-52.0); Lymphocytes % 15.2 %; Mean Corpuscular HGB Conc 31.5 g/dL (30.0-36.0); Mean Corpuscular Hemoglobin 28.2 pg (28.0-34.0); Mean Corpuscular Volume 89.7 fL (80-94); Mean Platelet Volume 10.3 fL (7.4-10.4); Monocytes % 7.5 %; Neutrophils # 8.94 10^3/uL (1.8-7.7); Neutrophils % 67.5 %; Nucleated Red Blood Cells % 0 %; Platelet Count 422 10^3/cmm (130-400); Red Blood Count 3.19 10^6/uL (4.1-5.3); White Blood Count 13.3 10^3/uL (4.0-10.0)
[2021-01-21] MEDS: enoxaparin 60 mg/0.6 mL Syringe SUBCUT ×2 (06:24→17:56)
[2021-01-21 06:34] LABS: Glucose Point of Care 120 mg/dL (70-110)
[2021-01-21 06:43] LABS: Anion Gap 10.3 (5-19); Blood Urea Nitrogen 9 mg/dL (6-20); Calcium 7.9 mg/dL (8.5-10.5); Carbon Dioxide 28 mmol/L (22-29); Chloride 104 mmol/L (98-107); Glomerular Filtration Rate 139.4 mL/min (90-130); Glucose 109 mg/dL (65-115); Osmolality Calculated 287 mOsm/kg (285-295); Potassium 3.3 mmol/L (3.5-5.1); Sodium 139 mmol/L (136-145)
[2021-01-21] MEDS: famotidine 20 mg/2 mL INJ IVP ×2 (06:45→17:29)
[2021-01-21] MEDS: levalbuterol 0.63 mg/3 mL Neb INHALATION (08:27)
--- NOTE | 2021-01-21 10:39 | PM.PN ---
Subjective Subjective: Interval history: Patient denies any nausea or vomiting, pain around ETIENNE drain, otherwise feels well. He has been on ice chips since yesterday due to change in drain output.Yesterday his drain output was 40 cc. He had 6-7 bowel movements yesterday. Vitals/I&O/Wt Last Vital Signs Temp 99.4 F 01/21/21 08:00 Pulse 93 01/21/21 08:00 Resp 16 01/21/21 08:00 BP 133/68 01/21/21 08:00 Pulse Ox 95 01/21/21 08:00 01/20/21 01/21/21 01/21/21 22:59 06:59 14:59 Intake Total 100 / 1795 225 / 1795 Balance 100 / 1795 225 / 1795 Weight last 48 hrs Weight 130 lb 4.8 oz Weight 136 lb 12.8 oz Physical Exam Narrative: EXAM NARRATIVE: Abdomen: Soft, mildly tender around the drain, incision clean dry and intact, ETIENNE drain had 40 cc of brown thick fluid Urinary Catheter Management^: Mack: Cath Placed During This Visit: yes, but has since been removed by the nurse Reason for Continuing Indwelling Catheter: Accurate Measurement of Urinary Output in Critically Ill Patients Urinary Catheter Date of Insertion: 01/13/21 Urinary Catheter Time of Insertion: 05:40 Date Urinary Catheter Removed: 01/16/21 Time Urinary Catheter Discontinued: 09:38 Data : 01/21/21 05:05 01/21/21 05:05 A&P Assessment and plan (1) S/P small bowel resection: 55-year-old male status post ex lap, bowel resection and drainage of intra-abdominal abscess with postop ileus, awaiting return of bowel function,. Respiratory failure requiring intubation and bronchoscopy Cardiovascular: Currently stable, off pressors Renal: Adequate urine output ID: WBC down to 13.3 and patient had a T-max of 99.4 yesterday. Unfortunately his drain output has changed to brown fluid, total amount was 40 cc C. difficile: Negative GI: Had multiple bowel movements yesterday, n.p.o. with ice chips for 1 more day, I will stop senna S and just continue with Colace since he is having multiple loose stools Pepcid for GI prophylaxis DVT prophylaxis with Lovenox Incentive spirometry Morphine and [place] for pain control Severe protein calorie malnutrition : Continue TPN Insulin sliding scale Hypokalemia: 3.3 today Lovenox therapeutic regimen for anticoagulation At this point patient has been hemodynamically stable with no evidence of peritonitis. Overall he feels a lot better but his white count is 13.3 today and had a T-max of 99.4 yesterday. More importantly his drain output has changed to brown fluid making the likelihood of enterocutaneous or colocutaneous fistula from an anastomotic leak or colon perforation more likely, though his stool continues to be mainly green fluid. Imaging studies did not show any evidence of perforation or leak. Discussed my concerns with the patient, will plan to keep him n.p.o. with ice chips for the next 24 to 48 hours to see if there is any change in the drain output. We might have to repeat the CT scan of the abdomen pelvis with oral and possibly rectal contrast to rule out any perforation/leak. Status: Acute Attestations Medical Necessity Statement*: As per primary Coding Level of Care Code Acute [employer] Specialist for Darrin Spear Diagnoses S/P small bowel resection Z90.49
[2021-01-21 11:13] LABS: Glucose Point of Care 153 mg/dL (70-110)
[2021-01-21] MEDS: docusate sodium 100 mg Capsule PO (11:46)
[2021-01-21] MEDS: AA-Dex 5%-20% w/Lytes 1,000 ML with multivitamin inj 10 ML 50 ML IV (15:37)
[2021-01-21 17:50] LABS: Glucose Point of Care 135 mg/dL (70-110)
[2021-01-21] MEDS: HYDROcodone-acetaminophen 5-325 mg Tablet 1 TAB PO (20:31)
[2021-01-21 20:34] LABS: Glucose Point of Care 127 mg/dL (70-110)
[2021-01-21] MEDS: zolpidem 5 mg Tablet PO (21:46)
--- NOTE | 2021-01-21 22:20 | PM.PN ---
Subjective Subjective: Interval history: Bothered by some tenderness/pain and right lower quadrant, otherwise about the same. Tolerating ice chips. Denies chest pain or pressure. Is not short of breath. Vitals/I&O/Wt Last Vital Signs Temp 98.1 F 01/21/21 20:00 Pulse 76 01/21/21 20:54 Resp 16 01/21/21 20:54 BP 135/74 01/21/21 20:00 Pulse Ox 94 01/21/21 20:54 01/21/21 01/21/21 01/21/21 06:59 14:59 22:59 Intake Total 225 / 1795 1110 / 1110 100 / 1210 Output Total 30 / 30 Balance 225 / 1795 1080 / 1080 100 / 1180 Weight last 48 hrs Weight 59.103 kg Weight 62.051 kg Physical Exam Const: COMMON NORMALS: no acute distress OTHER: Awake, alert. HENMT: COMMON NORMALS: oropharynx normal Neck/C-Spine: COMMON NORMALS: no JVD Resp: COMMON NORMALS: normal respiratory effort AUSCULTATION: rhonchi and wheezes Cardio: COMMON NORMALS: no JVD, regular rhythm, S1 normal heart sound present, S2 normal heart sound present and No murmurs present (Cardio) RHYTHM: regular rhythm HEART SOUNDS: S1 normal heart sound present and S2 normal heart sound present GI: COMMON NORMALS: Soft to palpation and non-tender INSPECTION: Yes abdominal distension AUSCULTATION: Yes normoactive bowel sounds PALPATION: Yes Soft to palpation OTHER: Midline wound w clean RLQ ETIENNE Extremity: COMMON NORMALS: no joint enlargement and no pedal edema Neuro: COMMON NORMALS: moves all extremities Skin: COMMON NORMALS: no rashes or lesions noted GENERAL SKIN EXAM: no rashes or lesions noted Urinary Catheter Management^: Mack: Cath Placed During This Visit: yes, but has since been removed by the nurse Reason for Continuing Indwelling Catheter: Accurate Measurement of Urinary Output in Critically Ill Patients Urinary Catheter Date of Insertion: 01/13/21 Urinary Catheter Time of Insertion: 05:40 Date Urinary Catheter Removed: 01/16/21 Time Urinary Catheter Discontinued: 09:38 Data : 01/21/21 05:05 01/21/21 05:05 A&P Assessment and plan (1) Perforated bowel: Continue n.p.o. except ice chips as per surgery for bowel rest with monitoring of abdominal symptoms, ETIENNE drainage, consideration of additional imaging depending on condition. Continue Primaxin. Continue TPN. Pathology with intra-abdominal abscess with perforated Meckel's diverticulitis. Mobilize as tolerating. Status post laparotomy 01/05, small bowel resection, pathology with perforated Meckel's diverticulum MRSA PCR negative. Stopped vancomycin 01/19. Status: Acute (2) Acute respiratory failure: Weaned off oxygen support. On room air during my visit. Negative MRSA PCR. Stopped vancomycin 01/19. Continues empirically on Primaxin as above. Given known low ejection fraction, monitor for CHF/pulmonary edema. Maintain strict aspiration precautions given prior aspiration event, suspicion that the more recent event may have been related to aspiration as well. Discussed again maintaining extra caution even despite unremarkable MBS. Continue I-S. flutter valve. Continue breathing treatments. Mucomyst. Status: Acute Qualifiers: Respiratory failure complication: hypoxia Qualified Code(s): J96.01 - Acute respiratory failure with hypoxia (3) Supratherapeutic INR: Continue to hold anticoagulation for now in case requiring additional intervention. coumadin held and reveresed on admission continue full dose lovenox 1mh/kg q12h in case more surgical procedures needed coumadin to be resumed closer to discharge Status: Acute (4) Ischemic cardiomyopathy: Previous ejection fraction as low as 20%. Currently EF during last admission up to 37%. ICD in place. Currently does not appear fluid overloaded/CHF exacerbation. Monitor volume status. Diuresis as needed. Resume oral medications once able to tolerate, off pressors Status: Acute (5) Atelectasis: Status: Acute (6) CHF (congestive heart failure): Status: Acute Qualifiers: Heart failure type: systolic Heart failure chronicity: acute on chronic Qualified Code(s): I50.23 - Acute on chronic systolic (congestive) heart failure (7) Sepsis: Fluctuating but persistent leukocytosis, low-grade temp around midnight 100.4 01/20, today low-grade temp 99.8 at 4 PM. Continue Primaxin empirically at this time due to persistent intra-abdominal collection, drainage, status post bowel resection, evacuation of intra-abdominal abscess with pathology finding of perforated Meckel's diverticulitis. Continue surgical follow-up monitoring of abdominal symptoms, ETIENNE drainage. Consideration of additional imaging. Aspiration pneumonia appears resolved. Status: Acute Additional A&P Information CAD Atrial fibrillation: a/c with lovenox, rate controlled GERD HTN HLD History of prostate cancer DVT ppx: full dose lovenox Attestations Medical Necessity Statement*: Continue admission for assessment management of persistent intra-abdominal collection, with changes in ETIENNE output, additional bowel rest, close monitoring, IV antibiotic, consideration of repeat imaging due to recurrent intra-abdominal abscess following perforated Meckel's diverticulitis. Coding Level of Care Code Acute Armature Winder Repairer for [facility] Fwd Diagnoses Perforated bowel K63.1 Acute respiratory failure J96.01 Respiratory failure complication: hypoxia Supratherapeutic INR R79.1 Ischemic cardiomyopathy I25.5 Atelectasis J98.11 CHF (congestive heart failure) I50.23 Heart failure type: systolic Heart failure chronicity: acute on chronic Sepsis A41.9
[2021-01-22] VITALS (7 sets, daily range): BP systolic 110–152; BP diastolic 64–83; PULSE 67–92; RESP 16–18; TEMP 36.6–36.8; O2SAT 93–98
[2021-01-22] MEDS: enoxaparin 60 mg/0.6 mL Syringe SUBCUT ×2 (04:18→16:37)
[2021-01-22] MEDS: famotidine 20 mg/2 mL INJ IVP ×2 (05:51→18:46)
[2021-01-22 06:19] LABS: Glucose Point of Care 128 mg/dL (70-110)
[2021-01-22 06:49] LABS: Basophils # 0.1 10^3/uL (0.0-0.1); Basophils % 0.7 %; Eosinophils # 1.2 10^3/uL (0.0-0.8); Eosinophils % 11.1 %; Hematocrit 29.1 % (42.0-52.0); Hemoglobin 9.2 g/dL (11.7-16.6); Lymphocytes # 2.2 10^3/uL (0.8-4.8); Lymphocytes % 20.3 %; Mean Corpuscular HGB Conc 31.6 g/dL (30.0-36.0); Mean Corpuscular Hemoglobin 28.1 pg (28.0-34.0); Mean Platelet Volume 10.9 fL (7.4-10.4); Monocytes # 0.9 10^3/uL (0.2-0.9); Monocytes % 8.8 %; Neutrophils # 6.12 10^3/uL (1.8-7.7); Neutrophils % 57.2 %; Nucleated Red Blood Cells % 0 %; Platelet Count 410 10^3/cmm (130-400); Red Blood Count 3.27 10^6/uL (4.1-5.3); Red Cell Distribution Width 14.9 % (12.1-15.1); White Blood Count 10.7 10^3/uL (4.0-10.0)
[2021-01-22 07:02] LABS: Anion Gap 12.6 (5-19); Blood Urea Nitrogen 9 mg/dL (6-20); Calcium 7.9 mg/dL (8.5-10.5); Carbon Dioxide 27 mmol/L (22-29); Chloride 102 mmol/L (98-107); Glucose 123 mg/dL (65-115); Osmolality Calculated 286 mOsm/kg (285-295); Potassium 3.6 mmol/L (3.5-5.1); Sodium 138 mmol/L (136-145)
[2021-01-22] MEDS: docusate sodium 100 mg Capsule PO (09:21)
--- NOTE | 2021-01-22 10:12 | PC.SOCIAL ---
IMM Update Pg. 2 of IMM updated and reviewed with patient and sister, copy provided.
--- NOTE | 2021-01-22 11:11 | PC.NUTR ---
Nutrition follow up: Pt with limited kcal intake for extended time period due to NPO/clear liquid orders, TPN not at goal. Significant wt loss noted (see wt record). Spoke with Dr. Salazar and recommended increase of TPN to 75 ml/hr. MD stated will order. TPN at 75 ml/hr with 125 ml lipids daily to provide 1834 kcal, 90 g protein. Recommend monitoring Na, K, glucose, Phos, Mg, and renal labs. See RD assessments for further details.
[2021-01-22 11:42] LABS: Glucose Point of Care 126 mg/dL (70-110)
[2021-01-22] MEDS: AA-Dex 5%-20% w/Lytes 1,000 ML with multivitamin inj 10 ML 50 ML IV (15:20)
--- NOTE | 2021-01-22 15:59 | P.PN_ITS ---
Subjective Subjective: Interval history: No acute events pain controlled ambulating the hallway Vitals/I&O/Wt Last Vital Signs Temp 97.9 F 01/22/21 11:37 Pulse 89 01/22/21 11:37 Resp 16 01/22/21 11:37 BP 152/83 01/22/21 11:37 Pulse Ox 95 01/22/21 11:37 01/22/21 01/22/21 01/22/21 06:59 14:59 22:59 Intake Total 225 / 1435 1350 / 1350 Output Total 515 / 545 310 / 310 Balance -290 / 890 1040 / 1040 Weight last 48 hrs Weight 129 lb 9.6 oz Weight 130 lb 4.8 oz Physical Exam Const: COMMON NORMALS: no acute distress, average body habitus and patient oriented x3 Resp: COMMON NORMALS: normal respiratory effort and No retractions Cardio: COMMON NORMALS: regular rate and regular rhythm RATE: regular rate RHYTHM: regular rhythm GI: OTHER: incision site intact RLQ ETIENNE : COMMON NORMALS: No no CVA tenderness BLADDER/KIDNEY EXAM: No no CVA tenderness Back/Pelvis: COMMON NORMALS: negative for no CVA tenderness Neuro: COMMON NORMALS: patient oriented x3 and CN's II-XII intact bilaterally Psych: COMMON NORMALS: cooperative and normal affect Urinary Catheter Management^: Mack: Cath Placed During This Visit: yes, but has since been removed by the nurse Reason for Continuing Indwelling Catheter: Accurate Measurement of Urinary Output in Critically Ill Patients Urinary Catheter Date of Insertion: 01/13/21 Urinary Catheter Time of Insertion: 05:40 Date Urinary Catheter Removed: 01/16/21 Time Urinary Catheter Discontinued: 09:38 Data : 01/23/21 05:31 01/23/21 05:31 A&P Assessment and plan (1) S/P small bowel resection: Status: Acute (2) Acute respiratory failure: Status: Acute Qualifiers: Respiratory failure complication: hypoxia Qualified Code(s): J96.01 - Acute respiratory failure with hypoxia (3) Supratherapeutic INR: Status: Acute (4) CHF (congestive heart failure): Status: Acute Qualifiers: Heart failure type: systolic Heart failure chronicity: acute on chronic Qualified Code(s): I50.23 - Acute on chronic systolic (congestive) heart failure Additional A&P Information #Perforated bowel --Status post bowel resection --continue Primaxin --TPN increased #acute respiratory failure --off O2 #Afib --rate controlled, lovenox #CHF --systolic dysfunction --lovenox --euvolemic #hx of prostate cancer Attestations Medical Necessity Statement*: Yinka Mcdaniels's hospital stay will require greater than 2 midnights for post op care, malnutrition Coding Level of Care Code Acute Client Services Account Manager for [facility] Fwd Exam Detailed Diagnoses S/P small bowel resection Z90.49 Acute respiratory failure J96.01 Respiratory failure complication: hypoxia Supratherapeutic INR R79.1 CHF (congestive heart failure) I50.23 Heart failure type: systolic Heart failure chronicity: acute on chronic
--- NOTE | 2021-01-22 17:09 | PM.PN ---
Subjective Subjective: Interval history: Patient denies significant abdominal pain, fever bowel movements yesterday Vitals/I&O/Wt Last Vital Signs Temp 97.9 F 01/22/21 16:00 Pulse 89 01/22/21 16:00 Resp 16 01/22/21 16:00 BP 152/83 01/22/21 16:00 Pulse Ox 95 01/22/21 16:00 01/22/21 01/22/21 01/22/21 06:59 14:59 22:59 Intake Total 225 / 1435 1710 / 1766.667 56.667 / 1766.667 Output Total 515 / 545 310 / 310 Balance -290 / 890 1400 / 1456.667 56.667 / 1456.667 Weight last 48 hrs Weight 129 lb 9.6 oz Weight 130 lb 4.8 oz Physical Exam Narrative: EXAM NARRATIVE: Abdomen: Soft, abdomen: Soft, less distended, minimally tender around the ETIENNE drain in the right lower quadrant, incision clean dry and intact. The ETIENNE drain output continues to be brownish fluid. Urinary Catheter Management^: Mack: Cath Placed During This Visit: yes, but has since been removed by the nurse Reason for Continuing Indwelling Catheter: Accurate Measurement of Urinary Output in Critically Ill Patients Urinary Catheter Date of Insertion: 01/13/21 Urinary Catheter Time of Insertion: 05:40 Date Urinary Catheter Removed: 01/16/21 Time Urinary Catheter Discontinued: 09:38 Data : 01/22/21 06:00 01/22/21 06:00 A&P Assessment and plan (1) S/P small bowel resection: 55-year-old male status post ex lap, bowel resection and drainage of intra-abdominal abscess with postop ileus, awaiting return of bowel function,. Respiratory failure requiring intubation and bronchoscopy Cardiovascular: Currently stable, off pressors Renal: Adequate urine output ID: WBC down to 10.7 and patient has been afebrile for the last 24 hours. Unfortunately his drain output is brown fluid, total amount was 25 cc C. difficile: Negative GI: Decreased bowel regimen to Colace twice daily and will start him on a clear liquid diet again Pepcid for GI prophylaxis DVT prophylaxis with Lovenox Incentive spirometry Morphine and [place] for pain control Severe protein calorie malnutrition : Continue TPN to 75 mill per hour Insulin sliding scale Hypokalemia: 3.3 today Lovenox therapeutic regimen for anticoagulation At this point patient has been hemodynamically stable with no evidence of peritonitis. Overall he feels a lot better but his white count is 13.3 today and had a T-max of 99.4 yesterday. More importantly his drain output has changed to brown fluid making the likelihood of enterocutaneous or colocutaneous fistula from an anastomotic leak or colon perforation more likely, though his stool continues to be mainly green fluid. Imaging studies did not show any evidence of perforation or leak. Discussed my concerns with the patient, will plan to keep him n.p.o. with ice chips for the next 24 to 48 hours to see if there is any change in the drain output. We might have to repeat the CT scan of the abdomen pelvis with oral and possibly rectal contrast to rule out any perforation/leak. Status: Acute Attestations Medical Necessity Statement*: As per primary Coding Level of Care Code Acute Advanced Practice Provider for [facility] Fwd Diagnoses S/P small bowel resection Z90.49
[2021-01-22] MEDS: HYDROcodone-acetaminophen 5-325 mg Tablet 1 TAB PO (18:22)
[2021-01-22 20:32] LABS: Glucose Point of Care 122 mg/dL (70-110)
[2021-01-22 20:38] LABS: Glucose Point of Care 135 mg/dL (70-110)
[2021-01-22] MEDS: zolpidem 5 mg Tablet PO (21:38)
[2021-01-23] VITALS (7 sets, daily range): BP systolic 102–134; BP diastolic 56–76; PULSE 64–109; RESP 16–18; TEMP 36.5–37.2; O2SAT 94–99
[2021-01-23] MEDS: HYDROcodone-acetaminophen 5-325 mg Tablet 1 TAB PO ×2 (03:19→18:31)
[2021-01-23] MEDS: enoxaparin 60 mg/0.6 mL Syringe SUBCUT ×2 (04:45→17:49)
[2021-01-23] MEDS: AA-Dex 5%-20% w/Lytes 1,000 ML with multivitamin inj 10 ML 75 ML IV ×2 (05:34→22:18)
[2021-01-23] MEDS: famotidine 20 mg/2 mL INJ IVP ×2 (06:05→17:35)
[2021-01-23 06:26] LABS: Glucose Point of Care 152 mg/dL (70-110)
[2021-01-23 06:27] LABS: Basophils # 0.1 10^3/uL (0.0-0.1); Basophils % 0.7 %; Eosinophils # 1.2 10^3/uL (0.0-0.8); Eosinophils % 10.7 %; Hematocrit 28.8 % (42.0-52.0); Lymphocytes # 1.7 10^3/uL (0.8-4.8); Lymphocytes % 15.8 %; Mean Corpuscular HGB Conc 31.3 g/dL (30.0-36.0); Mean Corpuscular Volume 89.4 fL (80-94); Mean Platelet Volume 10.8 fL (7.4-10.4); Neutrophils # 6.73 10^3/uL (1.8-7.7); Neutrophils % 62.4 %; Nucleated Red Blood Cells % 0 %; Platelet Count 412 10^3/cmm (130-400); Red Blood Count 3.22 10^6/uL (4.1-5.3); Red Cell Distribution Width 14.8 % (12.1-15.1); White Blood Count 10.8 10^3/uL (4.0-10.0)
[2021-01-23 06:37] LABS: Anion Gap 14.8 (5-19); Blood Urea Nitrogen 11 mg/dL (6-20); Carbon Dioxide 26 mmol/L (22-29); Chloride 101 mmol/L (98-107); Glucose 151 mg/dL (65-115); Osmolality Calculated 288 mOsm/kg (285-295); Potassium 3.8 mmol/L (3.5-5.1); Sodium 138 mmol/L (136-145)
[2021-01-23] MEDS: docusate sodium 100 mg Capsule PO (08:59)
[2021-01-23 11:21] LABS: Glucose Point of Care 80 mg/dL (70-110)
--- NOTE | 2021-01-23 13:30 | PM.PN ---
Subjective Subjective: Interval history: ambulating hallway pain controlled afebrile Vitals/I&O/Wt Last Vital Signs Temp 97.7 F 01/23/21 12:00 Pulse 109 H 01/23/21 12:00 Resp 18 01/23/21 12:00 BP 115/64 01/23/21 12:00 Pulse Ox 99 01/23/21 12:00 01/22/21 01/23/21 01/23/21 22:59 06:59 14:59 Intake Total 636.667 / 2346.667 1178.333 / 3525.000 580 / 580 Output Total 200 / 510 710 / 1220 200 / 200 Balance 436.667 / 1836.667 468.333 / 2305.000 380 / 380 Weight last 48 hrs Weight 126 lb 8 oz Weight 129 lb 9.6 oz Physical Exam Const: COMMON NORMALS: no acute distress, patient oriented x3 and no limitations Neck/C-Spine: COMMON NORMALS: no JVD Chest: COMMONS NORMALS: normal inspection of the chest Resp: COMMON NORMALS: normal respiratory effort and No retractions Cardio: COMMON NORMALS: no JVD and regular rate RATE: regular rate GI: OTHER: incision site intact RLQ drain Extremity: COMMON NORMALS: normal to inspection and full ROM Neuro: COMMON NORMALS: patient oriented x3 and CN's II-XII intact bilaterally Psych: APPEARANCE: Yes grossly normal Urinary Catheter Management^: Mack: Cath Placed During This Visit: yes, but has since been removed by the nurse Reason for Continuing Indwelling Catheter: Accurate Measurement of Urinary Output in Critically Ill Patients Urinary Catheter Date of Insertion: 01/13/21 Urinary Catheter Time of Insertion: 05:40 Date Urinary Catheter Removed: 01/16/21 Time Urinary Catheter Discontinued: 09:38 Data : 01/23/21 05:31 01/23/21 05:31 A&P Assessment and plan (1) S/P small bowel resection: Status: Acute (2) CHF (congestive heart failure): Status: Acute Qualifiers: Heart failure type: systolic Heart failure chronicity: acute on chronic Qualified Code(s): I50.23 - Acute on chronic systolic (congestive) heart failure (3) Acute respiratory failure: Status: Acute Qualifiers: Respiratory failure complication: hypoxia Qualified Code(s): J96.01 - Acute respiratory failure with hypoxia (4) Supratherapeutic INR: Status: Acute Additional A&P Information #Perforated bowel --Status post bowel resection --continue Primaxin --TPN dose adjusted #acute respiratory failure --off O2 #Afib --rate controlled, lovenox #CHF --systolic dysfunction --lovenox --euvolemic #hx of prostate cancer Attestations Medical Necessity Statement*: Yinka Mcdaniels's hospital stay will require greater than 2 midnights for malnutrition Coding Level of Care Code Acute 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
--- NOTE | 2021-01-23 16:44 | P.PN_ITS ---
Subjective Subjective: Interval history: Patient feels great, denies any nausea vomiting, tolerating clears, ETIENNE drain output has now become greenish again and is 20 cc. Denies any fevers or chills. His bowel movements have slowed down Vitals/I&O/Wt Last Vital Signs Temp 98.3 F 01/23/21 16:00 Pulse 78 01/23/21 16:00 Resp 18 01/23/21 16:00 BP 113/66 01/23/21 16:00 Pulse Ox 95 01/23/21 16:00 01/23/21 01/23/21 01/23/21 06:59 14:59 22:59 Intake Total 1178.333 / 3525.000 940 / 940 Output Total 710 / 1220 200 / 200 Balance 468.333 / 2305.000 740 / 740 Weight last 48 hrs Weight 126 lb 8 oz Weight 129 lb 9.6 oz Physical Exam Narrative: EXAM NARRATIVE: Abdomen: Soft, tender around the ETIENNE drain, ETIENNE drain output is greenish fluid, incision clean dry and intact, samantha removed, less distended Urinary Catheter Management^: Mack: Cath Placed During This Visit: yes, but has since been removed by the nurse Reason for Continuing Indwelling Catheter: Accurate Measurement of Urinary Output in Critically Ill Patients Urinary Catheter Date of Insertion: 01/13/21 Urinary Catheter Time of Insertion: 05:40 Date Urinary Catheter Removed: 01/16/21 Time Urinary Catheter Discontinued: 09:38 Data : 01/23/21 05:31 01/23/21 05:31 A&P Assessment and plan (1) S/P small bowel resection: 55-year-old male status post ex lap, bowel resection and drainage of intra-abdominal abscess with postop ileus resolved function Respiratory failure requiring intubation and bronchoscopy Cardiovascular: Currently stable, off pressors Renal: Adequate urine output ID: WBC down to 10.8 and patient has been afebrile for the last 48 hours. Unfortunately his drain output is greenish fluid, total amount was 20 cc C. difficile: Negative GI: Decreased bowel regimen to Colace twice daily and continue clear liquid diet today, will add clear nutrition supplements Pepcid for GI prophylaxis DVT prophylaxis with Lovenox Incentive spirometry Morphine and [place] for pain control Severe protein calorie malnutrition : Continue TPN to 75 mill per hour Insulin sliding scale Hypokalemia: Resolved Lovenox therapeutic regimen for anticoagulation At this point patient has been hemodynamically stable with no evidence of peritonitis. Overall he feels a lot better but his white count is 10.8 today and has been afebrile for 2 days. Drain output is suggestive of enterocutaneous or colocutaneous fistula from an anastomotic leak or colon perforation Imaging studies did not show any evidence of perforation or leak. We might have to repeat the CT scan of the abdomen pelvis with oral and possibly rectal contrast to rule out any perforation/leak. 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
[2021-01-23 17:25] LABS: Glucose Point of Care 119 mg/dL (70-110)
[2021-01-23 20:15] LABS: Glucose Point of Care 111 mg/dL (70-110)
[2021-01-23] MEDS: zolpidem 5 mg Tablet PO (21:49)
--- NOTE | 2021-01-23 23:00 | PC.NURSE ---
Stripped patients ETIENNE drain, patient tolerated well.
[2021-01-24] VITALS (7 sets, daily range): BP systolic 113–147; BP diastolic 67–85; PULSE 75–90; RESP 16–20; TEMP 36.6–36.8; O2SAT 92–95
[2021-01-24 03:21] LABS: Basophils # 0.1 10^3/uL (0.0-0.1); Basophils % 0.7 %; Eosinophils # 1.3 10^3/uL (0.0-0.8); Eosinophils % 10.6 %; Hematocrit 28.8 % (42.0-52.0); Hemoglobin 9.2 g/dL (11.7-16.6); Lymphocytes % 16.8 %; Mean Corpuscular HGB Conc 31.9 g/dL (30.0-36.0); Mean Corpuscular Hemoglobin 28.1 pg (28.0-34.0); Mean Corpuscular Volume 88.1 fL (80-94); Mean Platelet Volume 9.8 fL (7.4-10.4); Monocytes % 8.6 %; Neutrophils # 7.44 10^3/uL (1.8-7.7); Neutrophils % 61.7 %; Nucleated Red Blood Cells % 0 %; Platelet Count 484 10^3/cmm (130-400); Red Blood Count 3.27 10^6/uL (4.1-5.3); Red Cell Distribution Width 14.9 % (12.1-15.1)
[2021-01-24 03:47] LABS: Alanine Aminotransferase 22 U/L (0-41); Albumin Level 2.8 g/dL (3.5-5.2); Alkaline Phosphatase 97 IU/L (40-130); Anion Gap 12.6 (5-19); Aspartate Amino Transferase 18 U/L (0-40); Blood Urea Nitrogen 10 mg/dL (6-20); Carbon Dioxide 28 mmol/L (22-29); Chloride 101 mmol/L (98-107); Globulin 3.4 g/dL (1.3-4.6); Glucose 121 mg/dL (65-115); Osmolality Calculated 286 mOsm/kg (285-295); Potassium 3.6 mmol/L (3.5-5.1); Sodium 138 mmol/L (136-145); Total Bilirubin 0.2 mg/dL (0.15-1.2); Total Protein 6.2 g/dL (6.6-8.7)
[2021-01-24] MEDS: enoxaparin 60 mg/0.6 mL Syringe SUBCUT ×2 (03:47→17:44)
[2021-01-24] MEDS: HYDROcodone-acetaminophen 5-325 mg Tablet 1 TAB PO ×3 (03:52→18:29)
--- NOTE | 2021-01-24 04:26 | PC.NURSE ---
ETIENNE DRAIN STRIPPING AND OUTPUT This RN stripped patients ETIENNE drain per orders, patient tolerated well. Drain output for whole shift was 15ml of brown fluid that smelled like stool.
[2021-01-24] MEDS: famotidine 20 mg/2 mL INJ IVP ×2 (05:44→17:44)
[2021-01-24 06:29] LABS: Glucose Point of Care 140 mg/dL (70-110)
[2021-01-24] MEDS: docusate sodium 100 mg Capsule PO (08:13)
--- NOTE | 2021-01-24 10:48 | P.PN_ITS ---
Subjective Subjective: Interval history: This is a 55-year-old male with history of ischemic cardiomyopathy, coronary disease, atrial fibrillation on chronic anticoagulation, who presented to the emergency room with difficulty swallowing, nausea, abdominal pain and bloating. The patient was diagnosed with perforated bowel. Surgery was consulted. Also noted to have a supratherapeutic INR. The patient underwent laparotomy small bowel resection. Treated with IV antibiotics. He has been started on TPN. He does report draining from ETIENNE site. Surgery evaluating for causes of this including possible fistula. He is ambulating hallways without difficulty. He is tolerating his medications. He is afebrile. Vitals/I&O/Wt Last Vital Signs Temp 98.3 F 01/24/21 07:49 Pulse 77 01/24/21 07:49 Resp 18 01/24/21 07:49 BP 114/72 01/24/21 07:49 Pulse Ox 94 01/24/21 07:49 01/23/21 01/24/21 01/24/21 22:59 06:59 14:59 Intake Total 1690 / 2630 0 / 2630 120 / 120 Output Total 20 / 220 515 / 735 400 / 400 Balance 1670 / 2410 -515 / 1895 -280 / -280 Weight last 48 hrs Weight 129 lb Weight 126 lb 8 oz Physical Exam Const: COMMON NORMALS: no acute distress and patient oriented x3 Neck/C-Spine: COMMON NORMALS: no JVD Chest: COMMONS NORMALS: normal inspection of the chest Resp: COMMON NORMALS: normal respiratory effort and No retractions Cardio: COMMON NORMALS: no JVD GI: OTHER: Incision site intact, ETIENNE drain noted drainage around site and on clothing Extremity: COMMON NORMALS: normal to inspection Neuro: COMMON NORMALS: patient oriented x3 Psych: COMMON NORMALS: mental status grossly normal and Normal thought process present THOUGHT PROCESS: Normal thought process present Skin: COMMON NORMALS: no rashes or lesions noted GENERAL SKIN EXAM: no rashes or lesions noted Urinary Catheter Management^: Mack: Cath Placed During This Visit: yes, but has since been removed by the nurse Reason for Continuing Indwelling Catheter: Accurate Measurement of Urinary Output in Critically Ill Patients Urinary Catheter Date of Insertion: 01/13/21 Urinary Catheter Time of Insertion: 05:40 Date Urinary Catheter Removed: 01/16/21 Time Urinary Catheter Discontinued: 09:38 Data : 01/24/21 03:05 01/24/21 03:05 A&P Assessment and plan (1) S/P small bowel resection: Status: Acute (2) CHF (congestive heart failure): Status: Acute Qualifiers: Heart failure type: systolic Heart failure chronicity: acute on chronic Qualified Code(s): I50.23 - Acute on chronic systolic (congestive) heart failure (3) Supratherapeutic INR: Status: Acute Additional A&P Information #Perforated bowel --Status post bowel resection --drainage noted around ETIENNE drain, concern for possible fistula --CT abd pelvis with contrast considered --continue Primaxin --TPN dose adjusted #acute respiratory failure --off O2 #Afib --rate controlled, lovenox #CHF --systolic dysfunction --lovenox --euvolemic #hx of prostate cancer Attestations Medical Necessity Statement*: Yinka Mcdaniels's hospital stay will require greater than 2 midnights for bowel perforation Coding Level of Care 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
--- NOTE | 2021-01-24 11:03 | PC.SOCIAL ---
IMM Updated Updated pt on Pg 2 IMM. No questions voiced. Provided pt a copy. Signed, dated, & timed copy in chart.
[2021-01-24 11:38] LABS: Glucose Point of Care 119 mg/dL (70-110)
[2021-01-24] MEDS: AA-Dex 5%-20% w/Lytes 1,000 ML with multivitamin inj 10 ML 75 ML IV (11:47)
--- NOTE | 2021-01-24 14:33 | P.PN_ITS ---
Subjective Subjective: Interval history: Patient has continued to remain stable, denies any nausea or vomiting, tolerating clears, couple of small bowel movements, passing flatus Vitals/I&O/Wt Last Vital Signs Temp 98.3 F 01/24/21 11:20 Pulse 85 01/24/21 11:20 Resp 16 01/24/21 11:20 BP 126/78 01/24/21 11:20 Pulse Ox 94 01/24/21 11:20 01/23/21 01/24/21 01/24/21 22:59 06:59 14:59 Intake Total 1690 / 2855 225 / 2855 1230 / 1230 Output Total 5 515 / 735 600 / 600 Balance 1670 / 2120 -290 / 2120 630 / 630 Weight last 48 hrs Weight 129 lb Weight 126 lb 8 oz Physical Exam Narrative: EXAM NARRATIVE: Abdomen: Soft, nondistended, incision well-healed, ETIENNE drain has the greenish fluid, 15 cc output yesterday Urinary Catheter Management^: Mack: Cath Placed During This Visit: yes, but has since been removed by the nurse Reason for Continuing Indwelling Catheter: Accurate Measurement of Urinary Output in Critically Ill Patients Urinary Catheter Date of Insertion: 01/13/21 Urinary Catheter Time of Insertion: 05:40 Date Urinary Catheter Removed: 01/16/21 Time Urinary Catheter Discontinued: 09:38 Data : 01/24/21 03:05 01/24/21 03:05 A&P Assessment and plan (1) S/P small bowel resection: 55-year-old male status post ex lap, bowel resection and drainage of intra-abdominal abscess with postop ileus resolved Respiratory failure requiring intubation and bronchoscopy Cardiovascular: Currently stable, off pressors Renal: Adequate urine output ID: WBC stable, patient has been afebrile. Unfortunately his drain output is gr eenish fluid, total amount was 15 cc C. difficile: Negative GI: We will change to senna S twice daily, continue clear liquid with nutritional supplements Pepcid for GI prophylaxis DVT prophylaxis with Lovenox Incentive spirometry Morphine and [place] for pain control Severe protein calorie malnutrition : Decrease TPN to half the dose with plan for discharge home tomorrow Insulin sliding scale Hypokalemia: Resolved Lovenox therapeutic regimen for anticoagulation At this point patient has been hemodynamically stable with no evidence of peritonitis. Overall he feels a lot better and he has been hemodynamically stable, noted to peritonitis, afebrile. Drain output is suggestive of enterocutaneous or colocutaneous fistula from an anastomotic leak or colon perforation Imaging studies did not show any evidence of perforation or leak. 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
[2021-01-24 18:10] LABS: Glucose Point of Care 117 mg/dL (70-110)
[2021-01-24 20:55] LABS: Glucose Point of Care 111 mg/dL (70-110)
[2021-01-24] MEDS: zolpidem 5 mg Tablet PO (21:31)
[2021-01-25] MEDS: enoxaparin 60 mg/0.6 mL Syringe SUBCUT (03:59)
[2021-01-25 04:00] VITALS: BP 129/69; PULSE 87; RESP 18; TEMP 36.8; O2SAT 96
[2021-01-25] MEDS: HYDROcodone-acetaminophen 5-325 mg Tablet 1 TAB PO (04:00)
--- NOTE | 2021-01-25 04:13 | PC.NURSE ---
This RN stripped patients ETIENNE drain. Patient tolerated well. 10ml of stool was drained from ETIENNE drain.
[2021-01-25] MEDS: famotidine 20 mg/2 mL INJ IVP (05:45)
[2021-01-25 06:44] LABS: Glucose Point of Care 154 mg/dL (70-110)
[2021-01-25 07:14] LABS: Basophils # 0.1 10^3/uL (0.0-0.1); Basophils % 0.8 %; Eosinophils # 1.3 10^3/uL (0.0-0.8); Hematocrit 28.8 % (42.0-52.0); Hemoglobin 9.1 g/dL (11.7-16.6); Lymphocytes % 14.6 %; Mean Corpuscular HGB Conc 31.6 g/dL (30.0-36.0); Mean Corpuscular Hemoglobin 28.1 pg (28.0-34.0); Mean Corpuscular Volume 88.9 fL (80-94); Mean Platelet Volume 10.1 fL (7.4-10.4); Monocytes % 7.5 %; Neutrophils # 9.27 10^3/uL (1.8-7.7); Neutrophils % 66.5 %; Nucleated Red Blood Cells % 0 %; Platelet Count 491 10^3/cmm (130-400); Red Blood Count 3.24 10^6/uL (4.1-5.3); Red Cell Distribution Width 14.9 % (12.1-15.1); White Blood Count 13.9 10^3/uL (4.0-10.0)
[2021-01-25 07:22] VITALS: BP 130/84; PULSE 98; RESP 16; TEMP 36.7; O2SAT 94
[2021-01-25 07:45] VITALS: PULSE 94; RESP 16; O2SAT 99
[2021-01-25] MEDS: docusate sodium 100 mg Capsule PO (09:27)
[2021-01-25 10:55] LABS: Glucose Point of Care 111 mg/dL (70-110)
[2021-01-25 11:48] VITALS: BP 130/82; PULSE 93; RESP 18; TEMP 37.1; O2SAT 100
--- NOTE | 2021-01-25 13:46 | PM.PN ---
Subjective Subjective: Interval history: Patient has remained afebrile, denies any nausea or vomiting, tolerating clears, had few bowel movements not completely loose Vitals/I&O/Wt Last Vital Signs Temp 98.7 F 01/25/21 11:48 Pulse 93 01/25/21 11:48 Resp 18 01/25/21 11:48 BP 130/82 01/25/21 11:48 Pulse Ox 100 01/25/21 11:48 01/24/21 01/25/21 01/25/21 22:59 06:59 14:59 Intake Total 361.25 / 1916.25 325 / 1916.25 868.75 / 868.75 Output Total 415 / 1175 160 / 1175 Balance -53.75 / 741.25 165 / 741.25 868.75 / 868.75 Weight last 48 hrs Weight 128 lb 9.6 oz Weight 129 lb Physical Exam Narrative: EXAM NARRATIVE: Abdomen: Soft, nondistended, minimally tender around the ETIENNE drain which has greenish fluid Urinary Catheter Management^: Mack: Cath Placed During This Visit: yes, but has since been removed by the nurse Reason for Continuing Indwelling Catheter: Accurate Measurement of Urinary Output in Critically Ill Patients Urinary Catheter Date of Insertion: 01/13/21 Urinary Catheter Time of Insertion: 05:40 Date Urinary Catheter Removed: 01/16/21 Time Urinary Catheter Discontinued: 09:38 Data : 01/25/21 06:08 01/24/21 03:05 A&P Assessment and plan (1) S/P small bowel resection: 55-year-old male status post ex lap, bowel resection and drainage of intra-abdominal abscess with postop ileus resolved Respiratory failure requiring intubation and bronchoscopy TPN discontinued today, DC home Status: Acute Attestations Medical Necessity Statement*: DC home today Coding Level of Care Code Acute [employer] for Chg Fwd Diagnoses S/P small bowel resection Z90.49
--- NOTE | 2021-01-25 13:47 | P.DS_ITS ---
Discharge Providers Date of Admission: 01/05/21 13:16 Date of Discharge: January 25, 2021 Attending Provider at Admission: Charlie Aparicio Attending Provider at Discharge: Cynthia Salazar MD Primary Care Provider: Tejinder Naranjo MD Diagnoses at Discharge Discharge Diagnosis (1) S/P small bowel resection: Status: Acute Reason for Visit Reason for Visit: abdomen pain Hospital Course Hospital Course This is a 55-year-old male who was initially admitted on 12/29/2020 with suspected acute diverticulitis from an outside facility. Patient was started microperforation and was managed conservatively with IV antibiotics and bowel rest. He was subsequently discharged home on 01/03/2021 on oral antibiotics. Patient presented to the hospital again on 01/05/2021 with severe abdominal pain and distention with CT scan findings consistent with small bowel obstruction and bowel perforation with free air. Patient was in septic shock and was therefore emergently taken to the operating room room where he underwent exploratory laparotomy with drainage of abscess and small bowel resection. Patient subsequently had postop ileus which was managed with bowel rest and NG tube. He finally had bowel movements on postop day 5. On 01/13/2021 he developed acute respiratory failure and was intubated and transferred to the ICU where he was also on Levophed. His WBC was up to 30 2K. He was noted to have a right bronchus occlusion due to mucous plug and underwent the bronchoscopy by Dr. Yarbrough. CT abdomen pelvis was obtained at that point he was subsequently extubated the following day and was transferred to the floor couple of days later after being weaned off the pressors. On 01/17/2021 patient who used to have serosanguineous output from the ETIENNE drain had change in the color to greenish fluid concerning for possible leak/fistula. A repeat CT abdomen pelvis showed improvement in fluid collections, there was no free air and no evidence of leak/perforation. Patient had been on TPN since surgery has a prolonged hospital course as expected. He subsequently started having bowel movements and his WBC continues to trend down. Patient is tolerating a clear liquid diet after his NG tube was discontinued and he used to have about 20 to 30 cc of output from his ETIENNE drain. He was hemodynamically stable without any evidence of peritonitis. At time of discharge he was tolerating a clear liquid diet, sleeping at discontinued and his nutritional needs were being managed with oral supplements. His ETIENNE drain output yesterday was 15 cc. His samantha have been removed and his incision is clean dry and intact. Patient was on therapeutic Lovenox during his hospital stay and we restarted his Coumadin on the day of discharge. Physical Exam Urinary Catheter Management^: Mack: Cath Placed During This Visit: yes, but has since been removed by the nurse Reason for Continuing Indwelling Catheter: Accurate Measurement of Urinary Outp ut in Critically Ill Patients Urinary Catheter Date of Insertion: 01/13/21 Urinary Catheter Time of Insertion: 05:40 Date Urinary Catheter Removed: 01/16/21 Time Urinary Catheter Discontinued: 09:38 Discharge Data Data Completed and Pending: Completed Studies During Hospitalization Category Date Time Status CT abdomen pelvis w con* [id number] Rout ine Cat Scan 01/12/21 08:[address] abdomen pelvis w con* [id number] Stat Cat Scan 01/05/21 11:[address] abdomen pelvis w con* [id number] Urge nt Cat Scan 01/16/21 20:20 Completed CXRP [XR chest 1V portable 59425] R outine Exams 01/05/21 19:40 Completed CXRP [XR chest 1V portable [id number]] S tat Exams 01/11/21 09:09 Completed XR abdomen 1V* 74 018 Routine Exams 01/13/21 10:27 Completed XR abdomen min 2V 84176 Routine Exams 01/10/21 08:00 Completed XR abdomen min 2V 29170 Routine Exams 01/12/21 06:00 Completed XR acute abdomen series 82239 Routi ne Exams 01/15/21 06:00 Completed XR chest 1V adore ble 49531 AM LABS Exams 01/14/21 04:00 Completed XR chest 1V adore ble 55235 Routine Exams 01/05/21 15:09 Completed XR chest 1V adore ble 16511 Routine Exams 01/12/21 16:06 Completed XR chest 1V adore ble [id number] Routine Exams 01/13/21 04:41 Completed XR chest 1V adore ble 40269 Routine Exams 01/13/21 10:15 Completed XR chest 1V adore ble 26035 Stat Exams 01/13/21 02:57 Completed XR chest 1V adore ble 95278 Stat Exams 01/16/21 18:26 Completed Pathology: Surgic al [PTH] Routine Pth 01/05/21 18:56 Completed Pending at discharge Category Date Time Status ABO/Rh Type Stat Lab 01/05/21 13:23 Results Complete Crossmat ch Stat Lab 01/05/21 13:23 Results Frozen Plasma FZ <24 1st Cont Stat Lab 01/05/21 13:23 Results Fungal Culture no t HR/SK/BL Routine Lab 01/13/21 13:46 Results Mycobacteria, Cul ture w/Fluor Routi ne Lab 01/13/21 13:46 Results Labs from last 24 hours 01/25/21 01/25/21 01/25/21 10:44 06:14 06:08 WBC 13.9 H RBC 3.24 L Hgb 9.1 L Hct 28.8 L MCV 88.9 MCH 28.1 MCHC 31.6 RDW 14.9 Plt Count 491 H MPV 10.1 Neut % (Auto) 66.5 Lymph % (Auto) 14.6 [place] % (Auto) 7.5 Eos % (Auto) 9.0 Baso % (Auto) 0.8 Neut # (Auto) 9.27 H Lymph # (Auto) 2.0 [place] # (Auto) 1.0 H Eos # (Auto) 1.3 H Baso # (Auto) 0.1 Nucleated RBC % (a uto) 0 Nucleated RBCs # 0.0 POC Glucose 111 H 154 H 01/24/21 01/24/21 20:46 17:55 WBC RBC Hgb Hct MCV MCH MCHC RDW Plt Count MPV Neut % (Auto) Lymph % (Auto) [place] % (Auto) Eos % (Auto) Baso % (Auto) Neut # (Auto) Lymph # (Auto) [place] # (Auto) Eos # (Auto) Baso # (Auto) Nucleated RBC % (a uto) Nucleated RBCs # POC Glucose 111 H 117 H Vitals: Last Vital Signs Temp 98.7 F 01/25/21 11:48 Pulse 93 01/25/21 11:48 Resp 18 01/25/21 11:48 BP 130/82 01/25/21 11:48 Pulse Ox 100 01/25/21 11:48 Discharge Plan Discharge Patient Disposition: Home Condition: Stable Prescriptions: New Colace 100 mg capsule 100 mg PO BID Qty: 30 RF: 0 hydrocodone-acetaminophen 5-325 mg tablet 1 tab PO Q6H PRN (Reason: pain) Qty: 20 RF: 0 Zofran 4 mg tablet 4 mg PO Q6H PRN (Reason: nausea and vomiting) Qty: 20 RF: 0 Flagyl 500 mg tablet 500 mg PO Q8H 7 Days Qty: 21 RF: 0 levofloxacin 750 mg tablet 750 mg PO DAILY 7 Days RF: 0 Continued aspirin 325 mg tablet 325 mg PO DAILY RF: 0 famotidine [Pepcid AC] 20 mg tablet 20 mg PO DAILY RF: 0 rosuvastatin 20 mg tablet 20 mg PO DAILY Qty: 90 RF: 3 warfarin 7.5 mg tablet See Rx Instructions .ROUTE .COMPLEX Qty: 90 RF: 3 warfarin 5 mg tablet See Rx Instructions .ROUTE .COMPLEX Qty: 30 RF: 5 losartan 50 mg tablet 50 mg PO DAILY RF: 0 carvedilol 12.5 mg tablet 12.5 mg PO Q12H RF: 0 furosemide [Lasix] 40 mg tablet 20 mg PO DAILY Qty: 30 RF: 0 Discontinued levofloxacin 750 mg tablet 750 mg PO DAILY 7 Days Qty: 7 RF: 0 metronidazole [Flagyl] 500 mg tablet 500 mg PO TID Qty: 28 RF: 0 Discharge Orders: Discharge Order (Routine); Ordered 01/25/21 Ordered By: Jared Miguel Referrals: [facility] [Outside] Jared Miguel MD [Physician] - 02/13/21 2:00 pm (patient needs CT abdomen/pelvis with po and iv contrast ) Malissa Tom MD [Physician] - 2 weeks Tejinder Naranjo MD [Primary Care Provider] - 7-10 days Patient Instructions: Hydrocodone/Acetaminophen (By mouth), Metronidazole (By mouth), Ondansetron (By mouth), Levofloxacin (By mouth), Abdoul-Pinto Drain Care (DC), Laparoscopic Bowel Resection (DC), Opioid Safety Activity Restrictions/Additional Instructions: Diet Clear liquid diet, okay to use nutritional supplements full liquid diet occasionally Activity Avoid strenuous activity for 2 weeks but continue with daily activities including walking as tolerated. Do not lift more than 10 pounds for 2 weeks Return to work/school You can return to work/ school whenever you feel ready as long as you don?t have to lift more than 10 pounds at work. If you have paperwork that needs to be completed for time off from work, please contact my office Driving You can resume driving once you stop using narcotic pain medications, and transition to non-opioid pain medications like Tylenol, Motrin, Aleve, etc. Medications Pain Take opioid pain medications as prescribed and transition to non-opioid pain medications like Tylenol, Motrin, Aleve etc. over the next few days. The goal of the pain medications is to make the pain bearable and not to be pain free since you recently had surgery. Resume all home medications after surgery as per the medication reconciliation list Nausea Nausea is common after surgery, take nausea medications as needed and stay on a liquid bland diet until nausea resolves. Constipation The combination of surgery, anesthesia and pain medications can result in con stipation. Take stool softeners as prescribed. If you do not have a bowel movement in 3 days, please take an nabh-tvt-chnisel laxative like MiraLAX to address the constipation. Shower It is ok to shower but avoid getting the wound wet for 48 hours after surgery. Do not soak in bathtub, swimming pool or hot tub for 2 weeks. Wound care ETIENNE drain: Keep drain to bulb suction, strip ETIENNE drain 3 times a day, monitor 24- hour ETIENNE drain output Apply Desitin cream/zinc oxide paste around the drain site as skin barrier Problems with the wound: you can develop some redness around the incision from bruising after surgery. If there is increasing pain, redness, tenderness around the incision with or without drainage, please contact my office to rule out an infection. Sometimes the skin at the incisions can separate, resulting in reopening of the wound. Cover the wound with antibiotic cream and sterile dressings and contact my office. My office will schedule a CT abdomen and pelvis to be performed prior to follow- up visit in clinic in 2 weeks Contact physician Call the office at [phone] during office hours or go the Emergency Room ?Fever to 100.4 or greater ?Shaking chills ?Pain that increases over time ?Redness, warmth, or pus draining from incision sites ?Persistent nausea or inability to take in liquids Discharge Attestations Time Spent in Discharge Care*: less than 30 min Quality Metrics Clinical Quality Measures During this hospital stay, did patient experience: None Coding Level of Care Code Acute Chg FW DC note Diagnoses S/P small bowel resection Z90.49
--- NOTE | 2021-01-25 14:17 | PC.NUTR ---
Nutrition follow up: Per Dr. Miguel's request, provided printouts regarding multiple types of clear liquid supplements, including some available at local [employer], and provided education on the nutritional content. Discussed pt's calorie and protein needs. Pt with some questions regarding medications--notified physician and nurse. Anticipate difficulty in meeting estimated needs and maintaining weight on clear liquid diet, recommend advance to full liquid and/or soft diet when medically appropriate.See RD assessments for further details.
--- NOTE | 2021-01-25 16:11 | PC.NURSE ---
Patient given discharge instructions and patient verbalized understanding of instructions. patient taken to private vehicle via wheelchair by staff.
[2021-01-25 16:12] VITALS: BP 130/82; PULSE 93; RESP 18; TEMP 37.1; O2SAT 100
== END 2021-01-25 16:13 | disposition home or self-care (01) | DRG 329 ==
LOC: ER 11:49 → ICU 13:29 → MEDSURG 01-07 12:27 → ICU 01-13 03:22 → MEDSURG 01-16 11:20
PROVIDERS: Internal Medicine; Student in an Organized Health Care Education/Training Program; Surgery; Thoracic Surgery (Cardiothoracic Vascular Surgery); Admitting Provider Internal Medicine; Emergency Provider Family Medicine; PCP Family Medicine; Visit Provider Internal Medicine
PROC: 0DTB0ZZ Resection of Ileum, Open Approach (ICD-10-PCS; CPT 49000; principal; 2021-01-05 16:00)
PROC: 0DTB0ZZ Resection of Ileum, Open Approach (ICD-10-PCS; CPT 44120; 2021-01-05 16:00)
PROC: 0BJ08ZZ Inspection of Tracheobronchial Tree, Via Natural or Artificial Opening Endoscopic (ICD-10-PCS; CPT 31622; principal; 2021-01-13 13:30)
DX: K63.1 Perforation of intestine (nontraumatic) (principal); A41.9 Sepsis, unspecified organism; R65.21 Severe sepsis with septic shock; K65.1 Peritoneal abscess; J18.9 Pneumonia, unspecified organism; I50.23 Acute on chronic systolic (congestive) heart failure; J96.01 Acute respiratory failure with hypoxia; E43 Unspecified severe protein-calorie malnutrition; D68.8 Other specified coagulation defects; J98.11 Atelectasis; R18.8 Other ascites; T17.890A Other foreign object in other parts of respiratory tract causing asphyxiation, initial encounter; I25.5 Ischemic cardiomyopathy; Z95.810 Presence of automatic (implantable) cardiac defibrillator; I25.10 Atherosclerotic heart disease of native coronary artery without angina pectoris; I48.91 Unspecified atrial fibrillation; E78.5 Hyperlipidemia, unspecified; I11.0 Hypertensive heart disease with heart failure; Z85.46 Personal history of malignant neoplasm of prostate; F17.210 Nicotine dependence, cigarettes, uncomplicated; I95.9 Hypotension, unspecified; K21.9 Gastro-esophageal reflux disease without esophagitis; Q43.0 Meckel's diverticulum (displaced) (hypertrophic); E87.6 Hypokalemia; Z79.01 Long term (current) use of anticoagulants; Z68.22 Body mass index [BMI] 22.0-22.9, adult
CPT/HCPCS: 31622; 36415; 36416; 36569; 36592; 36600; 51702; 71045; 74018; 74019; 74022; 74177; 74230; 80048; 80051; 80053; 80202; 80500; 81001; 82330; 82550; 82803; 82805; 82962; 83605; 83690; 83735; 83880; 84100; 84145; 85025; 85610; 86900; 87015; 87040; 87070; 87086; 87102; 87116; 87205; 87206; 87305; 87426; 87493; 87641; 87801; 88112; 88305; 88307; 89050; 92611; 94002; 94003; 94640; 94660; 94799; 96365; 96367; 96372; 96375; 97116; 97163; 97530; 99285; A4570; C9290; J0330; J0743; J1650; J1720; J1815; J1940; J2060; J2250; J2270; J2370; J2405; J2543; J2704; J2710; J3010; J3370; J3430; J3475; J3480; J3490; J7030; J7040; J7050; J7168; J7608; J7614; Q9967

== ENCOUNTER 2021-02-12 10:42 | Outpatient (CLI) | payer MEDICARE, MEDICAID, SELFPAY ==
[2021-02-12] MEDS: iohexol 300 mg/mL 100 mL Btl IV (12:54)
--- NOTE | 2021-02-12 13:00 | CT_ITS ---
WS: [id number] CT ABDOMEN PELVIS TECHNIQUE: Contrast-enhanced CT of the abdomen and pelvis with coronal and sagittal reformatted image s. CLINICAL INFORMATION: Z90.49 - Acquired absence of other specified parts of dig... COMPARISON: CT January 16, 2021 January 12, 2021 DLP: 698.[address] scans at [facility] use at least one of these dose optimization techniques: automat ed exposure control; mA and/or kV adjustment per patient size (includes targeted exams where dose is matched to clinical indication); or iterative reconstruction. FINDINGS: Prior postoperative changes distal small bowel resection with anastomosis. Stable appearing pigtail c atheter in the right lower quadrant with tip along the dome of the bladder. Previously described sinu s tract from the sigmoid colon is similar in appearance. Mild thickening of the sigmoid colon is unch anged. Small air-fluid collection adjacent to the suspected sinus tract measures 1.8 x 0.7 cm improve d from previous. Sinus tract seen on series 2 image 65-67. Postoperative changes right lower quadrant have improved. Mild dilatation of proximal small bowel loo ps with a few air-fluid levels likely due to postoperative ileus although improved from previous. No evidence of high-grade obstruction. Contrast is seen in the colon. No other significant changes from previous. Diffuse fatty infiltration the liver. Gallbladder is cont racted. Normal portal vein and splenic vein. Normal left kidney. Left adrenal gland is normal. Right kidney is absent. Lung bases are well aerated. Normal GE junction. Normal spleen. Pancreas appears no rmal. Moderate aortic calcification. Normal caliber abdominal aorta. CT/CT abdomen pelvis w con* [id number] IMPRESSION: 1. Continued improvement of the postoperative changes and fluid collections in the right lower quadrant and pelvis. 2. Stable pigtail catheter right lower quadrant along the dome of the bladder. 3. Suspected sinus tract extending from the sigmoid colon to the small air-flu id collection appears improved. Air-fluid collection today measures 1.8 x 0.7 c m and is nearly resolved. Series 2 images 65 through 67 4. Improved proximal dilatation of small bowel loops with mild dilatation toda y likely due to postoperative ileus. No evidence of high-grade obstruction. 5. Prior postoperative changes distal small bowel resection with anastomosis i n the right lower quadrant. 6. No other significant interval changes.
== END 2021-02-12 10:43 | disposition home or self-care (01) ==
PROVIDERS: PCP Family Medicine; Visit Provider Surgery
DX: Z90.49 Acquired absence of other specified parts of digestive tract (principal); Z96.0 Presence of urogenital implants
CPT/HCPCS: 74177

== ENCOUNTER 2021-03-08 09:16 | Outpatient (CLI) | payer MEDICARE, SELFPAY ==
--- NOTE | 2021-03-08 10:00 | FL_ITS ---
WS: [id number] BARIUM ENEMA GASTROGRAFIN HISTORY: Evaluate for fistula. COMPARISON: None available. FLUOROSCOPY TIME: 1.3 minutes. Gastrografin is inserted under low gravity during fluoroscopy. Good distention of the rectosigmoid region. ETIENNE drain is noted in the RIGHT lower quadrant. There is g ood filling of the colon with Gastrografin. After filling the majority of the colon tract is noted ex tending from the proximal sigmoid medially. There is extravasated contrast extending towards the ETIENNE d rain. This fistulous tract was noted during several images. On the delayed images contrast is noted w ithin the ETIENNE drain. Base of the fistula was probably about 1 cm. FL/FL enema w gastrografin [id number] IMPRESSION: 1. 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 This corresponds to the findings that have been described on prior CT evaluations. Fistula is closely associated with the ETIENNE drain which extends into the pelvis. 2. Otherwise negative.
[2021-03-08] MEDS: diatrizoate meglumine 120 mL Sol PR ×5 (10:29→10:31)
== END 2021-03-08 09:17 | disposition home or self-care (01) ==
LOC: RAD 09:18
PROVIDERS: PCP Family Medicine; Visit Provider Surgery
DX: Z90.49 Acquired absence of other specified parts of digestive tract (principal)
CPT/HCPCS: 74270

== ENCOUNTER → 2021-04-20 12:02 | Outpatient (BNVA) | payer MEDICARE, SELFPAY | PROVIDERS: PCP Family Medicine; Visit Provider Surgery | DX: Z11.52 Encounter for screening for COVID-19 (principal); Z20.822 Contact with and (suspected) exposure to COVID-19 | CPT/HCPCS: 87635 ==

== ENCOUNTER 2021-04-27 07:26 | Day surgery (SDC) | payer MEDICARE, MEDICAID, SELFPAY ==
[2021-04-25 10:55] VITALS: BMI 21.2
--- NOTE | 2021-04-27 07:53 | ANES.PREANE2 ---
Pre-Anesthetic Assessment Pre-Anesthetic Assessment: Height/Weight: Height 1.6 m Weight 54.431 kg Preop Diagnosis: Respiratory failure with mucus plugging Proposed Procedure: Operation Date: 04/27/21 09:30 Proposed Procedures p Colonoscopy 03464 K63.2(Not Applicable) - Jared Miguel MD Familial anesthetic complications: None Was Beta Omero taken within 24 hours: Yes Was Clonidine taken within 24 hours: N/A Last intake: > 8hrs Social: Social History: Tobacco and No alcohol Exam: Pre-Anes Outpt Exam: alert, oriented x 3, clear to auscultation bilaterally and regular rate & rhythm Airway: Cervical ROM: WNL MP: 2 Dentition: Other (no teeth) Pulmonary: Comments: Lung collapse 3 months ago d/t mucus plugging at time of pneumoperitoneum CV/HEM: CV/HEM: CAD (Stent > 1 year ago), CHF and MA Comments: able to achieve 4 METS, with SOB or CP, but gets fatigued, pacemaker/defibrillator Echo CONCLUSIONS Mildly dilated LV cavity. Diffuse hypokinesia of the septum, anteroseptum and the LV apex. LV ejection fraction of 37%. No gross valvular abnormalities noted. No significant pericardial effusion. Pacemaker wire in the right atrium/right ventricle No evidence of LV thrombus based on the contrast echocardiogram Technically difficult study because of the poor ultrasonic window. Contrast echocardiogram was performed to evaluate the LV GI: GI: GERD Comments: pneumoperitoneum. Metabolic: Metabolic: Hyperlipidemia Anesthetic Plan: ASA status: 4 Anesthesia: MAC Risk of > 500 ml blood loss (7ml/kg in children): No PFSH Anesthesia PFSH: Medical History Abnormal lead impedance of implantable cardioverter-defibrillator Atrial fibrillation CAD (coronary artery disease) Colonic fistula GERD (gastroesophageal reflux disease) HTN (hypertension) Hyperlipidemia Ischemic cardiomyopathy Prostate cancer Surgical History H/O prostatectomy S/P ICD (internal cardiac defibrillator) procedure S/P small bowel resection Family History Other CHF (congestive heart failure) Social History Alcohol intake: current Alcohol intake frequency: holidays/special occasions only Lives independently: Yes Household members: other Details: Sister Marital status: Current occupational status: retired Data Anesthesia Cardiac Studies: Echocardiogram 12/30/20
[2021-04-27 08:08] VITALS: BP 120/72; PULSE 88; RESP 18; TEMP 36.1; O2SAT 98
[2021-04-27] MEDS: sodium chloride 0.9% 1,000 ML 30 ML IV (08:35)
--- NOTE | 2021-04-27 08:58 | W.PM.OPSFHP ---
Same Day Surgery H&P Indication for Procedure/HPI DATE OF PROCEDURE: April 27, 2021 CHIEF COMPLAINT/INDICATIONFOR SURGICAL PROCEDURE: colonoscopy PREOP DIAGNOSIS: Respiratory failure with mucus plugging PLANNED PROCEDRUE: Operation Date: 04/27/21 09:30 Proposed Procedures p Colonoscopy 97916 K63.2(Not Applicable) - Jared Miguel MD Medications/Allergies* Home Medications Medication Instructions Recorded Confirmed Type aspirin 325 mg tablet 325 mg PO DAILY 08/30/19 04/27/21 History losartan 50 mg tablet 25 mg PO DAILY tab 02/08/21 04/27/21 History Allergies/Adverse Reactions Allergy/AdvReac Type Severity Reaction Status Date / Time No Known Allergies Allergy Verified 04/27/21 08:15 Pertinent History/Comorbid Conditions* Medical History (Updated 03/09/21 @ 14:34 by Jared Miguel MD) Abnormal lead impedance of implantable cardioverter-defibrillator Atrial fibrillation CAD (coronary artery disease) Colonic fistula GERD (gastroesophageal reflux disease) HTN (hypertension) Hyperlipidemia Ischemic cardiomyopathy Prostate cancer Surgical History (Updated 04/20/21 @ 11:21 by Jared Miguel MD) H/O prostatectomy S/P ICD (internal cardiac defibrillator) procedure S/P small bowel resection Family History (Updated 08/30/19 @ 14:34 by Haydee Munson RN) CHF (congestive heart failure) Social History Alcohol intake: current Alcohol intake frequency: holidays/special occasions only Lives independently: Yes Household members: other Details: Sister Marital status: Current occupational status: retired Pertinent Exam Findings alert, oriented x 3 and regular rate & rhythm Recommendations Surgery/Procedure today Coding Level of Care Code Acute Steam Trap Man for Darrin Spear
[2021-04-27 09:13] VITALS: BP 113/73; PULSE 80; RESP 16; TEMP 36.1; O2SAT 96
--- NOTE | 2021-04-27 14:26 | ANE.PACU2 ---
Inpatient post-anesthesia follow up: Airway intact: Yes Vital signs: Temperature 97.0 F Pulse Rate 80 Respiratory Rate 16 Blood Pressure 113/73 Pulse Oximetry 96 Oxygen Delivery Me thod Room Air Oxygen Flow Rate Fraction of Inspir ed Oxygen Hydration adequate: Yes Nausea and vomiting: No Pain level: 1 Mental status: Baseline
== END 2021-04-27 09:45 | disposition home or self-care (01) ==
PROVIDERS: PCP Family Medicine; Visit Provider Surgery
PROC: 0DJD8ZZ Inspection of Lower Intestinal Tract, Via Natural or Artificial Opening Endoscopic (ICD-10-PCS; CPT 45378; principal; 2021-04-27 09:30)
DX: K63.2 Fistula of intestine (principal); K57.30 Diverticulosis of large intestine without perforation or abscess without bleeding; K64.8 Other hemorrhoids; I25.10 Atherosclerotic heart disease of native coronary artery without angina pectoris; Z95.5 Presence of coronary angioplasty implant and graft; I25.2 Old myocardial infarction; I11.0 Hypertensive heart disease with heart failure; I50.9 Heart failure, unspecified; Z95.0 Presence of cardiac pacemaker; K21.9 Gastro-esophageal reflux disease without esophagitis; E78.5 Hyperlipidemia, unspecified
CPT/HCPCS: 45378; 96360; J2704; J7030

== ENCOUNTER 2021-05-05 10:51 | Emergency (ER) | payer MEDICARE, SELFPAY ==
--- NOTE | 2021-05-05 11:03 | W.ED.GENADLT ---
HPI - General Adult General: Chief complaint: General Medical Stated complaint: COLOSTOMY BAG DRAIN FELL OUT Time Seen by Provider: 05/05/21 11:02 History of Present Illness: HPI narrative: Patient is a 56-year-old male with a history of complete small bowel resection with ileostomy and ETIENNE drain placement followed by Dr. Miguel presenting to the emergency room after his ETIENNE drain fell out. She denies any abdominal complaints with nausea/vomiting, decreased ostomy output, greenish ostomy output, or any other issues. Patient has had a periostomy site that is leaking mildly since the ETIENNE drain fell out. Patient has no other focal complaints. Onset: 1 hr ago Duration:1 hr Location:home Severity:moderate Review of Systems Narrative: Constitutional: No fever, no chills. HEENT: No vision changes CV: No chest pain, no palpitations PULM: no cough, no dyspnea. GI: No abdominal pain, no N/V/D. +ostomy, +mild periostomy site drainage : No dysuria MSKEL: No muscle pain SKIN: No new rashes, no lesions. NEURO: No headache, no focal weakness. HEME: No visible bruises PSYCH: Normal mood PFSH ED PFSH: Medical History (Updated 05/05/21 @ 11:04 by Reinier Sutton MD) Abnormal lead impedance of implantable cardioverter-defibrillator Atrial fibrillation CAD (coronary artery disease) Colonic fistula GERD (gastroesophageal reflux disease) HTN (hypertension) Hyperlipidemia Ischemic cardiomyopathy Prostate cancer Surgical History (Updated 04/27/21 @ 09:11 by Jared Miguel MD) H/O prostatectomy S/P ICD (internal cardiac defibrillator) procedure S/P small bowel resection Status post colonoscopy (04/27/21) diverticulosis, internal hemorrhoids Family History Other CHF (congestive heart failure) Social History Alcohol intake: current Alcohol intake frequency: holidays/special occasions only Lives independently: Yes Household members: other Details: Sister Marital status: Current occupational status: retired Physical Exam Narrative: EXAM NARRATIVE: Head: Atraumatic Eyes: PERRL, conjunctiva without injection ENT: Mucous membrane moist NECK: Supple, ROM intact LUNGS: LCTAB, no crackles/rhonchi CV: RRR ABDOMEN: Soft, No focal TTP. NO guarding rebound, guarding, rigidity. No CVA tenderness to percussion. Neg Tucker/Neg McBurney's point tenderness, no suprabupic tenderness to palpation. +Ostomy site dry/clean/intact, +one periostomy site with mild drainage previously where ETIENNE drain was located EXTREMITY: Normal ROM SKIN: No rash or erythema NEURO: Awake and alert, no focal motor deficits PSYCH: Normal mood and affect Course Vital Signs: Vital signs: Vital Signs Temperature 97.9 F 05/05/21 11:05 Pulse Rate 89 05/05/21 11:05 Respiratory Rate 18 05/05/21 11:05 Pulse Oximetry 97 05/05/21 11:05 MDM - General Adult MDM Narrative: Medical decision making narrative: Patient is a 56-year-old male presenting to the emergency room after his ETIENNE drain fell out. Exam, patient is hemodynamically stable without any focal findings. Patient on exam is noted to have mild site of drainage around the ostomy site where the ETIENNE drain was previously. I have discussed case with Dr. Heart who recommended close follow-up with Dr Miguel. The only concern today is that we do not know there if there is any retained portion of the drain as patient does not know the length of it. We will evaluate with CT abdomen pelvis to make sure there is no retained ETIENNE segment in the abdomen. No retained foreign object fragments on CT. this time, do not suspect any acute infection or surgical emergencies. Patient reassures me that he has a follow-up with Dr. Miguel on Friday. Patient is instructed to come back to the emergency room if have any worsening abdominal pain, green discharge in the colostomy bag, abdominal pain, nausea/vomiting fever/chills, or any new concerning complaints. Patient provided occlusive dressing for site around the ostomy that is leaking. Disposition: Discharge. Patient counseled regarding diagnostic impression, treatment plan. Patient given ED strict return precautions to return for continuation, worsening, or development of new symptoms. Instructed to f/u w/ Dr. Miguel regarding symptoms today. Patient verbalized understanding. Imaging Data^: Other Imaging: Radiologist's impression: [address] [address]IV Scan ReportSigned Patient: Zak Mcdaniels #: [id number]: 1965Acct#:[id number]/Sex: 56 / MADM Date: 05/05/21Loc: ERRoom/Bed:Attending Dr: Ordering Provider/Ordering MD: Reinier Sutton MD Date of Service: 05/05/21 Procedure(s): CT abdomen pelvis wo con [id number] Accession Number(s): [id number] Report Number: [id number] PROCEDURE INFORMATION: Exam: CT Abdomen And Pelvis Without Contrast Exam date and time: 05/05/2021 11:56 AM Age: 56 years old Clinical indication: Retained plastic Abdoul-Pinto drain. Evaluate for retianed drain. TECHNIQUE: Imaging protocol: Computed tomography of the abdomen and pelvis without contrast. Radiation optimization: All CT scans at this facility use at least one of these dose optimization techniques: automated exposure control; mA and/or kV adjustment per patient size (includes targeted exams where dose is matched to clinical indication); or iterative reconstruction. COMPARISON: CT abdomen pelvis w con* [id number] 02/12/2021 12:50 PM RADIATION DOSE METRICS: Total DLP (mGy-cm): 597.88 FINDINGS: Lungs: The lung bases are unremarkable. No pericardial effusion. No hiatal hernia. Liver: The liver is enlarged measuring 19.5 cm. Gallbladder and bile ducts: The gallbladder is largely decompressed. Pancreas: The pancreas is unremarkable. Spleen: The spleen is unremarkable. Adrenal glands: The adrenal glands are unremarkable. Kidneys and ureters: The right kidney is absent. The left kidney is unremarkable. Stomach and bowel: There is decreased inflammation in the pelvis. There is a probable fistulous tract from the sigmoid colon to a contained perforation/collection containing gas in the anterior pelvis that measures 1.6 x 1.0 cm. There is surrounding edema. A right lower quadrant ileostomy is noted. Appendix: The appendix is unremarkable. Intraperitoneal space: No free intraperitoneal air is identified. Vasculature: No abdominal aortic aneurysm.. Retroaortic left renal vein. Lymph nodes: No retroperitoneal lymphadenopathy. Urinary bladder: There is wall thickening of the superior bladder which may be reactive this is adjacent to the suspected contained perforation/collection. This may be reactive. Correlate with urinalysis to assess for cystitis. Reproductive: Probable prior prostatectomy. Bones/joints: There is sclerosis in the rightward and anterior aspect of the L2 vertebral body that appears similar to prior. This could relate to degenerative changes or, possibly, a metastatic lesion. Consider whole-body bone scan to assess for metabolically active bone lesions. No acute fracture is identified. CT/CT abdomen pelvis wo con [id number] IMPRESSION: 1. No catheter fragment is identified in the abdomen and pelvis. 2. There is decreased inflammation in the pelvis. There is a probable fistulous tract from the sigmoid colon to a contained perforation/collection containing gas in the anterior pelvis that is similar in size to prior. There is surrounding edema. 3. There is wall thickening of the superior bladder which may be reactive this is adjacent to the suspected contained perforation/collection. This may be reactive. Correlate with urinalysis to assess for cystitis. 4. There is sclerosis in the rightward and anterior aspect of the L2 vertebral body that appears similar to prior. This could relate to degenerative changes or, possibly, a metastatic lesion. Consider whole-body bone scan to assess for metabolically active bone lesions. 5. Hepatomegaly. Radiation Dose CTDIVOL = (mGy): DLP = 597.88 (mGy-cm) Dictated By:Umer Moctezumaigned By:Umer Moctezumaigned Date/Time:05/05/21 1331DD/ 1156 Discharge Plan Discharge Patient Disposition: Home Clinical Impression: Colostomy care, Colostomy complication Condition: Stable Prescriptions: No Action aspirin 325 mg tablet 325 mg PO DAILY RF: 0 rosuvastatin 20 mg tablet 20 mg PO DAILY Qty: 90 RF: 3 hydrocodone-acetaminophen 5-325 mg tablet 1 tab PO Q6H PRN (Reason: pain) 10 Days Qty: 30 RF: 0 carvedilol 12.5 mg tablet 12.5 mg PO Q12H Qty: 180 RF: 3 losartan 50 mg tablet 25 mg PO DAILY RF: 0 Discharge Orders: Discharge ED (Routine); Ordered 05/05/21 Ordered By: Reinier Sutton Referrals: Tejinder Naranjo MD [Primary Care Provider] - Discharge Diet: Advance as tolerated Discharge Activity: Resume usual activity Patient Instructions: Colostomy Care (ED), Colectomy Diet (ED) Activity Restrictions/Additional Instructions: Please follow-up with your doctor for further evaluation of your symptoms. Come back to the emergency room you have any worsening leakage, redness, fever/chills, or any new concerning complaints. Coding Level of Care Code ED Technical Support Associate for Darrin Spear
[2021-05-05 11:05] VITALS: PULSE 89; RESP 18; TEMP 36.6; O2SAT 97; BMI 20.7
--- NOTE | 2021-05-05 11:56 | CTR_ITS ---
PROCEDURE INFORMATION: Exam: CT Abdomen And Pelvis Without Contrast Exam date and time: 05/05/2021 11:56 AM Age: 56 years old Clinical indication: Retained plastic Abdoul-Pinto drain. Evaluate for retianed drain. TECHNIQUE: Imaging protocol: Computed tomography of the abdomen and pelvis without contrast. Radiation optimization: All CT scans at this facility use at least one of these dose optimization techniques: automated exposure control; mA and/or kV adjustment per patient size (includes targeted exams where dose is matched to clinical indication); or iterative reconstruction. COMPARISON: CT abdomen pelvis w con* [id number] 02/12/2021 12:50 PM RADIATION DOSE METRICS: Total DLP (mGy-cm): 597.88 FINDINGS: Lungs: The lung bases are unremarkable. No pericardial effusion. No hiatal hernia. Liver: The liver is enlarged measuring 19.5 cm. Gallbladder and bile ducts: The gallbladder is largely decompressed. Pancreas: The pancreas is unremarkable. Spleen: The spleen is unremarkable. Adrenal glands: The adrenal glands are unremarkable. Kidneys and ureters: The right kidney is absent. The left kidney is unremarkable. Stomach and bowel: There is decreased inflammation in the pelvis. There is a probable fistulous tract from the sigmoid colon to a contained perforation/collection containing gas in the anterior pelvis that measures 1.6 x 1.0 cm. There is surrounding edema. A right lower quadrant ileostomy is noted. Appendix: The appendix is unremarkable. Intraperitoneal space: No free intraperitoneal air is identified. Vasculature: No abdominal aortic aneurysm.. Retroaortic left renal vein. Lymph nodes: No retroperitoneal lymphadenopathy. Urinary bladder: There is wall thickening of the superior bladder which may be reactive this is adjacent to the suspected contained perforation/collection. This may be reactive. Correlate with urinalysis to assess for cystitis. Reproductive: Probable prior prostatectomy. Bones/joints: There is sclerosis in the rightward and anterior aspect of the L2 vertebral body that appears similar to prior. This could relate to degenerative changes or, possibly, a metastatic lesion. Consider whole-body bone scan to assess for metabolically active bone lesions. No acute fracture is identified. CT/CT abdomen pelvis wo con [id number] IMPRESSION: 1. No catheter fragment is identified in the abdomen and pelvis. 2. There is decreased inflammation in the pelvis. There is a probable fistulous tract from the sigmoid colon to a contained perforation/collection containing gas in the anterior pelvis that is similar in size to prior. There is surrounding edema. 3. There is wall thickening of the superior bladder which may be reactive this is adjacent to the suspected contained perforation/collection. This may be reactive. Correlate with urinalysis to assess for cystitis. 4. There is sclerosis in the rightward and anterior aspect of the L2 vertebral body that appears similar to prior. This could relate to degenerative changes or, possibly, a metastatic lesion. Consider whole-body bone scan to assess for metabolically active bone lesions. 5. Hepatomegaly. Radiation Dose CTDIVOL = (mGy): DLP = 597.88 (mGy-cm)
== END 2021-05-05 14:42 | disposition home or self-care (01) ==
LOC: ER 11:16
PROVIDERS: Emergency Provider Emergency Medicine; PCP Family Medicine
DX: K94.00 Colostomy complication, unspecified (principal); Z43.3 Encounter for attention to colostomy; Z79.82 Long term (current) use of aspirin; I25.10 Atherosclerotic heart disease of native coronary artery without angina pectoris; I10 Essential (primary) hypertension; E78.5 Hyperlipidemia, unspecified; Z85.46 Personal history of malignant neoplasm of prostate
CPT/HCPCS: 74176; 99282

== ENCOUNTER → 2021-09-14 10:34 | Outpatient (BNVA) | payer MEDICARE, MEDICAID, SELFPAY | PROVIDERS: PCP Family Medicine; Visit Provider Internal Medicine Cardiovascular Disease | DX: Z95.0 Presence of cardiac pacemaker (principal) ==

== ENCOUNTER → 2022-03-08 10:45 | Outpatient (BNVA) | payer MEDICARE, MEDICAID, SELFPAY | PROVIDERS: PCP Family Medicine; Visit Provider Internal Medicine Cardiovascular Disease | DX: I25.5 Ischemic cardiomyopathy (principal); I25.10 Atherosclerotic heart disease of native coronary artery without angina pectoris; T82.190A Other mechanical complication of cardiac electrode, initial encounter; I10 Essential (primary) hypertension; E78.2 Mixed hyperlipidemia; Z79.01 Long term (current) use of anticoagulants | CPT/HCPCS: 99214 ==

== ENCOUNTER → 2023-03-07 10:55 | Outpatient (BNVA) | payer MEDICARE, MEDICAID, SELFPAY | PROVIDERS: PCP Family Medicine; Visit Provider Internal Medicine Cardiovascular Disease | DX: I25.5 Ischemic cardiomyopathy (principal); I25.10 Atherosclerotic heart disease of native coronary artery without angina pectoris; T82.190A Other mechanical complication of cardiac electrode, initial encounter; Y71.2 Prosthetic and other implants, materials and accessory cardiovascular devices associated with adverse incidents; I10 Essential (primary) hypertension; E78.2 Mixed hyperlipidemia; Z79.01 Long term (current) use of anticoagulants | CPT/HCPCS: 99214 ==

== ENCOUNTER → 2024-04-28 11:06 | Outpatient (BNVA) | payer MEDICARE, MEDICAID, SELFPAY | PROVIDERS: PCP Family Medicine; Visit Provider Internal Medicine Cardiovascular Disease | DX: R06.02 Shortness of breath (principal) | CPT/HCPCS: 93005 ==

== ENCOUNTER 2024-06-03 08:27 | Outpatient (CLI) | payer MEDICARE, SELFPAY ==
--- NOTE | 2024-06-03 09:15 | USCV_ITS ---
Yinka Mcdaniels Age: 59 Gender: M : 1965 Exam Date: 06/03/2024 09:12 Ordering Phys: Kevon Eli MD ([email or web address]/Experiment) Technologist: DAMON [place] [facility] [place]: CARDIOMYOPATHY BP: / HR: 66 Rhythm: Sinus Technical Quality: Adequate MEASUREMENTS (Male / Female) Normal Values 2D ECHO LV Diastolic Diameter PLAX 5.0 cm 4.2 - 5.9 / 3.9 - 5.3 cm IVS Diastolic Thickness 1.1 cm 0.6 - 1.0 / 0.6 - 0.9 cm IVS Systolic Thickness 1.1 cm LVPW Diastolic Thickness 1.1 cm 0.6 - 1.0 / 0.6 - 0.9 cm LVPW Systolic Thickness 1.5 cm LVOT Diameter 2.0 cm LV Ejection Fraction 2D Teich 45.5 % LV Ejection Fraction MOD 4C 50.2 % LV Ejection Fraction MOD 2C 2.6 % LV Ejection Fraction 2C AL 3.1 % LA Diameter 3.3 cm RA Systolic Volume 4C AL 35.2 ml RA Systolic Volume 4C MOD 33.0 ml LA Sys Volume AL 33.2 cm cubed LA Sys Volume Index AL 19.1 cm cubed/m squared Aorta at Sinotubular Diameter 2.1 cm IVC Diameter 0.9 cm M-MODE LA Ao Ratio MM 1.5 MV E Point Septal Separation 0.8 cm AV Cusp Separation MM 1.0 cm DOPPLER AV Peak Velocity 96.0 cm/s LVOT Peak Velocity 81.0 cm/s AV Area Cont Eq vti 2.7 cm squared AV Area Cont Eq pk 2.7 cm squared MV Area PHT 3.5 cm squared Mitral E to A Ratio 1.1 TV Peak Velocity 102.0 cm/s TR Peak Velocity 120.0 cm/s TR Peak Gradient 5.8 mmHg TR Mean Velocity 75.0 cm/s TR Mean Gradient 2.7 mmHg TR Velocity Time Integral 26.0 cm TV Peak E Velocity 45.0 cm/s PV Peak Velocity 124.0 cm/s FINDINGS Left Ventricle Normal LV size with slightly diminished ejection fraction of 50%. Mild diffuse hypokinesia of the left ventricle. Right Ventricle The right ventricle is normal in size and function. Right Atrium The right atrium is normal in size. Left Atrium The left atrium is normal in size. Mitral Valve No gross abnormalities noted Aortic Valve No gross abnormalities noted. Tricuspid Valve Trace tricuspid valve regurgitation. Pulmonic Valve No gross abnormalities noted Pericardium Normal pericardium without effusion. Aorta Normal ascending aorta dimension. IVC Normal inferior vena cava. CONCLUSIONS Normal LV size with slightly diminished ejection fraction of 50%. Mild diffuse hypokinesia of the left ventricle. Trace tricuspid valve regurgitation. Normal cardia chamber sizes. There is no pericardial effusion. There are no intracardiac masses. Compared to the study from 12/30/2020, there is significant improvement in the LV ejection fraction from 37% to 50% Dr Kevon Eli MD FAC (Electronically Signed) Final Date: 10 June 2024 10:19 S
== END 2024-06-03 08:28 | disposition home or self-care (01) ==
PROVIDERS: PCP Family Medicine; Visit Provider Internal Medicine Cardiovascular Disease
DX: R06.09 Other forms of dyspnea (principal)
CPT/HCPCS: 93306

== ENCOUNTER → 2024-10-29 09:16 | Outpatient (BNVA) | payer MEDICARE, MEDICAID, SELFPAY | PROVIDERS: PCP Family Medicine; Visit Provider Nurse Practitioner Family | DX: I25.5 Ischemic cardiomyopathy (principal); E78.2 Mixed hyperlipidemia; I25.10 Atherosclerotic heart disease of native coronary artery without angina pectoris; I10 Essential (primary) hypertension; Z95.810 Presence of automatic (implantable) cardiac defibrillator; F17.210 Nicotine dependence, cigarettes, uncomplicated; Z79.82 Long term (current) use of aspirin | CPT/HCPCS: 99214 ==

== ENCOUNTER → 2025-05-03 14:14 | Outpatient (BNVA) | payer MEDICARE, SELFPAY | PROVIDERS: PCP Family Medicine; Visit Provider Internal Medicine Cardiovascular Disease | DX: I25.10 Atherosclerotic heart disease of native coronary artery without angina pectoris (principal); I25.5 Ischemic cardiomyopathy; I11.0 Hypertensive heart disease with heart failure; I50.9 Heart failure, unspecified; E78.5 Hyperlipidemia, unspecified; F17.210 Nicotine dependence, cigarettes, uncomplicated; Z95.810 Presence of automatic (implantable) cardiac defibrillator | CPT/HCPCS: 99214 ==